=== PATIENT | male | born 1930 | race Caucasian/White ===

== ENCOUNTER 2017-05-30 11:44 | Inpatient (IN) | payer MEDICARE, OTHER ==
[2017-05-30] VITALS (9 sets, daily range): BP systolic 87–118; BP diastolic 58–93
[~2017-05-30] VITALS: Ht 182.9 cm; Wt 70.9 kg
[~2017-05-30 11:44] MED LIST: ASCO500C14 PO; CEPH500C PO; ENAL20TA; GARL1CAP7 PO; GARL400T13; METO-370 PO; METO50TA7; NF-ESOM40C; PROP1TAB77 PO; WARF-47 PO; WRF2T
[2017-05-30] MEDS ORDERED: NS IV 1000 ML 1,000 ML IV ONE ×2 (12:00→15:45)
[2017-05-30 12:11] LABS: BASOPHILS # (AUTO) 0.1 10^3/uL (0.0-0.1); BASOPHILS % (AUTO) 2 % (0-10); EOSINOPHILS % (AUTO) 1 % (0-10); LYMPHOCYTES # (AUTO) 1.3 X 10^3 (1.0-4.0); LYMPHOCYTES % (AUTO) 23 % (12-44); MEAN CORPUSCULAR HEMOGLOBIN 31 PG (25-34); MEAN CORPUSCULAR HGB CONC 33 G/DL (32-36); MEAN CORPUSCULAR VOLUME 94 FL (80-99); MEAN PLATELET VOLUME 10.2 FL (7.4-10.4); MONOCYTES # (AUTO) 0.9 X 10^3 (0.0-1.0); MONOCYTES % (AUTO) 16 % (0-12); NEUTROPHILS # (AUTO) 3.3 X 10^3 (1.8-7.8); NEUTROPHILS % (AUTO) 59 % (42-75); PLATELET COUNT 176 10^3/uL (130-400); RED BLOOD COUNT 4.11 10^6/uL (4.35-5.85); RED CELL DISTRIBUTION WIDTH 15.4 % (10.0-14.5); WHITE BLOOD COUNT 5.7 10^3/uL (4.3-11.0)
[2017-05-30 12:16] LABS: INR 1.8 (0.8-1.4); PROTHROMBIN TIME PATIENT 20.6 SEC (12.2-14.7)
[2017-05-30 12:26] LABS: ALANINE AMINOTRANSFERASE 11 U/L (0-55); ALBUMIN 3.6 GM/DL (3.2-4.5); ANION GAP 15 MMOL/L (5-14); ASPARTATE AMINO TRANSFERASE 18 U/L (5-34); BILIRUBIN,TOTAL 1.1 MG/DL (0.1-1.0); BLOOD UREA NITROGEN 16 MG/DL (7-18); BUN/CREATININE RATIO 11; CALCIUM 9.1 MG/DL (8.5-10.1); CARBON DIOXIDE 15 MMOL/L (21-32); CHLORIDE 106 MMOL/L (98-107); CREATININE SERUM 1.47 MG/DL (0.60-1.30); GFR ESTIMATED 46; GLUCOSE 128 MG/DL (70-105); MAGNESIUM 1.8 MG/DL (1.8-2.4); POTASSIUM 4.5 MMOL/L (3.6-5.0); SODIUM 136 MMOL/L (135-145); TOTAL PROTEIN 6.9 GM/DL (6.4-8.2)
[2017-05-30 12:31] LABS: TROPONIN I < 0.30 NG/ML (<0.30)
--- NOTE | 2017-05-30 12:44 | Diagnostic Imaging Report ---
EXAMINATION: Portable upright radiograph of the chest. INDICATION: Weakness. COMPARISON: 03/19/12 FINDINGS: The lungs are hyperinflated with chronic appearing interstitial thickening and possible component of superimposed vascular congestion. The heart size is moderately enlarged. No significant effusion. No pneumothorax. IMPRESSION: COPD. Cardiomegaly with mild vascular congestion. Dictated by: Dictated on workstation # [id number]
--- NOTE | 2017-05-30 12:54 | ED General ---
General Chief Complaint: Trauma-Non Activation Stated Complaint: WEAKNESS Nursing Triage Note: SEE TRIAGE NOTE. Nursing Sepsis Screen: No Definite Risk Source of Information: Patient, Family Exam Limitations: No Limitations History of Present Illness Time Seen by Provider: 11:47 Initial Comments This 86-year-old gentleman presents to the emergency room after having a fall while pulling garlic. He had a prodrome of dizziness before falling and then could not get up. There was no loss of consciousness. His female fire fighting equipment specialist eventually got him to the car and brought him to the emergency room. The time of fall was around 10:30. He is noted to be febrile with a temperature of 100.6 on arrival. He has some minor skin tears and bruising on the extremities and chin. He takes warfarin for atrial fibrillation. He is mildly tachycardic on assessment. He reports feeling bloated on his face and arms but otherwise feels fine. He reports just coming off of antibiotics for a bladder infection. Dr. Fernandez is his primary care provider. He cannot recall who his medical billing coder is. Patient reports he was previously on metoprolol but discontinued it for unexplained reasons. Patient poorly has also seen Dr. Hernandez due to prostate and urethral problems. He reportedly had a urethral or penile stent placed. Patient denies any chest pain or shortness of breath. Allergies and Home Medications Allergies Coded Allergies: No Known Drug Allergies (Verified , 11/22/09) Home Medications No Active Prescriptions or Reported Meds Constitutional: see HPI, fever EENTM: see HPI Respiratory: no symptoms reported Cardiovascular: no symptoms reported Gastrointestinal: no symptoms reported Genitourinary: see HPI Musculoskeletal: see HPI Skin: see HPI Psychiatric/Neurological: See HPI Hematologic/Lymphatic: No Symptoms Reported Past Tzpwdln-Qjzlla-Vpxqic Hx Patient Social History Alcohol Use: Denies Use Recreational Drug Use: No Smoking Status: Never a Smoker Former Smoker/When Quit: Feb 06, 2001 Recent Foreign Travel: No Contact w/Someone Who Travel: No Recent Infectious Disease Expo: No Immunizations Up To Date Tetanus Booster (TDap): Less than 5yrs PED Vaccines UTD: Yes Surgeries HX Surgeries: Yes (penile or urethral stent placement) Surgeries: Prostatectomy, Renal Respiratory Hx Respiratory Disorders: No Cardiovascular Hx Cardiac Disorders: Yes Cardiac Disorders: Atrial Fibrillation, Hypertension Neurological Hx Neurological Disorders: No Reproductive System Hx Reproductive Disorders: No Sexually Transmitted Disease: No HIV/AIDS: No Genitourinary Hx Genitourinary Disorders: Yes Genitourinary Disorders: Kidney Stones Gastrointestinal Hx Gastrointestinal Disorders: Yes Gastrointestinal Disorders: Gastroesophageal Reflux Musculoskeletal Hx Musculoskeletal Disorders: No Endocrine Hx Endocrine Disorders: No HEENT HX ENT Disorders: Yes HEENT Disorders: Cataract Loss of Vision: Denies Hearing Impairment: Hard of Hearing Cancer Hx Cancer: Yes Cancer: Skin Psychosocial Hx Psychiatric Problems: No Integumentary HX Skin/Integumentary Disorder: No Blood Transfusions Hx Blood Disorders: No Adverse Reaction to a Blood Tr: No Family Medical History Family Medial History: Patient reports no known family medical history. Physical Exam Vital Signs Vital Sign - Last 12Hours 05/30/17 05/30/17 05/30/17 11:45 14:37 15:20 Temp 100.6 Pulse 114 Resp 18 B/P (MAP) 105/74 Pulse Ox 98 O2 Delivery Room Air Capillary Refill : Less Than 3 Seconds General Appearance: No Apparent Distress, WD/WN HEENT: PERRL/EOMI, TMs Normal, Pharynx Normal, Other (abrasion to the chin) Neck: Normal Inspection, Non Tender, Supple Respiratory: Lungs Clear, Normal Breath Sounds, No Accessory Muscle Use, No Respiratory Distress Cardiovascular: No Edema, No Murmur, Irregularly Irregular, Tachycardia Gastrointestinal: Normal Bowel Sounds, Non Tender, Soft Extremity: Normal Capillary Refill, Normal Inspection, Non Tender Neurologic/Psychiatric: Alert, Oriented x3, No Motor/Sensory Deficits, Normal Mood/Affect, gate agent II-XII Norm as Tested Skin: Warm/Dry, Erythema (bruising on extremities), Other (mild skin tears on the upper extremities) Progress/Results/Core Measures Results/Orders Lab Results Laboratory Tests Test 05/30/17 11:53 05/30/17 12:59 05/30/17 14:30 Range/Units White Blood Count 5.7 4.3-11.0 10^3/uL Red Blood Count 4.11 L 4.35-5.85 10^6/uL Hemoglobin 12.6 L 13.3-17.7 G/DL Hematocrit 39 L 40-54 % Mean Corpuscular Volume 94 80-99 FL Mean Corpuscular Hemoglobin 31 25-34 PG Mean Corpuscular Hemoglobin Concent 33 32-36 G/DL Red Cell Distribution Width 15.4 H 10.0-14.5 % Platelet Count 176 130-400 10^3/uL Mean Platelet Volume 10.2 7.4-10.4 FL Neutrophils (%) (Auto) 59 42-75 % Lymphocytes (%) (Auto) 23 12-44 % Monocytes (%) (Auto) 16 H 0-12 % Eosinophils (%) (Auto) 1 0-10 % Basophils (%) (Auto) 2 0-10 % Neutrophils # (Auto) 3.3 1.8-7.8 X 10^3 Lymphocytes # (Auto) 1.3 1.0-4.0 X 10^3 Monocytes # (Auto) 0.9 0.0-1.0 X 10^3 Eosinophils # (Auto) 0.0 0.0-0.3 10^3/uL Basophils # (Auto) 0.1 0.0-0.1 10^3/uL Prothrombin Time 20.6 H 12.2-14.7 SEC INR Comment 1.8 H 0.8-1.4 Sodium Level 136 135-145 MMOL/L Potassium Level 4.5 3.6-5.0 MMOL/L Chloride Level 106 98-107 MMOL/L Carbon Dioxide Level 15 L 21-32 MMOL/L Anion Gap 15 H 5-14 MMOL/L Blood Urea Nitrogen 16 7-18 MG/DL Creatinine 1.47 H 0.60-1.30 MG/DL Estimat Glomerular Filtration Rate 46 BUN/Creatinine Ratio 11 Glucose Level 128 H 70-105 MG/DL Calcium Level 9.1 8.5-10.1 MG/DL Magnesium Level 1.8 1.8-2.4 MG/DL Total Bilirubin 1.1 H 0.1-1.0 MG/DL Aspartate Amino Transf (AST/SGOT) 18 5-34 U/L Alanine Aminotransferase (ALT/SGPT) 11 0-55 U/L Alkaline Phosphatase 60 40-136 U/L Troponin I < 0.30 <0.30 NG/ML Total Protein 6.9 6.4-8.2 GM/DL Albumin 3.6 3.2-4.5 GM/DL Urine Color YELLOW Urine Clarity SLIGHTLY CLOUDY Urine pH 5 5-9 Urine Specific [place] 1.020 1.016-1.022 Urine Protein 2+ H NEGATIVE Urine Glucose (UA) NEGATIVE NEGATIVE Urine Ketones 1+ H NEGATIVE Urine Nitrite NEGATIVE NEGATIVE Urine Bilirubin NEGATIVE NEGATIVE Urine Urobilinogen 4 H NORMAL MG/DL Urine Leukocyte Esterase 2+ H NEGATIVE Urine RBC (Auto) 4+ H NEGATIVE Urine RBC 2-5 H /HPF Urine WBC 5-10 H /HPF Urine Squamous Epithelial Cells RARE /HPF Urine Crystals PRESENT H /LPF Urine Uric Acid Crystals FEW H /LPF Urine Bacteria TRACE /HPF Urine Casts PRESENT /LPF Urine Hyaline Casts 5-10 H /LPF Urine Mucus SMALL H /LPF Urine Culture Indicated YES Lactic Acid Level 1.67 0.50-2.00 MMOL/L My Orders Orders - MARCELO SNOW MD Ct Head/Cervical Spine Wo (05/30/17 12:00) Saline Lock/Iv-Start (05/30/17 12:00) Ekg Tracing (05/30/17 12:00) Monitor-Rhythm Ecg Trace Only (05/30/17 12:00) Cbc With Automated Diff (05/30/17 12:00) Comprehensive Metabolic Panel (05/30/17 12:00) Magnesium (05/30/17 12:00) Troponin I (05/30/17 12:00) Ua Culture If Indicated (05/30/17 12:00) Chest 1 View, Ap/Pa Only (05/30/17 12:00) Protime With Inr (05/30/17 12:00) Ns Iv 1000 Ml (Sodium Chloride 0.9%) (05/30/17 12:00) Urine Culture (05/30/17 12:59) Sodium Chloride (Ad... W/Diltiazem Drip (05/30/17 14:00) Ns Iv 500 Ml (Sodium Chloride 0.9%) (05/30/17 13:50) Ceftriaxone Injection (Rocephin Injectio (05/30/17 14:00) Acetaminophen Tablet (Tylenol Tablet) (05/30/17 14:00) Blood Culture (05/30/17 14:04) Lactic Acid Analyzer (05/30/17 14:04) Medications Given in ED Current Medications Medications Dose Ordered Sig/Kory Route Start Time Stop Time Status Last Admin Dose Admin Acetaminophen 1,000 mg ONCE ONCE PO 05/30/17 14:00 05/30/17 14:01 DC 05/30/17 14:08 1,000 MG Ceftriaxone Sodium 1000 mg/ Sodium Chloride 50 ml @ 100 mls/hr ONCE ONCE IV 05/30/17 14:00 05/30/17 14:29 DC 05/30/17 14:43 100 MLS/HR Sodium Chloride 500 ml @ 0 mls/hr Q0M ONCE IV 05/30/17 13:50 05/30/17 13:52 DC 05/30/17 14:09 500 MLS/HR Sodium Chloride 1,000 ml @ 0 mls/hr Q0M ONCE IV 05/30/17 12:00 05/30/17 12:04 DC 05/30/17 12:22 1,000 MLS/HR Vital Signs/I&O Vital Sign - Last 12Hours 05/30/17 05/30/17 05/30/17 05/30/17 11:45 14:01 14:37 15:20 Temp 100.6 98.0 Pulse 114 100 Resp 18 18 B/P (MAP) 105/74 100/71 Pulse Ox 98 05/30/17 05/30/17 05/30/17 15:20 17:24 18:04 Temp 98.0 97.1 97.7 Pulse 85 Resp 14 B/P (MAP) 96/75 Pulse Ox 100 O2 Delivery Room Air Blood Pressure Mean: 84 Progress Note : Time: 13:55 Progress Note Patient's tachycardia did not improve with a liter of IV hydration. Patient remains in atrial fibrillation. UA has now returned and is suggestive of urinary tract infection. Sepsis is now suspected. Blood cultures and lactic acid will be drawn. Rocephin has been ordered. An additional 500 mL of normal saline has been ordered as his last systolic blood pressure was 90. Cardizem drip will be initiated at 10 mg per hour. Tylenol was ordered. Presence of true sepsis is debatable as patient also has tachycardia related to atrial fibrillation and is felt to be hypovolemic from being outside in hot conditions. His urine also suggest hypovolemia with hyalin casts and positive ketones. If the lactic acid is markedly elevated, condition may be upgraded to severe sepsis. ECG Initial ECG Impression Date: May 30, 2017 Initial ECG Impression Time: 12:09 Initial ECG Rate: 111 Initial ECG Rhythm: A Fib/Flutter Comment Atrial fibrillation with rapid ventricular response. Repolarization abnormality in lateral leads. Diagnostic Imaging Diagonstic Imaging: Xray Plain Films/CT/US/NM/MRI: chest Comments Chest x-ray viewed by me and report reviewed. See report below: NAME: INDIRA TODD [facility] REC#: [id number] PT STATUS: REG ER : 1930 PHYSICIAN: MARCELO SNOW MD ADMIT DATE: 05/30/17/ER Draft Date of Exam:05/30/17 CHEST 1 VIEW, AP/PA ONLY EXAMINATION: Portable upright radiograph of the chest. INDICATION: Weakness. COMPARISON: 03/19/12 FINDINGS: The lungs are hyperinflated with chronic appearing interstitial thickening and possible component of superimposed vascular congestion. The heart size is moderately enlarged. No significant effusion. No pneumothorax. IMPRESSION: COPD. Cardiomegaly with mild vascular congestion. Dictated on workstation # [id number] Dict: 05/30/17 1236 Trans: 05/30/17 1244 [facility] [id number] Interpreted by: ARYAN STAPLETON MD Electronically signed by: Diagonstic Imaging: CT Plain Films/CT/US/NM/MRI: c-spine, head Comments CT head and cervical spine viewed by me and report reviewed. See report below: NAME: INDIRA TODD [facility] REC#: [id number] PT STATUS: REG ER : 1930 PHYSICIAN: MARCELO SNOW MD ADMIT DATE: 05/30/17/ER Draft Date of Exam:05/30/17 CT HEAD/CERVICAL SPINE WO PROCEDURE: CT head and CT cervical spine without contrast. TECHNIQUE: Multiple contiguous axial images were obtained through the brain and cervical spine without the use of intravenous contrast. Sagittal and coronal reformations through the cervical spine were then performed. INDICATION: Weakness. Fall. FINDINGS: CT HEAD: There is no intracranial hemorrhage, edema or mass effect. The brain parenchyma demonstrates periventricular and deep white matter hypodensities compatible with chronic microvascular ischemic changes. There are also hypodense subcentimeter lesions in the basal ganglia seen likely related to lacunar infarcts. There is no hydrocephalus. No extra-axial fluid collection is seen. There is mild age-related brain atrophy which appears more prominent in the parietal regions. CT CERVICAL SPINE: There is a minimal posterior translation of C4 over C5 up to 2 mm. The alignment otherwise satisfactory at the posterior spinal line, and the facet joints. There is also satisfactory alignment of the lateral masses of C1 and C2 and atlantooccipital joints. No pre-dental space widening is seen. There are degenerative changes at this level noted, however. There are also prominent degenerative changes at the facet joints at multiple levels. Moderate stenosis in the left C3/C4 foramen is seen. Otherwise, the foramina demonstrate no high-grade stenosis at other levels. No evidence of significant spinal canal stenosis based on this CT without intrathecal contrast. The prevertebral soft tissues appear grossly unremarkable. Emphysema changes in the lung apices are seen. IMPRESSION: CT HEAD: Mild brain atrophy more prominent to the parietal regions, probably age-related. Chronic microvascular white matter ischemic changes are also suggested. No intracranial hemorrhage. CT CERVICAL SPINE: Prominent degenerative changes. No fracture seen. Dictated on workstation # [id number] Dict: 05/30/17 1251 Trans: 05/30/17 1314 [facility] [id number] Interpreted by: ARYAN STAPLETON MD Departure Communication Time/Spoke to Admitting Phy: 14:[address] Sherwood Time/Spoke to Consulting Physi: 13:55 Communication/Consulting Dr. Wisdom Impression Impression: Primary Impression: Atrial fibrillation with rapid ventricular response Additional Impressions: Sepsis Qualified Codes: A41.9 - Sepsis, unspecified organism Urinary tract infection Qualified Codes: N39.0 - Urinary tract infection, site not specified Fall on same level Qualified Codes: W18.30XA - Fall on same level, unspecified, initial encounter Acute kidney injury Disposition: ADMITTED INPATIENT Condition: Improved Decision to Admit Reason: Admit from ER (General) Decision to Admit/Date: May 30, 2017 Time/Decision to Admit Time: 13:50 Departure-Patient Inst. Referrals: CIRO FERNANDEZ MD (PCP/Family) Primary Care Physician Scripts No Active Prescriptions or Reported Meds Copy Copies To 1: CIRO FERNANDEZ MD, JOSHUA T MD May 30, 2017 12:54
[2017-05-30 13:06] LABS: BILIRUBIN,URINE NEGATIVE (NEGATIVE); KETONES,URINE 1+ (NEGATIVE); LEUKOCYTE ESTERASE ,URINE 2+ (NEGATIVE); NITRITE,URINE NEGATIVE (NEGATIVE); PH,URINE 5 (5-9); PROTEIN,URINE 2+ (NEGATIVE); UROBILINOGEN,URINE 4 MG/DL (NORMAL)
--- NOTE | 2017-05-30 13:15 | Diagnostic Imaging Report ---
PROCEDURE: CT head and CT cervical spine without contrast. TECHNIQUE: Multiple contiguous axial images were obtained through the brain and cervical spine without the use of intravenous contrast. Sagittal and coronal reformations through the cervical spine were then performed. INDICATION: Weakness. Fall. FINDINGS: CT HEAD: There is no intracranial hemorrhage, edema or mass effect. The brain parenchyma demonstrates periventricular and deep white matter hypodensities compatible with chronic microvascular ischemic changes. There are also hypodense subcentimeter lesions in the basal ganglia seen likely related to lacunar infarcts. There is no hydrocephalus. No extra-axial fluid collection is seen. There is mild age-related brain atrophy which appears more prominent in the parietal regions. CT CERVICAL SPINE: There is a minimal posterior translation of C4 over C5 up to 2 mm. The alignment otherwise satisfactory at the posterior spinal line, and the facet joints. There is also satisfactory alignment of the lateral masses of C1 and C2 and atlantooccipital joints. No pre-dental space widening is seen. There are degenerative changes at this level noted, however. There are also prominent degenerative changes at the facet joints at multiple levels. Moderate stenosis in the left C3/C4 foramen is seen. Otherwise, the foramina demonstrate no high-grade stenosis at other levels. No evidence of significant spinal canal stenosis based on this CT without intrathecal contrast. The prevertebral soft tissues appear grossly unremarkable. Emphysema changes in the lung apices are seen. IMPRESSION: CT HEAD: Mild brain atrophy more prominent in the parietal regions, probably age-related. Chronic microvascular white matter ischemic changes are also suggested. No intracranial hemorrhage. CT CERVICAL SPINE: Prominent degenerative changes. No fracture seen. Dictated by: Dictated on workstation # [id number]
[2017-05-30 13:28] LABS: SQUAMOUS EPITHELIAL CELL,UR RARE /HPF; URIC ACID CRYSTALS,URINE FEW /LPF
[2017-05-30] MEDS ORDERED: NS IV 500 ML 500 ML IV ONE (13:50)
[2017-05-30] MEDS ORDERED: DILTIAZEM DRIP 100 MG in SODIUM CHLORIDE (ADD-VANTAGE) 100 ML IV SCH (14:00)
[2017-05-30] MEDS ORDERED: cefTRIAXone INJECTION 1,000 MG in NS (IVPB) 50 ML IV ONE (14:00)
[2017-05-30] MEDS ORDERED: ACETAMINOPHEN 500 MG TAB (TYLENOL) PO ONE (14:00)
[2017-05-30] MEDS ORDERED: CATHETER FLUSH 10 ML SYR IV PRN (15:45)
[2017-05-30] MEDS: DILTIAZEM DRIP 100 MG/NS 100 ML IV SCH ×2 (15:50)
--- NOTE | 2017-05-30 16:27 | Consultation-Cardiology ---
HPI-Cardiology Cardiology Consultation Date of Consultation 05/30/17 Date of Admission Time Seen by Provider: 16:21 Indication: atrial fibrillation HPI 86 years old gentleman with history of what appeared to be permanent atrial fibrillation, had episode of atrial fibrillation in 2008 and 2013. Was in his usual state of health until about last week when he started noticing change in the color of his urine, denied any burning on urination, denied any fever or chills. Today he felt lightheaded and dizzy and fell to the floor but did not have any syncope. Did not have any chest pain, shortness of breath, edema. Upon arrival to the emergency room he was noted to be in atrial fibrillation with rapid ventricular response in addition to having urinary tract infection, started on antibiotic and Cardizem drip. Laying down in bed, feeling better at this time. Home Medications & Allergies Allergies: Coded Allergies: No Known Drug Allergies (Verified , 11/22/09) Home Medication List Reviewed: Yes VJU-Bvkbcj-Polgre Hx Patient Social History Marital Status: Employed/Student: retired Alcohol Use: Denies Use Recreational Drug Use: No Smoking Status: Never a Smoker Former smoker/When Quit: Feb 06, 2001 Recent Foreign Travel: No Recent Infectious Disease Expo: No Immunizations Up To Date Tetanus Booster (TDap): Less than 5yrs Past Medical History paroxysmal atrial fibrillation Family Medical History Family Medical Hx noncontributory to his current condition Family History: Patient reports no known family medical history. Constitutional: see HPI, No chills, No diaphoresis, dizziness, No fever, malaise, weakness, No weight gain, No weight loss, No other EENTM: no symptoms reported, see HPI Respiratory: no symptoms reported, see HPI Cardiovascular: no symptoms reported, see HPI Gastrointestinal: no symptoms reported, see HPI Genitourinary: no symptoms reported, see HPI Musculoskeletal: see HPI, joint pain, muscle pain Skin: no symptoms reported, see HPI Psychiatric/Neurological: No Symptoms Reported, See HPI Reviewed Test Results Reviewed Test Results Lab Laboratory Tests Test 05/30/17 11:53 05/30/17 12:59 05/30/17 14:30 Range/Units White Blood Count 5.7 4.3-11.0 10^3/uL Red Blood Count 4.11 L 4.35-5.85 10^6/uL Hemoglobin 12.6 L 13.3-17.7 G/DL Hematocrit 39 L 40-54 % Mean Corpuscular Volume 94 80-99 FL Mean Corpuscular Hemoglobin 31 25-34 PG Mean Corpuscular Hemoglobin Concent 33 32-36 G/DL Red Cell Distribution Width 15.4 H 10.0-14.5 % Platelet Count 176 130-400 10^3/uL Mean Platelet Volume 10.2 7.4-10.4 FL Neutrophils (%) (Auto) 59 42-75 % Lymphocytes (%) (Auto) 23 12-44 % Monocytes (%) (Auto) 16 H 0-12 % Eosinophils (%) (Auto) 1 0-10 % Basophils (%) (Auto) 2 0-10 % Neutrophils # (Auto) 3.3 1.8-7.8 X 10^3 Lymphocytes # (Auto) 1.3 1.0-4.0 X 10^3 Monocytes # (Auto) 0.9 0.0-1.0 X 10^3 Eosinophils # (Auto) 0.0 0.0-0.3 10^3/uL Basophils # (Auto) 0.1 0.0-0.1 10^3/uL Prothrombin Time 20.6 H 12.2-14.7 SEC INR Comment 1.8 H 0.8-1.4 Sodium Level 136 135-145 MMOL/L Potassium Level 4.5 3.6-5.0 MMOL/L Chloride Level 106 98-107 MMOL/L Carbon Dioxide Level 15 L 21-32 MMOL/L Anion Gap 15 H 5-14 MMOL/L Blood Urea Nitrogen 16 7-18 MG/DL Creatinine 1.47 H 0.60-1.30 MG/DL Estimat Glomerular Filtration Rate 46 BUN/Creatinine Ratio 11 Glucose Level 128 H 70-105 MG/DL Calcium Level 9.1 8.5-10.1 MG/DL Magnesium Level 1.8 1.8-2.4 MG/DL Total Bilirubin 1.1 H 0.1-1.0 MG/DL Aspartate Amino Transf (AST/SGOT) 18 5-34 U/L Alanine Aminotransferase (ALT/SGPT) 11 0-55 U/L Alkaline Phosphatase 60 40-136 U/L Troponin I < 0.30 <0.30 NG/ML Total Protein 6.9 6.4-8.2 GM/DL Albumin 3.6 3.2-4.5 GM/DL Urine Color YELLOW Urine Clarity SLIGHTLY CLOUDY Urine pH 5 5-9 Urine Specific [place] 1.020 1.016-1.022 Urine Protein 2+ H NEGATIVE Urine Glucose (UA) NEGATIVE NEGATIVE Urine Ketones 1+ H NEGATIVE Urine Nitrite NEGATIVE NEGATIVE Urine Bilirubin NEGATIVE NEGATIVE Urine Urobilinogen 4 H NORMAL MG/DL Urine Leukocyte Esterase 2+ H NEGATIVE Urine RBC (Auto) 4+ H NEGATIVE Urine RBC 2-5 H /HPF Urine WBC 5-10 H /HPF Urine Squamous Epithelial Cells RARE /HPF Urine Crystals PRESENT H /LPF Urine Uric Acid Crystals FEW H /LPF Urine Bacteria TRACE /HPF Urine Casts PRESENT /LPF Urine Hyaline Casts 5-10 H /LPF Urine Mucus SMALL H /LPF Urine Culture Indicated YES Lactic Acid Level 1.67 0.50-2.00 MMOL/L Physical Exam Vital Signs Vital Sign - Last 12Hours 05/30/17 05/30/17 05/30/17 11:45 14:37 15:20 Temp 100.6 Pulse 114 Resp 18 B/P (MAP) 105/74 Pulse Ox 98 O2 Delivery Room Air Capillary Refill : Less Than 3 Seconds General Appearance: WD/WN, Mild Distress Eyes: Bilateral Eye EOMI, Bilateral Eye Normal Inspection, Bilateral Eye PERRL HEENT: PERRL/EOMI, TMs Normal, Normal ENT Inspection, Pharynx Normal Neck: Full Range of Motion, Normal Inspection, Non Tender, Supple, Carotid Bruit Respiratory: Chest Non Tender, Lungs Clear, Normal Breath Sounds, No Accessory Muscle Use, No Respiratory Distress Cardiovascular: No Edema, No Gallop, No JVD, No Murmur, Normal Peripheral Pulses, Irregularly Irregular, Tachycardia Gastrointestinal: Normal Bowel Sounds, No Organomegaly, No Pulsatile Mass, Non Tender, Soft Back: Normal Inspection, No CVA Tenderness, No Vertebral Tenderness Extremity: Normal Capillary Refill, Normal Inspection, Normal Range of Motion, Non Tender, No Calf Tenderness, No Pedal Edema Neurologic/Psychiatric: Alert, Oriented x3, No Motor/Sensory Deficits, Normal Mood/Affect Skin: Normal Color, Warm/Dry Lymphatic: No Adenopathy A/P-Cardiology Admission Diagnosis Atrial fibrillation Tachycardia Urinary tract infection Acute renal insufficiency Assessment/Plan Atrial fibrillation, most probably permanent atrial fibrillation, maintained on Coumadin as an outpatient, does not take any medication, currently tachycardic, started on Cardizem drip, I had a long discussion with the patient and his family. Discussed the 3R of atrial fibrillation, rhythm control, rate controlled, reducing the risk of stroke. Explained to the family that taking Coumadin would reduce the risk of stroke but does not effect the rhythm or rate. Using rhythm control medication is unlikely to be helpful at this time due to the fact that he has what appear to be permanent atrial fibrillation, I' ll try to achieve adequate rate control with IV fluid and Cardizem and monitor his tolerance and response. Dizziness and near-syncope, probably secondary to urinary tract infection and hypotension UTI, started on antibiotics, managed by primary care physician X Acute renal insufficiency, probably secondary to dehydration, receiving IV fluids, monitor renal function closely. Status post fall, no syncope was reported. MAX PÉREZ MD May 30, 2017 16:27
[2017-05-31] VITALS (18 sets, daily range): BP systolic 96–165; BP diastolic 60–118
[2017-05-31] MEDS: DILTIAZEM DRIP 100 MG/NS 100 ML IV SCH ×2 (03:27)
[2017-05-31 04:36] LABS: MEAN PLATELET VOLUME 10.5 FL (7.4-10.4); RED BLOOD COUNT 3.5 10^6/uL (4.35-5.85); RED CELL DISTRIBUTION WIDTH 15.4 % (10.0-14.5); WHITE BLOOD COUNT 5.3 10^3/uL (4.3-11.0)
[2017-05-31 05:08] LABS: ALANINE AMINOTRANSFERASE 11 U/L (0-55); ALBUMIN 2.9 GM/DL (3.2-4.5); ANION GAP 8 MMOL/L (5-14); ASPARTATE AMINO TRANSFERASE 23 U/L (5-34); BILIRUBIN,TOTAL 0.8 MG/DL (0.1-1.0); BLOOD UREA NITROGEN 14 MG/DL (7-18); BUN/CREATININE RATIO 13; CALCIUM 8.3 MG/DL (8.5-10.1); CARBON DIOXIDE 20 MMOL/L (21-32); CHLORIDE 109 MMOL/L (98-107); GFR ESTIMATED > 60; GLUCOSE 73 MG/DL (70-105); MAGNESIUM 1.8 MG/DL (1.8-2.4); POTASSIUM 3.9 MMOL/L (3.6-5.0); SODIUM 137 MMOL/L (135-145); TOTAL PROTEIN 5.5 GM/DL (6.4-8.2)
[2017-05-31 05:28] LABS: THYROID STIMULATING HORMONE 1.42 UIU/ML (0.35-4.94); TROPONIN I < 0.30 NG/ML (<0.30)
[2017-05-31] MEDS ORDERED: KCL 20 MEQ TAB (K-DUR) PO SCH (06:00)
[2017-05-31] MEDS ORDERED: POTASSIUM CL 10MEQ/50ML IVPB 50 ML IV SCH (06:00)
[2017-05-31] MEDS ORDERED: MAGNESIUM 1 GM/100 ML IVPB 100 ML IV SCH (06:00)
--- NOTE | 2017-05-31 07:25 | Pulmonary Consultation ---
History of Present Illness History of Present Illness Date of Consultation 05/31/17 07:20 Time Seen by Provider: 07:20 Date of Admission Reason for Visit: atrial fibrillation History of Present Illness 86yo with hx of Afib on coumadin presented to ED s/p fall secondary dizziness. Pt could not get up after falling. He did not loose consciousness. Temp in ED was 100.6. and he was recently on Abx for UTI which he just finished. Denies SOB or CP. Denies previous episodes like this. I am consulted for pulmonary/cc management. Thi Allergies and Home Medications Allergies Coded Allergies: No Known Drug Allergies (Verified , 11/22/09) Home Medications No Active Prescriptions or Reported Meds Past Fkpofmu-Vfwkcb-Rkpeth Hx Patient Social History Alcohol Use: Denies Use Recreational Drug Use: No Smoking Status: Former Smoker Type Used: Cigarettes Former Smoker/When Quit: Feb 06, 2001 Recent Foreign Travel: No Contact w/Someone Who Travel: No Recent Infectious Disease Expo: No Physical Abuse Screen: No Sexual Abuse: No Immunizations Up To Date Tetanus Booster (TDap): Less than 5yrs PED Vaccines UTD: Yes Date of Pneumonia Vaccine: May 30, 2016 Seasonal Allergies Seasonal Allergies: No Surgeries HX Surgeries: Yes (penile or urethral stent placement) Surgeries: Prostatectomy, Renal Respiratory Hx Respiratory Disorders: No Cardiovascular Hx Cardiac Disorders: Yes Cardiac Disorders: Atrial Fibrillation, Hypertension Neurological Hx Neurological Disorders: No Reproductive System Hx Reproductive Disorders: No Sexually Transmitted Disease: No HIV/AIDS: No Genitourinary Hx Genitourinary Disorders: Yes Genitourinary Disorders: Kidney Stones, UTI-Chronic Gastrointestinal Hx Gastrointestinal Disorders: Yes Gastrointestinal Disorders: Gastroesophageal Reflux Musculoskeletal Hx Musculoskeletal Disorders: No Musculoskeletal Disorders: Amputee Endocrine Hx Endocrine Disorders: No HEENT HX ENT Disorders: Yes HEENT Disorders: Cataract Loss of Vision: Denies Hearing Impairment: Hard of Hearing Cancer Hx Cancer: Yes Cancer: Skin Psychosocial Hx Psychiatric Problems: No Integumentary HX Skin/Integumentary Disorder: No Blood Transfusions Hx Blood Disorders: No Adverse Reaction to a Blood Tr: No Family Medical History Family Medial History: Cardiovascular disease 19 MOTHER G8 BROTHER G8 SISTER FH: lung cancer 19 FATHER Myocardial infarction G8 BROTHER G8 SISTER Review of Systems Time Seen by Provider: 07:35 Exam Exam Vital Signs Date Time Temp Pulse Resp B/P (MAP) Pulse Ox O2 Delivery O2 Flow Rate FiO2 05/31/17 06:00 80 11 112/79 Room Air 05/31/17 05:00 72 12 108/67 Room Air 05/31/17 04:00 89 13 116/70 87 Room Air 05/31/17 04:00 96 Room Air 05/31/17 04:00 97.2 05/31/17 03:27 80 05/31/17 03:00 74 14 115/69 95 Room Air 05/31/17 02:00 80 9 105/80 96 Room Air 05/31/17 01:00 70 05/31/17 01:00 70 12 96/65 95 Room Air 05/31/17 00:00 94 18 99/62 95 Room Air 05/31/17 00:00 97.9 05/31/17 00:00 96 Room Air 05/30/17 23:00 85 11 99/63 96 Room Air 05/30/17 22:00 81 14 89/68 96 Room Air 05/30/17 21:00 72 12 90/58 96 Room Air 05/30/17 20:21 98.0 05/30/17 20:00 75 15 87/66 96 Room Air 05/30/17 20:00 96 Room Air 05/30/17 19:00 77 21 92/61 96 Room Air 05/30/17 19:00 92 05/30/17 18:04 97.7 05/30/17 18:00 73 22 94/68 96 Room Air 05/30/17 17:24 97.1 05/30/17 17:00 97 30 118/93 98 Room Air 05/30/17 16:00 106 12 108/64 99 Room Air 05/30/17 15:20 Room Air 05/30/17 15:20 98.0 85 14 96/75 100 Room Air 05/30/17 15:20 98.0 05/30/17 14:37 100 18 98 05/30/17 14:01 100/71 05/30/17 11:45 100.6 114 18 105/74 I & O 05/31/17 07:00 Intake Total 1810 ml Output Total 550 ml Balance 1260 ml General Appearance: No Apparent Distress, WD/WN HEENT: PERRL/EOMI, TMs Normal, Pharynx Normal, Other (abrasion to the chin) Neck: Normal Inspection, Non Tender, Supple Respiratory: Lungs Clear, Normal Breath Sounds, No Accessory Muscle Use, No Respiratory Distress Cardiovascular: No Edema, No Murmur, Irregularly Irregular, Tachycardia Capillary Refill: Less Than 3 Seconds Extremity: Normal Capillary Refill, Normal Inspection, Non Tender Neurologic/Psychiatric: Alert, Oriented x3, No Motor/Sensory Deficits, Normal Mood/Affect, cask maker II-XII Norm as Tested Skin: Warm/Dry, Erythema (bruising on extremities), Other (mild skin tears on the upper extremities) Lymphatic: No Adenopathy Results Lab Laboratory Tests 05/30/17 11:53 05/31/17 03:46 Assessment/Plan Assessment/Plan Afib RVR -cardizem gtt -cardiology following -on coumadin Dizziness with s/p fall -head CT no acute change -fall precautions UTI -Continue Abx Rocephin GREGORY -IVF metabolic acidosis -IVF CXR and labs reviewed 254 Clinical Quality Measures DVT/VTE Risk/Contraindication: Risk Factor Score Per Nursin RFS Level Per Nursing on Admit: 2=Moderate GIAN LEE DO May 31, 2017 07:25
[2017-05-31] MEDS ORDERED: APIXABAN 5 MG (ELIQUIS) TABLET PO NR (09:54)
--- NOTE | 2017-05-31 10:04 | Cardiology Progress Note ---
Subjective Date Seen by Provider: May 31, 2017 Time Seen by Provider: 10:00 Subjective/Events-last exam Patient is in bed, feeling better, heart rate is better, no chest pain or shortness of breath Review of Systems General: No Chills, No Night Sweats, No Fatigue, No Malaise, No Appetite, No Other HEENT: No Head Aches, No Visual Changes, No Eye Pain, No Ear Pain, No Dysphasia , No Sinus Congestion, No Post Nasal Drip, No Sore Throat, No Other Pulmonary: No Dyspnea, No Cough, No Pleuritic Chest Pain, No Other Objective-Cardiology Exam Last Set of Vital Signs Vital Signs 05/31/17 05/31/17 06:00 08:00 Temp 97.7 Pulse 80 Resp 11 B/P (MAP) 112/79 Pulse Ox 95 O2 Delivery Room Air Capillary Refill : Less Than 3 Seconds I&O Bad tableGeneral: Alert, Oriented X3, Cooperative HEENT: Atraumatic, PERRLA Neck: Supple, No JVD, No Thyromegaly Lungs: Clear to Auscultation, Normal Air Movement Heart: Normal S1, Normal S2, No Murmurs, Other ( a fib) Abdomen: Normal Bowel Sounds, Soft, No Tenderness, No Hepatosplenomegaly, No Masses Extremities: No Clubbing, No Cyanosis, No Edema, Normal Pulses, No Tenderness/ Swelling Skin: No Rashes, No Breakdown, No Significant Lesion Neuro: Normal Gait, Normal Speech, Strength at 5/5 X4 Ext, Normal Tone, Sensation Intact Psych/Mental Status: Mental Status NL, Mood NL Results Lab Laboratory Tests 05/30/17 11:53 05/31/17 03:46 A/P-Cardiology Admission Diagnosis Atrial fibrillation Tachycardia Urinary tract infection Acute renal insufficiency Assessment/Plan Atrial fibrillation, most probably permanent atrial fibrillation, was not taking any meds as an outpatient, Heart rate is better on cardizem drip, I will start oral cardizem and Eliquis Dizziness and near-syncope, probably secondary to urinary tract infection and hypotension, feeling better UTI, started on antibiotics, managed by primary care physician Acute renal insufficiency, probably secondary to dehydration, better after IVF, continue to monitor Status post fall, no syncope was reported. Clinical Quality Measures DVT/VTE Risk/Contraindication: Risk Factor Score Per Nursin RFS Level Per Nursing on Admit: 2=Moderate MAX PÉREZ MD May 31, 2017 10:04
[2017-05-31] MEDS ORDERED: WARF-47 PO (10:38)
[2017-05-31] MEDS ORDERED: GARL10002 PO (10:38)
[2017-05-31] MEDS ORDERED: DILTIAZEM 120 MG (CARDIZEM CD) CAP PO NR (10:58)
--- NOTE | 2017-05-31 11:15 | History & Physical-Hospitalist ---
HPI History of Present Illness: HPI/Chief Complaint CC: AF with RVR, UTI, and sepsis HPI: This is an 86 [address] pt of [address] Fernandez's who presented to ER with SOB and confusion. Pt was found with the above. Pt was placed on the appropriate meds: abx and Cardizem drip. Cardiology consult is appreciated. Dr. Wisdom Review: Pt started on Khadijah director of product design: Dr. Wisdom is consulted SCDs Pt is DNR Cardizem changed to PO per Dr. Wisdom Patient Interview: Pt confirms PCP as Dr. Fernandez Pt's daughter asked if this incident could cause memory problems. I confirmed that as we age and with more illness, we can all develop memory loss. Pt's daughter states that he has been forgetful Physical exam stable Pt lives at home. Pt's daughter lives across the street and states that when he DCs, she will watch over him. Meds were discussed and pt was informed that he will stay a few more days. Pt's daughter states that he does not walk well and falls often. Pt does not use a walker. Pt's daughter him forgetting to take his meds Scribed by Carine Galindo under the direct supervision of Dr. Garcia. Source: patient Exam Limitations: no limitations Date Seen 05/31/17 Time Seen by Provider: 10:00 Attending Physician Gale Garcia DO PCP Jorje Fernandez MD Referring Physician Date of Admission May 30, 2017 at 14:01 Home Medications & Allergies Home Medications Reviewed patient Home Medication Reconciliation Form Allergies Allergies Coded Allergies No Known Drug Allergies ([id number]/[id number]/09) Past Ccmhsqj-Vtlllp-Vzfjfd Hx Patient Social History Marrital Status: Employed/Student: retired Alcohol Use: Denies Use Recreational Drug Use: No Smoking Status: Former Smoker Former smoker/When Quit: Feb 06, 2001 Type Used: Cigarettes Physical Abuse Screen: No Sexual Abuse: No Recent Foreign Travel: No Contact w/other who traveled: No Recent Infectious Disease Expo: No Immunizations Up To Date Tetanus Booster (TDap): Less than 5yrs Date of Pneumonia Vaccine: May 30, 2016 Seasonal Allergies Seasonal Allergies: No Surgeries HX Surgeries: Yes (penile or urethral stent placement) Surgeries: Prostatectomy, Renal Respiratory Hx Respiratory Disorders: No Cardiovascular Hx Cardiovascular Disorders: Yes Cardiac Disorders: Atrial Fibrillation, Hypertension Neurological Hx Neurological Disorders: Yes Neurological Disorders: Dementia Reproductive System Hx Reproductive Disorders: No Sexually Transmitted Disease: No HIV/AIDS: No Genitourinary Hx Genitourinary Disorders: Yes Genitourinary Disorders: Kidney Stones, UTI-Chronic Gastrointestinal Hx Gastrointestinal Disorders: Yes Gastrointestinal Disorders: Gastroesophageal Reflux Musculoskeletal Hx Musculoskeletal Disorders: No Musculoskeletal Disorders: Amputee Endocrine Hx Endocrine Disorders: No HEENT HX ENT Disorders: Yes HEENT Disorders: Cataract Loss of Vision: Denies Hearing Impairment: Hard of Hearing Cancer Hx Cancer: Yes Cancer: Skin Psychosocial Hx Psychiatric Problems: No Integumentary HX Skin/Integumentary Disorder: No Blood Transfusions Hx Blood Disorders: No Adverse Reaction to a Blood Tr: No Family Medical History Family Hx: Cardiovascular disease 19 MOTHER G8 BROTHER G8 SISTER FH: lung cancer 19 FATHER Myocardial infarction G8 BROTHER G8 SISTER Review of Systems Constitutional: see HPI, weakness EENTM: no symptoms reported Respiratory: no symptoms reported Cardiovascular: palpitations Gastrointestinal: no symptoms reported Genitourinary: no symptoms reported Musculoskeletal: no symptoms reported Skin: no symptoms reported Psychiatric/Neurological: No Symptoms Reported All Other Systems Reviewed Negative Unless Noted: Yes Physical Exam Physical Exam Vital Signs Vital Sign - Last 12Hours 05/30/17 05/30/17 11:45 14:37 Temp 100.6 Pulse 114 Resp 18 B/P (MAP) 105/74 Pulse Ox 98 Capillary Refill : Less Than 3 Seconds General Appearance: No Apparent Distress, WD/WN Eyes: Bilateral Eye Normal Inspection, Bilateral Eye PERRL HEENT: PERRL/EOMI, Normal ENT Inspection, Pharynx Normal Neck: Full Range of Motion, Normal Inspection, Non Tender, Supple, Carotid Bruit Respiratory: Chest Non Tender, Lungs Clear, Normal Breath Sounds, No Accessory Muscle Use, No Respiratory Distress Cardiovascular: No Edema, No Gallop, No JVD, No Murmur, Normal Peripheral Pulses, Irregularly Irregular Gastrointestinal: Normal Bowel Sounds, No Organomegaly, No Pulsatile Mass, Non Tender, Soft Back: Normal Inspection, No CVA Tenderness, No Vertebral Tenderness Extremity: Normal Capillary Refill, Normal Inspection, Normal Range of Motion, Non Tender, No Calf Tenderness, No Pedal Edema Neurologic/Psychiatric: Alert, No Motor/Sensory Deficits, Normal Mood/Affect, Other (poor recall, flat affect) Skin: Normal Color, Warm/Dry Lymphatic: No Adenopathy Results Results/Procedures Lab Laboratory Tests 05/30/17 11:53 05/31/17 03:46 Assessment/Plan Admission Diagnosis Assessment: Sepsis with atrial fibrillation with rapid ventricular response with UTI Multiple falls Obvious dementia with worsening Assessment and Plan Plan: ECHO PT eval ancillary services manager consult Rehab eval Monitor pt Tx to floor DNR Clinical Quality Measures DVT/VTE Risk/Contraindication: Risk Factor Score Per Nursin RFS Level Per Nursing on Admit: 2=Moderate GALE GARCIA DO May 31, 2017 11:15
--- NOTE | 2017-05-31 11:27 | Diagnostic Imaging Report ---
Portable upright radiograph of the chest. INDICATION: Heart failure. COMPARISON: 05/30/17. FINDINGS: There is moderate enlargement of the cardiac size. There is increased pulmonary vascular congestion. Background COPD changes are seen. No significant effusion. No pneumothorax. IMPRESSION: Cardiomegaly with increasing pulmonary vascular congestion. Dictated by: Dictated on workstation # [id number]
--- NOTE | 2017-05-31 13:36 | Physical Therapy Evaluation ---
PT Evaluation-General Medical Diagnosis Admission Date May 30, 2017 at 14:01 Medical Diagnosis: sepsis/UTI/A-Fib with RVR Onset Date: May 30, 2017 Therapy Diagnosis Therapy Diagnosis: generalized weakness Height/Weight Height (Feet): 6 Height (Inches): 0.00 Weight (Pounds): 160 Weight (Ounces): 0.0 Precautions Precautions/Isolations: Standard Precautions Referral Physician: Presley Reason for Referral: Evaluation/Treatment Medical History Pertinent Medical History: Atrial Fib, GERD, HTN Additional Medical History A-fib with RVR Current History fall while pulling wild garlic Reviewed History: Yes Social History Home: Single Level Current Living Status: Alone Entry Into Home: Stairs With Railing PT Steps Into Home: 3 Prior/Core FIM Prior Level of Function Functional [place] Measure 0=Not Assessed/NA 4=Minimal Assistance 1=Total Assistance 5=Supervision or Setup 2=Maximal Assistance 6=Modified [place] 3=Moderate Assistance 7=Complete [place] Bed Mobility: 7 Transfers (B,C,W/C) (FIM): 7 Gait: 7 daughter lives across the street per patient report PT Evaluation-Current Subjective Patient is very agreeable to participate with PT. Pain Numeric Pain Scale: 0-No Pain Location: No Pain Reported Objective Patient Orientation: Normal For Age Problem Solving: Good telemetry ROM/Strength ROM Lower Extremities bilateral LE WNL Strenght Lower Extremities bilateral LE WNL Integumentary/Posture Integumentary refer to nursing notes Bowel Incontinence: Yes Bladder Incontinence: Yes Posture slightly kyphotic Neuromuscular (Tone, Coordination, Reflexes) slightly diminished coordination with FWW use (1st time use) Sensory Vision: Functional Hearing: Impaired Sensation Right Lower Extremit: Intact Sensation Left Lower Extremity: Intact Transfers Functional [place] Measure 0=Not Assessed/NA 4=Minimal Assistance 1=Total Assistance 5=Supervision or Setup 2=Maximal Assistance 6=Modified [place] 3=Moderate Assistance 7=Complete [place] Transfers (B, C, W/C) (FIM): 5 Scootin Rollin Supine to/from Sit: 5 Sit to/from Stand: 5 Gait Mode of Locomotion: Walk Anticipated Mode of Locomotion: Walk Gait (FIM): 5 Distance (FIM): 3=150 ft Distance: 400' Gait Level of Assist: 5 Gait Assistive Device: FWW Comments/Gait Description 10% skilled verbal instruction for FWW use due to 1st time use. Patient demonstrated functional gait sequence and reciprocal pattern with ambulation. Balance Sitting Static: Normal Sitting Dynamic: Normal Standing Static: Normal Standing Dynamic: Normal Assessment/Needs 86 y.o. male, will benefit from short term skilled PT to address functional strength and mobility to improve current LOF. Patient is incontinent urine and BM on this date and, per patient, this is "not normal". RN reports patient has been incontinent both since admission. Rehab Potential: Good PT Skilled Nursing Goals Skilled Nursing Goals PT Skilled Nursing Goals Time Frame: Jun 07, 2017 Transfers (B,C,W/C) (FIM): 6 Gait (FIM): 6 Gait distance (FIM): 3=150 ft Gait Level of Assist: 6 Gait Assistive Device: None, FWW Stairs (FIM): 2 # of Steps: 3 Stairs Level Of Assist: 5 PT Plan Treatment/Plan Treatment Plan: Continue Plan of Care Treatment Plan: Education, Functional Activity Ailyn, Functional Strength, Gait , Safety, Therapeutic Exercise Treatment Duration: Jun 07, 2017 Frequency: 6 times per week Estimated Hrs Per Day: .5 hour per day (PRN) Patient and/or Family Agrees t: Yes Safety Risks/Education Patient Education: Safety Issues Teaching Recipient: Patient Teaching Methods: Discussion Response to Teaching: Verbalize Understanding Discharge Recommendations Therapy D/C Recommendations: Home w/ Family Support, Physical Therapy Home Care Time/GCodes Time In: 1300 Time Out: 1323 Total Billed Treatment Time: 23 Total Billed Treatment 1 visit EVLowC 23 min G Codes Necessary: JACIEL Bullock PT May 31, 2017 13:36
[2017-05-31] MEDS: APIXABAN 5 MG (ELIQUIS) TABLET PO SCH (20:58)
[2017-06-01 03:15] VITALS: BP 121/80
[2017-06-01 05:10] LABS: INR 2.7 (0.8-1.4); PROTHROMBIN TIME PATIENT 28.5 SEC (12.2-14.7)
[2017-06-01 07:45] VITALS: BP 138/96
[2017-06-01] MEDS ORDERED: DILTIAZEM 120 MG (CARDIZEM CD) CAP PO SCH (09:00)
[2017-06-01] MEDS: APIXABAN 5 MG (ELIQUIS) TABLET PO SCH (09:27)
--- NOTE | 2017-06-01 10:23 | Cardiology Progress Note ---
Subjective Date Seen by Provider: Jun 01, 2017 Time Seen by Provider: 10:20 Subjective/Events-last exam patient is laying down in bed, feeling slightly better, denied any chest pain, no shortness of breath, no palpitation. Review of Systems General: No Chills, No Night Sweats, No Fatigue, No Malaise, No Appetite, No Other HEENT: No Head Aches, No Visual Changes, No Eye Pain, No Ear Pain, No Dysphasia , No Sinus Congestion, No Post Nasal Drip, No Sore Throat, No Other Pulmonary: No Dyspnea, No Cough, No Pleuritic Chest Pain, No Other Cardiovascular: No: Chest Pain, Edema, Lt Headedness, Orthopnea, Other, Palpitations, Paroxysmal Noc. Dyspnea Objective-Cardiology Exam Last Set of Vital Signs Vital Signs 06/01/17 07:45 Temp 98.0 Pulse 93 Resp 16 B/P (MAP) 138/96 Pulse Ox 96 O2 Delivery Room Air Capillary Refill : Less Than 3 Seconds I&O Intake and Output 06/01/17 00:00 Intake Total 1180 ml Output Total 1150 ml Balance 30 ml Intake Oral 1130 ml IV Total 50 ml Output Urine Total 1150 ml # Voids 1 # Bowel Movements 5 General: Alert, Oriented X3, Cooperative HEENT: Atraumatic, PERRLA Neck: Supple, No JVD, No Thyromegaly Lungs: Clear to Auscultation, Normal Air Movement Heart: Normal S1, Normal S2, No Murmurs, Other ( a fib) Abdomen: Normal Bowel Sounds, Soft, No Tenderness, No Hepatosplenomegaly, No Masses Extremities: No Clubbing, No Cyanosis, No Edema, Normal Pulses, No Tenderness/ Swelling Skin: No Rashes, No Breakdown, No Significant Lesion Neuro: Normal Gait, Normal Speech, Strength at 5/5 X4 Ext, Normal Tone, Sensation Intact Psych/Mental Status: Mental Status NL, Mood NL Results Lab Laboratory Tests Test 06/01/17 04:00 Range/Units Prothrombin Time 28.5 H 12.2-14.7 SEC INR Comment 2.7 H 0.8-1.4 A/P-Cardiology Admission Diagnosis Atrial fibrillation Tachycardia Urinary tract infection Acute renal insufficiency Assessment/Plan Atrial fibrillation, most probably permanent atrial fibrillation, was not taking any meds as an outpatient, tolerating oral Cardizem and Eliquis well. 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 I discussed with the family and the patient the management plan I recommended conservative management due to his age and comorbid condition. Generalized weakness, multiple falls, start physical therapy. Dizziness and near-syncope, probably secondary to urinary tract infection and hypotension, feeling better UTI, streated with antibiotics and improved. Continue to monitor Acute renal insufficiency, probably secondary to dehydration, better after IVF, continue to monitor Clinical Quality Measures DVT/VTE Risk/Contraindication: Risk Factor Score Per Nursin RFS Level Per Nursing on Admit: 2=Moderate MAX PÉREZ MD Jun 01, 2017 10:23
--- NOTE | 2017-06-01 10:48 | Discharge Summary-Hospitalist ---
Diagnosis/Chief Complaint Date of Admission May 30, 2017 at 14:01 Date of Discharge Admission Diagnosis Assessment: Sepsis with atrial fibrillation with rapid ventricular response with UTI Multiple falls Obvious dementia with worsening Discharge Diagnosis Assessment: Sepsis with atrial fibrillation with rapid ventricular response with UTI Multiple falls Obvious dementia with worsening Plan: ECHO PT eval office services associate consult Rehab eval Monitor pt Tx to floor DNR Reason Hospital Visit/Course CC: AF with RVR, UTI, and sepsis HPI: This is an 86 [address]WM pt of [address] Fernandez's who presented to ER with SOB and confusion. Pt was found with the above. Pt was placed on the appropriate meds: abx and Cardizem drip. Cardiology consult is appreciated. Dr. Wisdom Review: Pt started on Eliquis ocular care technician: Dr. Wisdom is consulted SCDs Pt is DNR Cardizem changed to PO per Dr. Wisdom Patient Interview: Pt confirms PCP as Dr. Fernandez Pt's daughter asked if this incident could cause memory problems. I confirmed that as we age and with more illness, we can all develop memory loss. Pt's daughter states that he has been forgetful Physical exam stable Pt lives at home. Pt's daughter lives across the street and states that when he DCs, she will watch over him. Meds were discussed and pt was informed that he will stay a few more days. Pt's daughter states that he does not walk well and falls often. Pt does not use a walker. Pt's daughter him forgetting to take his meds Scribed by Carine Galindo under the direct supervision of Dr. Garcia. Note from 06/01/17: Patient doing very well and is up ambulating with a walker and doing well He was to go home Cardiology agrees to plan Urine culture no growth to date Cardiology was gracious enough to send in anticoagulation with pediatric social worker giving coupon in addition to rate control med No fever, vital signs stable, pleasant, improved Regular rate and rhythm, clear to auscultation bilaterally No edema Hospital course: Patient had a brief hospital course he was admitted for a 2 for ablation with rapid ventricular response and UTI but urine culture was no growth to date at time of discharge so Rocephin was discontinued. Cardiology manage the patient conservatively on medication and he will need home health and walker order which were set up with pediatric social worker and patient will be discharged in good condition. Discharge Summary Discharge Physical Examination Allergies: Coded Allergies: No Known Drug Allergies (Verified , 11/22/09) Vitals & I&Os Vital Signs Date Time Temp Pulse Resp B/P (MAP) Pulse Ox O2 Delivery O2 Flow Rate FiO2 06/01/17 07:45 98.0 93 16 138/96 96 Room Air Hospital Course Labs (last 24 hrs) Laboratory Tests 06/01/17 04:00: Prothrombin Time 28.5H, INR Comment 2.7H Microbiology 05/30/17 Blood Culture - Preliminary, Resulted No growth 05/30/17 Urine Culture - Final, Complete NO GROWTH Pending Labs Laboratory Tests 06/01/17 04:00: Prothrombin Time 28.5, INR Comment 2.7 Discharge Home Medications: Active Scripts Active Diltiazem 24Hr Cd (Diltiazem HCl) 120 Mg Cap.er.24h 120 Mg PO DAILY Eliquis (Apixaban) 5 Mg Tablet 5 Mg PO BID Reported Garlic 1,000 Mg Capsule 1,000 Mg PO DAILY Instructions to patient/family Please see electonic discharge instructions given to patient. Clinical Quality Measures DVT/VTE Risk/Contraindication: Risk Factor Score Per Nursin RFS Level Per Nursing on Admit: 2=Moderate ZAK GARCIA DO Jun 01, 2017 10:48
[2017-06-01] MEDS ORDERED: APIX5TAB PO (10:54)
[2017-06-01] MEDS ORDERED: DILT120C63 PO (10:54)
--- NOTE | 2017-06-01 11:09 | D/C HH Face to Face Order ---
D/C Face to Face Orders Instructions for Patient Patient Instructions/FollowUp: Obtain appt with Dr Conde in 1 week Obtain appt with Cardiology as instructed Participate with PT to gain strength Physician to follow Patient: Dr Fernandez Discharge Diet for Home: Cardiac Diet Patient Problems: New onset AF w/RVR Falls Memory deficit Patient Data-Allergies,Ht & Wt Patient Allergies: Coded Allergies: No Known Drug Allergies (Verified , 11/22/09) Height (Feet): 6 Height (Inches): 0.00 Weight (Pounds): 156 Weight (Ounces): 4.0 Home Health Need/Face to Face Date of Face to Face: Jun 01, 2017 Clinical Findings: Generalized weakness and fatigue, Shortness of breath, Unsteady gait I have seen Pt [id number]: Yes Discharged To: Home Diagnosis/Conditions: AF w/RVR Falls Weakness Memory deficit Problems/Diagnosis/Condition: Patient is Homebound due to: CognItive deficits, Muscle weakness Homebound Status Due to the above stated illness, injury or surgical procedure (medical condition or diagnosis) and associated clinical findings, the patient is homebound because of his/her inability to leave home except with aid of a supportive device and/or person AND leaving the home requires a considerable and taxing effort or is medically contraindicated. Pt req the following assistanc: Walker Home Health Nursing Orders Home Health Services Order: Nursing Services, Web Design Intern-Evaluate & Treat, Physical Therapy-Evaluate & Treat Home Health Infusion Therapy Line Start Date: May 31, 2017 Certify Stmt I certify that this patient is under my care and that I, a nurse practitioner or a physician; a painter assistant working with me, had a face to face encounter that - meets the physician face to face encounter requirements with this patient as dated. ZAK GARCIA DO Jun 01, 2017 11:09
--- NOTE | 2017-06-01 12:12 | Physical Therapy Daily Note ---
PT Daily Note-Current Subjective Pt sitting in recliner upon arrival visiting with daughters and nursing just leaving. Pt agrees to walk with PT. Pain Location: No Pain Reported Mental Status Patient Orientation: Person, Place, Time, Situation Transfers Functional [place] Measure 0=Not Assessed/NA 4=Minimal Assistance 1=Total Assistance 5=Supervision or Setup 2=Maximal Assistance 6=Modified [place] 3=Moderate Assistance 7=Complete IndependenceIRFPAI Quality Coding Scale 6 Independent with activity with or without an assistive device 5 Patient requires set up or clean up by helper. Patient completes activity by themselves 4 Supervision or touching assist (CGA). [place] provide cues , steadying assist 3 The helper provides less than half the effort to complete the activity 2 The helper provides more than half the effort to complete the activity 1 Dependent. The helper does all the effort to complete an activity 7 Patient refused to complete or attempt activity 9 The patient did not perform the activity before the current illness or injury 88 Not attempted due to Medical conditions or safety concerns Scootin Rollin Supine to/from Sit: 5 Sit to/from Stand: 5 Weight Bearing Weight Bearing Restriction: Full Weight Bearing Location Restriction: LE Bilateral Gait Training Distance (FIM): 3=150 ft Distance: 350' Gait Level of Assist: 5 Gait Persons Needed: 1 Gait Assistive Device: FWW Pt walks with normalized gait but slow kelly. Pt has no LOB. Pt fatigues but recovers quickly. Treatments Pt transfers from supine in bed to EOB to standing using FWW at SBA. Pt ambulates in hallway using FWW at SBA. Pt returns to room to rest due to fatigue. Pt rests supine in bed at end of tx with all needs met. Assessment Current Status: Good Progress Pt has gotten stronger and is transferring and ambulating more independently and safely than previous days. PT Custodial Goals Custodial Goals PT Activity Specialist Goals Time Frame: Jun 07, 2017 Transfers (B,C,W/C) (FIM): 6 Gait (FIM): 6 Gait distance (FIM): 3=150 ft Gait Level of Assist: 6 Gait Assistive Device: None, FWW Stairs (FIM): 2 # of Steps: 3 Stairs Level Of Assist: 5 PT Plan Problem List Problem List: Activity Tolerance, Safety, Gait Treatment/Plan Treatment Plan: Continue Plan of Care Treatment Plan: Education, Functional Activity Ailyn, Functional Strength, Gait , Safety, Therapeutic Exercise Treatment Duration: Jun 07, 2017 Frequency: 6 times per week Estimated Hrs Per Day: .5 hour per day (PRN) Patient and/or Family Agrees t: Yes Safety Risks/Education Patient Education: Gait Training, Transfer Techniques, Correct Positioning, Safety Issues Teaching Recipient: Patient Teaching Methods: Discussion Response to Teaching: Verbalize Understanding Time/GCodes Time In: 920 Time Out: 940 Total Billed Treatment Time: 20 Total Billed Treatment visit, GT (20m) JAMES PECK PTA Jun 01, 2017 12:12
--- OUTSIDE RECORDS SUMMARY | 2017-06-03 09:50 | XMS REPORT | Continuity of Care Document ---
Author Author [facility] Organization [facility] Address Unknown Phone Unavailable Allergies Active Description Code Type Severity Reaction Onset Reported/Identified Relationship to Patient Clinical Status Yes No Known Drug Allergies [id number] Drug Allergy Unknown N/ A 11/22/2009 Medications Problems Date Dx Coded Attending Type Code Diagnosis Diagnosed By 05/11/2010 Ot 427.31 05/11/2010 Ot 816.11 05/11/2010 Ot 882.0 05/11/2010 Ot 959.5 05/11/2010 Ot E000.8 05/11/2010 Ot E016.9 05/11/2010 Ot E849.0 05/11/2010 Ot E919.8 05/11/2010 Ot V58.61 03/14/2015 Ot 709.9 03/14/2015 Ot V72.81 03/14/2015 Ot V74.8 03/14/2015 Ot 397.0 03/14/2015 Ot 427.31 03/14/2015 Ot 786.2 03/14/2015 Ot V15.82 03/28/2015 FABIOLA LUJAN, CIRO R Ot 591 03/28/2015 FABIOLA LUJAN, CIRO R Ot 592.9 04/24/2015 FABIOLA LUJAN, CIRO R Ot 305.1 04/24/2015 FABIOLA LUJAN, CIRO R Ot 600.01 04/24/2015 FABIOLA LUJAN, CIRO R Ot 787.02 04/24/2015 FABIOLA LUJAN, CIRO R Ot 788.30 04/24/2015 FABIOLA LUJAN, CIRO R Ot 789.00 04/25/2015 FABIOLA LUJAN, CIRO R Ot 591 04/25/2015 FABIOLA LUJAN, CIRO R Ot 592.9 02/07/2016 Ot 786.2 02/07/2016 Ot V15.82 02/07/2016 FABIOLA LUJAN, CIRO R Ot 305.1 02/07/2016 FABIOLA LUJAN, CIRO R Ot 600.01 02/07/2016 FABIOLA LUJAN, CIRO R Ot 787.02 02/07/2016 FABIOLA LUJAN, CIRO R Ot 788.30 02/07/2016 FABIOLA LUJAN, CIRO R Ot 789.00 02/07/2016 FABIOLA LUJAN, CIRO R Ot 591 02/07/2016 FABIOLA LUJAN, CIRO R Ot 592.9 02/07/2016 Ot 786.2 02/07/2016 Ot V15.82 02/07/2016 FABIOLA LUJAN, CIRO R Ot 305.1 02/07/2016 FABIOLA LUJAN, CIRO R Ot 600.01 02/07/2016 FABIOLA LUJAN, CIRO R Ot 787.02 02/07/2016 FABIOLA LUJAN, CIRO R Ot 788.30 02/07/2016 FABIOLA LUJAN, CIRO R Ot 789.00 02/07/2016 FABIOLA LUJAN, CIRO R Ot 591 02/07/2016 FABIOLA LUJAN, CIRO R Ot 592.9 02/09/2016 FABIOLA LUJAN, CIRO R Ot I10 ESSENTIAL (PRIMARY) HYPERTENSION 02/09/2016 FABIOLA LUJAN, CIRO R Ot I42.9 CARDIOMYOPATHY, UNSPECIFIED 02/09/2016 FABIOLA LUJAN, CIRO R Ot I48.91 UNSPECIFIED ATRIAL FIBRILLATION 02/09/2016 FABIOLA LUJAN, CIRO R Ot K21.9 GASTRO-ESOPHAGEAL REFLUX DISEASE WITHOUT 02/09/2016 FABIOLA LUJAN, CIRO R Ot R30.0 DYSURIA 02/09/2016 FABIOLA LUJAN CIRO R Ot R31.9 HEMATURIA, UNSPECIFIED 02/09/2016 FABIOLA LUJAN, CIRO R Ot R39.19 OTHER DIFFICULTIES WITH MICTURITION 02/09/2016 FABIOLA LUJAN, CIRO R Ot R79.1 ABNORMAL COAGULATION PROFILE 02/09/2016 CIRO HICKS MD R Ot T45.515A ADVERSE EFFECT OF ANTICOAGULANTS, INITIA 02/09/2016 CIRO HICKS MD R Ot Z23 ENCOUNTER FOR IMMUNIZATION 02/09/2016 CIRO HICKS MD R Ot Z79.01 HALF-WAY (CURRENT) USE OF ANTICOAGULANT 02/09/2016 CIRO HICKS MD R Ot Z87.442 PERSONAL HISTORY OF URINARY CALCULI 02/09/2016 FABIOLA LUJAN, CIRO R Ot Z90.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( 05/30/2017 Ot 786.2 COUGH 05/30/2017 Ot V15.82 HISTORY OF TOBACCO USE 05/30/2017 CIRO HICKS MD R Ot 305.1 TOBACCO USE DISORDER 05/30/2017 CIRO HICKS MD R Ot 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 05/30/2017 CIRO HICKS MD R Ot 787.02 NAUSEA ALONE 05/30/2017 CIRO HICKS MD R Ot 788.30 UNSPECIFIED URINARY INCONTINENCE 05/30/2017 CIRO HICKS MD R Ot 789.00 ABDOMINAL PAIN, UNSPECIFIED SITE 05/30/2017 CIRO HICKS MD R Ot 591 HYDRONEPHROSIS 05/30/2017 CIRO HICKS MD R Ot 592.9 URINARY CALCULUS NOS 05/31/2017 RADHA KELSEY ZAK Ot A41.9 SEPSIS, UNSPECIFIED ORGANISM 05/31/2017 RADHA KELSEY ZAK Ot E86.1 HYPOVOLEMIA 05/31/2017 RADHA KELSEY ZAK Ot E87.2 ACIDOSIS 05/31/2017 RADHA KELSEY ZAK Ot H91.90 UNSPECIFIED HEARING LOSS, UNSPECIFIED EA 05/31/2017 RADHA KELSEY ZAK Ot I10 ESSENTIAL (PRIMARY) HYPERTENSION 05/31/2017 RADHA KELSEY ZAK Ot I48.2 CHRONIC ATRIAL FIBRILLATION 05/31/2017 RADHA KELSEY ZAK Ot K21.9 GASTRO-ESOPHAGEAL REFLUX DISEASE WITHOUT 05/31/2017 RADHA KELSEY ZAK Ot N17.9 ACUTE KIDNEY FAILURE, UNSPECIFIED 05/31/2017 RADHA KELSEY ZAK Ot N39.0 URINARY TRACT INFECTION, SITE NOT SPECIF 05/31/2017 RADHA KELSEY ZAK Ot S00.81XA ABRASION OF OTHER PART OF HEAD, INITIAL 05/31/2017 RADHA KELSEY ZAK Ot W18.30XA FALL ON SAME LEVEL, UNSPECIFIED, INITIAL 05/31/2017 RADHA KELSEY ZAK Ot Y92.007 GARDEN OR YARD OF [facility] NON-INSTITUT RESI 05/31/2017 CAROL GARCIA DOI Ot Y93.H2 ACTIVITY, GARDENING AND LANDSCAPING 05/31/2017 ZAK GARCIA DO Ot Z66 DO NOT RESUSCITATE 05/31/2017 ZAK GARCIA DO Ot Z79.01 CONTROL DIRECTOR (CURRENT) USE OF ANTICOAGULANT 05/31/2017 ZAK GARCIA DO Ot Z87.891 PERSONAL HISTORY OF NICOTINE DEPENDENCE 05/31/2017 ZAK GARCIA DO Ot Z90.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( 05/31/2017 ZAK GARCIA DO Ot Z96.0 PRESENCE OF UROGENITAL IMPLANTS 05/31/2017 Ot 786.2 COUGH 05/31/2017 Ot V15.82 HISTORY OF TOBACCO USE 05/31/2017 FABIOLA LUJAN, CIRO R Ot 305.1 TOBACCO USE DISORDER 05/31/2017 FABIOLA LUJAN, CIRO R Ot 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 05/31/2017 FABIOLA LUJAN, CIRO R Ot 787.02 NAUSEA ALONE 05/31/2017 CIRO HICKS MD R Ot 788.30 UNSPECIFIED URINARY INCONTINENCE 05/31/2017 CIRO HICKS MD R Ot 789.00 ABDOMINAL PAIN, UNSPECIFIED SITE 05/31/2017 CIRO HICKS MD R Ot 591 HYDRONEPHROSIS 05/31/2017 CIRO HICKS MD R Ot 592.9 URINARY CALCULUS NOS 05/31/2017 ZAK GARCIA DO Ot A41.9 SEPSIS, UNSPECIFIED ORGANISM 05/31/2017 ZAK GARCIA DO Ot E86.1 HYPOVOLEMIA 05/31/2017 ZAK GARCIA DO Ot E87.2 ACIDOSIS 05/31/2017 ZAK GARCIA DO Ot H91.90 UNSPECIFIED HEARING LOSS, UNSPECIFIED EA 05/31/2017 ZAK GARCIA DO Ot I10 ESSENTIAL (PRIMARY) HYPERTENSION 05/31/2017 ZAK GARCIA DO Ot I48.2 CHRONIC ATRIAL FIBRILLATION 05/31/2017 ZAK GARCIA DO Ot K21.9 GASTRO-ESOPHAGEAL REFLUX DISEASE WITHOUT 05/31/2017 CAROL GARCIA DOI Ot N17.9 ACUTE KIDNEY FAILURE, UNSPECIFIED 05/31/2017 ZAK GARCIA DO Ot N39.0 URINARY TRACT INFECTION, SITE NOT SPECIF 05/31/2017 ZAK GARCIA DO Ot S00.81XA ABRASION OF OTHER PART OF HEAD, INITIAL 05/31/2017 GARCIA DO, ZAK Ot W18.30XA FALL ON SAME LEVEL, UNSPECIFIED, INITIAL 05/31/2017 GARCIA DO, ZAK Ot Y92.007 [place] [facility] 05/31/2017 GARCIA DO, ZAK Ot Y93.H2 ACTIVITY, GARDENING AND LANDSCAPING 05/31/2017 GARCIA DO ZAK Ot Z66 DO NOT RESUSCITATE 05/31/2017 GARCIA DO ZAK Ot Z79.01 CONTROL DIRECTOR (CURRENT) USE OF ANTICOAGULANT 05/31/2017 GARCIA DO, ZAK Ot Z87.891 PERSONAL HISTORY OF NICOTINE DEPENDENCE 05/31/2017 GARCIA DO ZAK Ot Z90.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( 05/31/2017 GARCIA DO ZAK Ot Z96.0 PRESENCE OF UROGENITAL IMPLANTS 05/31/2017 RADHA DO ZAK Ot A41.9 SEPSIS, UNSPECIFIED ORGANISM 05/31/2017 RADHA DO ZAK Ot E86.1 HYPOVOLEMIA 05/31/2017 RADHA DO ZAK Ot E87.2 ACIDOSIS 05/31/2017 GARCIA DO ZAK Ot H91.90 UNSPECIFIED HEARING LOSS, UNSPECIFIED EA 05/31/2017 GARCIA DO ZAK Ot I10 ESSENTIAL (PRIMARY) HYPERTENSION 05/31/2017 RADHA KELSEY ZAK Ot I48.2 CHRONIC ATRIAL FIBRILLATION 05/31/2017 RADHA DO ZAK Ot K21.9 GASTRO-ESOPHAGEAL REFLUX DISEASE WITHOUT 05/31/2017 GARCIA DO, ZAK Ot N17.9 ACUTE KIDNEY FAILURE, UNSPECIFIED 05/31/2017 RADHA DO ZAK Ot N39.0 URINARY TRACT INFECTION, SITE NOT SPECIF 05/31/2017 GARCIA DO ZAK Ot S00.81XA ABRASION OF OTHER PART OF HEAD, INITIAL 05/31/2017 GARCIA DO, ZAK Ot W18.30XA FALL ON SAME LEVEL, UNSPECIFIED, INITIAL 05/31/2017 GARCIA DO ZAK Ot Y92.007 [place] OR YARD OF [facility] NONINSTITUT RESI 05/31/2017 GARCIA DO, ZAK Ot Y93.H2 ACTIVITY, GARDENING AND LANDSCAPING 05/31/2017 GARCIA DO ZAK Ot Z66 DO NOT RESUSCITATE 05/31/2017 RADHA KELSEY ZAK Ot Z79.01 CONTROL DIRECTOR (CURRENT) USE OF ANTICOAGULANT 05/31/2017 RADHA KELSEY ZAK Ot Z87.891 PERSONAL HISTORY OF NICOTINE DEPENDENCE 05/31/2017 RADHA KELSEY ZAK Ot Z90.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( 05/31/2017 RADHA KELSEY ZAK Ot Z96.0 PRESENCE OF UROGENITAL IMPLANTS 05/31/2017 RADHA KELSEY ZAK Ot A41.9 SEPSIS, UNSPECIFIED ORGANISM 05/31/2017 RADHA KELSEY ZAK Ot E86.1 HYPOVOLEMIA 05/31/2017 RADHA KELSEY ZAK Ot E87.2 ACIDOSIS 05/31/2017 RADHA KELSEY ZAK Ot H91.90 UNSPECIFIED HEARING LOSS, UNSPECIFIED EA 05/31/2017 RADHA KELSEY ZAK Ot I10 ESSENTIAL (PRIMARY) HYPERTENSION 05/31/2017 RADHA KELSEY ZAK Ot I48.2 CHRONIC ATRIAL FIBRILLATION 05/31/2017 RADHA KELSEY ZAK Ot K21.9 GASTRO-ESOPHAGEAL REFLUX DISEASE WITHOUT 05/31/2017 RADHA KELSEY ZAK Ot N17.9 ACUTE KIDNEY FAILURE, UNSPECIFIED 05/31/2017 RADHA KELSEY ZAK Ot N39.0 URINARY TRACT INFECTION, SITE NOT SPECIF 05/31/2017 RADHA KELSEY ZAK Ot S00.81XA ABRASION OF OTHER PART OF HEAD, INITIAL 05/31/2017 RADHA KELSEY ZAK Ot W18.30XA FALL ON SAME LEVEL, UNSPECIFIED, INITIAL 05/31/2017 RADHA KELSEY ZAK Ot Y92.007 [facility] [facility] 05/31/2017 CAROL GARCIA DOI Ot Y93.H2 ACTIVITY, GARDENING AND LANDSCAPING 05/31/2017 RADHA KELSEY ZAK Ot Z66 DO NOT RESUSCITATE 05/31/2017 RADHA KELSEY ZAK Ot Z79.01 CONTROL DIRECTOR (CURRENT) USE OF ANTICOAGULANT 05/31/2017 CAROL GARCIA DOI Ot Z87.891 PERSONAL HISTORY OF NICOTINE DEPENDENCE 05/31/2017 RADHA KELSEY ZAK Ot Z90.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( 05/31/2017 RADHA KELSEY ZAK Ot Z96.0 PRESENCE OF UROGENITAL IMPLANTS 06/01/2017 RADHA KELSEY ZAK Ot A41.9 SEPSIS, UNSPECIFIED ORGANISM 06/01/2017 ZAK GARCIA DO Ot E86.1 HYPOVOLEMIA 06/01/2017 CAROL GARCIA DOI Ot E87.2 ACIDOSIS 06/01/2017 ZAK GARCIA DO Ot H91.90 UNSPECIFIED HEARING LOSS, UNSPECIFIED EA 06/01/2017 RADHA KELSEY ZAK Ot I10 ESSENTIAL (PRIMARY) HYPERTENSION 06/01/2017 CAROL GARCIA DOI Ot I48.2 CHRONIC ATRIAL FIBRILLATION 06/01/2017 CAROL GARCIA DOI Ot K21.9 GASTRO-ESOPHAGEAL REFLUX DISEASE WITHOUT 06/01/2017 RADHA KELSEY ZAK Ot N17.9 ACUTE KIDNEY FAILURE, UNSPECIFIED 06/01/2017 ZAK GARCIA DO Ot N39.0 URINARY TRACT INFECTION, SITE NOT SPECIF 06/01/2017 ZAK GARCIA DO Ot S00.81XA ABRASION OF OTHER PART OF HEAD, INITIAL 06/01/2017 CAROL GARCIA DOI Ot W18.30XA FALL ON SAME LEVEL, UNSPECIFIED, INITIAL 06/01/2017 CAROL GARCIA DOI Ot Y92.007 GARDEN OR YARD OF [facility] 06/01/2017 CAROL GARCIA DOI Ot Y93.H2 ACTIVITY, GARDENING AND LANDSCAPING 06/01/2017 CAROL GARCIA DOI Ot Z66 DO NOT RESUSCITATE 06/01/2017 ZAK GARCIA DO Ot Z79.01 CONTROL DIRECTOR (CURRENT) USE OF ANTICOAGULANT 06/01/2017 CAROL GARCIA DOI Ot Z87.891 PERSONAL HISTORY OF NICOTINE DEPENDENCE 06/01/2017 CAROL GARCIA DOI Ot Z90.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( 06/01/2017 RADHA KELSEY ZAK Ot Z96.0 PRESENCE OF UROGENITAL IMPLANTS Procedures Results Test Result Range Complete blood count (CBC) with automated white blood cell (WBC) differential - 05/30/17 11:53 Blood leukocytes automated count (number/volume) 5.7 10*3/ uL 4.3-11.0 Blood erythrocytes automated count (number/volume) 4.11 10*6 /uL 4.35-5.85 Venous blood hemoglobin measurement (mass/volume) 12.6 g/dL 13.3-17.7 Blood hematocrit (volume fraction) 39 % 40-54 Automated erythrocyte mean corpuscular volume 94 [foz_us] 80-99 Automated erythrocyte mean corpuscular hemoglobin (mass per erythrocyte) 31 pg 25-34 Automated erythrocyte mean corpuscular hemoglobin concentration measurement ( mass/volume) 33 g/dL 32-36 Automated erythrocyte distribution width ratio 15.4 % 10.0-14.5 Automated blood platelet count (count/volume) 176 10*3/uL 130-400 Automated blood platelet mean volume measurement 10.2 [foz_ us] 7.4-10.4 Automated blood neutrophils/100 leukocytes 59 % 42-75 Automated blood lymphocytes/100 leukocytes 23 % 12-44 Blood monocytes/100 leukocytes 16 % 0-12 Automated blood eosinophils/100 leukocytes 1 % 0-10 Automated blood basophils/100 leukocytes 2 % 0-10 Blood neutrophils automated count (number/volume) 3.3 10*3 1.8-7.8 Blood lymphocytes automated count (number/volume) 1.3 10*3 1.0-4.0 Blood monocytes automated count (number/volume) 0.9 10*3 0.0-1.0 Automated eosinophil count 0.0 10*3/uL 0.0-0.3 Automated blood basophil count (count/volume) 0.1 10*3/uL 0.0-0.1 PT panel in platelet poor plasma by coagulation assay - 05/30/17 11:53 Prothrombin time (PT) in platelet poor plasma by coagulation assay 20.6 s 12.2-14.7 INR in platelet poor plasma or blood by coagulation assay 1.8 0.8-1.4 Comprehensive metabolic panel - 05/30/17 11:53 Serum or plasma sodium measurement (moles/volume) 136 mmol/ L 135-145 Serum or plasma potassium measurement (moles/volume) 4.5 mmol/L 3.6-5.0 Serum or plasma chloride measurement (moles/volume) 106 mmol /L 98-107 Carbon dioxide 15 mmol/L 21-32 Serum or plasma anion gap determination (moles/volume) 15 mmol/L 5-14 Serum or plasma urea nitrogen measurement (mass/volume) 16 mg/dL 7-18 Serum or plasma creatinine measurement (mass/volume) 1.47 mg /dL 0.60-1.30 Serum or plasma urea nitrogen/creatinine mass ratio 11 NRG Serum or plasma creatinine measurement with calculation of estimated glomerular filtration rate 46 NRG Serum or plasma glucose measurement (mass/volume) 128 mg/dL 70-105 Serum or plasma calcium measurement (mass/volume) 9.1 mg/dL 8.5-10.1 Serum or plasma total bilirubin measurement (mass/volume) 1.1 mg/dL 0.1-1.0 Serum or plasma alkaline phosphatase measurement (enzymatic activity/volume) 60 U/L 40-136 Serum or plasma aspartate aminotransferase measurement (enzymatic activity/ volume) 18 U/L 5-34 Serum or plasma alanine aminotransferase measurement (enzymatic activity/volume ) 11 U/L 0-55 Serum or plasma protein measurement (mass/volume) 6.9 g/dL 6.4-8.2 Serum or plasma albumin measurement (mass/volume) 3.6 g/dL 3.2-4.5 Magnesium - 05/30/17 11:53 Magnesium 1.8 mg/dL 1.8-2.4 Serum or plasma troponin i.cardiac measurement (mass/volume) - 05/30/17 11:53 Serum or plasma troponin i.cardiac measurement (mass/volume) < ng/mL <0.30 Complete urinalysis with reflex to culture - 05/30/17 12:59 Urine color determination YELLOW NRG Urine clarity determination SLIGHTLY CLOUDY NRG Urine pH measurement by test strip 5 5- 9 Specific gravity of urine by test strip 1.020 1.016-1.022 Urine protein assay by test strip, semi-quantitative 2+ NEGATIVE Urine glucose detection by automated test strip NEGATIVE NEGATIVE Erythrocytes detection in urine sediment by light microscopy 4+ NEGATIVE Urine ketones detection by automated test strip 1+ NEGATIVE Urine nitrite detection by test strip NEGATIVE NEGATIVE Urine total bilirubin detection by test strip NEGATIVE NEGATIVE Urine urobilinogen measurement by automated test strip (mass/volume) 4 mg/dL NORMAL Urine leukocyte esterase detection by dipstick 2+ NEGATIVE Automated urine sediment erythrocyte count by microscopy (number/high power field) [HPF] NRG Automated urine sediment leukocyte count by microscopy (number/high power field ) [HPF] NRG Bacteria detection in urine sediment by light microscopy TRACE NRG Squamous epithelial cells detection in urine sediment by light microscopy RARE NRG Crystals detection in urine sediment by light microscopy PRESENT NRG Casts detection in urine sediment by light microscopy PRESENT NRG Mucus detection in urine sediment by light microscopy SMALL NRG Complete urinalysis with reflex to culture YES NRG Hyaline casts detection in urine sediment by light microscopy 5-10 NRG Uric acid crystals detection in urine sediment by light microscopy FEW NRG Bacterial urine culture - 05/30/17 12:59 Bacterial urine culture NG NRG Blood lactic acid measurement (moles/volume) - 05/30/17 14:30 Blood lactic acid measurement (moles/volume) 1.67 mmol/L 0.50-2.00 Bacterial blood culture - 05/30/17 14:30 Bacterial blood culture NG NRG Bacterial blood culture - 05/30/17 14:44 Bacterial blood culture NG NRG Automated blood complete blood count (hemogram) panel - 05/31/17 03:46 Blood leukocytes automated count (number/volume) 5.3 10*3/ uL 4.3-11.0 Blood erythrocytes automated count (number/volume) 3.50 10*6 /uL 4.35-5.85 Venous blood hemoglobin measurement (mass/volume) 10.5 g/dL 13.3-17.7 Blood hematocrit (volume fraction) 33 % 40-54 Automated erythrocyte mean corpuscular volume 95 [foz_us] 80-99 Automated erythrocyte mean corpuscular hemoglobin (mass per erythrocyte) 30 pg 25-34 Automated erythrocyte mean corpuscular hemoglobin concentration measurement ( mass/volume) 32 g/dL 32-36 Automated erythrocyte distribution width ratio 15.4 % 10.0-14.5 Automated blood platelet count (count/volume) 127 10*3/uL 130-400 Automated blood platelet mean volume measurement 10.5 [foz_ us] 7.4-10.4 Comprehensive metabolic panel - 05/31/17 03:46 Serum or plasma sodium measurement (moles/volume) 137 mmol/ L 135-145 Serum or plasma potassium measurement (moles/volume) 3.9 mmol/L 3.6-5.0 Serum or plasma chloride measurement (moles/volume) 109 mmol /L 98-107 Carbon dioxide 20 mmol/L 21-32 Serum or plasma anion gap determination (moles/volume) 8 mmol/L 5-14 Serum or plasma urea nitrogen measurement (mass/volume) 14 mg/dL 7-18 Serum or plasma creatinine measurement (mass/volume) 1.10 mg /dL 0.60-1.30 Serum or plasma urea nitrogen/creatinine mass ratio 13 NRG Serum or plasma creatinine measurement with calculation of estimated glomerular filtration rate > NRG Serum or plasma glucose measurement (mass/volume) 73 mg/dL 70-105 Serum or plasma calcium measurement (mass/volume) 8.3 mg/dL 8.5-10.1 Serum or plasma total bilirubin measurement (mass/volume) 0.8 mg/dL 0.1-1.0 Serum or plasma alkaline phosphatase measurement (enzymatic activity/volume) 48 U/L 40-136 Serum or plasma aspartate aminotransferase measurement (enzymatic activity/ volume) 23 U/L 5-34 Serum or plasma alanine aminotransferase measurement (enzymatic activity/volume ) 11 U/L 0-55 Serum or plasma protein measurement (mass/volume) 5.5 g/dL 6.4-8.2 Serum or plasma albumin measurement (mass/volume) 2.9 g/dL 3.2-4.5 Magnesium - 05/31/17 03:46 Magnesium 1.8 mg/dL 1.8-2.4 Serum or plasma lithium measurement (moles/volume) - 05/31/17 03:46 BNP level 177.7 pg/mL <100.0 Serum or plasma troponin i.cardiac measurement (mass/volume) - 05/31/17 03:46 Serum or plasma troponin i.cardiac measurement (mass/volume) < ng/mL <0.30 THYROID STIMULATING HORMONE - 05/31/17 03:46 THYROID STIMULATING HORMONE 1.42 u[iU]/mL 0.35-4.94 PT panel in platelet poor plasma by coagulation assay - 06/01/17 04:00 Prothrombin time (PT) in platelet poor plasma by coagulation assay 28.5 s 12.2-14.7 INR in platelet poor plasma or blood by coagulation assay 2.7 0.8-1.4 Encounters ACCT No. Visit Date/Time Discharge Status Pt. Type Provider Facility Loc./Unit Complaint [id number] 05/30/2017 14:01:00 2016 11:50:00 DIS Inpatient ZAK GARCIA DO [facility] 4TH SEPSIS,AFIB W/RVR,UTI,ACUTE KIDNEY INJ, FALL FROM S [id number] 02/07/2016 09:47:00 2015 12:30:00 DIS Inpatient FABIOLA LUJAN, CIRO R [facility] 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/ RVR [id number] 03/21/2015 10:56:00 2014 23:59:59 CLS Outpatient CIRO HICSK MD [facility] RAD STONES [id number] 03/14/2015 11:04:00 2014 23:59:59 CLS Outpatient CIRO HICKS MD [facility] RAD ABD PAIN AND NAUSEA, SMOKER [id number] 03/14/2015 11:01:00 Document Registration [id number] 03/14/2015 11:01:00 Document Registration [id number] 03/19/2012 11:47:00 Document Registration [id number] 05/11/2010 16:55:00 Document Registration [id number] 11/16/2009 10:29:00 Document Registration
--- OUTSIDE RECORDS SUMMARY | 2017-06-04 04:03 | XMS REPORT | Continuity of Care Document ---
Author Author [facility] Organization [facility] Address Unknown Phone Unavailable Allergies Active Description Code Type Severity Reaction Onset Reported/Identified Relationship to Patient Clinical Status Yes No Known Drug Allergies [id number] Drug Allergy Unknown N/ A 11/22/2009 Medications [...] 02/09/2016 CIRO HICKS MD R Ot Z79.01 RESIDENTIAL (CURRENT) USE OF ANTICOAGULANT 02/09/2016 CIRO HICKS [...] ZAK Ot Y92.007 [facility] NON-[facility]IT[facility] RESI 05/31/2017 CAROL GARCIA DOI Ot Y93.H2 ACTIVITY, GARDENING AND LANDSCAPING 05/31/2017 ZAK GARCIA DO Ot Z66 DO NOT RESUSCITATE 05/31/2017 ZAK GARCIA DO Ot 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 05/31/2017 ZAK GARCIA [...] ZAK Ot Y92.007 [facility] 05/31/2017 GARCIA DO, ZAK Ot Y93.H2 ACTIVITY, GARDENING AND LANDSCAPING 05/31/2017 GARCIA DO ZAK Ot Z66 DO NOT RESUSCITATE 05/31/2017 GARCIA DO ZAK Ot 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 05/31/2017 GARCIA DO, [...] ZAK Ot Y92.007 [facility] NON[facility]ITUT RESI 05/31/2017 GARCIA DO, ZAK Ot Y93.H2 ACTIVITY, GARDENING AND LANDSCAPING 05/31/2017 GARCIA DO ZAK Ot Z66 DO NOT RESUSCITATE 05/31/2017 RADHA KELSEY ZAK Ot 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 05/31/2017 RADHA KELSEY ZAK Ot Z87.891 PERSONAL HISTORY OF NICOTINE DEPENDENCE 05/31/2017 RADHA KELSEY ZAK Ot Z90.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( 05/31/2017 RADHA KELESY ZAK Ot Z96.0 PRESENCE OF UROGENITAL IMPLANTS [...] ZAK Ot Y92.007 [facility] 05/31/2017 CAROL GARCIA DOI Ot Y93.H2 ACTIVITY, GARDENING AND LANDSCAPING 05/31/2017 RADHA KELSEY ZAK Ot Z66 DO NOT RESUSCITATE 05/31/2017 RADHA KELSEY ZAK Ot 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 Type Provider Facility Loc./Unit Complaint [id number] 05/30/2017 14:01:00 2016 11:50:00 DIS Inpatient ZAK GARCIA DO [facility] 4TH SEPSIS,AFIB W/RVR,UTI,ACUTE KIDNEY INJ, FALL FROM S [id number] 02/07/2016 09:47:00 2015 12:30:00 DIS Inpatient FABIOLA LUJAN, CIRO R [facility] 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/ RVR [id number] 03/21/2015 10:56:00 2014 23:59:59 CLS Outpatient CIRO HICKS MD [facility] RAD STONES [id number] 03/14/2015 11:04:00 2014 23:59:59 CLS Outpatient CIRO HICKS MD [facility] RAD ABD PAIN AND NAUSEA, SMOKER [id number] 03/14/2015 11:01:00 Document Registration [id number] 03/14/2015 11:01:00 Document Registration [id number] 03/19/2012 11:47:00 Document Registration [id number] 05/11/2010 16:55:00 Document Registration [id number] 11/16/2009 10:29:00 Document Registration
== END 2017-06-01 11:50 | disposition home health service (06) | DRG 872 ==
LOC: EDUNIT# 11:44 → ER 11:45 → ICU 14:01 → 4TH 05-31 13:55
PROVIDERS: ADMIT Internal Medicine; ATTEND Internal Medicine
DX: A41.9 Sepsis, unspecified organism (principal); N39.0 Urinary tract infection, site not specified; I48.2 Chronic atrial fibrillation; N17.9 Acute kidney failure, unspecified; E87.2 Acidosis; E86.1 Hypovolemia; F03.90 Unspecified dementia, unspecified severity, without behavioral disturbance, psychotic disturbance, mood disturbance, and anxiety; Z66 Do not resuscitate; I10 Essential (primary) hypertension; K21.9 Gastro-esophageal reflux disease without esophagitis; R53.1 Weakness; S00.81XA Abrasion of other part of head, initial encounter; W18.30XA Fall on same level, unspecified, initial encounter; Y92.007 Garden or yard of unspecified non-institutional (private) residence as the place of occurrence of the external cause; Y93.H2 Activity, gardening and landscaping; Z79.01 Long term (current) use of anticoagulants; Z90.79 Acquired absence of other genital organ(s); Z87.891 Personal history of nicotine dependence; Z96.0 Presence of urogenital implants
CPT/HCPCS: 36415; 70450; 71010; 72125; 80053; 81000; 83605; 83735; 83880; 84443; 84484; 85025; 85027; 85610; 87040; 87088; 93005; 93041; 96361; 96365; 96367

== ENCOUNTER → 2017-08-28 | Outpatient (CLI) | payer MEDICARE, OTHER ==
[~2017-08-28] MED LIST changes: +APIX5TAB PO; +DILT120C63 PO; +GARL10002 PO; +METO-272 PO; -METO-370 PO
== END ==
LOC: RAD 10:08
PROVIDERS: ATTEND Nurse Practitioner Family
DX: R41.3 Other amnesia (principal)
CPT/HCPCS: 70551

== ENCOUNTER 2017-09-07 09:02 | Observation (INO) | payer MEDICARE, OTHER ==
[~2017-09-07] VITALS: Ht 182.9 cm; Wt 73.0 kg
[2017-09-07] MEDS ORDERED: NS IV 500 ML 500 ML IV ONE (09:19)
[2017-09-07] MEDS ORDERED: DILT120C53 PO (09:21)
[2017-09-07] MEDS ORDERED: DONE5TAB30 PO (09:21)
[2017-09-07] MEDS ORDERED: LORA10CA PO (09:23)
--- NOTE | 2017-09-07 09:25 | ED Fall/Injury ---
General Chief Complaint: Trauma-Non Activation Stated Complaint: FALL Nursing Triage Note: ARRIVED VIA AMBULANCE. DAUGHTER FOUND PT ON THE FLOOR THIS AM ET PT STATES HE FELL AT 10PM LAST NOC. PT STATES HIS FEET WENT OUT FROM UNDER HIM WHICH CAUSED HIM TO FALL. DENIES DIZZINESS. PT HIT HIS HEAD WITH FALL BUT SANJAY LOC OR NECK PAIN. ABRASION TO HEAD THAT HAS BLED BUT NO AREAS TO SUTURE. Source: patient, family (daughter), EMS Exam Limitations: no limitations History of Present Illness Time seen by provider: 09:01 Initial Comments Patient presents to ER by EMS after his daughter went to check on him this morning and found him on the floor. Patient says he had a fall and was unable to get up. He says he has not been drinking much water as he forgets to. He has a history of atrial fibrillation on eliquis. His daughter lives across the street and helped some with remembering to take his medications. He lives alone. He says he fell onto his right hip approximately 10:30 last night. He says he reviewed the entire thing and did strike his head but did not pass out nor does he have any amnesia. He denies nausea, shortness of breath, chest pain. His daughter says that he has not remembered to take his blood thinner Saturday, , Saturday of last week because she typically has to call to remind him to take evening meds. Patient states she is not really having any pain other than his left fore head. He has no dizziness. He is on the last day of Keflex for a UTI prescribed by his primary care physician Dr. Pittman. She says he had a MRI of the head because of sudden recent memory deficits thinking about vascular disease but they have not seen the results yet. The daughter says that her sister saw him yesterday and thought that he felt warm and was pretty tired and did not want to get up and eat and drink without a lot of encouragement which is different for him. The patient states his right hip is sore from laying on it overnight. Allergies and Home Medications Allergies Coded Allergies: No Known Drug Allergies (Verified , 11/22/09) Home Medications Apixaban 5 Mg Tablet, 5 MG PO BID, #60 Ref 4 Prescribed by: MAX PÉREZ on 06/01/17 1054 Diltiazem HCl 120 Mg Cap.er.24h, 120 MG PO DAILY, #30 Ref 4 Prescribed by: MAX PÉREZ on 06/01/17 1054 Diltiazem HCl 120 Mg Cap.er.24h, (Reported) Donepezil HCl 5 Mg Tablet, (Reported) Garlic 1,000 Mg Capsule, 1,000 MG PO DAILY, (Reported) Loratadine 10 Mg Capsule, 10 MG PO DAILY, (Reported) Constitutional: No chills, No diaphoresis, No fever Eyes: Denies Blindness, Denies Blurred Vision, Denies Drainage Ears, Nose, Mouth, Throat: denies ear pain, denies nose pain, denies nose discharge Respiratory: No cough, No short of breath Cardiovascular: No chest pain, No edema, No palpitations, No syncope Gastrointestinal: No abdominal pain, No constipation, No diarrhea, No nausea, No vomiting Genitourinary: No dysuria Musculoskeletal: see HPI, No back pain, joint pain (right hip, right elbow) Skin: No pruritus, No rash Psychiatric/Neurological: Denies Headache, Denies Numbness, Denies Paresthesia , Denies Seizure Past Ytgyost-Lyywyr-Wzegms Hx Patient Social History Alcohol Use: Denies Use Recreational Drug Use: No Smoking Status: Unknown if Ever Smoked Type Used: Cigarettes Former Smoker, Quit: May 30, 1982 Recent Foreign Travel: No Contact w/Someone Who Travel: No Recent Infectious Disease Expo: No Immunizations Up To Date Tetanus Booster (TDap): Less than 5yrs PED Vaccines UTD: Yes Date of Pneumonia Vaccine: May 30, 2016 Seasonal Allergies Seasonal Allergies: No Surgeries History of Surgeries: Yes (urethral stent placement, CA REMOVAL, FACIAL RECONSTRUCTION, TOE AMPUTATION) Surgeries: Prostatectomy, Renal Respiratory History of Respiratory Disorde: No Currently Using CPAP: No Currently Using BIPAP: No Cardiovascular History of Cardiac Disorders: Yes (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) Cardiac Disorders: Atrial Fibrillation, Hypertension Neurological History of Neurological Disord: Yes Neurological Disorders: Dementia Reproductive System Hx Reproductive Disorders: No Sexually Transmitted Disease: No HIV/AIDS: No Genitourinary History of Genitourinary Disor: Yes Genitourinary Disorders: Kidney Stones, UTI-Chronic Gastrointestinal History of Gastrointestinal Di: Yes Gastrointestinal Disorders: Gastroesophageal Reflux Musculoskeletal History of Musculoskeletal Dis: No (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 Endocrine History of Endocrine Disorders: No HEENT History of HEENT Disorders: No HEENT Disorders: Cataract Loss of Vision: Denies Hearing Impairment: Hard of Hearing Cancer History of Cancer: Yes Cancer: Skin Did You Recieve Any Treatments: Yes Type of Tx Receive: Surgical Intervention Psychosocial History of Psychiatric Problem: No Integumentary History of Skin or Integumenta: No Blood Transfusions History of Blood Disorders: No Adverse Reaction to a Blood Tr: No Family Medical History Family Medial History: Cardiovascular disease 19 MOTHER G8 BROTHER G8 SISTER FH: lung cancer 19 FATHER Myocardial infarction G8 BROTHER G8 SISTER Physical Exam Vital Signs Vital Sign - Last 12Hours 09/07/17 09:02 Temp 98.0 Pulse 117 Resp 18 B/P (MAP) 96/71 Pulse Ox 97 Capillary Refill : Less Than 3 Seconds General Appearance: no apparent distress, thin HEENT: PERRL/EOMI, TMs normal (partially obscured by cerumen in the canal), pharynx normal Neck: non-tender, full range of motion, supple, normal inspection Cardiovascular: normal peripheral pulses, no edema, irregularly irregular Respiratory: chest non-tender, lungs clear, normal breath sounds, no respiratory distress Gastrointestinal: normal bowel sounds, non tender, soft, no organomegaly Back: normal inspection, no vertebral tenderness Extremities: normal range of motion, normal inspection, no pedal edema, normal capillary refill, other (mild tenderness over the right hip. 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, no motor/sensory deficits, alert, normal mood/affect, other (oriented to self and place but not time.) Skin: warm/dry, other (ecchymosis around the left orbit, scalp abrasion left frontal, ecchymosis right elbow, mild blanchable erythema of her right greater trochanter of the femur.) Liban Coma Score Best Eye Response: (4) Open Spontaneously Best Verbal Response: (5) Oriented Best Motor Response: (6) Obeys Commands Liban Total: 15 Progress/Results/Core Measures Results/Orders Lab Results Laboratory Tests Test 09/07/17 09:02 Range/Units White Blood Count 13.9 H 4.3-11.0 10^3/uL Red Blood Count 3.80 L 4.35-5.85 10^6/uL Hemoglobin 11.9 L 13.3-17.7 G/DL Hematocrit 37 L 40-54 % Mean Corpuscular Volume 96 80-99 FL Mean Corpuscular Hemoglobin 31 25-34 PG Mean Corpuscular Hemoglobin Concent 33 32-36 G/DL Red Cell Distribution Width 14.9 H 10.0-14.5 % Platelet Count 162 130-400 10^3/uL Mean Platelet Volume 10.6 H 7.4-10.4 FL Neutrophils (%) (Auto) 66 42-75 % Lymphocytes (%) (Auto) 7 L 12-44 % Monocytes (%) (Auto) 24 H 0-12 % Eosinophils (%) (Auto) 3 0-10 % Basophils (%) (Auto) 0 0-10 % Neutrophils # (Auto) 9.2 H 1.8-7.8 X 10^3 Lymphocytes # (Auto) 1.0 1.0-4.0 X 10^3 Monocytes # (Auto) 3.3 H 0.0-1.0 X 10^3 Eosinophils # (Auto) 0.4 H 0.0-0.3 10^3/uL Basophils # (Auto) 0.0 0.0-0.1 10^3/uL Neutrophils % (Manual) 69 % Lymphocytes % (Manual) 12 % Monocytes % (Manual) 14 % Eosinophils % (Manual) 4 % Band Neutrophils 1 % Dohle Bodies SLIGHT Blood Morphology Comment NORMAL Sodium Level 137 135-145 MMOL/L Potassium Level 4.0 3.6-5.0 MMOL/L Chloride Level 104 98-107 MMOL/L Carbon Dioxide Level 23 21-32 MMOL/L Anion Gap 10 5-14 MMOL/L Blood Urea Nitrogen 28 H 7-18 MG/DL Creatinine 1.14 0.60-1.30 MG/DL Estimat Glomerular Filtration Rate > 60 BUN/Creatinine Ratio 25 Glucose Level 98 70-105 MG/DL Calcium Level 9.5 8.5-10.1 MG/DL Total Bilirubin 1.3 H 0.1-1.0 MG/DL Aspartate Amino Transf (AST/SGOT) 46 H 5-34 U/L Alanine Aminotransferase (ALT/SGPT) 17 0-55 U/L Alkaline Phosphatase 54 40-136 U/L Total Creatine Kinase 1238 H 30-200 U/L Total Protein 6.7 6.4-8.2 GM/DL Albumin 3.3 3.2-4.5 GM/DL My Orders Orders - CATRINA FARIAS Ct Head/Cervical Spine Wo (09/07/17 09:19) Saline Lock/Iv-Start (09/07/17:19) Cbc With Automated Diff (09/07/17:19) Comprehensive Metabolic Panel (09/07/17:19) Creatine Kinase (09/07/17:19) Ua Culture If Indicated (09/07/17:) Ns Iv 500 Ml (Sodium Chloride 0.9%) (09/07/17:19) Ekg Tracing (09/07/17:19) Continuous Ekg Monitoring (09/07/17:) Chest 1 View, Ap/Pa Only (09/07/17:25) Hip, Right, 2 Views (09/07/17:) Manual Differential (09/07/17 09:02) General/Regular (09/07/17 Breakfast) Ns Iv 1000 Ml (Sodium Chloride 0.9%) (09/07/17 10:38) Medications Given in ED Current Medications Medications Dose Ordered Sig/Kory Route Start Time Stop Time Status Last Admin Dose Admin Sodium Chloride 500 ml @ 0 mls/hr Q0M ONCE IV 09/07/17 09:19 09/07/17 09:22 DC 09/07/17 09:54 500 MLS/HR Vital Signs/I&O Vital Sign - Last 12Hours 09/07/17 09/07/17 09:02 10:19 Temp 98.0 Pulse 117 131 124 128 Resp 18 B/P (MAP) 96/71 Pulse Ox 97 Blood Pressure Mean: 79 Progress Note #1: Time: 09:30 Progress Note We'll check a CK given he's laid on the floor overnight. We'll x-ray his hip, chest and head. Look for evidence of infection, inflammation. His blood pressure is low in the 90s laying in bed which would be consistent with dehydration and may explain why his atrial fibrillation setting up. May explain his fall. We'll also check a urine. He has declined x-raying his right elbow and has good range of motion and strength. We'll go ahead and give him a 20 mL/ kg fluid bolus for his blood pressure. Patient states she would like to go home but he does not feel very stable or safe. Discussed with the daughter who is the POA and she feels he is not safe to go home either. Would be interested in an acute rehabilitation stay see if he could go home or from there possibly assisted living. Progress Note #2: Time: 10:33 Progress Note Orthostatic vitals positive for 20 mmHg systolic dropped from the lying to seated position. Diastolic dropped 33 mmHg. patient's able to walk around the room taking bradykinetic, small steps and a little unsure of his balance with help. He is still not having much urged to micturate and his creatinine kinase indicates rhabdomyolysis so we will give him another liter totaling 2.5 L of fluid by IV and order him a regular tray to eat. Mild leukocytosis may be explained by the rhabdomyolysis or less likely UTI. We are still waiting on urinalysis collection. We'll go ahead and put the patient in the hospital under observation with physical therapy and a consult to ARU. ECG Initial ECG Impression Date: Sep 07, 2017 Initial ECG Impression Time: 09:08 Initial ECG Rate: 141 Initial ECG Rhythm: A Fib/Flutter Initial ECG Intervals: QT (423) Initial ECG Impression: Atrial Fibrillation Initial ECG Comparisson: No Previous ECG Available Comment No T-wave elevation or depression. Diagnostic Imaging Diagonstic Imaging: CT Plain Films/CT/US/NM/MRI: c-spine, head Comments No acute intracranial hemorrhage, mass effect, tumor. 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 C-spine without acute fracture. [facility] NAME: IN[facility]A [facility] REC#: [id number] PT STATUS: REG ER : 1930 PHYSICIAN: CATRINA FARIAS MD ADMIT DATE: 09/07/17/ER Draft Date of Exam:09/07/17 CT HEAD/CERVICAL SPINE WO PROCEDURE: CT head and CT cervical spine without contrast. TECHNIQUE: Multiple contiguous axial images were obtained through the brain and cervical spine without the use of intravenous contrast. Sagittal and coronal reformations through the cervical spine were then performed. INDICATION: Fall. Head injury. COMPARISON: MRI brain without contrast 08/28/2017. CT cervical spine and head without contrast 05/30/2017. FINDINGS: CT head: Advanced generalized cerebral and cerebellar parenchymal volume loss. Moderate leukoaraiosis. 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 No intracranial hemorrhage, mass effect, hydrocephalus or extra-axial fluid collections. No CT evidence of an acute infarct. Postoperative changes in the lateral left orbital wall and floor. Osseous structures are intact. Mild mucosal thickening in the ethmoid and right maxillary sinuses. The mastoids are clear. CT cervical spine: Stable alignment. Vertebral body heights are preserved. No acute fractures. There are moderate to advanced diffuse degenerative endplate changes and facet arthropathy in the cervical spine. No evidence of high-grade spinal canal narrowing on this noncontrast exam. Moderate atherosclerotic calcifications including the carotid bifurcations. Scarring in the lung apices. 1.1 cm low-attenuation nodule in the left thyroid lobe. IMPRESSION: 1. No acute intracranial or cervical spine CT findings. 2. Advanced intracranial parenchymal volume loss and moderate leukoaraiosis. 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 3. 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 Dictated on workstation # [id number] Dict: 09/07/17 0945 Trans: 09/07/17 0956 SYED [id number] Interpreted by: ALBERTO SMITH MD Electronically signed by: Reviewed: Reviewed by Me Diagonstic Imaging: Xray Plain Films/CT/US/NM/MRI: chest Comments No acute cardiopulmonary processes noted. [facility] [place] NAME: [facility] REC#: [id number] PT STATUS: REG ER : 1930 PHYSICIAN: CATRINA FARIAS MD ADMIT DATE: 09/07/17/ER Draft Date of Exam:09/07/17 CHEST 1 VIEW, AP/PA ONLY INDICATION: Fall with chest pain. COMPARISON: 05/31/2017. FINDINGS: No pleural effusion or pneumothorax. Soft tissue skinfold accounts for the linear hyperdense region along the lower left hemithorax. No focal airspace consolidation in the visible lungs. Hyperaerated lung volume can be seen with COPD. Stable cardiomegaly with atherosclerotic aorta. No displaced rib fractures. IMPRESSION: 1. No acute cardiopulmonary process by portable radiography. Dictated on workstation # [id number] Dict: 09/07/17 0951 Trans: 09/07/17 0954 SYED [id number] Interpreted by: MANN SAM MD Electronically signed by: Reviewed: Reviewed by Me Diagonstic Imaging: Xray Plain Films/CT/US/NM/MRI: hip (right) Comments No acute osseous abnormality noted. [facility] [place] [place] NAME: INDIRA [facility] REC#: [id number] PT STATUS: REG ER : 1930 PHYSICIAN: CATRINA FARIAS MD ADMIT DATE: 09/07/17/ER Draft Date of Exam:09/07/17 HIP, RIGHT, 2 VIEWS EXAM: HIP, RIGHT, 2 VIEWS INDICATION: Fall. Right hip pain. COMPARISON: None. FINDINGS: No fracture or malalignment. Mild degenerative changes in the right hip. Vascular calcifications. IMPRESSION: No acute radiographic findings in the right hip. Dictated on workstation # [id number] Dict: 09/07/17 0953 Trans: 09/07/17 0957 [facility] [id number] Interpreted by: ALBERTO SMITH MD Electronically signed by: Reviewed: Reviewed by Me Departure Communication (Admissions) Time/Spoke to Admitting Phy: 10:[address] Sherwood: Discussed clinical findings and lab planned observation stay for rhabdomyolysis, orthostasis with plans to do physical therapy and ARU consult. She is okay with this plan. Impression Impression: Primary Impression: Fall Qualified Codes: W19.XXXA - Unspecified fall, initial encounter Additional Impressions: Hypotension Qualified Codes: I95.1 - Orthostatic hypotension Abrasion Ecchymosis of left eye Traumatic ecchymosis of right elbow Qualified Codes: S50.01XA - Contusion of right elbow, initial encounter Physical debility Disposition: 03 XFER SNF Condition: Stable Admissions Decision to Admit Reason: Admit from ER (General) Decision to Admit/Date: Sep 07, 2017 Time/Decision to Admit Time: 10:46 Departure-Patient Inst. Referrals: GANESH PITTMAN MD (PCP/Family) Primary Care Physician Copy Copies To 1: GANESH PITTMAN MD, TITUS J Sep 07, 2017 09:25
[2017-09-07 09:27] LABS: BASOPHILS % (AUTO) 0 % (0-10); EOSINOPHILS # (AUTO) 0.4 10^3/uL (0.0-0.3); EOSINOPHILS % (AUTO) 3 % (0-10); LYMPHOCYTES % (AUTO) 7 % (12-44); MEAN CORPUSCULAR HEMOGLOBIN 31 PG (25-34); MEAN CORPUSCULAR HGB CONC 33 G/DL (32-36); MEAN CORPUSCULAR VOLUME 96 FL (80-99); MEAN PLATELET VOLUME 10.6 FL (7.4-10.4); MONOCYTES # (AUTO) 3.3 X 10^3 (0.0-1.0); MONOCYTES % (AUTO) 24 % (0-12); NEUTROPHILS # (AUTO) 9.2 X 10^3 (1.8-7.8); NEUTROPHILS % (AUTO) 66 % (42-75); PLATELET COUNT 162 10^3/uL (130-400); RED CELL DISTRIBUTION WIDTH 14.9 % (10.0-14.5); WHITE BLOOD COUNT 13.9 10^3/uL (4.3-11.0)
[2017-09-07 09:43] LABS: ALANINE AMINOTRANSFERASE 17 U/L (0-55); ALBUMIN 3.3 GM/DL (3.2-4.5); ANION GAP 10 MMOL/L (5-14); ASPARTATE AMINO TRANSFERASE 46 U/L (5-34); BILIRUBIN,TOTAL 1.3 MG/DL (0.1-1.0); BLOOD UREA NITROGEN 28 MG/DL (7-18); BUN/CREATININE RATIO 25; CALCIUM 9.5 MG/DL (8.5-10.1); CARBON DIOXIDE 23 MMOL/L (21-32); CHLORIDE 104 MMOL/L (98-107); CREATINE KINASE 1238 U/L (30-200); CREATININE SERUM 1.14 MG/DL (0.60-1.30); GFR ESTIMATED > 60; GLUCOSE 98 MG/DL (70-105); SODIUM 137 MMOL/L (135-145); TOTAL PROTEIN 6.7 GM/DL (6.4-8.2)
[2017-09-07 09:48] LABS: BAND NEUTROPHILS 1 %; EOSINOPHILS % (MANUAL) 4 %; LYMPHOCYTES % (MANUAL) 12 %; NEUTROPHILS % (MANUAL) 69 %
--- NOTE | 2017-09-07 09:54 | Diagnostic Imaging Report ---
INDICATION: Fall with chest pain. COMPARISON: 05/31/2017. FINDINGS: No pleural effusion or pneumothorax. Soft tissue skinfold accounts for the linear hyperdense region along the lower left hemithorax. No focal airspace consolidation in the visible lungs. Hyperaerated lung volume can be seen with COPD. Stable cardiomegaly with atherosclerotic aorta. No displaced rib fractures. IMPRESSION: 1. No acute cardiopulmonary process by portable radiography. Dictated by: Dictated on workstation # [id number]
--- NOTE | 2017-09-07 09:57 | Diagnostic Imaging Report ---
PROCEDURE: CT head and CT cervical spine without contrast. TECHNIQUE: Multiple contiguous axial images were obtained through the brain and cervical spine without the use of intravenous contrast. Sagittal and coronal reformations through the cervical spine were then performed. INDICATION: Fall. Head injury. COMPARISON: MRI brain without contrast 08/28/2017. CT cervical spine and head without contrast 05/30/2017. FINDINGS: CT head: Advanced generalized cerebral and cerebellar parenchymal volume loss. Moderate leukoaraiosis. 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 No intracranial hemorrhage, mass effect, hydrocephalus or extra-axial fluid collections. No CT evidence of an acute infarct. Postoperative changes in the lateral left orbital wall and floor. Osseous structures are intact. Mild mucosal thickening in the ethmoid and right maxillary sinuses. The mastoids are clear. CT cervical spine: Stable alignment. Vertebral body heights are preserved. No acute fractures. There are moderate to advanced diffuse degenerative endplate changes and facet arthropathy in the cervical spine. No evidence of high-grade spinal canal narrowing on this noncontrast exam. Moderate atherosclerotic calcifications including the carotid bifurcations. Scarring in the lung apices. 1.1 cm low-attenuation nodule in the left thyroid lobe. IMPRESSION: 1. No acute intracranial or cervical spine CT findings. 2. Advanced intracranial parenchymal volume loss and moderate leukoaraiosis. 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 3. 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 Dictated by: Dictated on workstation # [id number]
--- NOTE | 2017-09-07 09:58 | Diagnostic Imaging Report ---
EXAM: HIP, RIGHT, 2 VIEWS INDICATION: Fall. Right hip pain. COMPARISON: None. FINDINGS: No fracture or malalignment. Mild degenerative changes in the right hip. Vascular calcifications. IMPRESSION: No acute radiographic findings in the right hip. Dictated by: Dictated on workstation # [id number]
[2017-09-07] MEDS ORDERED: NS IV 1000 ML 1,000 ML IV ONE (10:38)
[2017-09-07 11:02] LABS: BILIRUBIN,URINE NEGATIVE (NEGATIVE); KETONES,URINE 1+ (NEGATIVE); LEUKOCYTE ESTERASE ,URINE NEGATIVE (NEGATIVE); NITRITE,URINE NEGATIVE (NEGATIVE); PH,URINE 5 (5-9); PROTEIN,URINE 1+ (NEGATIVE); UROBILINOGEN,URINE NORMAL (NORMAL)
[2017-09-07 11:03] LABS: WBC,URINE RARE /HPF
[2017-09-07] MEDS ORDERED: ONDANSETRON 4 MG/2 ML (SDV) Z0FRAN IV PRN (12:30)
[2017-09-07] MEDS ORDERED: INFLUENZA TRIvalent 2017-2018 0.5 ML/45 MCG SYR IM ONE (12:30)
[2017-09-07] MEDS ORDERED: ACETAMINOPHEN 500 MG TAB (TYLENOL) PO PRN (12:30)
[2017-09-07] MEDS ORDERED: MULT-593 PO (12:33)
[2017-09-07] MEDS: NS IV 1000 ML 1,000 ML IV SCH ×2 (12:41→22:40)
--- NOTE | 2017-09-07 13:04 | History & Physical-Hospitalist ---
HPI History of Present Illness: HPI/Chief Complaint CC: Fall with rhabdomyolysis HPI: This is a 87 [address] pt [address] Pittman's who presented to ER after falling at home and laying on his left side all night. Daughter found him this morning with no fractures and negative CT head. Will initiate IVF to prevent renal failure from rhabdo. In-pt rehab will be consulted. WBC 13.9, Hgb 11.9, CMP normal Patient Interview: Pt confirms PCP as Dr. Pittman; pt used to see Dr. Fernandez. Pt was assured that Dr. Pittman will be back on Saturday to assume care. Pt denies experiencing pain, except on his head. Physical exam stable. Pt states he was on the floor overnight In-pt rehab eval discussed Pt confirms seeing cardiology regularly; he sees Dr. Wisdom Scribed by Carine Galindo under the direct supervision of Dr. Sherwood. Source: patient, family, RN/MD Exam Limitations: no limitations Date Seen 09/07/17 Time Seen by Provider: 12:00 Attending Physician Fernanda Pittman MD PCP Fernanda Pittman MD Referring Physician Date of Admission Sep 07, 2017 at 10:50 Home Medications & Allergies Home Medications Reviewed patient Home Medication Reconciliation Form Allergies Allergies Coded Allergies No Known Drug Allergies (Gtmgeprm65/29/09) Past Naszeun-Uhqsqk-Ymhfhq Hx Patient Social History Marrital Status: Employed/Student: retired Alcohol Use: Past History Number of Drinks Today: 0 Alcohol Beverage of Choice: Beer, Whiskey Recreational Drug Use: No Smoking Status: Former Smoker Former Smoker, Quit: May 30, 1982 Type Used: Cigarettes Physical Abuse Screen: No Sexual Abuse: No Recent Foreign Travel: No Contact w/other who traveled: No Recent Hopitalizations: Yes Recent Infectious Disease Expo: No Immunizations Up To Date Tetanus Booster (TDap): Less than 5yrs Pediatric: Yes Date of Pneumonia Vaccine: May 30, 2016 Seasonal Allergies Seasonal Allergies: No Surgeries Yes (urethral stent placement, CA REMOVAL, FACIAL RECONSTRUCTION, TOE AMPUTATION ) Prostatectomy, Renal Respiratory No Currently Using CPAP: No Currently Using BIPAP: No Cardiovascular Yes (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) Atrial Fibrillation, Hypertension Neurological Yes Dementia Reproductive System Hx Reproductive Disorders: No Sexually Transmitted Disease: No HIV/AIDS: No Genitourinary Yes Prostate Problems, Kidney Stones, UTI-Chronic Gastrointestinal Yes Diverticulosis Musculoskeletal Yes Amputee Endocrine History of Endocrine Disorders: No HEENT History of HEENT Disorders: Yes HEENT Disorders: Cataract Loss of Vision: Denies Hearing Impairment: Hard of Hearing, Deaf Cancer Yes Skin Did You Recieve Any Treatments: Yes Type of Treatment: Surgical Intervention Psychosocial History of Psychiatric Problem: No Integumentary History of Skin or Integumenta: Yes (SKIN CANCER BURNED OFF ) Skin/Integumentary Disorders: Recent Skin Changes Blood Transfusions History of Blood Disorders: No Adverse Reaction to a Blood Tr: No Family Medical History Family Hx: Cardiovascular disease 19 MOTHER G8 BROTHER G8 SISTER FH: lung cancer 19 FATHER Myocardial infarction G8 BROTHER G8 SISTER Review of Systems Constitutional: see HPI, weakness EENTM: no symptoms reported Respiratory: no symptoms reported Cardiovascular: no symptoms reported Gastrointestinal: no symptoms reported Genitourinary: no symptoms reported Musculoskeletal: back pain, joint pain Skin: no symptoms reported Psychiatric/Neurological: Depressed All Other Systems Reviewed Negative Unless Noted: Yes Physical Exam Physical Exam Vital Signs Vital Sign - Last 12Hours 09/07/17 09:02 Temp 98.0 Pulse 117 Resp 18 B/P (MAP) 96/71 Pulse Ox 97 Capillary Refill : Less Than 3 Seconds General Appearance: No Apparent Distress, WD/WN, Chronically ill, Thin Eyes: Bilateral Eye Normal Inspection, Bilateral Eye PERRL HEENT: PERRL/EOMI, Normal ENT Inspection, Pharynx Normal Neck: Full Range of Motion, Normal Inspection, Non Tender, Supple, Carotid Bruit Respiratory: Chest Non Tender, Lungs Clear, Normal Breath Sounds, No Accessory Muscle Use, No Respiratory Distress Cardiovascular: No Edema, No Gallop, No JVD, No Murmur, Normal Peripheral Pulses, Systolic Murmur, Irregularly Irregular Gastrointestinal: Normal Bowel Sounds, No Organomegaly, No Pulsatile Mass, Non Tender, Soft Back: Normal Inspection, No CVA Tenderness, No Vertebral Tenderness Extremity: Normal Capillary Refill, Normal Inspection, Normal Range of Motion, Non Tender, No Calf Tenderness, No Pedal Edema Neurologic/Psychiatric: Alert, Oriented x3, No Motor/Sensory Deficits, Normal Mood/Affect Skin: Normal Color, Warm/Dry Lymphatic: No Adenopathy Results Results/Procedures Lab Laboratory Tests 09/07/17 09:02 Assessment/Plan Admission Diagnosis Assessment: Fall at home with acute rhabdomyolysis from lying on side on floor for 12+ hours AF on Cardizem and Eliquis Dementia Leukocytosis Assessment and Plan Plan: In-pt rehab eval w/PT/OT Review home meds and restart when completed but holding Eliquis due to fall since risks may outweigh medical benefits. Pt needs placement at facility Pain meds Diagnosis/Problems Diagnosis/Problems (1) Fall Status: Acute Qualifiers: Qualified Codes: W19.XXXA - Unspecified fall, initial encounter (2) Rhabdomyolysis Status: Acute Assessment & Plan: Gentle IVF Qualifiers: Qualified Codes: T79.6XXA - Traumatic ischemia of muscle, initial encounter (3) Atrial fibrillation Status: Chronic Qualifiers: Qualified Codes: I48.2 - Chronic atrial fibrillation (4) Physical debility Status: Chronic Assessment & Plan: PT/OT/ZAK FUCHS DO Sep 07, 2017 13:04
--- NOTE | 2017-09-07 14:13 | Physical Therapy Evaluation ---
PT Evaluation-General Medical Diagnosis Admission Date Sep 07, 2017 at 10:50 Medical Diagnosis: orthostasis Onset Date: Sep 06, 2017 Therapy Diagnosis Therapy Diagnosis: weakness; gait instability Height/Weight Height (Feet): 6 Height (Inches): 0.00 Weight (Pounds): 161 Weight (Ounces): 0.0 Precautions Precautions/Isolations: Fall Prevention, Standard Precautions Referral Physician: Fernanda Pittman Reason for Referral: Evaluation/Treatment Medical History Pertinent Medical History: Atrial Fib, GERD, HTN Social History Home: Single Level Current Living Status: Alone Entry Into Home: Stairs With Railing PT Steps Into Home: 3 active, still drives Prior/Core FIM Prior Level of Function Functional [place] Measure 0=Not Assessed/NA 4=Minimal Assistance 1=Total Assistance 5=Supervision or Setup 2=Maximal Assistance 6=Modified [place] 3=Moderate Assistance 7=Complete [place] Bed Mobility: 7 Transfers (B,C,W/C) (FIM): 7 Gait: 7 PT Evaluation-Current Subjective Pt reports he just lost his balance and fell at home. He was on the floor through the night. Found by his daughter the next day and brought to the ER. Pt reports he has not had balance problems until now. Objective Patient Orientation: Normal For Age Attachments: IV ROM/Strength ROM Lower Extremities WFL Strength Lower Extremities gross 4+/5 throughout Sensory Vision: Functional Hearing: Impaired Transfers Functional [place] Measure 0=Not Assessed/NA 4=Minimal Assistance 1=Total Assistance 5=Supervision or Setup 2=Maximal Assistance 6=Modified [place] 3=Moderate Assistance 7=Complete [place] Transfers (B, C, W/C) (FIM): 5 Scootin Supine to/from Sit: 6 Sit to/from Stand: 5 Pt was up bedside without assist, eating a meal. Demonstrated safe bed mobility. Gait Mode of Locomotion: Walk Anticipated Mode of Locomotion: Walk Gait (FIM): 5 Distance (FIM): 3=150 ft Distance: 300 Gait Level of Assist: 1 Gait Persons Needed: 1 Gait Assistive Device: FWW Comments/Gait Description Stable gait with FWW. Pt had lateral ataxia when walking 100ft without device. Balance Sitting Static: Normal Sitting Dynamic: Normal Standing Static: Fair Standing Dynamic: Fair Special Test Comments Shen balance test 45 out of 56. 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 Lead Ruby On Rails Developer Goals PT Shelter Goals Time Frame: Sep 14, 2017 Transfers (B,C,W/C) (FIM): 6 Gait (FIM): 6 Gait distance (FIM): 3=150 ft Distance: 150 Gait Level of Assist: 6 Gait Assistive Device: None Stairs (FIM): 5 # of Steps: 3 Stairs Level Of Assist: 6 stairs using 1 rail MOD I PT Plan Problem List Problem List: Activity Tolerance, Safety, Balance, Gait Treatment/Plan Treatment Plan: Continue Plan of Care Treatment Plan: Gait, Safety Treatment Duration: Sep 14, 2017 Frequency: 6 times per week Estimated Hrs Per Day: .25 hour per day Patient and/or Family Agrees t: Yes Gait train using FWW with progression to least restrictive device needed for safety. Safety Risks/Education Patient Education: Gait Training, Steps, Safety Issues Teaching Recipient: Patient Teaching Methods: Demonstration, Discussion Discharge Recommendations Therapy D/C Recommendations: Home w/ Family Support Target Placement home Time/GCodes Time In: 1310 Time Out: 1335 Total Billed Treatment Time: 25 Total Billed Treatment visit, evaluation low complexity 25 minutes PT/OT Therapy GCodes Therapy Functional Limitation: Physical Therapy Test(s)/Tool used to determine: Shen Functional Limitation-Current Charge Code: MOBCUR Modifier: CJ Functional Limitation-Goal Charge Code: MOBGOAL Modifier: SHWETHA STERLING PT Sep 07, 2017 14:13
[2017-09-07 16:00] VITALS: BP 117/76
[2017-09-07 19:55] VITALS: BP 105/72
[2017-09-08] VITALS: BP 118/76
[2017-09-08 04:00] VITALS: BP 109/74
[2017-09-08 06:46] LABS: BASOPHILS % (AUTO) 0 % (0-10); EOSINOPHILS # (AUTO) 0.5 10^3/uL (0.0-0.3); EOSINOPHILS % (AUTO) 6 % (0-10); LYMPHOCYTES # (AUTO) 1.9 X 10^3 (1.0-4.0); LYMPHOCYTES % (AUTO) 24 % (12-44); MEAN CORPUSCULAR HEMOGLOBIN 30 PG (25-34); MEAN CORPUSCULAR HGB CONC 31 G/DL (32-36); MEAN CORPUSCULAR VOLUME 98 FL (80-99); MEAN PLATELET VOLUME 10.6 FL (7.4-10.4); MONOCYTES # (AUTO) 2.1 X 10^3 (0.0-1.0); MONOCYTES % (AUTO) 26 % (0-12); NEUTROPHILS # (AUTO) 3.5 X 10^3 (1.8-7.8); NEUTROPHILS % (AUTO) 44 % (42-75); PLATELET COUNT 148 10^3/uL (130-400); RED BLOOD COUNT 3.45 10^6/uL (4.35-5.85); RED CELL DISTRIBUTION WIDTH 14.6 % (10.0-14.5)
[2017-09-08 07:23] LABS: ALANINE AMINOTRANSFERASE 23 U/L (0-55); ALBUMIN 2.7 GM/DL (3.2-4.5); ANION GAP 7 MMOL/L (5-14); ASPARTATE AMINO TRANSFERASE 53 U/L (5-34); BILIRUBIN,TOTAL 0.4 MG/DL (0.1-1.0); BLOOD UREA NITROGEN 25 MG/DL (7-18); BUN/CREATININE RATIO 25; CALCIUM 8.2 MG/DL (8.5-10.1); CARBON DIOXIDE 21 MMOL/L (21-32); CHLORIDE 112 MMOL/L (98-107); CREATININE SERUM 0.99 MG/DL (0.60-1.30); GFR ESTIMATED > 60; GLUCOSE 80 MG/DL (70-105); POTASSIUM 3.8 MMOL/L (3.6-5.0); SODIUM 140 MMOL/L (135-145)
[2017-09-08] MEDS: LORATADINE (CLARITIN) 10 MG TAB PO SCH (08:04)
[2017-09-08] MEDS: DILTIAZEM 120 MG (CARDIZEM CD) CAP PO SCH (08:04)
[2017-09-08] MEDS: DONEPEZIL 5 MG (ARICEPT) TAB PO SCH (08:04)
[2017-09-08] MEDS: NS IV 1000 ML 1,000 ML IV SCH ×2 (08:05→18:12)
--- NOTE | 2017-09-08 08:25 | Consultation-Cardiology ---
HPI-Cardiology Cardiology Consultation: Date of Consultation 09/08/17 Date of Admission Attending Physician Fernanda Pittman MD Admitting Physician Fernanda Pittman MD Consulting Physician Marcy ROTHMAN MD HPI: Time Seen by Provider: 08:30 Chief Complaint: syncope, atrial fibrillation this is a 87-year-old gentleman who is a patient of Dr. Wisdom. He has history of atrial fibrillation and was previously on Eliquis and Cardizem. He presents with a history of unexplained syncope with head injury. He is under treatment for rhabdomyolysis. The patient denies any cardiac symptoms including palpitations or chest pain, shortness of breath, lower extremity swelling. Review of Systems-Cardiology Review of Systems Constitutional: No As described under HPI, No no symptoms reported, No chills, No fever, No lightheadedness, No malaise, No tiredness, No weight loss, No weight gain, No other Eyes: No As described under HPI, No no symptoms reported, No blindness, No blurred vision, No contact lenses, No drainage, No decreased acuity, No foreign body sensation, No glasses, No inflammation, No pain, No photophobia, No previous injury, No shadows, No tunnel vision, No other, No vision change Ears/Nose/Throat: No As described under HPI, No no symptoms reported, No chronic hearing loss, No epistaxis, No ear discharge, No ear pain, No loose teeth, No mouth pain, No mouth swelling, No nasal drainage, No nose pain, No recent hearing loss, No throat pain, No throat swelling, No ulcerations, No other Respiratory: No no symptoms reported, No As described under HPI, No cough, No orthopnea, No shortness of breath, No SOB with excertion, No SOB at rest, No stridor, No wheezing, No other Cardiovascular: No no symptoms reported, No As described under HPI, No chest pain, No edema, No irregular heart rate, No lightheadedness, No palpitations, syncope, No other Gastrointestinal: No no symptoms reported, No As described under HPI, No abdomen distended, No abdominal pain, No blood streaked bowels, No constipation , No diarrhea, No difficulty swallowing, No nausea, No poor appetite, No poor fluid intake, No rectal bleeding, No vomiting, No other, No nausea/vomiting/ diarrhea, No stool coloration changes Genitourinary: No no symptoms reported, No As described under HPI, No burning, No dysuria, No discharge, No frequency, No flank pain, No hematuria, No incontinence, No pain, No urgency, No other, No urine frequency changes, No urine coloration changes Musculoskeletal: No no symptoms reported, No As describe under HPI, No back pain, No gout, No joint pain, No joint swelling, No muscle pain, No muscle stiffness, No neck pain, No other Skin: No no symptoms reported, No As described under HPI, No change in color, No change in hair/nails, No dryness, No lesions, No lumps, No rash, No other, No skin related problems, No ulcerations, No rash on exposed areas, No ulcerations on exposed areas Psychiatric/Neurological: As described under HPI Hematologic: No no symptoms reported, No As described under HPI, No anemia, No blood clots, No easy bleeding, No easy bruising, No swollen glands, No other, No bleeding abnormalities All Other Systems Reviewed Negative Unless Noted: Yes RDI-Ltesip-Prqwgo Hx Patient Social History Marrital Status: Employed/Student: retired Alcohol Use: Past History Recreational Drug Use: No Smoking Status: Former Smoker Former smoker/When Quit: Feb 06, 2001 Type Used: Cigarettes Recent Foreign Travel: No Recent Infectious Disease Expo: No Hospitalization with Isolation: Denies Physical Abuse Screen: No Sexual Abuse: No Immunizations Up To Date Tetanus Booster (TDap): Less than 5yrs Date of Pneumonia Vaccine: May 30, 2016 Past Medical History PMH As described under Assessment. Family Medical History Family History: Cardiovascular disease 19 MOTHER G8 BROTHER G8 SISTER FH: lung cancer 19 FATHER Myocardial infarction G8 BROTHER G8 SISTER Allergies and Home Medications Allergies Coded Allergies: No Known Drug Allergies (Verified , 11/22/09) Home Medications Apixaban 5 Mg Tablet, 5 MG PO BID, #60 Ref 4 Prescribed by: MAX WISDOM on 06/01/17 1054 Diltiazem HCl 120 Mg Cap.er.24h, (Reported) Donepezil HCl 5 Mg Tablet, (Reported) Garlic 1,000 Mg Capsule, 1,000 MG PO DAILY, (Reported) Loratadine 10 Mg Capsule, 10 MG PO DAILY, (Reported) Multivitamin with Minerals 1 Each Tablet, 1 EACH PO DAILY, (Reported) Physical Exam-Cardiology Physical Exam Vital Signs/I&O Vital Sign - Last 12Hours 09/08/17 09/08/17 09/08/17 09/08/17 00:00 04:00 08:08 08:43 Temp 98.7 98.6 98.0 Pulse 53 98 89 Resp 18 18 20 B/P (MAP) 118/76 109/74 120/80 Pulse Ox 95 98 96 O2 Delivery Room Air Room Air Room Air Room Air Capillary Refill : Less Than 3 Seconds Constitutional: No appears stated age, No AAO x 3, No apparent distress, No PERRL, No well-developed, No well-nourished, No other HEENT: No PERRL, No normal ENT inspection, No TMs normal, No pharynx normal, No scleral icterus (R), No scleral icterus (L), No pale conjunctivae (R), No pale conjunctivae (L), No photophobia, No TM abnormal (R), No TM abnormal (L), No pharyngeal erythema, No tonsillar exudate, No other, No discharge, No EOMI, No hearing is well preserved, No hard of hearing, No oral hygience is good, No ulceration, No xanthelasmas are seen Neck: No non-tender, No full range of motion, No supple, No normal inspection, No carotid bruit, No limited range of motion, No lymphadenopathy (R), No lymphadenopathy (L), No tender lateral, No tender midline, No thyromegaly, No other, No carotid pulses are 2 + bilaterally, No with good upstrokes Respiratory: No accessory muscle use, No respiratory distress, No chest tender , No chest expansion is symmetric, No chest is bilaterally symmetric, No lungs clear to percussion, No lungs clear to auscultation, No crackles, No rhonchi, No rales, No stridor, No wheezing, No pleural rub, No other Cardiovascular: No regular rate-rhythm, irregularly irregular, No extra beats, No parasternal heave is noted, No JVD, No edema, No bradycardia, No tachycardia , No point of maximal impulse, No cardiac thrills are palpable, S1 and S2, No gallop/S3, No gallop/S4, No diastolic murmur, No systolic murmur, No friction rub, No click, No other Gastrointestinal: No tender, No soft, No round, No distended, No pulsatile mass , No organomegaly, No guarding, No rebound, No tenderness, No hernia, No mass, No audible bowel sounds, No abnormal bowel sounds, No abdominal bruits, No spleenomegaly, No other Rectal: deferred Extremities: No normal range of motion, No non-tender, No normal inspection, No pedal edema, No calf tenderness, No normal capillary refill, No pelvis stable , No calf tenderness, No inflammation, No pedal edema, No slow capillary refill , No swelling, No other, No abrasion, No clubbing, No cyanosis, No ecchymosis, No laceration, No no lower extremity edema bilateral, No significant edema, No tenderness, No wound Neurologic/Psychiatric: No hunter II-XII nml as tested, No no motor/sensory deficits, No alert, No normal mood/affect, No oriented x 3, No abnormal cerebellar tests, No abnormal hunter II-XII, No abnormal gait, No aphasia, No EOM palsy, No facial droop, No motor weakness, No sensory deficit, No depressed affect, No disoriented x 3, No other, No grossly intact, No power is 5/5 both on sides Skin: No normal color, No warm/dry, No cyanosis, No cool, No diaphoresis, No damp, No ecchymosis, No jaundice, No mottled, No pallor, No rash, No tattoos/ piercings, No ulcerations, No rash on exposed areas, No ulcerations on exposed areas, No other Data Review Labs Laboratory Tests 09/08/17 05:19: White Blood Count 8.0, Red Blood Count 3.45L, Hemoglobin 10.4L, Hematocrit 34L, Mean Corpuscular Volume 98, Mean Corpuscular Hemoglobin 30, Mean Corpuscular Hemoglobin Concent 31L, Red Cell Distribution Width 14.6H, Platelet Count 148, Mean Platelet Volume 10.6H, Neutrophils (%) (Auto) 44, Lymphocytes (%) (Auto) 24 , Monocytes (%) (Auto) 26H, Eosinophils (%) (Auto) 6, Basophils (%) (Auto) 0, Neutrophils # (Auto) 3.5, Lymphocytes # (Auto) 1.9, Monocytes # (Auto) 2.1H, Eosinophils # (Auto) 0.5H, Basophils # (Auto) 0.0, Sodium Level 140, Potassium Level 3.8, Chloride Level 112H, Carbon Dioxide Level 21, Anion Gap 7, Blood Urea Nitrogen 25H, Creatinine 0.99, Estimat Glomerular Filtration Rate > 60, BUN /Creatinine Ratio 25, Glucose Level 80, Calcium Level 8.2L, Total Bilirubin 0.4 , Aspartate Amino Transf (AST/SGOT) 53H, Alanine Aminotransferase (ALT/SGPT) 23 , Alkaline Phosphatase 39L, Total Creatine Kinase 876H, Total Protein 5.0L, Albumin 2.7L A/P-Cardiology Assessment/Admission Diagnosis 1. Syncope, 2. Fall, 3. Atrial fibrillation Plan check EKG, echocardiogram, start telemetry. Continue rate control with calcium channel sohail. Hold Eliquis till we figure out the reason for the fall. Thank you for your consultation. Please call me if you have any questions. Tamara Rothman MD, FACP, FACC, FSCAI, FHRS, CCDS Interventional Cardiology Cardiac Electrophysiology Vascular Medicine and Endovascular Interventions Clinical Quality Measures DVT/VTE Risk/Contraindication: Risk Factor Score Per Nursin RFS Level Per Nursing on Admit: 4+=Very High Marcy ROTHMAN MD Sep 08, 2017 8:25 am
[2017-09-08 08:43] VITALS: BP 120/80
--- NOTE | 2017-09-08 11:12 | Consultation-Cardiology ---
HPI-Cardiology Cardiology Consultation: Date of Consultation 09/08/17 Date of Admission Attending Physician Fernanda Pittman MD Admitting Physician Fernanda Pittman MD Consulting Physician Marcy ROTHMAN MD HPI: Time Seen by Provider: 08:30 Review of Systems-Cardiology All Other Systems Reviewed Negative Unless Noted: Yes SHD-Frqitc-Rurrfe Hx Patient Social History Marrital Status: Employed/Student: retired Alcohol Use: Past History Recreational Drug Use: No Smoking Status: Former Smoker Former smoker/When Quit: Feb 06, 2001 Type Used: Cigarettes Recent Foreign Travel: No Recent Infectious Disease Expo: No Hospitalization with Isolation: Denies Physical Abuse Screen: No Sexual Abuse: No Immunizations Up To Date Tetanus Booster (TDap): Less than 5yrs Date of Pneumonia Vaccine: May 30, 2016 Past Medical History PMH As described under Assessment. Family Medical History Family History: Cardiovascular disease 19 MOTHER G8 BROTHER G8 SISTER FH: lung cancer 19 FATHER Myocardial infarction G8 BROTHER G8 SISTER Allergies and Home Medications Allergies Coded Allergies: No Known Drug Allergies (Verified , 11/22/09) Home Medications Apixaban 5 Mg Tablet, 5 MG PO BID, #60 Ref 4 Prescribed by: MAX PÉREZ on 06/01/17 1054 Diltiazem HCl 120 Mg Cap.er.24h, (Reported) Donepezil HCl 5 Mg Tablet, (Reported) Garlic 1,000 Mg Capsule, 1,000 MG PO DAILY, (Reported) Loratadine 10 Mg Capsule, 10 MG PO DAILY, (Reported) Multivitamin with Minerals 1 Each Tablet, 1 EACH PO DAILY, (Reported) Physical Exam-Cardiology Physical Exam Vital Signs/I&O Vital Sign - Last 12Hours 09/08/17 09/08/17 09/08/17 09/08/17 00:00 04:00 08:08 08:43 Temp 98.7 98.6 98.0 Pulse 53 98 89 Resp 18 18 20 B/P (MAP) 118/76 109/74 120/80 Pulse Ox 95 98 96 O2 Delivery Room Air Room Air Room Air Room Air Capillary Refill : Less Than 3 Seconds Data Review Labs Laboratory Tests 09/08/17 05:19: White Blood Count 8.0, Red Blood Count 3.45L, Hemoglobin 10.4L, Hematocrit 34L, Mean Corpuscular Volume 98, Mean Corpuscular Hemoglobin 30, Mean Corpuscular Hemoglobin Concent 31L, Red Cell Distribution Width 14.6H, Platelet Count 148, Mean Platelet Volume 10.6H, Neutrophils (%) (Auto) 44, Lymphocytes (%) (Auto) 24 , Monocytes (%) (Auto) 26H, Eosinophils (%) (Auto) 6, Basophils (%) (Auto) 0, Neutrophils # (Auto) 3.5, Lymphocytes # (Auto) 1.9, Monocytes # (Auto) 2.1H, Eosinophils # (Auto) 0.5H, Basophils # (Auto) 0.0, Sodium Level 140, Potassium Level 3.8, Chloride Level 112H, Carbon Dioxide Level 21, Anion Gap 7, Blood Urea Nitrogen 25H, Creatinine 0.99, Estimat Glomerular Filtration Rate > 60, BUN /Creatinine Ratio 25, Glucose Level 80, Calcium Level 8.2L, Total Bilirubin 0.4 , Aspartate Amino Transf (AST/SGOT) 53H, Alanine Aminotransferase (ALT/SGPT) 23 , Alkaline Phosphatase 39L, Total Creatine Kinase 876H, Total Protein 5.0L, Albumin 2.7L A/P-Cardiology Plan Thank you for your consultation. Please call me if you have any questions. Tamara Rothman MD, FACP, FACC, FSCAI, FHRS, CCDS Interventional Cardiology Cardiac Electrophysiology Vascular Medicine and Endovascular Interventions Clinical Quality Measures DVT/VTE Risk/Contraindication: Risk Factor Score Per Nursin RFS Level Per Nursing on Admit: 4+=Very High Marcy ROTHMAN MD Sep 08, 2017 11:12 am
--- NOTE | 2017-09-08 12:21 | Progress Note-Hospitalist ---
Progress Note HPI/CC on Admission CC: Fall with rhabdomyolysis HPI: This is a 87 [address] pt of [address] Pittman's who presented to ER after falling at home and laying on his left side all night. Daughter found him this morning with no fractures and negative CT head. Will initiate IVF to prevent renal failure from rhabdo. In-pt rehab will be consulted. WBC 13.9, Hgb 11.9, CMP normal Patient Interview: Pt confirms PCP as Dr. Pittman; pt used to see Dr. Fernandez. Pt was assured that Dr. Pittman will be back on Saturday to assume care. Pt denies experiencing pain, except on his head. Physical exam stable. Pt states he was on the floor overnight In-pt rehab eval discussed Pt confirms seeing cardiology regularly; he sees Dr. Wisdom Scribed by Carine Galindo under the direct supervision of Dr. Sherwood. Progress Notes/Assess & Plan Date Seen 09/08/17 Time Seen by Provider: 11:00 Admission Dx/Process Assessment: Fall at home with acute rhabdomyolysis from lying on side on floor for 12+ hours AF on Cardizem and Eliquis Dementia Leukocytosis Diagonsis/Assessment & Plan Chart Review: No fever Vitals stable WBC 8 Hgb 10.4 CPK 876 Reviewed cardiology consultation PT did see pt yesterday afternoon but he does not recall this visit, noted dementia could be progressive. Patient Interview: Labs discussed and look good Pt denies working with PT yesterday I informed the pt that I will recheck labs tomorrow and Dr. Pittman will see the pt tomorrow as well. Pt denies having BMs but states he has urinated. Pt states his last BM was the day before yesterday and that this is normal for him. Physical exam stable. Lungs sound perfect Pt was encouraged to ambulate AFVSS, Pleasant, sitting up in bed, daughter at bedside Irr Irr CTAB No edema Bruising on left forehead resolving Laboratory Tests 09/08/17 05:19 Assessment: Fall at home with acute rhabdomyolysis from lying on side on floor for 12+ hours now resolving CPK elevation with IVF AF on Cardizem and Eliquis appreciate Dr Rothman evaluation Dementia could have progressed to the point of needing NH facility Leukocytosis resolved likely stress-response Plan: In-pt rehab eval w/PT/OT Review home meds and restart when completed but holding Eliquis due to fall since risks may outweigh medical benefits. Pt needs placement at facility upon DC? Pain meds Ambulate Recheck labs in am Scribed by Carine Galindo under the direct supervision of Dr. Sherwood. Diagnosis/Problems Diagnosis/Problems (1) Fall Status: Acute Qualifiers: Qualified Codes: W19.XXXA - Unspecified fall, initial encounter (2) Rhabdomyolysis Status: Acute Assessment & Plan: Gentle IVF Qualifiers: Qualified Codes: T79.6XXA - Traumatic ischemia of muscle, initial encounter (3) Atrial fibrillation Status: Chronic Qualifiers: Qualified Codes: I48.2 - Chronic atrial fibrillation (4) Physical debility Status: Chronic Assessment & Plan: PT/OT/ZAK FUCHS DO Sep 08, 2017 12:21
[2017-09-08] MEDS ORDERED: LACTULOSE SYRUP 10GM/15ML (ENULOSE) 30ML UDC PO PRN (12:30)
[2017-09-08 12:57] VITALS: BP 123/78
[2017-09-08] MEDS ORDERED: INFLUENZA TRIvalent 2017-2018 0.5 ML/45 MCG SYR IM ONE (14:20)
[2017-09-08 15:28] VITALS: BP 135/83
[2017-09-08 19:05] VITALS: BP 138/82
[2017-09-09] VITALS: BP 142/85
[2017-09-09 04:00] VITALS: BP 181/92
[2017-09-09] MEDS: NS IV 1000 ML 1,000 ML IV SCH (04:57)
[2017-09-09 05:28] LABS: BASOPHILS % (AUTO) 1 % (0-10); EOSINOPHILS # (AUTO) 0.3 10^3/uL (0.0-0.3); EOSINOPHILS % (AUTO) 4 % (0-10); LYMPHOCYTES # (AUTO) 1.9 X 10^3 (1.0-4.0); LYMPHOCYTES % (AUTO) 25 % (12-44); MEAN CORPUSCULAR HEMOGLOBIN 30 PG (25-34); MEAN CORPUSCULAR HGB CONC 31 G/DL (32-36); MEAN CORPUSCULAR VOLUME 98 FL (80-99); MEAN PLATELET VOLUME 10.3 FL (7.4-10.4); MONOCYTES # (AUTO) 1.7 X 10^3 (0.0-1.0); MONOCYTES % (AUTO) 21 % (0-12); NEUTROPHILS # (AUTO) 3.9 X 10^3 (1.8-7.8); NEUTROPHILS % (AUTO) 50 % (42-75); PLATELET COUNT 155 10^3/uL (130-400); RED BLOOD COUNT 3.57 10^6/uL (4.35-5.85); RED CELL DISTRIBUTION WIDTH 14.7 % (10.0-14.5); WHITE BLOOD COUNT 7.9 10^3/uL (4.3-11.0)
[2017-09-09 05:55] LABS: ALANINE AMINOTRANSFERASE 27 U/L (0-55); ALBUMIN 2.7 GM/DL (3.2-4.5); ANION GAP 6 MMOL/L (5-14); ASPARTATE AMINO TRANSFERASE 47 U/L (5-34); BILIRUBIN,TOTAL 0.4 MG/DL (0.1-1.0); BLOOD UREA NITROGEN 19 MG/DL (7-18); BUN/CREATININE RATIO 21; CALCIUM 7.9 MG/DL (8.5-10.1); CARBON DIOXIDE 19 MMOL/L (21-32); CHLORIDE 113 MMOL/L (98-107); CREATINE KINASE 544 U/L (30-200); GFR ESTIMATED > 60; GLUCOSE 82 MG/DL (70-105); POTASSIUM 3.5 MMOL/L (3.6-5.0); SODIUM 138 MMOL/L (135-145); TOTAL PROTEIN 5.5 GM/DL (6.4-8.2)
[2017-09-09] MEDS: DONEPEZIL 5 MG (ARICEPT) TAB PO SCH (08:08)
[2017-09-09] MEDS: DILTIAZEM 120 MG (CARDIZEM CD) CAP PO SCH (08:09)
[2017-09-09] MEDS: LORATADINE (CLARITIN) 10 MG TAB PO SCH (08:09)
[2017-09-09 08:12] VITALS: BP 128/80
[2017-09-09] MEDS ORDERED: APIX5TAB PO (08:26)
[2017-09-09] MEDS ORDERED: CETI10TA20 PO (08:27)
--- NOTE | 2017-09-09 08:28 | Cardiology Progress Note ---
Subjective Time Seen by Provider: 08:22 Subjective/Events-last exam Patient is sitting up in bed. Complaining of generalized weakness. Denies any CP or dyspnea. Review of Systems General: No Night Sweats, Fatigue, Malaise, No Appetite HEENT: No Visual Changes, No Dysphasia, No Sore Throat Pulmonary: No Dyspnea, No Cough, No Pleuritic Chest Pain Cardiovascular: No: Chest Pain, Palpitations, Orthopnea, Paroxysmal Noc. Dyspnea, Edema Gastrointestinal: No: Nausea, Vomiting, Abdominal Pain Genitourinary: No Dysuria, No Frequency Musculoskeletal: No: neck pain, back pain Neurological: Weakness, No: Numbness, Change in speech, Confusion Objective-Cardiology Exam Last Set of Vital Signs Vital Signs 09/09/17 08:12 Temp 97.3 Pulse 94 Resp 20 B/P (MAP) 128/80 Pulse Ox 93 O2 Delivery Room Air Capillary Refill : Less Than 3 Seconds I&O Intake and Output 09/10/17 00:00 Intake Total 200 ml Output Total 825 ml Balance -625 ml Intake Oral 200 ml Output Urine Total 825 ml General: Alert, Oriented X3, Cooperative HEENT: PERRLA, EOMI, Other (abrasion and ecchymosis to left forehead) Neck: Supple Lungs: Clear to Auscultation, Normal Air Movement Heart: Regular Rate, Other (irregularly irregular) Abdomen: Normal Bowel Sounds, Soft Extremities: No Clubbing, No Edema Skin: No Rashes Neuro: Normal Gait, Cranial Nerves 3-12 NL Psych/Mental Status: Mental Status NL, Mood NL Results Lab Laboratory Tests 09/09/17 05:00 A/P-Cardiology Admission Diagnosis Permanent afib Intraatrial septal aneurysm s/p fall Rhabdomyolysis Dementia Assessment/Plan Permanent atrial fibrillation- maintained on Cardizem and Eliquis as outpatient. Eliquis is currently on hold secondary to history of recent fall and frequent falls. Continue to monitor. [id number] score of 2, yearly risk of stroke without OAC is 2.2%. Eliquis is currently on hold secondary to patients history of frequent falls. 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 Recommended conservative management due to his age and comorbid condition. s/p fall at home- denies any syncopal episode. Has history of multiple falls in the past. Rhabdomyolysis- secondary to laying of left side 12+ hours after fall. Improving with IVF's. Continue to monitor. Generalized weakness, history of multiple falls, continue PT/OT. Dementia Clinical Quality Measures DVT/VTE Risk/Contraindication: Risk Factor Score Per Nursin RFS Level Per Nursing on Admit: 4+=Very High GRISELDA HARRELL Sep 09, 2017 08:27
--- NOTE | 2017-09-09 08:32 | Progress Note (SOAP) ---
Subjective Date Seen by Provider: Sep 09, 2017 Time Seen by Provider: 08:31 Objective Exam Vital Signs Date Time Temp Pulse Resp B/P (MAP) Pulse Ox O2 Delivery O2 Flow Rate FiO2 09/09/17 08:12 97.3 94 20 128/80 93 Room Air 09/09/17 04:00 98.5 110 16 181/92 94 Room Air 09/09/17 01:00 131 09/09/17 00:00 99.3 86 16 142/85 93 Room Air 09/08/17 21:00 Room Air 09/08/17 19:05 97.8 100 20 138/82 98 Room Air 09/08/17 19:00 109 09/08/17 15:28 98.8 83 16 135/83 97 Room Air 09/08/17 12:57 98.0 108 20 123/78 97 Room Air 09/08/17 08:43 98.0 89 20 120/80 96 Room Air Capillary Refill : Less Than 3 Seconds Results Lab Laboratory Tests 09/09/17 05:00: White Blood Count 7.9, Red Blood Count 3.57L, Hemoglobin 10.8L, Hematocrit 35L, Mean Corpuscular Volume 98, Mean Corpuscular Hemoglobin 30, Mean Corpuscular Hemoglobin Concent 31L, Red Cell Distribution Width 14.7H, Platelet Count 155, Mean Platelet Volume 10.3, Neutrophils (%) (Auto) 50, Lymphocytes (%) (Auto) 25 , Monocytes (%) (Auto) 21H, Eosinophils (%) (Auto) 4, Basophils (%) (Auto) 1, Neutrophils # (Auto) 3.9, Lymphocytes # (Auto) 1.9, Monocytes # (Auto) 1.7H, Eosinophils # (Auto) 0.3, Basophils # (Auto) 0.0, Sodium Level 138, Potassium Level 3.5L, Chloride Level 113H, Carbon Dioxide Level 19L, Anion Gap 6, Blood Urea Nitrogen 19H, Creatinine 0.90, Estimat Glomerular Filtration Rate > 60, BUN /Creatinine Ratio 21, Glucose Level 82, Calcium Level 7.9L, Total Bilirubin 0.4 , Aspartate Amino Transf (AST/SGOT) 47H, Alanine Aminotransferase (ALT/SGPT) 27 , Alkaline Phosphatase 44, Total Creatine Kinase 544H, Total Protein 5.5L, Albumin 2.7L Clinical Quality Measures DVT/VTE Risk/Contraindication: Risk Factor Score Per Nursin RFS Level Per Nursing on Admit: 4+=Very High GANESH CRAVEN MD Sep 09, 2017 08:31
--- NOTE | 2017-09-09 09:19 | Physical Therapy Daily Note ---
PT Daily Note-Current Subjective Patient sitting EOB and agrees to PT. Pain Numeric Pain Scale: 0-No Pain Location: No Pain Reported Mental Status Patient Orientation: Normal For Age Transfers Functional [place] Measure 0=Not Assessed/NA 4=Minimal Assistance 1=Total Assistance 5=Supervision or Setup 2=Maximal Assistance 6=Modified [place] 3=Moderate Assistance 7=Complete IndependenceIRFPAI Quality Coding Scale 6 Independent with activity with or without an assistive device 5 Patient requires set up or clean up by helper. Patient completes activity by themselves 4 Supervision or touching assist (CGA). [place] provide cues , steadying assist 3 The helper provides less than half the effort to complete the activity 2 The helper provides more than half the effort to complete the activity 1 Dependent. The helper does all the effort to complete an activity 7 Patient refused to complete or attempt activity 9 The patient did not perform the activity before the current illness or injury 88 Not attempted due to Medical conditions or safety concerns Transfers (B, C, W/C) (FIM): 5 Scootin Sit to/from Stand: 5 Gait Training Gait (FIM): 5 Distance (FIM): 3=150 ft Distance: 150' Gait Level of Assist: 5 Gait Persons Needed: 1 Gait Assistive Device: FWW slightly unsteady with use of FWW; PLOF is independent Assessment From a PT standpoint, patient would benefit from ARU to improve gross motor skills to return to home safely at independent PLOF. PT Senior Care Goals Running Specialist Goals PT Senior Care Goals Time Frame: Sep 14, 2017 Transfers (B,C,W/C) (FIM): 6 Gait (FIM): 6 Gait distance (FIM): 3=150 ft Distance: 150 Gait Level of Assist: 6 Gait Assistive Device: None Stairs (FIM): 5 # of Steps: 3 Stairs Level Of Assist: 6 PT Plan Treatment/Plan Treatment Plan: Continue Plan of Care Treatment Plan: Gait, Safety Treatment Duration: Sep 14, 2017 Frequency: 6 times per week Estimated Hrs Per Day: .25 hour per day Patient and/or Family Agrees t: Yes Time/GCodes Time In: 835 Time Out: 843 Total Billed Treatment Time: 8 Total Billed Treatment 1 visit FA 8 min PT/OT Therapy GCodes Therapy Functional Limitation: Physical Therapy Test(s)/Tool used to determine: Shen Functional Limitation-Current Charge Code: MOBCUR Modifier: CJ Functional Limitation-Goal Charge Code: MOBGOAL Modifier: JACIEL GRANDA PT Sep 09, 2017 09:19
--- NOTE | 2017-09-09 09:22 | Discharge Summary ---
Diagnosis/Chief Complaint Date of Admission Sep 07, 2017 at 10:50 Date of Discharge Discharge Date: Sep 09, 2017 Discharge Time: 929 Discharge Summary Discharge Physical Examination Allergies: Coded Allergies: No Known Drug Allergies (Verified , 11/22/09) Vitals & I&Os Vital Signs Date Time Temp Pulse Resp B/P (MAP) Pulse Ox O2 Delivery O2 Flow Rate FiO2 09/09/17 08:12 97.3 94 20 128/80 93 Room Air General Appearance: Alert, Oriented X3, Cooperative HEENT: PERRLA, EOMI, Other (abrasion and ecchymosis to left forehead) Respiratory: Clear to Auscultation, Normal Air Movement Cardiovascular: Regular Rate, Other (irregularly irregular) Abdominal: Normal Bowel Sounds, Soft Extremities: No Clubbing, No Edema Skin: No Rashes Neuro: Normal Gait, Cranial Nerves 3-12 NL Psych/Mental Status: Mental Status NL, Mood NL Hospital Course Pending Labs Laboratory Tests 09/09/17 05:00: White Blood Count 7.9, Red Blood Count 3.57, Hemoglobin 10.8, Hematocrit 35, Mean Corpuscular Volume 98, Mean Corpuscular Hemoglobin 30, Mean Corpuscular Hemoglobin Concent 31, Red Cell Distribution Width 14.7, Platelet Count 155, Mean Platelet Volume 10.3, Neutrophils (%) (Auto) 50, Lymphocytes (%) (Auto) 25 , Monocytes (%) (Auto) 21, Eosinophils (%) (Auto) 4, Basophils (%) (Auto) 1, Neutrophils # (Auto) 3.9, Lymphocytes # (Auto) 1.9, Monocytes # (Auto) 1.7, Eosinophils # (Auto) 0.3, Basophils # (Auto) 0.0, Sodium Level 138, Potassium Level 3.5, Chloride Level 113, Carbon Dioxide Level 19, Anion Gap 6, Blood Urea Nitrogen 19, Creatinine 0.90, Estimat Glomerular Filtration Rate > 60, BUN/ Creatinine Ratio 21, Glucose Level 82, Calcium Level 7.9, Total Bilirubin 0.4, Aspartate Amino Transf (AST/SGOT) 47, Alanine Aminotransferase (ALT/SGPT) 27, Alkaline Phosphatase 44, Total Creatine Kinase 544, Total Protein 5.5, Albumin 2.7 Discharge Instructions to patient/family Please see electronic discharge instructions given to patient. Discharge Medications Reviewed and agree with Discharge Medication list on patient's Discharge Instruction sheet Clinical Quality Measures DVT/VTE Risk/Contraindication: Risk Factor Score Per Nursin RFS Level Per Nursing on Admit: 4+=Very High GANESH CRAVEN MD Sep 09, 2017 09:22
== END 2017-09-09 09:21 ==
LOC: EDUNIT# 09:02 → ER 09:03 → 4TH 10:50 → UNDOADMOB 10:50 → 4TH 11:40 → UNDODISOB 09-09 11:12
PROVIDERS: ADMIT Internal Medicine; ATTEND Family Medicine
DX: M62.82 Rhabdomyolysis (principal); I48.91 Unspecified atrial fibrillation; S00.81XA Abrasion of other part of head, initial encounter; S50.01XA Contusion of right elbow, initial encounter; S00.12XA Contusion of left eyelid and periocular area, initial encounter; R54 Age-related physical debility; I10 Essential (primary) hypertension; K21.9 Gastro-esophageal reflux disease without esophagitis; M47.812 Spondylosis without myelopathy or radiculopathy, cervical region; Z79.01 Long term (current) use of anticoagulants; Z79.899 Other long term (current) drug therapy; Z87.891 Personal history of nicotine dependence; Z87.442 Personal history of urinary calculi; Z90.79 Acquired absence of other genital organ(s); W01.0XXA Fall on same level from slipping, tripping and stumbling without subsequent striking against object, initial encounter; Y92.009 Unspecified place in unspecified non-institutional (private) residence as the place of occurrence of the external cause; Y99.8 Other external cause status
CPT/HCPCS: 36415; 70450; 71010; 72125; 73502; 80053; 81000; 82550; 85007; 85025; 85027; 93005; G0378

== ENCOUNTER 2017-09-09 10:25 | Inpatient (IN) | payer MEDICARE, OTHER ==
[~2017-09-09] VITALS: Ht 182.9 cm; Wt 73.0 kg
[~2017-09-09 10:25] MED LIST changes: +CETI10TA20 PO; +DILT120C53 PO; +DONE5TAB30 PO; +LORA10CA PO; +MULT-593 PO
[2017-09-09 12:00] VITALS: BP 111/76
--- NOTE | 2017-09-09 12:01 | Physical Therapy Evaluation ---
PT Evaluation-General Medical Diagnosis Admission Date Sep 09, 2017 at 11:53 Medical Diagnosis: orthostasis Onset Date: Sep 06, 2017 Therapy Diagnosis Therapy Diagnosis: impaired mobility, strength, endurance, balance Height/Weight Height (Feet): 6 Height (Inches): 0.00 Weight (Pounds): 161 Weight (Ounces): 0.0 Referral Physician: Jose F Reason for Referral: Evaluation/Treatment Medical History Pertinent Medical History: Atrial Fib, GERD, HTN Additional Medical History Atrial Fib, GERD, HTN Current History Patient fell at home and was on the floor through the night. His daughter found him and called the ambulance. Reviewed History: Yes Social History Home: Single Level Current Living Status: Alone Entry Into Home: Stairs With Railing PT Steps Into Home: 2 Prior/Core FIM Prior Level of Function Functional [place] Measure 0=Not Assessed/NA 4=Minimal Assistance 1=Total Assistance 5=Supervision or Setup 2=Maximal Assistance 6=Modified [place] 3=Moderate Assistance 7=Complete [place] Bed Mobility: 7 Transfers (B,C,W/C) (FIM): 7 Gait: 7 PT Evaluation-Current Subjective Patient sitting in chair pre tx, agrees to PT, has no complaints of pain. Patient has bruising on his left eye and forehead. Pt/Family Goals to be independent at home Objective Patient Orientation: Person, Place, Situation ROM/Strength ROM Lower Extremities WNL except patient is 5 degrees from full knee extension bilaterally Strenght Lower Extremities right lower extremity (hip flexion 3+/5, knee flexion 3+/5, knee extension 3+/5 , dorsiflexion 4/5), left lower extremity (hip flexion 3+/5, knee flexion 3+/5, knee extension 3+/5, dorsiflexion 4/5) Sensory Vision: Functional Hearing: Impaired Sensation Right Lower Extremit: Intact Sensation Left Lower Extremity: Intact Sensation Lower Extremities Patient has intact light touch sensation in both lower extremities, no complaints of numbness or tingling. Transfers Functional [place] Measure 0=Not Assessed/NA 4=Minimal Assistance 1=Total Assistance 5=Supervision or Setup 2=Maximal Assistance 6=Modified [place] 3=Moderate Assistance 7=Complete IndependenceIRFPAI Quality Coding Scale 6 Independent with activity with or without an assistive device 5 Patient requires set up or clean up by helper. Patient completes activity by themselves 4 Supervision or touching assist (CGA). [place] provide cues , steadying assist 3 The helper provides less than half the effort to complete the activity 2 The helper provides more than half the effort to complete the activity 1 Dependent. The helper does all the effort to complete an activity 7 Patient refused to complete or attempt activity 9 The patient did not perform the activity before the current illness or injury 88 Not attempted due to Medical conditions or safety concerns Transfers (B, C, W/C) (FIM): 5 Scootin Rollin Roll Left to Right (QC): 4 Supine to/from Sit: 5 Sit to/from Stand: 5 Sit to Lying (QC): 4 Lying to Sitting/Side of Bed(Q: 4 Sit to Stand (QC): 4 Patient performs bed mobility and sit to stand with standby assist. Occasional cues for safety and hand placement, sometimes is a little dizzy when standing but it passes in just a few moments. Gait Does the Patient Walk?: Yes Mode of Locomotion: Walk Anticipated Mode of Locomotion: Walk Gait (FIM): 5 Walk 10 feet (QC): 4 Walk 50 ft with 2 Turns(QC): 4 Walk 150 ft (QC): 4 Walking 10ft/uneven surface-QC: 4 Distance: 200'x2 Gait Level of Assist: 5 Gait Persons Needed: 1 Gait Assistive Device: FWW Comments/Gait Description Patient ambulated 200' with a rolling walker with SBA (including 50' with at least 2 turns of 90 degrees and 10' over an uneven surface). No LOB or unsteadiness, does some cues for proper handing of walker. Wheelchair Training Does the Pt Use a Wheelchair?: No Stairs Stairs (FIM): 1 #of Steps: 1 Level of Assist: 4 1 Step (curb) (QC): 3 4 Steps (QC): 88 Assistive Device: Walker 12 Steps (QC): 88 Patient can go up and down 1 step using a rolling walker with min assist. Balance Sitting Static: Normal Sitting Dynamic: Normal Standing Static: Good Standing Dynamic: Fair Picking up an Object (QC): 88 Special Test Comments Patient was able to perform standing with eyes closed and turning 360 degrees without LOB or unsteadiness but he does fatigue quickly and gets unsteady when that happens. Treatment Nustep level 4 for 10 min, patient fatigues quickly and needed many rest breaks. Assessment/Needs Patient has impairments in mobility, strength, endurance, and balance. He fatigues very quickly and gets unsteady. Rehab Potential: Fair PT Short Term Goals Short Term Goals Time Frame: Sep 16, 2017 Transfers (B,C,W/C) (FIM): 6 Gait (FIM): 6 Gait Distance Comment: 300' Gait Level of Assist: 6 Gait Assistive Device: FWW PT Broom Machine Operator Goals Broom Machine Operator Goals PT Broom Machine Operator Goals Time Frame: Sep 30, 2017 Transfers (B,C,W/C) (FIM): 7 Sit to Lying (QC): 6 Lying-Sitting on Side/Bed(QC): 6 Sit to Stand (QC): 6 Rollin Roll Left to Right (QC): 6 Car Transfer (QC): 6 Gait (FIM): 7 Distance: 300' Walk 10 feet (QC): 6 Walk 10ft-Uneven Surface(QC): 6 Walk 50ft with 2 Turns (QC): 6 Walk 150 ft (QC): 6 Gait Level of Assist: 7 Gait Assistive Device: None Stairs (FIM): 4 # of Steps: 4 1 Step (curb) (QC): 4 4 Steps (QC): 4 Stairs Level Of Assist: 5 Picking up an Object (QC): 4 PT Plan Problem List Problem List: Activity Tolerance, Functional Strength, Safety, Balance, Gait, Transfer, Bed Mobility, ROM Treatment/Plan Treatment Plan: Continue Plan of Care Treatment Plan: Bed Mobility, Education, Functional Activity Ailyn, Functional Strength, Group Therapy, Gait, Safety, Therapeutic Exercise, Transfers Treatment Duration: Sep 30, 2017 Frequency: At least 5 of 7 days/Wk (IRF) Estimated Hrs Per Day: 1.5 hours per day Patient and/or Family Agrees t: Yes Safety Risks/Education Patient Education: Gait Training, Transfer Techniques, Steps, Correct Positioning, Disease Process, Safety Issues Teaching Recipient: Patient Teaching Methods: Demonstration, Discussion Response to Teaching: Reinforcement Needed Discharge Recommendations Plan Patient will perform bed mobility and transfer training, balance and endurance training, functional strengthening, stair training, gait training, and education , to improve functional mobility and independence at home. Therapy D/C Recommendations: Home w/ Family Support Time/GCodes Time In: 1100 Time Out: 1202 Total Billed Treatment Time: 62 Total Billed Treatment 1 visit EVL 20' GT 20' EX 10' NM 12' DAREK NAGY PT Sep 09, 2017 12:01
--- NOTE | 2017-09-09 12:29 | ST Cognitive Linguistic Eval ---
Speech Evaluation-General Medical Diagnosis Orthostasis Onset Date: Sep 06, 2017 Therapy Diagnosis Therapy Diagnosis: Cognitive Linguistic Skills WNL Referral Referring Physician: Dr. Sandeep Freedman Reason for Referral: Evaluation/Treatment Cognitive Evaluation Medical History Pertinent Medical History: Atrial Fib, GERD, HTN Reviewed History: Yes Social History Current Living Status: Alone Speech PLF-Current Status Prior Level of Function The patient denied prior challenges with speech, language, or cognition. Subjective The patient was recently admitted to [facility] following a fall. The patient greeted the clinician appropriately and was agreeable to participation in the cognitive evaluation. Language Eval: Auditory Comprehends Simple Yes/No Ques: Functional Indent/Objects Multiple [place]: Functional Ident/Pics in Multiple [place]: Functional Follows 1-Step Commands: Functional Follows Complex Directions: Functional Follows General Conversations: Functional Language Eval: Verbal Language Completes Spontaneous Greeting: Functional Produces Auto, Serial Info: Functional Imitates Simple Words/Phrases: Functional Word Finding: Mild Requests Basic Needs: Functional States Basic Personal Info: Functional Expresses Complex Ideas: Functional Cognitive Patient Orientation The patient was independently oriented to month, day of week, date, and year. Objective Cognitive Domain Attention: WNL Memory: Mild Problem Solving: Functional Objective Impression The patient displayed cognitive linguistic skills grossly within normal limits ( age appropriate) and adequate for completion of ADL's. Communication/Social Cognition Comprehension: 5 Expression: 5 Social Interaction: 5 Problem Solvin Memory: 5 Speech Patient Assess Expression of Ideas/Wants: Expression (4) Understanding [place] Content: Usually Understands (3) Brief Interview-Mental Status: Yes Repetition of Three Words: Three (3) Temporal Orientation: Year: Correct (3) Temporal Orientation: Month: Accurate within 5 days(2) Temporal Orientation: Day: Correct (1) Recall : Wear to say "Sock": No, could not recall (0) Recall : Color: Yes, no cue required (2) Recall : Bed: Yes, no cue required (2) Speech-Plan Treatment Plan Speech Therapy Treatment Plan: Discontinue ST Evaluation, only. Frequency: Modified Program (IRF) (Evaluation, only.) Estimated Hrs Per Day: Other (Evaluation, only.) Rehab Potential: Fair Safety Risks/Education Teaching Recipient: Patient Teaching Methods: Discussion Response to Teaching: Verbalize Understanding Education Topics Provided: Results, Recommendations, Plan of Care Time Speech Therapy Time In: 12:03 Speech Therapy Time Out: 12:18 Total Billed Time: 15 Billed Treatment Time 1, NEHEMIAH BRODY Sep 09, 2017 12:29
--- NOTE | 2017-09-09 15:05 | Physical Therapy Daily Note ---
PT Daily Note-Current Subjective Patient reports that he is feeling alright and that he is a little cold. He cannot remember what he had for lunch today. Pain Numeric Pain Scale: 3 Location: Joint Location Body Site: Hip Pain Description: Ache Appearance Patient is fully responsive and in good spirits. Mental Status Patient Orientation: Normal For Age Transfers Functional [place] Measure 0=Not Assessed/NA 4=Minimal Assistance 1=Total Assistance 5=Supervision or Setup 2=Maximal Assistance 6=Modified [place] 3=Moderate Assistance 7=Complete IndependenceIRFPAI Quality Coding Scale 6 Independent with activity with or without an assistive device 5 Patient requires set up or clean up by helper. Patient completes activity by themselves 4 Supervision or touching assist (CGA). [place] provide cues , steadying assist 3 The helper provides less than half the effort to complete the activity 2 The helper provides more than half the effort to complete the activity 1 Dependent. The helper does all the effort to complete an activity 7 Patient refused to complete or attempt activity 9 The patient did not perform the activity before the current illness or injury 88 Not attempted due to Medical conditions or safety concerns Transfers (B, C, W/C) (FIM): 5 Sit to/from Stand: 5 Sit to Stand (QC): 4 Weight Bearing Right Lower Extremity: Right Full Weight Bearing Left Lower Extremity: Left Full Weight Bearing Gait Training Does the Patient Walk?: Yes Gait (FIM): 5 Distance: >300' Walk 10 feet (QC): 4 Walk 50 ft with 2 Turns(QC): 4 Walk 150 ft (QC): 4 Gait Level of Assist: 5 Gait Assistive Device: FWW Patient ambulates with normal gait with assistive device. Wheelchair Training Does the Pt Use a Wheelchair?: No Exercises Seated Therapy Exercises: Biceps (25x bilaterally with 3# wts), Long arc quads (25x bilaterally), Hip flexion (25x bilaterally) Seated Reps: 25 (with 1# wt bilateral LE) Standing: Hamstring curls (25x bilaterally with 1# wt), Marching (25x bilaterally) Standing Reps: 25 (with 1# wt) NuStep Minutes: 10 NuStep Workload: 4 (to improve funcitonal mobility to ensure safe return to home.) Treatments Ther Ex- 29 min Assessment Current Status: Good Progress Patient has good tolerance for PT and is showing good progression towards established PT goals. PT Short Term Goals Short Term Goals Time Frame: Sep 16, 2017 Transfers (B,C,W/C) (FIM): 6 Gait (FIM): 6 Gait Distance Comment: 300' Gait Level of Assist: 6 Gait Assistive Device: FWW PT Longterm Goals Longterm Goals PT Producer Director Goals Time Frame: Sep 30, 2017 Transfers (B,C,W/C) (FIM): 7 Sit to Lying (QC): 6 Lying-Sitting on Side/Bed(QC): 6 Sit to Stand (QC): 6 Rollin Roll Left to Right (QC): 6 Car Transfer (QC): 6 Gait (FIM): 7 Distance: 300' Walk 10 feet (QC): 6 Walk 10ft-Uneven Surface(QC): 6 Walk 50ft with 2 Turns (QC): 6 Walk 150 ft (QC): 6 Gait Level of Assist: 7 Gait Assistive Device: None Stairs (FIM): 4 # of Steps: 4 1 Step (curb) (QC): 4 4 Steps (QC): 4 Stairs Level Of Assist: 5 Picking up an Object (QC): 4 PT Plan Treatment/Plan Treatment Plan: Continue Plan of Care Treatment Plan: Bed Mobility, Education, Functional Activity Ailyn, Functional Strength, Group Therapy, Gait, Safety, Therapeutic Exercise, Transfers Treatment Duration: Sep 30, 2017 Frequency: At least 5 of 7 days/Wk (IRF) Estimated Hrs Per Day: 1.5 hours per day Patient and/or Family Agrees t: Yes Time/GCodes Time In: 1430 Time Out: 1458 Total Billed Treatment Time: 28 Total Billed Treatment 1 visit GT 10 min EX 18 min JACIEL BARBA PT Sep 09, 2017 15:05
--- NOTE | 2017-09-09 16:13 | Occupational Therapy Eval ---
OT Evaluation-General/PLF Medical Diagnosis Admission Date Sep 09, 2017 at 11:53 Medical Diagnosis: Orthostasis/Rhabdomyolysis Onset Date: Sep 06, 2017 Therapy Diagnosis Therapy Diagnosis: Weakness Height/Weight Height (Feet): 6 Height (Inches): 0.00 Weight (Pounds): 161 Weight (Ounces): 0.0 Referral Physician: Jose F Referral Reason: Activity Tolerance, Self Care, Evaluation/Treatment, Strengthening/ROM Medical History Pertinent Medical History: Atrial Fib, GERD, HTN Additional Medical History CA removal, toe amputation, UTI, dementia Current History Pt. fell at home and layed on floor all night. Daughter found him. Reviewed History: Yes Social History Home: Single Level Current Living Status: Alone Entry Into Home: Stairs With Railing Steps Into Home: 3 ADL-Prior Level of Function ADL PLOF Comments Pt. states that he was independent with basic self care skills. States that he cooked and cleaned for self. States that he drives himself. DME/Equipment: Bath Chair, Shower DME/Equipment Comments Pt. has a walker but doesn't use it. 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 Pt. does at one point during treatment state that he feels "fuzzy." This is during ambulation. BP taken. BP 156/84. HR 71. Pt. rested and stated he felt better. Completed armbike task. After 10 minutes, took BP again. BP is 160/70, HR 76. Appearance Pt. is in room finishing lunch. Agrees to work with OT. Mental Status/Objective Patient Orientation: Person Current Glasses/Contacts: Yes Hearing Aids: No Dentures/Partials: Yes Hand Dominance: Right Upper Extremity ROM Pt. demonstrates shoulder flexion to approximately 90 degrees. WFL in all other planes. Upper Extremity Coordination intact Upper Extremity Strength 3+/5 bilateral UE strength approximately. ADL-Treatment Functional [place] Measure 0=Not Assessed/NA 4=Minimal Assistance 1=Total Assistance 5=Supervision or Setup 2=Maximal Assistance 6=Modified [place] 3=Moderate Assistance 7=Complete IndependenceIRFPAI Quality Coding Scale 6 Independent with activity with or without an assistive device 5 Patient requires set up or clean up by helper. Patient completes activity by themselves 4 Supervision or touching assist (CGA). [place] provide cues , steadying assist 3 The helper provides less than half the effort to complete the activity 2 The helper provides more than half the effort to complete the activity 1 Dependent. The helper does all the effort to complete an activity 7 Patient refused to complete or attempt activity 9 The patient did not perform the activity before the current illness or injury 88 Not attempted due to Medical conditions or safety concerns Eating (FIM): 5 (SBA to eat lunch.) Lower Body Dressing (FIM): 5 (Pt. demonstrates ability to doff/don socks and shoes by bending over to them. No Loss of balance noted.) Lower Body Dressing (QC): 4 On/Off Footwear (QC): 4 Transfers (B, C, W/C) (FIM): 5 (SBA with walker to ambulate and transfer.) Pt. has already completed shower and dressing task on 4th floor before coming to rehab today. Agrees to work with OT. Completed 10 minutes on armbike to increase overall strength and endurance with daily tasks. Pt. requires several brief rest breaks. Tolerated treatment well. Completed series of fine motor coordination tasks to test fine motor strength and ability to do things for self at home, such as open packages, button shirt, fasten snaps, and other household tasks. Pt. is able to do most simple fine motor coordination tasks that were placed in front of him, including threading beads, pinching small clothespins, screwing/unscrewing nut/bolt activity. Pt. ambulated back to room after treatment. Talked in depth regarding reasons he is on rehab, and need for skilled treatment. Pt. verbalizes understanding. All needs met in room. Education OT Patient Education: Correct positioning, Exercise program, Modified ADL techniques, Progress toward Goal/Update tx plan, Purpose of tx/functional activities, Reviewed precautions, Rehab process, Transfer techniques Teaching Recipient: Patient Teaching Methods: Demonstration, Discussion Response to Teaching: Verbalize Understanding, Return Demonstration OT Short Term Goals Short Term Goals Transfers (B,C,W/C) (FIM): 6 1=Demonstrate adherence to instructed precautions during ADL tasks. 2=Patient will verbalize/demonstrate understanding of assistive devices/ modifications for ADL. 3=Patient will improve strength/tolerance for activity to enable patient to perform ADL's. OT Human Resources Benefits Assistant Goals Human Resources Benefits Assistant Goals Time Frame: Sep 23, 2017 Eating (FIM): 6 Eating (QC): 6 Groomin Oral Hygiene (QC): 6 Bathing(FIM): 6 Shower/Bathe Self (QC): 6 Upper Body Dressing(FIM): 6 Upper Body Dressing (QC): 6 Lower Body Dressing(FIM): 6 Lower Body Dressing (QC): 6 On/Off Footwear (QC): 6 Toileting(FIM): 6 Toileting Hygiene (QC): 6 Transfers (B,C,W/C) (FIM): 6 Toilet/Commode Transfer(FIM): 6 Toilet/Commode Transfer (QC): 6 Shower Transfer(FIM): 6 Additional Goals: 1-Demonstrate ADL Tasks, 2-Verbalize Understanding, 3- ImproveStrength/Ailyn 1=Demonstrate adherence to instructed precautions during ADL tasks. 2=Patient will verbalize/demonstrate understanding of assistive devices/ modifications for ADL. 3=Patient will improve strength/tolerance for activity to enable patient to perform ADL's. OT Education/Plan Problem List/Assessment Assessment: Decreased Activ Tolerance, Impaired Cognition, Impaired I ADL's, Impaired Self-Care Skills Discharge Recommendations Plan/Recommendations: Continue POC Therapy D/C Recommendations: Home w/ Family Support, Occupational Therapy Home Care Target Placement Home with family support as needed. Treatment Plan/Plan of Care Treatment,Training & Education: Yes Patient would benefit from OT for education, treatment and training to promote independence in ADL's, mobility, safety and/or upper extremity function for ADL' s. Plan of Care: ADL Retraining, Caregiver Training, Cognitive Retraining, Functional Mobility, Group Exercise/Act as Ind, UE Funct Exercise/Act Treatment Duration: Sep 23, 2017 Frequency: At least 5 of 7 days/Wk (IRF) Estimated Hrs Per Day: 1.5 hours per day Agreement: Yes Rehab Potential: Good Time/GCodes Start Time: 12:25 Stop Time: 13:55 Total Time Billed (hr/min): 90 Billed Treatment Time 1, EVM x 30minutes, ADL x 30minutes, EX x 15minutes, FA x 15minutes KAMRON POP OT Sep 09, 2017 16:13
[2017-09-09] MEDS ORDERED: LACTULOSE SYRUP 10GM/15ML (ENULOSE) 30ML UDC PO PRN (16:20)
[2017-09-09] MEDS ORDERED: ACETAMINOPHEN 500 MG TAB (TYLENOL) PO PRN (16:20)
[2017-09-09] MEDS ORDERED: NS IV 1000 ML 1,000 ML IV SCH (16:20)
[2017-09-09] MEDS ORDERED: ONDANSETRON 4 MG/2 ML (SDV) Z0FRAN IV PRN (16:20)
[2017-09-09 18:00] VITALS: BP 152/90
[2017-09-09] MEDS: CATHETER FLUSH 10 ML SYR IV SCH (22:00)
[2017-09-10] MEDS: CATHETER FLUSH 10 ML SYR IV SCH ×3 (05:56→20:49)
[2017-09-10 06:10] VITALS: BP 144/86
[2017-09-10 08:01] VITALS: BP 130/91
[2017-09-10] MEDS: DONEPEZIL 5 MG (ARICEPT) TAB PO SCH (08:01)
[2017-09-10] MEDS: DILTIAZEM 120 MG (CARDIZEM CD) CAP PO SCH (08:01)
[2017-09-10] MEDS: LORATADINE (CLARITIN) 10 MG TAB PO SCH (08:01)
--- NOTE | 2017-09-10 10:23 | Occupational Ther Daily Note ---
OT Current Status-Daily Note Subjective Pt sitting in chair, agrees to treatment. Pt has no c/o pain during session Mental Status/Objective Functional [place] Measure 0=Not Assessed/NA 4=Minimal Assistance 1=Total Assistance 5=Supervision or Setup 2=Maximal Assistance 6=Modified [place] 3=Moderate Assistance 7=Complete [place] ADL-Treatment Pt is already dressed this morning, declined bathing, states he will shower tomorrow. Pt donned shoes, but required assist to tie shoes. Sit to stand with supervision. Gait to restroom with FWW. Pt stood at sink to wash face and comb hair with SBA. Functional [place] Measure 0=Not Assessed/NA 4=Minimal Assistance 1=Total Assistance 5=Supervision or Setup 2=Maximal Assistance 6=Modified [place] 3=Moderate Assistance 7=Complete IndependenceIRFPAI Quality Coding Scale 6 Independent with activity with or without an assistive device 5 Patient requires set up or clean up by helper. Patient completes activity by themselves 4 Supervision or touching assist (CGA). [place] provide cues , steadying assist 3 The helper provides less than half the effort to complete the activity 2 The helper provides more than half the effort to complete the activity 1 Dependent. The helper does all the effort to complete an activity 7 Patient refused to complete or attempt activity 9 The patient did not perform the activity before the current illness or injury 88 Not attempted due to Medical conditions or safety concerns Grooming (FIM): 5 On/Off Footwear (QC): 4 Other Treatment Gait to therapy gym with FWW. Pt completed arm bike activity x10 minutes to increase overall strength and activity tolerance needed for functional tasks. Pt completed task with minimal resistance and slow pace. Two rest breaks taken during activity. Pt completed fine motor task with nuts and bolts with bilateral UE with 1# weights in place to increase and coordination skills. Arm arc activity with bilateral UE with 1# weights in place. Occasional rest breaks taken. Pt completed bilateral UE exercises to increase strength needed for ADLs and transfers. Pt performed shoulder flexion, forward press, biceps curls and wrist flex/ext x20 reps with 1# dowel nico. Rest breaks between exercises. Occasional cues for proper exercise technique. Pt completed graded clothespin activity with bilateral hands to increase core shaper top/pinch strength. Pt returned to room, sitting in chair with needs met and daughter present after session. OT Short Term Goals Short Term Goals Transfers (B,C,W/C) (FIM): 6 1=Demonstrate adherence to instructed precautions during ADL tasks. 2=Patient will verbalize/demonstrate understanding of assistive devices/ modifications for ADL. 3=Patient will improve strength/tolerance for activity to enable patient to perform ADL's. OT College Service Officer Goals Nursing Home Goals Time Frame: Sep 23, 2017 Eating (FIM): 6 Eating (QC): 6 Groomin Oral Hygiene (QC): 6 Bathing(FIM): 6 Shower/Bathe Self (QC): 6 Upper Body Dressing(FIM): 6 Upper Body Dressing (QC): 6 Lower Body Dressing(FIM): 6 Lower Body Dressing (QC): 6 On/Off Footwear (QC): 6 Toileting(FIM): 6 Toileting Hygiene (QC): 6 Transfers (B,C,W/C) (FIM): 6 Toilet/Commode Transfer(FIM): 6 Toilet/Commode Transfer (QC): 6 Shower Transfer(FIM): 6 Additional Goals: 1-Demonstrate ADL Tasks, 2-Verbalize Understanding, 3- ImproveStrength/Ailyn 1=Demonstrate adherence to instructed precautions during ADL tasks. 2=Patient will verbalize/demonstrate understanding of assistive devices/ modifications for ADL. 3=Patient will improve strength/tolerance for activity to enable patient to perform ADL's. OT Education/Plan Discharge Recommendations Plan/Recommendations: Continue POC Treatment Plan/Plan of Care Patient would benefit from OT for education, treatment and training to promote independence in ADL's, mobility, safety and/or upper extremity function for ADL' s. Plan of Care: ADL Retraining, Caregiver Training, Cognitive Retraining, Functional Mobility, Group Exercise/Act as Ind, UE Funct Exercise/Act Treatment Duration: Sep 23, 2017 Frequency: At least 5 of 7 days/Wk (IRF) Estimated Hrs Per Day: 1.5 hours per day Agreement: Yes Rehab Potential: Good Time/GCodes Start Time: 09:00 Stop Time: 10:00 Total Time Billed (hr/min): 60 Billed Treatment Time 1 visit, ADL(15minutes), EXx3(45minutes) WENDY HADLEY OT Sep 10, 2017 10:23
--- NOTE | 2017-09-10 11:48 | Physical Therapy Daily Note ---
PT Daily Note-Current Subjective Pt sitting in recliner upon arrival. Pt agrees to PT. Pt is not wanting to use FWW but agrees with VC. Pain Location: No Pain Reported Mental Status Patient Orientation: Person, Place, Situation Transfers Functional [place] Measure 0=Not Assessed/NA 4=Minimal Assistance 1=Total Assistance 5=Supervision or Setup 2=Maximal Assistance 6=Modified [place] 3=Moderate Assistance 7=Complete IndependenceIRFPAI Quality Coding Scale 6 Independent with activity with or without an assistive device 5 Patient requires set up or clean up by helper. Patient completes activity by themselves 4 Supervision or touching assist (CGA). [place] provide cues , steadying assist 3 The helper provides less than half the effort to complete the activity 2 The helper provides more than half the effort to complete the activity 1 Dependent. The helper does all the effort to complete an activity 7 Patient refused to complete or attempt activity 9 The patient did not perform the activity before the current illness or injury 88 Not attempted due to Medical conditions or safety concerns Scootin Sit to/from Stand: 5 Weight Bearing Right Lower Extremity: Right Full Weight Bearing Left Lower Extremity: Left Full Weight Bearing Gait Training Does the Patient Walk?: Yes Distance (FIM): 3=150 ft Distance: 150' Walk 10 feet (QC): 5 Walk 50 ft with 2 Turns(QC): 5 Walk 150 ft (QC): 5 Gait Level of Assist: 5 Gait Persons Needed: 1 Gait Assistive Device: FWW Pt walks with normalized gait but slow kelly, steady with no LOB. Wheelchair Training Does the Pt Use a Wheelchair?: No Exercises Seated Therapy Exercises: Ankle pumps, Long arc quads, Hip flexion, Kicking activity Standing: Heel/toe raises, 3 way Ex=Flex, Abd, Ext, Mini squats, Weight shifts Standing Reps: 20 Treatments Pt transfers from recliner to standing using FWW at [facility]. Pt ambulates in hallway to Therapy Gym using FWW at [facility]. Pt completes Seated Ex as well as Standing Ex at //bars for balance practice. Pt returns to room to use restroom and rest in recliner at end of tx. with all needs met. Assessment Current Status: Good Progress Pt is motivated to get better and is getting stronger and more independent with activities and tasks. PT Short Term Goals Short Term Goals Time Frame: Sep 16, 2017 Transfers (B,C,W/C) (FIM): 6 Gait (FIM): 6 Gait Distance Comment: 300' Gait Level of Assist: 6 Gait Assistive Device: FWW PT Security Project Manager Goals Care Home Goals PT Security Project Manager Goals Time Frame: Sep 30, 2017 Transfers (B,C,W/C) (FIM): 7 Sit to Lying (QC): 6 Lying-Sitting on Side/Bed(QC): 6 Sit to Stand (QC): 6 Rollin Roll Left to Right (QC): 6 Car Transfer (QC): 6 Gait (FIM): 7 Distance: 300' Walk 10 feet (QC): 6 Walk 10ft-Uneven Surface(QC): 6 Walk 50ft with 2 Turns (QC): 6 Walk 150 ft (QC): 6 Gait Level of Assist: 7 Gait Assistive Device: None Stairs (FIM): 4 # of Steps: 4 1 Step (curb) (QC): 4 4 Steps (QC): 4 Stairs Level Of Assist: 5 Picking up an Object (QC): 4 PT Plan Problem List Problem List: Activity Tolerance, Functional Strength, Safety, Gait Treatment/Plan Treatment Plan: Continue Plan of Care Treatment Plan: Bed Mobility, Education, Functional Activity Ailyn, Functional Strength, Group Therapy, Gait, Safety, Therapeutic Exercise, Transfers Treatment Duration: Sep 30, 2017 Frequency: At least 5 of 7 days/Wk (IRF) Estimated Hrs Per Day: 1.5 hours per day Patient and/or Family Agrees t: Yes Safety Risks/Education Patient Education: Gait Training, Transfer Techniques, Correct Positioning, Safety Issues Teaching Recipient: Patient Teaching Methods: Discussion Response to Teaching: Verbalize Understanding Time/GCodes Time In: 1000 Time Out: 1105 Total Billed Treatment Time: 65 Total Billed Treatment visit, FA x2 (30m) & EX x2 (35m) JAMES PECK MANAGER AMBULATORY Sep 10, 2017 11:48
--- NOTE | 2017-09-10 15:23 | Therapy Group Daily Note ---
Therapy Daily Group Note Exercises LE Seated Exercise, UE Exercise Other/Notes Pt ambulated to PT/OT Group via FWW at [facility]. Pt participated in Group which consisted of Introductions (Name, Where Are You From & What states have you traveled to), UE & LE Seated EX as well as Group Discussion with questions regarding [place] History and Geography. Pt actively participated in both EX and Discussion and gave answers as he knew them. Pt walked back to room using FWW at [facility] to rest at end of Group. Start Time: 13:00 Stop Time: 14:05 Total Billed Treatment Time: 65 Total Billed Treatment 1, GRP (65m) JAMES PECK AEROSPACE PROJECT MANAGER Sep 10, 2017 15:23
--- NOTE | 2017-09-10 18:27 | PM&R Post Admission Assessment ---
Post Admission Physician Asses The preadmission screen agrees with the post admission assessment that the patient is a good candidate for inpatient rehabilitation. The patient will have a comprehensive program of inpatient rehabilitation with a goal of maximizing level of functional independence prior to discharge home with daughter and C. The patient will have PT/OT ninety minutes per day, each discipline, five days a week for gait, strengthening, conditioning, balance , ADLs, any patient/family/caregiver training as necessary. Speech therapy to do cognitive assessment and treat as indicated. Rehabilitation nursing to assist with bowel, bladder, skin, wound care, medication administration, pain management. Liquefier to assist with discharge planning, community reentry. SCD's for DVT prophylaxis. He appears to be well motivated to participate in three hours of therapy a day. He should be able to tolerate three hours of therapy a day from a medical standpoint. He should benefit from the three hours of therapy a day. He has a reasonable discharge plan, reasonable discharge rehabilitation goals and a supportive family. He has various comorbidities that need to be closely monitored with medications and treatments adjusted on a daily basis as needed. These include: HTN A FIB UTI Barriers to discharge for this patient who had been independent prior to this are for him to be modified independent to supervision for ADLs and mobility skills prior to discharge home with [facility] and [facility], so as to lessen the burden of the caregivers. Risks for this patient include: 1. Fall 2. Fracture 3. DVT 4. Pulmonary embolism 5. Wound infection 6. Skin breakdown 7. Contractures 8. Poorly controlled pain 9. Urinary retention 10. Recurrent UTI 11. Respiratory infection 12. Aspiration 13. Poorly controlled HTN 14.Poorly controlled A FIB Estimated Length of Stay: 14 days Prognosis: Rehab prognosis appears good for goal of discharge home with [facility] and Daughter modified independent to supervision for ADLs and mobility skills.Patient may benefir from [facility] referral KIELY CAM MD Sep 10, 2017 18:27
[2017-09-10 18:59] VITALS: BP 122/76
[2017-09-11] MEDS: CATHETER FLUSH 10 ML SYR IV SCH ×3 (06:11→20:27)
[2017-09-11 06:12] VITALS: BP 125/67
[2017-09-11] MEDS: DILTIAZEM 120 MG (CARDIZEM CD) CAP PO SCH (08:52)
[2017-09-11] MEDS: LORATADINE (CLARITIN) 10 MG TAB PO SCH (08:52)
[2017-09-11] MEDS: DONEPEZIL 5 MG (ARICEPT) TAB PO SCH (08:52)
--- NOTE | 2017-09-11 09:59 | HISTORY AND PHYSICAL ---
DATE OF SERVICE: CHIEF COMPLAINT: Difficulty with walking. HISTORY OF PRESENT ILLNESS: The patient is an 87-year-old male who presented to [facility] ED after he was found on the floor by his daughter. He was alone in a house in [place], [place]. He has history of atrial fibrillation and is on Eliquis. He was apparently lying on the floor from more than 12 hours, and had suffered rhabdomyolysis. The patient was admitted to service of Dr. Pittman,and rehydrated. He had just been completing a course of Keflex for UTI. CT of the head showed no acute intracranial findings. C-spine CT showed no acute changes, chronic infarct of the right cerebellum was noted and [id number] spondylotic changes of cervical spine was noted. Chest x-ray showed no acute disease. Hip x-ray showed there are no acute findings. Therapies were began and the patient was felt to be appropriate for inpatient rehabilitation. He had been independent prior to this. Currently, he is standby assist for eating, mid assist lower body dressing, standby assist for transfer. He is min assist for ambulation short distances with a wheeled walker. Min assist for bed mobility. PAST MEDICAL HISTORY: Atrial fibrillation, GERD, hypertension, toe amputation, mild dementia, UTI. PAST SURGICAL HISTORY: He has had a urethral stent placement and prostatectomy, toe amputation. He has been seen by Dr. Wisdom, cardiology in the past. ALLERGIES: No known medication allergies. FAMILY HISTORY: Noncontributory. SOCIAL HISTORY: Retired, , has a daughter that lives across the [address] in [place]. REVIEW OF SYSTEMS: A 10-point review of systems is significant for recent UTI, fall, dehydration, irregular heartbeat. MEDICATIONS: Zofran 4 mg IV q. 4 hours for nausea, vomiting; Tylenol 1000 mg p.o. q. 8 hours p.r.n. mild pain; diltiazem CD 120 mg p.o. daily; Aricept 5 mg p.o. daily; Claritin 10 mg p.o. daily; lactulose 10 g p.o. b.i.d. p.r.n. constipation. PHYSICAL EXAMINATION: GENERAL: Significant for a male appearing stated age, sitting in chair in no acute distress. VITAL SIGNS: Pulse is 72 and irregular. He is afebrile with T-max 99.6. Blood pressure 130/91, respirations 18, O2 saturation 96% on room air. HEENT: Vision, speech, hearing grossly intact. No oral lesion is noted. NECK: Supple, without mass. HEART: Regular rhythm. LUNGS: Clear. ABDOMEN: Soft, nontender, bowel sounds present. EXTREMITIES: No lower leg edema. No calf tenderness. MUSCULOSKELETAL: The patient is right hand dominant. Strength is 3+/5 bilaterally upper limbs. Coordination intact. Sensation grossly intact. NEUROLOGIC: Cognition grossly intact. Strength lower extremities, hip flexion 3+/5, knee flexion 3+/5, knee extension 3+/5, dorsiflexion 4/5 bilaterally. IMPRESSION: 1. Ambulatory dysfunction secondary to general debilitation secondary to fall with resulting dehydration and rhabdomyolysis treated with IV fluids. 2. Atrial fibrillation controlled with medications. 3. Gastroesophageal reflux disease on medications. 4. Hypertension controlled on medications. PLAN: The patient will have a comprehensive program of inpatient rehabilitation with goal of maximizing level of function and dependence prior to discharge back to home with home health care and daughter to assist with needs as needed. The patient will have PT, OT, 90 minutes per day, each discipline, 5 days a week for gait, strengthening, conditioning, balance, ADLs, any patient/family caregiver training necessary and adaptive equipment and training necessary, speech therapy to do cognitive assessment and treat as indicated. They have seen the patient and signed off as they feel thathe is baseline and functional. Rehabilitation nursing to assist with bowel, bladder, skin care, medication administration, pain management. guidance services coordinator for discharge planning, community re-entry. Follow up with Dr. Pittman as per her schedule. ESTIMATED LENGTH OF STAY: Two weeks. PROGNOSIS: Rehab prognosis appears good for goal of discharging to home with home health care and daughter, modified independence, supervision for ADLs and mobility skills. DIET: Regular. CODE STATUS: Do not resuscitate. SCDs for DVT prophylaxis. Job ID: [id number] DocumentID: [id number] Dictated Date: 09/10/2017 17:52:16 Guest History Clerk Date: 09/11/2017 02:32:28 Dictated By: KILEY CAM MD [facility]
--- NOTE | 2017-09-11 11:30 | Occupational Ther Daily Note ---
OT Current Status-Daily Note Subjective Pt sitting in chair, agrees to treatment. Mental Status/Objective Functional [place] Measure 0=Not Assessed/NA 4=Minimal Assistance 1=Total Assistance 5=Supervision or Setup 2=Maximal Assistance 6=Modified [place] 3=Moderate Assistance 7=Complete [place] ADL-Treatment Pt agreeable to shower this morning. Sit to stand from chair with supervision. Gait to restroom with FWW. Pt transferred to walk in shower with SBA using grab bars for balance and safety. Pt doffed clothing with SBA. Pt completed seated bathing using hand held shower. Upper body bathing completed with SBA. Pt able to wash bilateral legs and david area with SBA. Stood with CGA for balance while washing buttocks. Pt donned pullover shirt with minimal assistance to pull down in the back. Pt able to thread bilateral LE into pant legs. Stood with CGA for balance during pant hike. Pt donned bilateral shoes and socks with SBA. Pt stood at sink to brush hair and complete oral care with SBA. Functional [place] Measure 0=Not Assessed/NA 4=Minimal Assistance 1=Total Assistance 5=Supervision or Setup 2=Maximal Assistance 6=Modified [place] 3=Moderate Assistance 7=Complete IndependenceIRFPAI Quality Coding Scale 6 Independent with activity with or without an assistive device 5 Patient requires set up or clean up by helper. Patient completes activity by themselves 4 Supervision or touching assist (CGA). [place] provide cues , steadying assist 3 The helper provides less than half the effort to complete the activity 2 The helper provides more than half the effort to complete the activity 1 Dependent. The helper does all the effort to complete an activity 7 Patient refused to complete or attempt activity 9 The patient did not perform the activity before the current illness or injury 88 Not attempted due to Medical conditions or safety concerns Grooming (FIM): 5 Oral Hygiene (QC): 5 Bathing (FIM): 4 Shower/Bathe Self (QC): 3 Upper Body (FIM): 4 Upper Body Dressing (QC): 3 Lower Body Dressing (FIM): 4 (CGA) Lower Body Dressing (QC): 4 On/Off Footwear (QC): 5 Shower Transfer(FIM): 5 Other Treatment Gait to therapy gym with FWW. Pt completed arm bike activity x12 minutes to increase overall strength and activity tolerance needed for functional tasks. Pt completed task with moderate resistance and steady pace. One rest break taken. Pt completed tabletop peg activity with bilateral UE with 1# weights in place to increase strength and fine motor coordination. Pt returned to room, sitting in chair with needs met and chair alarm on after session. OT Short Term Goals Short Term Goals Transfers (B,C,W/C) (FIM): 6 1=Demonstrate adherence to instructed precautions during ADL tasks. 2=Patient will verbalize/demonstrate understanding of assistive devices/ modifications for ADL. 3=Patient will improve strength/tolerance for activity to enable patient to perform ADL's. OT Blood Coordinator Goals Correction Goals Time Frame: Sep 23, 2017 Eating (FIM): 6 Eating (QC): 6 Groomin Oral Hygiene (QC): 6 Bathing(FIM): 6 Shower/Bathe Self (QC): 6 Upper Body Dressing(FIM): 6 Upper Body Dressing (QC): 6 Lower Body Dressing(FIM): 6 Lower Body Dressing (QC): 6 On/Off Footwear (QC): 6 Toileting(FIM): 6 Toileting Hygiene (QC): 6 Transfers (B,C,W/C) (FIM): 6 Toilet/Commode Transfer(FIM): 6 Toilet/Commode Transfer (QC): 6 Shower Transfer(FIM): 6 Additional Goals: 1-Demonstrate ADL Tasks, 2-Verbalize Understanding, 3- ImproveStrength/Ailyn 1=Demonstrate adherence to instructed precautions during ADL tasks. 2=Patient will verbalize/demonstrate understanding of assistive devices/ modifications for ADL. 3=Patient will improve strength/tolerance for activity to enable patient to perform ADL's. OT Education/Plan Discharge Recommendations Plan/Recommendations: Continue POC Treatment Plan/Plan of Care Patient would benefit from OT for education, treatment and training to promote independence in ADL's, mobility, safety and/or upper extremity function for ADL' s. Plan of Care: ADL Retraining, Caregiver Training, Cognitive Retraining, Functional Mobility, Group Exercise/Act as Ind, UE Funct Exercise/Act Treatment Duration: Sep 23, 2017 Frequency: At least 5 of 7 days/Wk (IRF) Estimated Hrs Per Day: 1.5 hours per day Agreement: Yes Rehab Potential: Good Time/GCodes Start Time: 09:00 Stop Time: 10:00 Total Time Billed (hr/min): 60 Billed Treatment Time 1 visit, ADLx2(30minutes), EXx2(30minutes) WENDY HADLEY OT Sep 11, 2017 11:30
--- NOTE | 2017-09-11 12:11 | Physical Therapy Daily Note ---
PT Daily Note-Current Subjective Pt sitting in recliner upon arrival. Pt agrees to PT. Pain Location: No Pain Reported Mental Status Patient Orientation: Person, Place, Situation Transfers Functional [place] Measure 0=Not Assessed/NA 4=Minimal Assistance 1=Total Assistance 5=Supervision or Setup 2=Maximal Assistance 6=Modified [place] 3=Moderate Assistance 7=Complete IndependenceIRFPAI Quality Coding Scale 6 Independent with activity with or without an assistive device 5 Patient requires set up or clean up by helper. Patient completes activity by themselves 4 Supervision or touching assist (CGA). [place] provide cues , steadying assist 3 The helper provides less than half the effort to complete the activity 2 The helper provides more than half the effort to complete the activity 1 Dependent. The helper does all the effort to complete an activity 7 Patient refused to complete or attempt activity 9 The patient did not perform the activity before the current illness or injury 88 Not attempted due to Medical conditions or safety concerns Scootin Sit to/from Stand: 5 Sit to Stand (QC): 5 Weight Bearing Right Lower Extremity: Right Full Weight Bearing Left Lower Extremity: Left Full Weight Bearing Gait Training Does the Patient Walk?: Yes Distance (FIM): 3=150 ft Distance: 200' Walk 10 feet (QC): 5 Walk 50 ft with 2 Turns(QC): 5 Walk 150 ft (QC): 5 Gait Level of Assist: 5 Gait Persons Needed: 1 Gait Assistive Device: FWW Pt walks with normalized gait pattern and steady, no LOB. Wheelchair Training Does the Pt Use a Wheelchair?: No Exercises Seated Therapy Exercises: Ankle pumps, Long arc quads, Hip flexion, Kicking activity, Hip abd/add Seated Reps: 20 NuStep Minutes: 10 NuStep Workload: 5 Treatments Pt transfers from recliner to standing w/o AD at [facility]. Pt uses FWW to ambulate at [facility] in hallway. Pt uses NuStep for 10m at Workload 5 followed by Seated Ex in chair. Pt returns to room at end of tx to rest in recliner with all needs met. Assessment Current Status: Good Progress Pt is improving with strength, independence & activity tolerance with safety of all activities. PT Short Term Goals Short Term Goals Time Frame: Sep 16, 2017 Transfers (B,C,W/C) (FIM): 6 Gait (FIM): 6 Gait Distance Comment: 300' Gait Level of Assist: 6 Gait Assistive Device: FWW PT Penitentiary Goals Penitentiary Goals PT Client Insights Consultant Goals Time Frame: Sep 30, 2017 Transfers (B,C,W/C) (FIM): 7 Sit to Lying (QC): 6 Lying-Sitting on Side/Bed(QC): 6 Sit to Stand (QC): 6 Rollin Roll Left to Right (QC): 6 Car Transfer (QC): 6 Gait (FIM): 7 Distance: 300' Walk 10 feet (QC): 6 Walk 10ft-Uneven Surface(QC): 6 Walk 50ft with 2 Turns (QC): 6 Walk 150 ft (QC): 6 Gait Level of Assist: 7 Gait Assistive Device: None Stairs (FIM): 4 # of Steps: 4 1 Step (curb) (QC): 4 4 Steps (QC): 4 Stairs Level Of Assist: 5 Picking up an Object (QC): 4 PT Plan Problem List Problem List: Activity Tolerance, Functional Strength, Gait Treatment/Plan Treatment Plan: Continue Plan of Care Treatment Plan: Bed Mobility, Education, Functional Activity Ailyn, Functional Strength, Group Therapy, Gait, Safety, Therapeutic Exercise, Transfers Treatment Duration: Sep 30, 2017 Frequency: At least 5 of 7 days/Wk (IRF) Estimated Hrs Per Day: 1.5 hours per day Patient and/or Family Agrees t: Yes Safety Risks/Education Patient Education: Gait Training, Transfer Techniques, Correct Positioning, Safety Issues Teaching Recipient: Patient Teaching Methods: Discussion Response to Teaching: Verbalize Understanding Time/GCodes Time In: 1030 Time Out: 1115 Total Billed Treatment Time: 45 Total Billed Treatment visit, GT (15m) & EX x2 (30m) JAMES PECK PTA Sep 11, 2017 12:11
--- NOTE | 2017-09-11 15:27 | Therapy Group Daily Note ---
Therapy Daily Group Note Patient Education Topic Other List Below (memory strategies) Exercises LE Seated Exercise, UE Exercise Other/Notes Pt was an active participant in OT/PT group. He introduced himself and was able to tell his name, where he lived and something he's never done but he'd like to. He was able to do seated UE and LE exercises, modifying them as needed for physical limitations. He participated in education/discussion on memory strategies and was able to tell the group about strategies that he uses. He also participated in a memory activity and could identify strategies used during activity. He walked back to his with URSZULA STOKES, all needs met. Start Time: 13:00 Stop Time: 14:20 Total Billed Treatment Time: 80 Total Billed Treatment visit, 80 minutes group TITA ZULUAGA OT Sep 11, 2017 15:27
--- NOTE | 2017-09-11 17:50 | PM & R (SOAP) Progress Note ---
Subjective Time Seen by Provider: 08:30 Subjective/Events-last exam Patient was seen in his room this AM.Patient SBA for gait with FWW Objective Exam Last Set of Vital Signs Vital Signs Date Time Temp Pulse Resp B/P (MAP) Pulse Ox O2 Delivery O2 Flow Rate FiO2 09/11/17 09:00 97 Room Air 09/11/17 06:12 98.5 93 18 125/67 Capillary Refill : I&O Intake and Output 09/12/17 00:00 Intake Total 650 ml Output Total 525 ml Balance 125 ml Intake Oral 650 ml Output Urine Total 525 ml # Voids 1 # Bowel Movements 1 General: Alert, Cooperative, No Acute Distress HEENT: Atraumatic, PERRLA, EOMI, Mucous Memb Moist/[place] Neck: Supple, No JVD Lungs: Clear to Auscultation Heart: Regular Rate Abdomen: Normal Bowel Sounds, Soft Extremities: No Edema Neuro: Other (weakness both lower limbs 3+/5 -4/5) Assessment/Plan Assessment general debil secondary to fall with resulting Dehydration and rhabdomyolysis treated with IV fluids A FIB controlled with meds GERD on meds HTN controlled with meds Plan Continue PT/OT.F/U with DR Pittman PRManuel Appreciate her orders. Recheck Labs Sss orders Team Conference held earlier today-See report for full functional update and POC and KILEY [place] MD Sep 11, 2017 17:50
[2017-09-11 18:00] VITALS: BP 156/92
[2017-09-12 05:14] VITALS: BP 104/75
[2017-09-12 05:56] LABS: MEAN CORPUSCULAR HEMOGLOBIN 30 PG (25-34); MEAN CORPUSCULAR HGB CONC 32 G/DL (32-36); MEAN CORPUSCULAR VOLUME 96 FL (80-99); RED BLOOD COUNT 3.75 10^6/uL (4.35-5.85); RED CELL DISTRIBUTION WIDTH 14.5 % (10.0-14.5); WHITE BLOOD COUNT 6.6 10^3/uL (4.3-11.0)
[2017-09-12 05:57] LABS: BASOPHILS # (AUTO) 0.1 10^3/uL (0.0-0.1); BASOPHILS % (AUTO) 2 % (0-10); EOSINOPHILS # (AUTO) 0.3 10^3/uL (0.0-0.3); EOSINOPHILS % (AUTO) 4 % (0-10); LYMPHOCYTES # (AUTO) 2.3 X 10^3 (1.0-4.0); LYMPHOCYTES % (AUTO) 34 % (12-44); MEAN PLATELET VOLUME 9.5 FL (7.4-10.4); MONOCYTES # (AUTO) 1.6 X 10^3 (0.0-1.0); MONOCYTES % (AUTO) 25 % (0-12); NEUTROPHILS # (AUTO) 2.4 X 10^3 (1.8-7.8); NEUTROPHILS % (AUTO) 36 % (42-75); PLATELET COUNT 214 10^3/uL (130-400)
[2017-09-12 06:33] LABS: ALANINE AMINOTRANSFERASE 29 U/L (0-55); ANION GAP 8 MMOL/L (5-14); ASPARTATE AMINO TRANSFERASE 35 U/L (5-34); BILIRUBIN,TOTAL 0.6 MG/DL (0.1-1.0); BLOOD UREA NITROGEN 21 MG/DL (7-18); BUN/CREATININE RATIO 25; CALCIUM 8.9 MG/DL (8.5-10.1); CARBON DIOXIDE 25 MMOL/L (21-32); CHLORIDE 107 MMOL/L (98-107); CREATININE SERUM 0.85 MG/DL (0.60-1.30); GFR ESTIMATED > 60; GLUCOSE 88 MG/DL (70-105); POTASSIUM 4.2 MMOL/L (3.6-5.0); SODIUM 140 MMOL/L (135-145); TOTAL PROTEIN 6.3 GM/DL (6.4-8.2)
[2017-09-12] MEDS: CATHETER FLUSH 10 ML SYR IV SCH ×3 (06:41→20:54)
[2017-09-12] MEDS: DONEPEZIL 5 MG (ARICEPT) TAB PO SCH (08:45)
[2017-09-12] MEDS: LORATADINE (CLARITIN) 10 MG TAB PO SCH (08:46)
[2017-09-12] MEDS: DILTIAZEM 120 MG (CARDIZEM CD) CAP PO SCH (08:46)
--- NOTE | 2017-09-12 11:32 | PM & R (SOAP) Progress Note ---
Subjective Time Seen by Provider: 10:20 Subjective/Events-last exam Patient was seen in Gym this AM Patient SBA for transfers Current labs appreciated Objective Exam Last Set of Vital Signs Vital Signs Date Time Temp Pulse Resp B/P (MAP) Pulse Ox O2 Delivery O2 Flow Rate FiO2 09/12/17 09:00 Room Air 09/12/17 05:14 98.8 70 16 104/75 97 Capillary Refill : I&O Intake and Output 09/13/17 00:00 Intake Total 100 ml Output Total 600 ml Balance -500 ml Intake Oral 100 ml Output Urine Total 600 ml General: Alert, Cooperative, No Acute Distress HEENT: Atraumatic, PERRLA, EOMI, Mucous Memb Moist/[place] Neck: Supple, No JVD Lungs: Clear to Auscultation Heart: Regular Rate Abdomen: Normal Bowel Sounds, Soft Extremities: No Edema Neuro: Other (weakness both lower limbs 3+/5 -4/5) Results Lab Laboratory Tests 09/12/17 05:35: White Blood Count 6.6, Red Blood Count 3.75L, Hemoglobin 11.4L, Hematocrit 36L, Mean Corpuscular Volume 96, Mean Corpuscular Hemoglobin 30, Mean Corpuscular Hemoglobin Concent 32, Red Cell Distribution Width 14.5, Platelet Count 214, Mean Platelet Volume 9.5, Neutrophils (%) (Auto) 36L, Lymphocytes (%) (Auto) 34 , Monocytes (%) (Auto) 25H, Eosinophils (%) (Auto) 4, Basophils (%) (Auto) 2, Neutrophils # (Auto) 2.4, Lymphocytes # (Auto) 2.3, Monocytes # (Auto) 1.6H, Eosinophils # (Auto) 0.3, Basophils # (Auto) 0.1, Sodium Level 140, Potassium Level 4.2, Chloride Level 107, Carbon Dioxide Level 25, Anion Gap 8, Blood Urea Nitrogen 21H, Creatinine 0.85, Estimat Glomerular Filtration Rate > 60, BUN/ Creatinine Ratio 25, Glucose Level 88, Calcium Level 8.9, Total Bilirubin 0.6, Aspartate Amino Transf (AST/SGOT) 35H, Alanine Aminotransferase (ALT/SGPT) 29, Alkaline Phosphatase 42, Total Protein 6.3L, Albumin 3.0L Assessment/Plan Assessment general debil secondary to fall with resulting Dehydration and rhabdomyolysis treated with IV fluids A FIB controlled with meds GERD on meds HTN controlled with meds Mild anemia Hypoalbuminemia Plan Continue PT/OT. F/U with DR Pittman PRN Appreciate her orders. Recheck Labs Ses orders-done Team Conference held yesterday -See report for full functional update and POC and KILEY NJ MD Sep 12, 2017 11:32
--- NOTE | 2017-09-12 12:46 | Physical Therapy Daily Note ---
PT Daily Note-Current Subjective Pt sitting in recliner visiting with daughter upon arrival. Pt agrees to PT. Pain Location: No Pain Reported Mental Status Patient Orientation: Person, Place, Situation Transfers Functional [place] Measure 0=Not Assessed/NA 4=Minimal Assistance 1=Total Assistance 5=Supervision or Setup 2=Maximal Assistance 6=Modified [place] 3=Moderate Assistance 7=Complete IndependenceIRFPAI Quality Coding Scale 6 Independent with activity with or without an assistive device 5 Patient requires set up or clean up by helper. Patient completes activity by themselves 4 Supervision or touching assist (CGA). [place] provide cues , steadying assist 3 The helper provides less than half the effort to complete the activity 2 The helper provides more than half the effort to complete the activity 1 Dependent. The helper does all the effort to complete an activity 7 Patient refused to complete or attempt activity 9 The patient did not perform the activity before the current illness or injury 88 Not attempted due to Medical conditions or safety concerns Scootin Sit to/from Stand: 5 Sit to Stand (QC): 5 Weight Bearing Right Lower Extremity: Right Full Weight Bearing Left Lower Extremity: Left Full Weight Bearing Gait Training Does the Patient Walk?: Yes Distance (FIM): 3=150 ft Distance: 350' Walk 10 feet (QC): 5 Walk 50 ft with 2 Turns(QC): 5 Walk 150 ft (QC): 5 Gait Level of Assist: 5 Gait Persons Needed: 1 Gait Assistive Device: FWW Wheelchair Training Does the Pt Use a Wheelchair?: No Exercises Standing: Heel/toe raises, 3 way Ex=Flex, Abd, Ext, Mini squats Standing Reps: 15 Treatments Pt transfers from recliner to standing using FWW at [facility]. Pt ambulates using FWW at [facility] in hallway. Pt completes Standing Ex at //bars at [facility]. Pt returns to room to rest at end of tx with all needs met. Assessment Current Status: Good Progress Pt has improved with transfers and ambulation with both strength and safety. PT Short Term Goals Short Term Goals Time Frame: Sep 16, 2017 Transfers (B,C,W/C) (FIM): 6 Gait (FIM): 6 Gait Distance Comment: 300' Gait Level of Assist: 6 Gait Assistive Device: FWW PT Mcfp Goals Mcfp Goals PT Mcfp Goals Time Frame: Sep 30, 2017 Transfers (B,C,W/C) (FIM): 7 Sit to Lying (QC): 6 Lying-Sitting on Side/Bed(QC): 6 Sit to Stand (QC): 6 Rollin Roll Left to Right (QC): 6 Car Transfer (QC): 6 Gait (FIM): 7 Distance: 300' Walk 10 feet (QC): 6 Walk 10ft-Uneven Surface(QC): 6 Walk 50ft with 2 Turns (QC): 6 Walk 150 ft (QC): 6 Gait Level of Assist: 7 Gait Assistive Device: None Stairs (FIM): 4 # of Steps: 4 1 Step (curb) (QC): 4 4 Steps (QC): 4 Stairs Level Of Assist: 5 Picking up an Object (QC): 4 PT Plan Problem List Problem List: Activity Tolerance, Functional Strength, Gait Treatment/Plan Treatment Plan: Continue Plan of Care Treatment Plan: Bed Mobility, Education, Functional Activity Ailyn, Functional Strength, Group Therapy, Gait, Safety, Therapeutic Exercise, Transfers Treatment Duration: Sep 30, 2017 Frequency: At least 5 of 7 days/Wk (IRF) Estimated Hrs Per Day: 1.5 hours per day Patient and/or Family Agrees t: Yes Safety Risks/Education Patient Education: Gait Training, Correct Positioning, Safety Issues Teaching Recipient: Patient Teaching Methods: Discussion Response to Teaching: Verbalize Understanding Time/GCodes Time In: 1015 Time Out: 1100 Total Billed Treatment Time: 45 Total Billed Treatment visit, GT x2 (30m) & EX (15m) JAMES PECK MEDICAL SURGICAL TECH Sep 12, 2017 12:46
--- NOTE | 2017-09-12 15:08 | Occupational Ther Daily Note ---
OT Current Status-Daily Note Subjective No pain reported. Appearance Pt. up in chair this morning. Agrees to shower. Mental Status/Objective Patient Orientation: Person Functional [place] Measure 0=Not Assessed/NA 4=Minimal Assistance 1=Total Assistance 5=Supervision or Setup 2=Maximal Assistance 6=Modified [place] 3=Moderate Assistance 7=Complete [place] ADL-Treatment Functional [place] Measure 0=Not Assessed/NA 4=Minimal Assistance 1=Total Assistance 5=Supervision or Setup 2=Maximal Assistance 6=Modified [place] 3=Moderate Assistance 7=Complete IndependenceIRFPAI Quality Coding Scale 6 Independent with activity with or without an assistive device 5 Patient requires set up or clean up by helper. Patient completes activity by themselves 4 Supervision or touching assist (CGA). [place] provide cues , steadying assist 3 The helper provides less than half the effort to complete the activity 2 The helper provides more than half the effort to complete the activity 1 Dependent. The helper does all the effort to complete an activity 7 Patient refused to complete or attempt activity 9 The patient did not perform the activity before the current illness or injury 88 Not attempted due to Medical conditions or safety concerns Grooming (FIM): 5 (Pt. able to brush hair at sink with SBA.) Bathing (FIM): 4 (CGA in stance to wash for safety.) Shower/Bathe Self (QC): 4 Upper Body (FIM): 5 Upper Body Dressing (QC): 4 Lower Body Dressing (FIM): 5 Lower Body Dressing (QC): 4 On/Off Footwear (QC): 5 Transfers (B, C, W/C) (FIM): 5 Shower Transfer(FIM): 5 Other Treatment Pt. able to shower with SBA with CGA only in stance for safety. Pt. did require cues at times for safety. Completed dressing tasks with SBA. After ADLS, ambulated to therapy gym. Donned 1 lb. wrist weights and completed balloon bat for UE strengthening. Also completed fine motor coordination task with 1 lb. wrist weights on. After treatment, ambulated to room. All needs met. Education OT Patient Education: Correct positioning, Modified ADL techniques, Progress toward Goal/Update tx plan, Purpose of tx/functional activities, Reviewed precautions, Rehab process, Transfer techniques Teaching Recipient: Patient Teaching Methods: Demonstration, Discussion Response to Teaching: Verbalize Understanding, Return Demonstration OT Short Term Goals Short Term Goals Transfers (B,C,W/C) (FIM): 6 1=Demonstrate adherence to instructed precautions during ADL tasks. 2=Patient will verbalize/demonstrate understanding of assistive devices/ modifications for ADL. 3=Patient will improve strength/tolerance for activity to enable patient to perform ADL's. OT Edge Bonder Goals Edge Bonder Goals Time Frame: Sep 23, 2017 Eating (FIM): 6 Eating (QC): 6 Groomin Oral Hygiene (QC): 6 Bathing(FIM): 6 Shower/Bathe Self (QC): 6 Upper Body Dressing(FIM): 6 Upper Body Dressing (QC): 6 Lower Body Dressing(FIM): 6 Lower Body Dressing (QC): 6 On/Off Footwear (QC): 6 Toileting(FIM): 6 Toileting Hygiene (QC): 6 Transfers (B,C,W/C) (FIM): 6 Toilet/Commode Transfer(FIM): 6 Toilet/Commode Transfer (QC): 6 Shower Transfer(FIM): 6 Additional Goals: 1-Demonstrate ADL Tasks, 2-Verbalize Understanding, 3- ImproveStrength/Ailyn 1=Demonstrate adherence to instructed precautions during ADL tasks. 2=Patient will verbalize/demonstrate understanding of assistive devices/ modifications for ADL. 3=Patient will improve strength/tolerance for activity to enable patient to perform ADL's. OT Education/Plan Problem List/Assessment Assessment: Decreased Activ Tolerance, Impaired Cognition, Impaired I ADL's, Impaired Self-Care Skills Discharge Recommendations Plan/Recommendations: Continue POC Therapy D/C Recommendations: Home w/ Family Support, Occupational Therapy Home Care Treatment Plan/Plan of Care Treatment,Training & Education: Yes Patient would benefit from OT for education, treatment and training to promote independence in ADL's, mobility, safety and/or upper extremity function for ADL' s. Plan of Care: ADL Retraining, Caregiver Training, Cognitive Retraining, Functional Mobility, Group Exercise/Act as Ind, UE Funct Exercise/Act Treatment Duration: Sep 23, 2017 Frequency: At least 5 of 7 days/Wk (IRF) Estimated Hrs Per Day: 1.5 hours per day Agreement: Yes Rehab Potential: Good Time/GCodes Start Time: 09:15 Stop Time: 10:15 Total Time Billed (hr/min): 60 Billed Treatment Time 1, ADL x 30minutes, EX x 30minutes NACCARATO,KAMRON OT Sep 12, 2017 15:08
--- NOTE | 2017-09-12 15:10 | Individualized Plan of Care ---
Individualized Plan of Care Rehab Nursing IPOC Order Admission Date Sep 09, 2017 at 11:53 Current Orders Orders Admission-Acute Rehab Unit (09/09/17 10:28) Pt Evaluate/Treat Request (09/09/17 10:28) Request Ot Evaluate & Treat (09/09/17 10:28) Request For Cognitive Services (09/09/17 10:28) Transfer - Room Transfer (09/09/17 11:54) General/Regular (09/09/17 Lunch) Patient Visit (09/09/17 ) Speech Sound Lang Comp (09/09/17 ) Patient Visit (09/09/17 ) Pt Eval Low Complexity (09/09/17 ) Ex Neuromuscular, Ea 15 Min (09/09/17 ) Exercise Therap, Ea 15 Min (09/09/17 ) Gait Training, Ea 15 Min (09/09/17 ) Patient Visit (09/09/17 ) Exercise Therap, Ea 15 Min (09/09/17 ) Gait Training, Ea 15 Min (09/09/17 ) Nursing Communication (Patient (09/09/17 15:25) Code/Resuscitation (09/09/17 15:25) Sodium Chloride Flush (Catheter Flush Sy (09/09/17 22:00) Vital Signs: Every 4 Hours (09/09/17 15:25) Activity (09/09/17 15:25) Ambulate TID (09/09/17 15:25) Sequential Compression Device (09/09/17 15:25) Rt Request For Service (09/09/17 15:25) Ns Iv 1000 Ml (Sodium Chloride 0.9%) (09/09/17 16:20) Ondansetron Injection (Zofran Injectio (09/09/17 16:20) Acetaminophen Tablet (Tylenol Tablet) (09/09/17 16:20) Diltiazem Cd 24 Hr Capsule (Cardizem Cd (09/09/17 16:20) Donepezil Tablet (Aricept Tablet) (09/09/17 16:20) Loratadine Tablet (Claritin Tablet) (09/09/17 16:20) Lactulose Oral Solution (Enulose Oral So (09/09/17 16:20) Automatic Tray (09/09/17 17:17) Ambulate TID (09/09/17 20:13) Dvt/Vte Risk - Notifiy Physici (09/09/17 20:13) Patient Visit (09/10/17 ) Therapeutic, Group (09/10/17 ) Functional Activities, Ea 15 (09/10/17 ) Exercise Therap, Ea 15 Min (09/10/17 ) Patient Visit (09/11/17 ) Gait Training, Ea 15 Min (09/11/17 ) Exercise Therap, Ea 15 Min (09/11/17 ) Cbc With Automated Diff (09/12/17 06:00) Comprehensive Metabolic Panel (09/12/17 06:00) Consult Physician (09/12/17 11:34) Other Nursing Orders: Monitor for any urinary retention and constipation Intensity of Therapy to be met Patient to be seen: Min.3h per day/5 of 7d PT IPOC Problem List: Activity Tolerance, Functional Strength, Gait Treatment Plan: Continue Plan of Care Bed Mobility, Education, Functional Activity Ailyn, Functional Strength, Group Therapy, Gait, Safety, Therapeutic Exercise, Transfers Treatment Duration: Sep 30, 2017 Frequency: At least 5 of 7 days/Wk (IRF) Estimated Hrs Per Day: 1.5 hours per day OT IPOC Problems: Decreased Activ Tolerance, Impaired Cognition, Impaired I ADL's, Impaired Self-Care Skills OT Treatment, Training and Edu: Yes Plan of Care: ADL Retraining, Caregiver Training, Cognitive Retraining, Functional Mobility, Group Exercise/Act as Ind, UE Funct Exercise/Act Treatment Duration: Sep 23, 2017 Frequency: At least 5 of 7 days/Wk (IRF) Estimated Hrs Per Day: 1.[address] IPOC Speech Therapy Treatment Plan: Discontinue ST Treatment Duration: Sep 12, 2017 Frequency: Modified Program (IRF) (Evaluation, only.) Estimated Hrs Per Day: Other (Evaluation, only.) Road Consultant/Case Mgmt Road Consultant/Case Managemen: Discharge Planning, Patient/Family Counseling Physician IPOC Medical Issues being managed closely and that require the 24 hour availability of a physician:A FIB GERD HTN Mild anemia Hypoalbuminemia Medical Issues: Bowel/Bladder Function, DVT Prophylaxis, Falls Precautions, Fluid/Electrolyte/Nutrition Balance, Infection Protection, Other (List) (as per above) Brief Synthesis of Preadmission Screen, Post-Admission Evaluation, and Therapy Evaluations: 87 yo male who lives alone and fell at home and laid on floor for approx 12 hours Patient found by her daughter and Admitte via ER to DR Victorina joy Referred to IRU due to debility with a decline in Functional [place].PMH A fib and as per above Medical Prognosis: good Anticipated Length of Stay: 09-23-17 Rehab Goals Modified [place] for adls and mobility skills Anticipated discharge destinat: Home with daughter and [facility] KILEY CAM MD Sep 12, 2017 15:10
--- NOTE | 2017-09-12 15:14 | Occupational Ther Daily Note ---
OT Current Status-Daily Note Subjective No pain reported. Appearance Pt. ambulated to therapy gym with SBA using walker. Mental Status/Objective Patient Orientation: Person Functional [place] Measure 0=Not Assessed/NA 4=Minimal Assistance 1=Total Assistance 5=Supervision or Setup 2=Maximal Assistance 6=Modified [place] 3=Moderate Assistance 7=Complete [place] ADL-Treatment Functional [place] Measure 0=Not Assessed/NA 4=Minimal Assistance 1=Total Assistance 5=Supervision or Setup 2=Maximal Assistance 6=Modified [place] 3=Moderate Assistance 7=Complete IndependenceIRFPAI Quality Coding Scale 6 Independent with activity with or without an assistive device 5 Patient requires set up or clean up by helper. Patient completes activity by themselves 4 Supervision or touching assist (CGA). [place] provide cues , steadying assist 3 The helper provides less than half the effort to complete the activity 2 The helper provides more than half the effort to complete the activity 1 Dependent. The helper does all the effort to complete an activity 7 Patient refused to complete or attempt activity 9 The patient did not perform the activity before the current illness or injury 88 Not attempted due to Medical conditions or safety concerns Transfers (B, C, W/C) (FIM): 5 Other Treatment Pt. ambulated with walker to therapy gym. Tolerated 15 minutes on armbike to increase overall strengthening with UE and endurance for ADL tasks. After armbike, pt. ambulated with walker around dining area, approximately 300 feet. Ambulated back to room. All needs met. Education OT Patient Education: Correct positioning, Modified ADL techniques, Progress toward Goal/Update tx plan, Purpose of tx/functional activities, Reviewed precautions, Rehab process, Transfer techniques Teaching Recipient: Patient Teaching Methods: Demonstration, Discussion Response to Teaching: Verbalize Understanding, Return Demonstration OT Short Term Goals Short Term Goals Transfers (B,C,W/C) (FIM): 6 1=Demonstrate adherence to instructed precautions during ADL tasks. 2=Patient will verbalize/demonstrate understanding of assistive devices/ modifications for ADL. 3=Patient will improve strength/tolerance for activity to enable patient to perform ADL's. OT Nursing Home Goals Sawyer Helper Goals Time Frame: Sep 23, 2017 Eating (FIM): 6 Eating (QC): 6 Groomin Oral Hygiene (QC): 6 Bathing(FIM): 6 Shower/Bathe Self (QC): 6 Upper Body Dressing(FIM): 6 Upper Body Dressing (QC): 6 Lower Body Dressing(FIM): 6 Lower Body Dressing (QC): 6 On/Off Footwear (QC): 6 Toileting(FIM): 6 Toileting Hygiene (QC): 6 Transfers (B,C,W/C) (FIM): 6 Toilet/Commode Transfer(FIM): 6 Toilet/Commode Transfer (QC): 6 Shower Transfer(FIM): 6 Additional Goals: 1-Demonstrate ADL Tasks, 2-Verbalize Understanding, 3- ImproveStrength/Ailyn 1=Demonstrate adherence to instructed precautions during ADL tasks. 2=Patient will verbalize/demonstrate understanding of assistive devices/ modifications for ADL. 3=Patient will improve strength/tolerance for activity to enable patient to perform ADL's. OT Education/Plan Problem List/Assessment Assessment: Decreased Activ Tolerance, Decreased UE Strength, Impaired I ADL's , Impaired Self-Care Skills Discharge Recommendations Plan/Recommendations: Continue POC Therapy D/C Recommendations: Home w/ Family Support, Occupational Therapy Home Care Treatment Plan/Plan of Care Treatment,Training & Education: Yes Patient would benefit from OT for education, treatment and training to promote independence in ADL's, mobility, safety and/or upper extremity function for ADL' s. Plan of Care: ADL Retraining, Caregiver Training, Cognitive Retraining, Functional Mobility, Group Exercise/Act as Ind, UE Funct Exercise/Act Treatment Duration: Sep 23, 2017 Frequency: At least 5 of 7 days/Wk (IRF) Estimated Hrs Per Day: 1.5 hours per day Agreement: Yes Rehab Potential: Good Time/GCodes Start Time: 12:55 Stop Time: 13:25 Total Time Billed (hr/min): 30 Billed Treatment Time 1, EX x 2 KAMRNO POP OT Sep 12, 2017 15:14
--- NOTE | 2017-09-12 15:35 | Physical Therapy Daily Note ---
PT Daily Note-Current Subjective Patient is alert among PT entering his room. He states that he is doing okay today. Pain Numeric Pain Scale: 0-No Pain Location: No Pain Reported Appearance Patient appears in healthy condition. Mental Status Patient Orientation: Normal For Age Transfers Functional [place] Measure 0=Not Assessed/NA 4=Minimal Assistance 1=Total Assistance 5=Supervision or Setup 2=Maximal Assistance 6=Modified [place] 3=Moderate Assistance 7=Complete IndependenceIRFPAI Quality Coding Scale 6 Independent with activity with or without an assistive device 5 Patient requires set up or clean up by helper. Patient completes activity by themselves 4 Supervision or touching assist (CGA). [place] provide cues , steadying assist 3 The helper provides less than half the effort to complete the activity 2 The helper provides more than half the effort to complete the activity 1 Dependent. The helper does all the effort to complete an activity 7 Patient refused to complete or attempt activity 9 The patient did not perform the activity before the current illness or injury 88 Not attempted due to Medical conditions or safety concerns Transfers (B, C, W/C) (FIM): 5 Supine to/from Sit: 5 Sit to/from Stand: 5 Sit to Lying (QC): 4 Sit to Stand (QC): 4 Chair/Qfz-ya-Fyzvg Xfer(QC): 4 Bed to/from Chair: 5 Patient performs transfers with PT supervision for safety. Weight Bearing Right Lower Extremity: Right Full Weight Bearing Left Lower Extremity: Left Full Weight Bearing Gait Training Does the Patient Walk?: Yes Gait (FIM): 3 Distance (FIM): 3=150 ft Distance: 300' Walk 10 feet (QC): 4 Walk 50 ft with 2 Turns(QC): 4 Walk 150 ft (QC): 4 Gait Level of Assist: 5 Gait Persons Needed: 1 Gait Assistive Device: FWW Patient performs gait with PT supervision and FWW. Wheelchair Training Does the Pt Use a Wheelchair?: No Exercises Supine Ex: Lower trunk rotation (bilaterally), Short Arc Quads (bilaterally) Supine Reps: 25 Seated Therapy Exercises: Biceps (3# bilaterally 1 set), Sit to stand (1 set), Long arc quads (2# bilateral 1 set), Shoulder Abd (3# bilateral 1 set) Seated Reps: 15 Standing: Hamstring curls (bilateral), Heel/toe raises (bilateral), Marching ( bilateral) Standing Reps: 25 NuStep Minutes: 10 (NuStep for improved aerobic endurance and leg strengthening ) NuStep Workload: 4 Assessment Current Status: Good Progress Patient has good tolerance for exercise. PT will progress this patient as his aerobic capacity and muscle endurance and strengthening improves. PT Short Term Goals Short Term Goals Time Frame: Sep 16, 2017 Transfers (B,C,W/C) (FIM): 6 Gait (FIM): 6 Gait Distance Comment: 300' Gait Level of Assist: 6 Gait Assistive Device: FWW PT [place] [employer] Group Leader Goals [place] [employer] Leader Goals PT [place] [employer] Group Leader Goals Time Frame: Sep 30, 2017 Transfers (B,C,W/C) (FIM): 7 Sit to Lying (QC): 6 Lying-Sitting on Side/Bed(QC): 6 Sit to Stand (QC): 6 Rollin Roll Left to Right (QC): 6 Car Transfer (QC): 6 Gait (FIM): 7 Distance: 300' Walk 10 feet (QC): 6 Walk 10ft-Uneven Surface(QC): 6 Walk 50ft with 2 Turns (QC): 6 Walk 150 ft (QC): 6 Gait Level of Assist: 7 Gait Assistive Device: None Stairs (FIM): 4 # of Steps: 4 1 Step (curb) (QC): 4 4 Steps (QC): 4 Stairs Level Of Assist: 5 Picking up an Object (QC): 4 PT Plan Problem List Problem List: Functional Strength, Safety, Balance Treatment/Plan Treatment Plan: Continue Plan of Care Treatment Plan: Bed Mobility, Education, Functional Activity Ailyn, Functional Strength, Group Therapy, Gait, Safety, Therapeutic Exercise, Transfers Treatment Duration: Sep 30, 2017 Frequency: At least 5 of 7 days/Wk (IRF) Estimated Hrs Per Day: 1.5 hours per day Patient and/or Family Agrees t: Yes Time/GCodes Time In: 246 Time Out: 331 Total Billed Treatment Time: 45 Total Billed Treatment 1 visit EX x 2 30 min GT 15 min JACIEL BARBA PT Sep 12, 2017 15:35
[2017-09-12 19:21] VITALS: BP 131/81
[2017-09-13] MEDS: CATHETER FLUSH 10 ML SYR IV SCH (04:26)
[2017-09-13 05:00] VITALS: BP 125/91
--- NOTE | 2017-09-13 08:46 | Consultation ---
History of Present Illness History of Present Illness Patient Consulted On(prasanna/time) 09/13/17 08:46 Date Seen by Provider: Sep 13, 2017 Time Seen by Provider: 09:45 Reason for Visit: FALL AT HOME, WEAKNESS History of Present Illness PT IS AN 87 Y/O MALE WHO IS NEW TO ME BUT HAS BEEN SEEN IN MY [facility] BY THE NURSE PRACTITIONERS. HE REPORTEDLY FELL ATHOME, WAS DOWN ON THE GROUND FOR OVER 12 HOURS LYING ON HIS SIDE. HE REPORTS THAT HE IS FEELING BETTER TODAY. HE IS HAVING AN IMPROVEMENT IN HIS STRENGTH. HE STATES THAT HE IS HAVING GOOD RESULTS WITH THERAPY. THE THERAPIST IS WORRIED ABOUT HIS IMPULSIVENESS. Allergies and Home Medications Allergies Coded Allergies: No Known Drug Allergies (Verified , 11/22/09) Home Medications Apixaban 5 Mg Tablet, 5 MG PO BID, (Reported) Cetirizine HCl 10 Mg Tablet, 10 MG PO DAILY, (Reported) Diltiazem HCl 120 Mg Cap.er.24h, 120 MG PO DAILY, (Reported) Donepezil HCl 5 Mg Tablet, 5 MG PO DAILY, (Reported) Garlic 1,000 Mg Capsule, 1,000 MG PO DAILY, (Reported) Multivitamin with Minerals 1 Each Tablet, 1 TAB PO DAILY, (Reported) Past Yenqict-Cwoolt-Ulxqgn Hx Patient Social History Alcohol Use: Occasionally Uses Alcohol Beverage of Choice: Beer, Whiskey Recreational Drug Use: No Smoking Status: Former Smoker Type Used: Cigarettes Former Smoker, Quit: May 30, 1982 Recent Foreign Travel: No Recent Hopitalizations: Yes Immunizations Up To Date Tetanus Booster (TDap): Less than 5yrs PED Vaccines UTD: Yes Date of Pneumonia Vaccine: May 30, 2016 Date of Influenza Vaccine: Sep 08, 2017 Seasonal Allergies Seasonal Allergies: No Surgeries History of Surgeries: Yes (urethral stent placement, CA REMOVAL, FACIAL RECONSTRUCTION, TOE AMPUTATION) Surgeries: Prostatectomy, Renal Respiratory History of Respiratory Disorde: No Currently Using CPAP: No Currently Using BIPAP: No Cardiovascular History of Cardiac Disorders: Yes (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) Cardiac Disorders: Atrial Fibrillation, Hypertension Neurological History of Neurological Disord: Yes Neurological Disorders: Dementia Reproductive System Hx Reproductive Disorders: No Sexually Transmitted Disease: No HIV/AIDS: No Genitourinary History of Genitourinary Disor: Yes Genitourinary Disorders: Prostate Problems, Kidney Stones, UTI-Chronic Gastrointestinal History of Gastrointestinal Di: Yes Gastrointestinal Disorders: Diverticulosis Musculoskeletal History of Musculoskeletal Dis: Yes Musculoskeletal Disorders: Amputee Endocrine History of Endocrine Disorders: No HEENT History of HEENT Disorders: Yes HEENT Disorders: Cataract Loss of Vision: Denies Hearing Impairment: Hard of Hearing, Deaf Cancer History of Cancer: Yes Cancer: Skin Did You Recieve Any Treatments: Yes Type of Tx Receive: Surgical Intervention Psychosocial History of Psychiatric Problem: No Integumentary History of Skin or Integumenta: Yes (SKIN CANCER BURNED OFF ) Skin/Integumentary Disorders: Recent Skin Changes Blood Transfusions History of Blood Disorders: No Adverse Reaction to a Blood Tr: No Family Medical History Family Medial History: Cardiovascular disease 19 MOTHER G8 BROTHER G8 SISTER FH: lung cancer 19 FATHER Myocardial infarction G8 BROTHER G8 SISTER Review of Systems-General Constitutional: No chills, No dizziness, No malaise, No weakness EENTM: No hoarseness, No throat pain Respiratory: No cough Cardiovascular: no symptoms reported Gastrointestinal: No abdominal pain, No nausea Genitourinary: no symptoms reported Musculoskeletal: no symptoms reported Skin: no symptoms reported Psychiatric/Neurological: Denies Anxiety, Denies Depressed All Other Systems Reviewed Negative Unless Noted: Yes Physical Exam-General Problems Physical Exam Vital Signs Vital Sign - Last 12Hours 09/09/ 12:00 Temp 98.7 Pulse 88 Resp 20 B/P (MAP) 111/76 Pulse Ox 98 O2 Delivery Room Air Capillary Refill : General Appearance: WD/WN, no apparent distress Eyes: Bilateral Eye Normal Inspection, Bilateral Eye PERRL, Bilateral Eye EOMI HEENT: PERRL/EOMI, pharynx normal Neck: non-tender, supple Respiratory: chest non-tender, lungs clear, normal breath sounds Cardiovascular: regular rate, rhythm Gastrointestinal: normal bowel sounds, non tender, soft, no organomegaly, no pulsatile mass Back: normal inspection Extremities: normal range of motion, non-tender, normal capillary refill Neurologic/Psychiatric: manager quality improvement II-XII nml as tested, no motor/sensory deficits, oriented x 3 Skin: normal color Lymphatic: no adenopathy Assessment/Plan Assessment/Plan Admission Diagnosis/Plan RHABDOMYOLYSIS FALL AT HOME ATRIAL FIBRILLATION DEMENTIA LEUKOCYTOSIS RHABDOMYOLYSIS WITH FALL AT HOME - WEAKNESS HAS IMPROVED - CONTINUE WITH PHYSICAL THERAPY, MONITOR SYMPTOMS AND PLANNING ON PATIENT TO GO HOME WITH CARE BY FAMILY AT HOME. ATRIAL FIBRILLATION - PT TO CONTINUE WITH HOME MEDICATIONS. DEMENTIA - SUPPORTIVE CARE. LEUKOCYTOSIS - RESOLVED Clinical Quality Measures DVT/VTE Risk/Contraindication: Risk Factor Score Per Nursin RFS Level Per Nursing on Admit: 3=High GANESH CRAVEN MD Sep 13, 2017 08:46
--- NOTE | 2017-09-13 08:54 | PM & R (SOAP) Progress Note ---
Subjective Time Seen by Provider: 08:00 Subjective/Events-last exam Patient was seen in his room this AM Patient min assist for transfers Patient sitting up and eating breakfast no complaints of pain Objective Exam Last Set of Vital Signs Vital Signs Date Time Temp Pulse Resp B/P (MAP) Pulse Ox O2 Delivery O2 Flow Rate FiO2 09/13/17 05:00 99.3 100 20 125/91 92 Room Air Capillary Refill : I&O Intake and Output 09/14/17 00:00 Intake Total 500 ml Output Total 700 ml Balance -200 ml Intake Oral 500 ml Output Urine Total 700 ml General: Alert, Cooperative, No Acute Distress HEENT: Atraumatic, PERRLA, EOMI, Mucous Memb Moist/[place] Neck: Supple, No JVD Lungs: Clear to Auscultation Heart: Regular Rate Abdomen: Normal Bowel Sounds, Soft Extremities: No Edema Neuro: Other (weakness both lower limbs 3+/5 -4/5) Results Lab Laboratory Tests 09/12/17 05:35: White Blood Count 6.6, Red Blood Count 3.75L, Hemoglobin 11.4L, Hematocrit 36L, Mean Corpuscular Volume 96, Mean Corpuscular Hemoglobin 30, Mean Corpuscular Hemoglobin Concent 32, Red Cell Distribution Width 14.5, Platelet Count 214, Mean Platelet Volume 9.5, Neutrophils (%) (Auto) 36L, Lymphocytes (%) (Auto) 34 , Monocytes (%) (Auto) 25H, Eosinophils (%) (Auto) 4, Basophils (%) (Auto) 2, Neutrophils # (Auto) 2.4, Lymphocytes # (Auto) 2.3, Monocytes # (Auto) 1.6H, Eosinophils # (Auto) 0.3, Basophils # (Auto) 0.1, Sodium Level 140, Potassium Level 4.2, Chloride Level 107, Carbon Dioxide Level 25, Anion Gap 8, Blood Urea Nitrogen 21H, Creatinine 0.85, Estimat Glomerular Filtration Rate > 60, BUN/ Creatinine Ratio 25, Glucose Level 88, Calcium Level 8.9, Total Bilirubin 0.6, Aspartate Amino Transf (AST/SGOT) 35H, Alanine Aminotransferase (ALT/SGPT) 29, Alkaline Phosphatase 42, Total Protein 6.3L, Albumin 3.0L Assessment/Plan Assessment general debil secondary to fall with resulting Dehydration and rhabdomyolysis treated with IV fluids A FIB controlled with meds GERD on meds HTN controlled with meds Mild anemia Hypoalbuminemia Plan Continue PT/OT. F/U with DR Pittman PRN Appreciate her orders. Recheck Labs Ses orders-done Team Conference held 09-11-17 -See report for full functional update and POC and KILEY [place] MD Sep 13, 2017 08:54
[2017-09-13] MEDS: LORATADINE (CLARITIN) 10 MG TAB PO SCH (08:55)
[2017-09-13] MEDS: DONEPEZIL 5 MG (ARICEPT) TAB PO SCH (08:55)
[2017-09-13] MEDS: DILTIAZEM 120 MG (CARDIZEM CD) CAP PO SCH (08:55)
--- NOTE | 2017-09-13 09:29 | Occupational Ther Daily Note ---
OT Current Status-Daily Note Subjective Pt alert, lying in bed. Pt agreed to therapy. No c/o pain at this time. Mental Status/Objective Patient Orientation: Person, Place, Time, Situation Functional [place] Measure 0=Not Assessed/NA 4=Minimal Assistance 1=Total Assistance 5=Supervision or Setup 2=Maximal Assistance 6=Modified [place] 3=Moderate Assistance 7=Complete [place] ADL-Treatment Pt completed shower today. Pt ambulated to bathroom and transferred into shower with CGA. Pt completed shower with supervision using shower bench, grabbars and hand held shower. Pt was able to dry self. Pt was able to dress self after set up. Pt declined completing oral care though was able to brush hair by self. Pt then ambulated to therapy gym with CGA and directional cues to where to find it. Functional [place] Measure 0=Not Assessed/NA 4=Minimal Assistance 1=Total Assistance 5=Supervision or Setup 2=Maximal Assistance 6=Modified [place] 3=Moderate Assistance 7=Complete IndependenceIRFPAI Quality Coding Scale 6 Independent with activity with or without an assistive device 5 Patient requires set up or clean up by helper. Patient completes activity by themselves 4 Supervision or touching assist (CGA). [place] provide cues , steadying assist 3 The helper provides less than half the effort to complete the activity 2 The helper provides more than half the effort to complete the activity 1 Dependent. The helper does all the effort to complete an activity 7 Patient refused to complete or attempt activity 9 The patient did not perform the activity before the current illness or injury 88 Not attempted due to Medical conditions or safety concerns Bathing (FIM): 5 Bathing Location: L Arm, R Arm, L Upper Leg, R Upper Leg, L Lower Leg ( including foot), R Lower Leg (including foot), Chest, Abdomen, Buttocks, Perineal Area Shower/Bathe Self (QC): 4 Upper Body (FIM): 5 Upper Body Dressing (QC): 5 Lower Body Dressing (FIM): 5 Lower Body Dressing (QC): 4 On/Off Footwear (QC): 5 Transfers (B, C, W/C) (FIM): 4 Shower Transfer(FIM): 4 Other Treatment Pt ambulated to therapy gym with CGA using FWW. Pt completed arm bike 15 min duration at 15 puente resistance with 3 short breaks to increase strength and activity tolerance for daily functional tasks. Pt then ambulated back to room with CGA using FWW. After therapy, pt sitting in recliner with call light/ phone in reach. Safety measures in place. All needs met in room. OT Short Term Goals Short Term Goals Transfers (B,C,W/C) (FIM): 6 1=Demonstrate adherence to instructed precautions during ADL tasks. 2=Patient will verbalize/demonstrate understanding of assistive devices/ modifications for ADL. 3=Patient will improve strength/tolerance for activity to enable patient to perform ADL's. OT Senior Living Goals Yardage Control Operator Forming Goals Time Frame: Sep 23, 2017 Eating (FIM): 6 Eating (QC): 6 Groomin Oral Hygiene (QC): 6 Bathing(FIM): 6 Shower/Bathe Self (QC): 6 Upper Body Dressing(FIM): 6 Upper Body Dressing (QC): 6 Lower Body Dressing(FIM): 6 Lower Body Dressing (QC): 6 On/Off Footwear (QC): 6 Toileting(FIM): 6 Toileting Hygiene (QC): 6 Transfers (B,C,W/C) (FIM): 6 Toilet/Commode Transfer(FIM): 6 Toilet/Commode Transfer (QC): 6 Shower Transfer(FIM): 6 Additional Goals: 1-Demonstrate ADL Tasks, 2-Verbalize Understanding, 3- ImproveStrength/Ailyn 1=Demonstrate adherence to instructed precautions during ADL tasks. 2=Patient will verbalize/demonstrate understanding of assistive devices/ modifications for ADL. 3=Patient will improve strength/tolerance for activity to enable patient to perform ADL's. OT Education/Plan Discharge Recommendations Plan/Recommendations: Continue POC Treatment Plan/Plan of Care Patient would benefit from OT for education, treatment and training to promote independence in ADL's, mobility, safety and/or upper extremity function for ADL' s. Plan of Care: ADL Retraining, Caregiver Training, Cognitive Retraining, Functional Mobility, Group Exercise/Act as Ind, UE Funct Exercise/Act Treatment Duration: Sep 23, 2017 Frequency: At least 5 of 7 days/Wk (IRF) Estimated Hrs Per Day: 1.5 hours per day Agreement: Yes Rehab Potential: Good Time/GCodes Start Time: 08:30 Stop Time: 09:30 Total Time Billed (hr/min): 60 Billed Treatment Time 1 visit-ADL 3 (45 min) EX 1 (15 min) JERRELL MAN Sep 13, 2017 09:29
--- NOTE | 2017-09-13 10:14 | Physical Therapy Daily Note ---
PT Daily Note-Current Subjective Pt sitting in recliner upon arrival. Pt agrees to PT. Pain Location: No Pain Reported Mental Status Patient Orientation: Person, Place, Situation Transfers Functional [place] Measure 0=Not Assessed/NA 4=Minimal Assistance 1=Total Assistance 5=Supervision or Setup 2=Maximal Assistance 6=Modified [place] 3=Moderate Assistance 7=Complete IndependenceIRFPAI Quality Coding Scale 6 Independent with activity with or without an assistive device 5 Patient requires set up or clean up by helper. Patient completes activity by themselves 4 Supervision or touching assist (CGA). [place] provide cues , steadying assist 3 The helper provides less than half the effort to complete the activity 2 The helper provides more than half the effort to complete the activity 1 Dependent. The helper does all the effort to complete an activity 7 Patient refused to complete or attempt activity 9 The patient did not perform the activity before the current illness or injury 88 Not attempted due to Medical conditions or safety concerns Scootin Sit to/from Stand: 5 Sit to Stand (QC): 5 Weight Bearing Right Lower Extremity: Right Full Weight Bearing Left Lower Extremity: Left Full Weight Bearing Gait Training Does the Patient Walk?: Yes Distance (FIM): 3=150 ft Distance: 150' Walk 10 feet (QC): 5 Walk 50 ft with 2 Turns(QC): 5 Walk 150 ft (QC): 5 Gait Level of Assist: 5 Gait Persons Needed: 1 Gait Assistive Device: FWW Pt walks with slow kelly, steady w/ no LOB. Wheelchair Training Does the Pt Use a Wheelchair?: No Stair Training Stair Training: Handrails/: 2 handrails #of Steps: 12 1 Step (curb) (QC): 5 4 Steps (QC): 5 12 Steps (QC): 5 Stairs: Pattern: Step to Level of Assist: 5 Exercises Seated Therapy Exercises: Ankle pumps, Long arc quads, Hip flexion, Kicking activity Seated Reps: 20 NuStep Minutes: 10 NuStep Workload: 5 Treatments Pt transfers from recliner to standing using FWW at SBA. Pt ambulates using FWW at SBA. Pt ambulates 3 sets of 4 stairs followed by 10m on NuStep at Workload 5. Pt completes Seated Ex before returning to room to rest in recliner at end of tx with all needs met. Assessment Current Status: Good Progress Pt is ambulating well using FWW but will sometimes try to walk short distances w /o FWW. PT Short Term Goals Short Term Goals Time Frame: Sep 16, 2017 Transfers (B,C,W/C) (FIM): 6 Gait (FIM): 6 Gait Distance Comment: 300' Gait Level of Assist: 6 Gait Assistive Device: FWW PT Construction Trades Teacher Goals Construction Trades Teacher Goals PT Construction Trades Teacher Goals Time Frame: Sep 30, 2017 Transfers (B,C,W/C) (FIM): 7 Sit to Lying (QC): 6 Lying-Sitting on Side/Bed(QC): 6 Sit to Stand (QC): 6 Rollin Roll Left to Right (QC): 6 Car Transfer (QC): 6 Gait (FIM): 7 Distance: 300' Walk 10 feet (QC): 6 Walk 10ft-Uneven Surface(QC): 6 Walk 50ft with 2 Turns (QC): 6 Walk 150 ft (QC): 6 Gait Level of Assist: 7 Gait Assistive Device: None Stairs (FIM): 4 # of Steps: 4 1 Step (curb) (QC): 4 4 Steps (QC): 4 Stairs Level Of Assist: 5 Picking up an Object (QC): 4 PT Plan Problem List Problem List: Activity Tolerance, Functional Strength, Safety, Gait Treatment/Plan Treatment Plan: Continue Plan of Care Treatment Plan: Bed Mobility, Education, Functional Activity Ailyn, Functional Strength, Group Therapy, Gait, Safety, Therapeutic Exercise, Transfers Treatment Duration: Sep 30, 2017 Frequency: At least 5 of 7 days/Wk (IRF) Estimated Hrs Per Day: 1.5 hours per day Patient and/or Family Agrees t: Yes Safety Risks/Education Patient Education: Gait Training, Transfer Techniques, Correct Positioning, Safety Issues Teaching Recipient: Patient Teaching Methods: Discussion Response to Teaching: Verbalize Understanding Time/GCodes Time In: 930 Time Out: 1015 Total Billed Treatment Time: 45 Total Billed Treatment visit, GT (15m) & EX x2 (30m) JAMES PECK ROD MACHINE OPERATOR Sep 13, 2017 10:14
--- NOTE | 2017-09-13 15:31 | Therapy Group Daily Note ---
Therapy Daily Group Note Exercises LE Seated Exercise, UE Exercise Other/Notes Pt ambulates using FWW at A to PT/OT Group in Therapy Commons Area. Group consists of Introductions (Name, Where you are from & Favorite Game- Childhood or Otherwise), Socialization, UE/LE Seated EX, Activities that focus on Core Strengthening, Dynamic Sitting, Fine Motor w/UE AROM, Peer discussions during Activities and Opening Containers & Packages. Pt participated in Group by participating in discussions with peer, Exercising as well as activity when it was pt's turn. Pt ambulated back to room at end of Group with all needs met. Start Time: 13:00 Stop Time: 14:30 Total Billed Treatment Time: 90 Total Billed Treatment 1, GRP JAMES PECK ARTIFICIAL PEARL MAKER Sep 13, 2017 15:31
[2017-09-13 18:40] VITALS: BP 113/69
[2017-09-14 05:00] VITALS: BP 105/56
[2017-09-14] MEDS: LORATADINE (CLARITIN) 10 MG TAB PO SCH (09:22)
[2017-09-14] MEDS: DILTIAZEM 120 MG (CARDIZEM CD) CAP PO SCH (09:22)
[2017-09-14] MEDS: DONEPEZIL 5 MG (ARICEPT) TAB PO SCH (09:22)
--- NOTE | 2017-09-14 10:30 | Physical Therapy Daily Note ---
PT Daily Note-Current Subjective Pt sitting in recliner upon arrival. Pt agrees to PT. Pain Location: No Pain Reported Mental Status Patient Orientation: Person, Place, Situation Transfers Functional [place] Measure 0=Not Assessed/NA 4=Minimal Assistance 1=Total Assistance 5=Supervision or Setup 2=Maximal Assistance 6=Modified [place] 3=Moderate Assistance 7=Complete IndependenceIRFPAI Quality Coding Scale 6 Independent with activity with or without an assistive device 5 Patient requires set up or clean up by helper. Patient completes activity by themselves 4 Supervision or touching assist (CGA). [place] provide cues , steadying assist 3 The helper provides less than half the effort to complete the activity 2 The helper provides more than half the effort to complete the activity 1 Dependent. The helper does all the effort to complete an activity 7 Patient refused to complete or attempt activity 9 The patient did not perform the activity before the current illness or injury 88 Not attempted due to Medical conditions or safety concerns Scootin Sit to/from Stand: 5 Sit to Stand (QC): 5 Weight Bearing Right Lower Extremity: Right Full Weight Bearing Left Lower Extremity: Left Full Weight Bearing Gait Training Does the Patient Walk?: Yes Distance (FIM): 3=150 ft Distance: 250' Walk 10 feet (QC): 6 Walk 50 ft with 2 Turns(QC): 6 Walk 150 ft (QC): 6 Gait Level of Assist: 6 Gait Assistive Device: FWW Pt walks with normalized gait with FWW. PT gave a couple of VC for standing within FWW instead of pushing it out in front of him. Pt would like to try w/o FWW next week before leaving. Wheelchair Training Does the Pt Use a Wheelchair?: No Treatments Pt transfers from recliner to standing using FWW at Mod I. Pt ambulates in hallway using FWW at Mod I. Pt returns to room to rest at end of tx with all needs met. Assessment Current Status: Good Progress Pt continues to improve with independence and safety of transfers and ambulation. PT will test pt w/o AD next week for safety before discharge. PT Short Term Goals Short Term Goals Time Frame: Sep 16, 2017 Transfers (B,C,W/C) (FIM): 6 Gait (FIM): 6 Gait Distance Comment: 300' Gait Level of Assist: 6 Gait Assistive Device: FWW PT Assisted Goals Pay Station Department Manager Goals PT Assisted Goals Time Frame: Sep 30, 2017 Transfers (B,C,W/C) (FIM): 7 Sit to Lying (QC): 6 Lying-Sitting on Side/Bed(QC): 6 Sit to Stand (QC): 6 Rollin Roll Left to Right (QC): 6 Car Transfer (QC): 6 Gait (FIM): 7 Distance: 300' Walk 10 feet (QC): 6 Walk 10ft-Uneven Surface(QC): 6 Walk 50ft with 2 Turns (QC): 6 Walk 150 ft (QC): 6 Gait Level of Assist: 7 Gait Assistive Device: None Stairs (FIM): 4 # of Steps: 4 1 Step (curb) (QC): 4 4 Steps (QC): 4 Stairs Level Of Assist: 5 Picking up an Object (QC): 4 PT Plan Problem List Problem List: Activity Tolerance Treatment/Plan Treatment Plan: Continue Plan of Care Treatment Plan: Bed Mobility, Education, Functional Activity Ailyn, Functional Strength, Group Therapy, Gait, Safety, Therapeutic Exercise, Transfers Treatment Duration: Sep 30, 2017 Frequency: At least 5 of 7 days/Wk (IRF) Estimated Hrs Per Day: 1.5 hours per day Patient and/or Family Agrees t: Yes Safety Risks/Education Patient Education: Gait Training, Correct Positioning, Safety Issues Teaching Recipient: Patient Teaching Methods: Discussion Response to Teaching: Verbalize Understanding Time/GCodes Time In: 1002 Time Out: 1017 Total Billed Treatment Time: 15 Total Billed Treatment visit, GT (15m) JAMES PECK PTA Sep 14, 2017 10:30
[2017-09-14 18:00] VITALS: BP 113/70
[2017-09-15 05:14] VITALS: BP 110/74
[2017-09-15] MEDS: DONEPEZIL 5 MG (ARICEPT) TAB PO SCH (09:21)
[2017-09-15] MEDS: LORATADINE (CLARITIN) 10 MG TAB PO SCH (09:21)
[2017-09-15] MEDS: DILTIAZEM 120 MG (CARDIZEM CD) CAP PO SCH (09:22)
[2017-09-15 17:45] VITALS: BP 121/71
[2017-09-16 05:20] VITALS: BP 99/66
--- NOTE | 2017-09-16 08:15 | Occupational Ther Daily Note ---
OT Current Status-Daily Note Subjective Pt alert, sitting in recliner. Breakfast was delivered. Pt agreed to therapy. Declined shower at this time. No c/o pain. Mental Status/Objective Patient Orientation: Person, Place, Time, Situation Functional [place] Measure 0=Not Assessed/NA 4=Minimal Assistance 1=Total Assistance 5=Supervision or Setup 2=Maximal Assistance 6=Modified [place] 3=Moderate Assistance 7=Complete [place] ADL-Treatment Functional [place] Measure 0=Not Assessed/NA 4=Minimal Assistance 1=Total Assistance 5=Supervision or Setup 2=Maximal Assistance 6=Modified [place] 3=Moderate Assistance 7=Complete IndependenceIRFPAI Quality Coding Scale 6 Independent with activity with or without an assistive device 5 Patient requires set up or clean up by helper. Patient completes activity by themselves 4 Supervision or touching assist (CGA). [place] provide cues , steadying assist 3 The helper provides less than half the effort to complete the activity 2 The helper provides more than half the effort to complete the activity 1 Dependent. The helper does all the effort to complete an activity 7 Patient refused to complete or attempt activity 9 The patient did not perform the activity before the current illness or injury 88 Not attempted due to Medical conditions or safety concerns Eating (FIM): 6 (Dentures. Pt able to open packages/containers then use regular utensils to feed self.) Eating (QC): 6 Other Treatment Pt donned shoes and ambulated with CGA using FWW to therapy gym. Pt requires verbal directions to find therapy gym and pt's room. Pt completed arm bike 15 min duration at 20 puente resistance, 4 recovery breaks, to increase strength and activity tolerance for daily functional tasks. Pt then ambulated back to room using FWW with CGA. After therapy, pt sitting in recliner with call light/ phone in reach. All needs met in room. OT Short Term Goals Short Term Goals Transfers (B,C,W/C) (FIM): 6 1=Demonstrate adherence to instructed precautions during ADL tasks. 2=Patient will verbalize/demonstrate understanding of assistive devices/ modifications for ADL. 3=Patient will improve strength/tolerance for activity to enable patient to perform ADL's. OT Secretary To The Vice President Goals [place] Goals Time Frame: Sep 23, 2017 Eating (FIM): 6 Eating (QC): 6 Groomin Oral Hygiene (QC): 6 Bathing(FIM): 6 Shower/Bathe Self (QC): 6 Upper Body Dressing(FIM): 6 Upper Body Dressing (QC): 6 Lower Body Dressing(FIM): 6 Lower Body Dressing (QC): 6 On/Off Footwear (QC): 6 Toileting(FIM): 6 Toileting Hygiene (QC): 6 Transfers (B,C,W/C) (FIM): 6 Toilet/Commode Transfer(FIM): 6 Toilet/Commode Transfer (QC): 6 Shower Transfer(FIM): 6 Additional Goals: 1-Demonstrate ADL Tasks, 2-Verbalize Understanding, 3- ImproveStrength/Ailyn 1=Demonstrate adherence to instructed precautions during ADL tasks. 2=Patient will verbalize/demonstrate understanding of assistive devices/ modifications for ADL. 3=Patient will improve strength/tolerance for activity to enable patient to perform ADL's. OT Education/Plan Discharge Recommendations Plan/Recommendations: Continue POC Treatment Plan/Plan of Care Patient would benefit from OT for education, treatment and training to promote independence in ADL's, mobility, safety and/or upper extremity function for ADL' s. Plan of Care: ADL Retraining, Caregiver Training, Cognitive Retraining, Functional Mobility, Group Exercise/Act as Ind, UE Funct Exercise/Act Treatment Duration: Sep 23, 2017 Frequency: At least 5 of 7 days/Wk (IRF) Estimated Hrs Per Day: 1.5 hours per day Agreement: Yes Rehab Potential: Good Time/GCodes Start Time: 08:00 Stop Time: 09:00 Total Time Billed (hr/min): 60 Billed Treatment Time 1 visit-FA 2 (30 min) EX 2 (30 min) JERRELL MAN Sep 16, 2017 08:15
[2017-09-16] MEDS: DILTIAZEM 120 MG (CARDIZEM CD) CAP PO SCH (10:17)
[2017-09-16] MEDS: DONEPEZIL 5 MG (ARICEPT) TAB PO SCH (10:17)
[2017-09-16] MEDS: LORATADINE (CLARITIN) 10 MG TAB PO SCH (10:17)
--- NOTE | 2017-09-16 10:57 | Physical Therapy Daily Note ---
PT Daily Note-Current Subjective Pt. agrees to Rx and feels he is making progress and feels much stronger. Pain Numeric Pain Scale: 0-No Pain Mental Status Patient Orientation: Normal For Age Transfers Functional [place] Measure 0=Not Assessed/NA 4=Minimal Assistance 1=Total Assistance 5=Supervision or Setup 2=Maximal Assistance 6=Modified [place] 3=Moderate Assistance 7=Complete IndependenceIRFPAI Quality Coding Scale 6 Independent with activity with or without an assistive device 5 Patient requires set up or clean up by helper. Patient completes activity by themselves 4 Supervision or touching assist (CGA). [place] provide cues , steadying assist 3 The helper provides less than half the effort to complete the activity 2 The helper provides more than half the effort to complete the activity 1 Dependent. The helper does all the effort to complete an activity 7 Patient refused to complete or attempt activity 9 The patient did not perform the activity before the current illness or injury 88 Not attempted due to Medical conditions or safety concerns Transfers (B, C, W/C) (FIM): 5 Scootin Rollin Supine to/from Sit: 6 Sit to/from Stand: 5 Weight Bearing Right Lower Extremity: Right Full Weight Bearing Left Lower Extremity: Left Full Weight Bearing Gait Training Does the Patient Walk?: Yes Gait (FIM): 5 Distance (FIM): 3=150 ft (200x2) Gait Level of Assist: 5 Gait Persons Needed: 1 Gait Assistive Device: FWW Stair Training Stair Training: Handrails/: 2 handrails Stairs (FIM): 5 #of Steps: 12 Stairs: Pattern: Reciprocal Level of Assist: 5 Exercises Supine Ex: Rolling, Scooting, Straight leg raise, Hip abd/add Supine Reps: 10 Seated Therapy Exercises: Ankle pumps, Sit to stand, Long arc quads, Hip flexion Seated Reps: 12 Standing: Hip Abduction, Hamstring curls, Heel/toe raises, Marching, Mini squats, Sit to Stand Standing Reps: 12 NuStep Minutes: 9 NuStep Workload: 4 Assessment Current Status: Good Progress gaining strength PT Short Term Goals Short Term Goals Time Frame: Sep 16, 2017 Transfers (B,C,W/C) (FIM): 6 Gait (FIM): 6 Gait Distance Comment: 300' Gait Level of Assist: 6 Gait Assistive Device: FWW PT Fpc Goals Fpc Goals PT Fpc Goals Time Frame: Sep 30, 2017 Transfers (B,C,W/C) (FIM): 7 Sit to Lying (QC): 6 Lying-Sitting on Side/Bed(QC): 6 Sit to Stand (QC): 6 Rollin Roll Left to Right (QC): 6 Car Transfer (QC): 6 Gait (FIM): 7 Distance: 300' Walk 10 feet (QC): 6 Walk 10ft-Uneven Surface(QC): 6 Walk 50ft with 2 Turns (QC): 6 Walk 150 ft (QC): 6 Gait Level of Assist: 7 Gait Assistive Device: None Stairs (FIM): 4 # of Steps: 4 1 Step (curb) (QC): 4 4 Steps (QC): 4 Stairs Level Of Assist: 5 Picking up an Object (QC): 4 PT Plan Treatment/Plan Treatment Plan: Continue Plan of Care Treatment Plan: Bed Mobility, Education, Functional Activity Ailyn, Functional Strength, Group Therapy, Gait, Safety, Therapeutic Exercise, Transfers Treatment Duration: Sep 30, 2017 Frequency: At least 5 of 7 days/Wk (IRF) Estimated Hrs Per Day: 1.5 hours per day Patient and/or Family Agrees t: Yes Safety Risks/Education Patient Education: Gait Training, Transfer Techniques, Steps, Correct Positioning, Safety Issues Teaching Recipient: Patient Teaching Methods: Demonstration, Discussion Response to Teaching: Verbalize Understanding, Return Demonstration, Reinforcement Needed Time/GCodes Time In: 1000 Time Out: 1100 Total Billed Treatment Time: 60 Total Billed Treatment 1,EX30m,GT15m,FA15m G Codes Necessary: ANN Castillo FINANCIAL AID Sep 16, 2017 10:57
--- NOTE | 2017-09-16 15:53 | Therapy Group Daily Note ---
Therapy Daily Group Note Patient Education Topic Other List Below Exercises LE Seated Exercise, UE Exercise Other/Notes Pt transported to OT/PT group via w/c. Group consisted of introductions (name, place living, first thing pt does in the fall), socialization, seated UE/LE exercises, posture while seated, benefits of exercises, ARU description/ expectations, breathing posture and peer conversations. Pt was able to introduce self appropriately. Pt answered questions and was able to verbalize understanding of education that was discussed. Pt completed exercises without difficulty. Pt contributed to discussions and gave own strategies and opinions. Pt then transported to room via w/c. After therapy, pt lying in bed with call light/phone in reach. All needs met in room. Start Time: 13:00 Stop Time: 14:15 Total Billed Treatment Time: 75 Total Billed Treatment 1-GRP JERRELL MAN Sep 16, 2017 15:53
--- NOTE | 2017-09-16 17:10 | PM & R (SOAP) Progress Note ---
Subjective Time Seen by Provider: 16:45 Subjective/Events-last exam Patient was seen in his rrom this afternoon Patient SBA for transfers Objective Exam Last Set of Vital Signs Vital Signs Date Time Temp Pulse Resp B/P (MAP) Pulse Ox O2 Delivery O2 Flow Rate FiO2 09/16/17 09:00 95 Room Air 09/16/17 05:20 98.1 64 20 99/66 Capillary Refill : I&O Intake and Output 09/17/17 00:00 Intake Total 340 ml Output Total 700 ml Balance -360 ml Intake Oral 340 ml Output Urine Total 700 ml General: Alert, Cooperative, No Acute Distress HEENT: Atraumatic, PERRLA, EOMI, Mucous Memb Moist/[place] Neck: Supple, No JVD Lungs: Clear to Auscultation Heart: Regular Rate Abdomen: Normal Bowel Sounds, Soft Extremities: No Edema Neuro: Other (weakness both lower limbs 3+/5 -4/5) Assessment/Plan Assessment general debil secondary to fall with resulting Dehydration and rhabdomyolysis treated with IV fluids A FIB controlled with meds GERD on meds HTN controlled with meds Mild anemia Hypoalbuminemia Plan Continue PT/OT. F/U with DR Pittman PRN Appreciate her orders. Recheck Labs Ses orders-done Next Team Conference 09-18-17 Discharge set for 09-19-17 tentatively Will confirm with KILEY WEEKS MD Sep 16, 2017 17:10
[2017-09-16 19:37] VITALS: BP 97/55
[2017-09-17 06:44] VITALS: BP 108/75
[2017-09-17] MEDS: DONEPEZIL 5 MG (ARICEPT) TAB PO SCH (07:54)
[2017-09-17] MEDS: LORATADINE (CLARITIN) 10 MG TAB PO SCH (07:54)
[2017-09-17] MEDS: DILTIAZEM 120 MG (CARDIZEM CD) CAP PO SCH (07:55)
--- NOTE | 2017-09-17 11:38 | Physical Therapy Daily Note ---
PT Daily Note-Current Subjective Pt sitting in recliner eating lunch upon arrival. PT discusses a few pt education items and will come back after pt finishes lunch. Pain Location: No Pain Reported Mental Status Patient Orientation: Person, Place, Situation Transfers Functional [place] Measure 0=Not Assessed/NA 4=Minimal Assistance 1=Total Assistance 5=Supervision or Setup 2=Maximal Assistance 6=Modified [place] 3=Moderate Assistance 7=Complete IndependenceIRFPAI Quality Coding Scale 6 Independent with activity with or without an assistive device 5 Patient requires set up or clean up by helper. Patient completes activity by themselves 4 Supervision or touching assist (CGA). [place] provide cues , steadying assist 3 The helper provides less than half the effort to complete the activity 2 The helper provides more than half the effort to complete the activity 1 Dependent. The helper does all the effort to complete an activity 7 Patient refused to complete or attempt activity 9 The patient did not perform the activity before the current illness or injury 88 Not attempted due to Medical conditions or safety concerns Scootin Sit to/from Stand: 5 Sit to Stand (QC): 5 Weight Bearing Right Lower Extremity: Right Full Weight Bearing Left Lower Extremity: Left Full Weight Bearing Gait Training Does the Patient Walk?: Yes Distance (FIM): 3=150 ft Distance: 250' Walk 10 feet (QC): 5 Walk 50 ft with 2 Turns(QC): 5 Walk 150 ft (QC): 5 Gait Level of Assist: 5 Gait Persons Needed: 1 Gait Assistive Device: None Pt ambulated without AD and balance was normal, no LOB. Wheelchair Training Does the Pt Use a Wheelchair?: No Exercises Standing: Heel/toe raises, 3 way Ex=Flex, Abd, Ext (10 reps), Marching, Mini squats, Weight shifts Standing Reps: 20 Treatments PT & pt discussed the FIM testing tomorrow in preparation for discharge on . PT also discussed what the next couple of days schedule will look like and if pt had any questions regarding progress of discharge and how Therapy will occur the next few days. Pt ambulated in hallway w/o AD at close SBA. Pt also completes Standing Ex at //bars before returning to room to rest in recliner at end of tx with all needs met. Assessment Current Status: Good Progress Pt fatigues and needs short rest break but recovers quickly. Pt is walking with normalized gait w/o AD. PT Short Term Goals Short Term Goals Time Frame: Sep 16, 2017 Transfers (B,C,W/C) (FIM): 6 Gait (FIM): 6 Gait Distance Comment: 300' Gait Level of Assist: 6 Gait Assistive Device: FWW PT Skilled Nursing Goals Histological Illustrator Goals PT Histological Illustrator Goals Time Frame: Sep 30, 2017 Transfers (B,C,W/C) (FIM): 7 Sit to Lying (QC): 6 Lying-Sitting on Side/Bed(QC): 6 Sit to Stand (QC): 6 Rollin Roll Left to Right (QC): 6 Car Transfer (QC): 6 Gait (FIM): 7 Distance: 300' Walk 10 feet (QC): 6 Walk 10ft-Uneven Surface(QC): 6 Walk 50ft with 2 Turns (QC): 6 Walk 150 ft (QC): 6 Gait Level of Assist: 7 Gait Assistive Device: None Stairs (FIM): 4 # of Steps: 4 1 Step (curb) (QC): 4 4 Steps (QC): 4 Stairs Level Of Assist: 5 Picking up an Object (QC): 4 PT Plan Problem List Problem List: Activity Tolerance, Functional Strength, Safety, Gait Treatment/Plan Treatment Plan: Continue Plan of Care Treatment Plan: Bed Mobility, Education, Functional Activity Ailyn, Functional Strength, Group Therapy, Gait, Safety, Therapeutic Exercise, Transfers Treatment Duration: Sep 30, 2017 Frequency: At least 5 of 7 days/Wk (IRF) Estimated Hrs Per Day: 1.5 hours per day Patient and/or Family Agrees t: Yes Safety Risks/Education Patient Education: Gait Training, Transfer Techniques, Correct Positioning, Safety Issues Teaching Recipient: Patient Teaching Methods: Discussion Response to Teaching: Verbalize Understanding Time/GCodes Time In: 1115 Time Out: 1215 Total Billed Treatment Time: 60 Total Billed Treatment visit, FA x2 (30m), GT (15m) & EX (15m) JAMES PECK PTA Sep 17, 2017 11:38
--- NOTE | 2017-09-17 11:40 | Occupational Ther Daily Note ---
OT Current Status-Daily Note Subjective Pt sitting EOB, agrees to treatment. Mental Status/Objective Functional [place] Measure 0=Not Assessed/NA 4=Minimal Assistance 1=Total Assistance 5=Supervision or Setup 2=Maximal Assistance 6=Modified [place] 3=Moderate Assistance 7=Complete [place] ADL-Treatment Pt would like to shower this morning. Sit to stand with supervision. Gait to restroom with FWW. Pt transferred to walk in shower with SBA. Doffed clothing without assistance. Pt able to wash/dry all areas with supervision. Occasional cues for safety. Don pullover shirt with set up. Pt donned underwear and pants with set up. Don socks and slip on shoes with set up. Pt stood at sink to brush hair with modified independence. Toilet transfer completed with SBA. Pt able to complete toileting hygiene and clothing management with SBA. Functional [place] Measure 0=Not Assessed/NA 4=Minimal Assistance 1=Total Assistance 5=Supervision or Setup 2=Maximal Assistance 6=Modified [place] 3=Moderate Assistance 7=Complete IndependenceIRFPAI Quality Coding Scale 6 Independent with activity with or without an assistive device 5 Patient requires set up or clean up by helper. Patient completes activity by themselves 4 Supervision or touching assist (CGA). [place] provide cues , steadying assist 3 The helper provides less than half the effort to complete the activity 2 The helper provides more than half the effort to complete the activity 1 Dependent. The helper does all the effort to complete an activity 7 Patient refused to complete or attempt activity 9 The patient did not perform the activity before the current illness or injury 88 Not attempted due to Medical conditions or safety concerns Bathing (FIM): 5 Shower/Bathe Self (QC): 4 Upper Body (FIM): 5 Upper Body Dressing (QC): 5 Lower Body Dressing (FIM): 5 Lower Body Dressing (QC): 5 On/Off Footwear (QC): 5 Toileting (FIM): 5 Toileting Hygiene (QC): 4 Toilet/Commode Transfer (FIM): 5 Toilet Transfer (QC): 4 Other Treatment Gait to therapy gym with FWW, no LOB noted. Pt completed bilateral UE exercises to promote increased strength needed for ADLs and transfers. Pt performed shoulder flexion, forward press, biceps curls, and wrist flex/ext x20 reps with 2# dowel nico. Rest breaks taken between exercises. Arm bike x12 minutes to increase overall strength and activity tolerance needed for functional tasks. Pt completed activity with moderate resistance and slow pace. No rest breaks needed. Pt returned to room, sitting in chair with needs met after session. OT Short Term Goals Short Term Goals Transfers (B,C,W/C) (FIM): 6 1=Demonstrate adherence to instructed precautions during ADL tasks. 2=Patient will verbalize/demonstrate understanding of assistive devices/ modifications for ADL. 3=Patient will improve strength/tolerance for activity to enable patient to perform ADL's. OT Fci Goals Fci Goals Time Frame: Sep 23, 2017 Eating (FIM): 6 Eating (QC): 6 Groomin Oral Hygiene (QC): 6 Bathing(FIM): 6 Shower/Bathe Self (QC): 6 Upper Body Dressing(FIM): 6 Upper Body Dressing (QC): 6 Lower Body Dressing(FIM): 6 Lower Body Dressing (QC): 6 On/Off Footwear (QC): 6 Toileting(FIM): 6 Toileting Hygiene (QC): 6 Transfers (B,C,W/C) (FIM): 6 Toilet/Commode Transfer(FIM): 6 Toilet/Commode Transfer (QC): 6 Shower Transfer(FIM): 6 Additional Goals: 1-Demonstrate ADL Tasks, 2-Verbalize Understanding, 3- ImproveStrength/[place]al[place] 1=Demonstrate adherence to instructed precautions during ADL tasks. 2=Patient will verbalize/demonstrate understanding of assistive devices/ modifications for ADL. 3=Patient will improve strength/tolerance for activity to enable patient to perform ADL's. OT Education/Plan Discharge Recommendations Plan/Recommendations: Continue POC Treatment Plan/Plan of Care Patient would benefit from OT for education, treatment and training to promote independence in ADL's, mobility, safety and/or upper extremity function for ADL' s. Plan of Care: ADL Retraining, Caregiver Training, Cognitive Retraining, Functional Mobility, Group Exercise/Act as Ind, UE Funct Exercise/Act Treatment Duration: Sep 23, 2017 Frequency: At least 5 of 7 days/Wk (IRF) Estimated Hrs Per Day: 1.5 hours per day Agreement: Yes Rehab Potential: Good Time/GCodes Start Time: 09:30 Stop Time: 10:30 Total Time Billed (hr/min): 60 Billed Treatment Time 1 visit, ADLx4(60minutes) WENDY HADLEY OT Sep 17, 2017 11:40
--- NOTE | 2017-09-17 12:38 | PM & R (SOAP) Progress Note ---
Subjective Time Seen by Provider: 11:35 Subjective/Events-last exam Patient was seen in his room this AM Progressing well with therapies Patient SBA for transfers Objective Exam Last Set of Vital Signs Vital Signs Date Time Temp Pulse Resp B/P (MAP) Pulse Ox O2 Delivery O2 Flow Rate FiO2 09/17/17 06:44 98.3 75 16 108/75 93 Room Air Capillary Refill : I&O Intake and Output 09/18/17 00:00 Intake Total 660 ml Output Total 500 ml Balance 160 ml Intake Oral 660 ml Output Urine Total 500 ml General: Alert, Cooperative, No Acute Distress HEENT: Atraumatic, PERRLA, EOMI, Mucous Memb Moist/[place] Neck: Supple, No JVD Lungs: Clear to Auscultation Heart: Regular Rate Abdomen: Normal Bowel Sounds, Soft Extremities: No Edema Neuro: Other (weakness both lower limbs 3+/5 -4/5) Assessment/Plan Assessment general debil secondary to fall with resulting Dehydration and rhabdomyolysis treated with IV fluids A FIB controlled with meds GERD on meds HTN controlled with meds Mild anemia Hypoalbuminemia Plan Continue PT/OT. F/U with DR Pittman PRN Appreciate her orders. Recheck Labs Ses orders-done Next Team Conference tomorrow 09-18-17 Discharge set for 09-19-17 tentatively Will confirm with KILEY WEEKS MD Sep 17, 2017 12:38
--- NOTE | 2017-09-17 14:16 | Occupational Ther Daily Note ---
OT Current Status-Daily Note Subjective Pt sitting in chair, agrees to treatment. Mental Status/Objective Functional [place] Measure 0=Not Assessed/NA 4=Minimal Assistance 1=Total Assistance 5=Supervision or Setup 2=Maximal Assistance 6=Modified [place] 3=Moderate Assistance 7=Complete [place] ADL-Treatment Functional [place] Measure 0=Not Assessed/NA 4=Minimal Assistance 1=Total Assistance 5=Supervision or Setup 2=Maximal Assistance 6=Modified [place] 3=Moderate Assistance 7=Complete IndependenceIRFPAI Quality Coding Scale 6 Independent with activity with or without an assistive device 5 Patient requires set up or clean up by helper. Patient completes activity by themselves 4 Supervision or touching assist (CGA). [place] provide cues , steadying assist 3 The helper provides less than half the effort to complete the activity 2 The helper provides more than half the effort to complete the activity 1 Dependent. The helper does all the effort to complete an activity 7 Patient refused to complete or attempt activity 9 The patient did not perform the activity before the current illness or injury 88 Not attempted due to Medical conditions or safety concerns Other Treatment Pt sit to stand with supervision. Gait to therapy gym without LOB. Pt completed UE activity to promote increased strength and activity tolerance needed for ADLs and transfers. Pt completed tabletop peg activity with 1# weights in place to increase strength and coordination skills. Pt completed fine motor task with nuts and bolts with 1# weights in place to increase strength and fine motor coordination. Graded clothespins task with bilateral hands to increase construction flagger/ pinch strength. Pt has good participation in all activities. Pt returned to room , sitting in chair with needs met after session. OT Short Term Goals Short Term Goals Transfers (B,C,W/C) (FIM): 6 1=Demonstrate adherence to instructed precautions during ADL tasks. 2=Patient will verbalize/demonstrate understanding of assistive devices/ modifications for ADL. 3=Patient will improve strength/tolerance for activity to enable patient to perform ADL's. OT Department Head Goals Custodial Goals Time Frame: Sep 23, 2017 Eating (FIM): 6 Eating (QC): 6 Groomin Oral Hygiene (QC): 6 Bathing(FIM): 6 Shower/Bathe Self (QC): 6 Upper Body Dressing(FIM): 6 Upper Body Dressing (QC): 6 Lower Body Dressing(FIM): 6 Lower Body Dressing (QC): 6 On/Off Footwear (QC): 6 Toileting(FIM): 6 Toileting Hygiene (QC): 6 Transfers (B,C,W/C) (FIM): 6 Toilet/Commode Transfer(FIM): 6 Toilet/Commode Transfer (QC): 6 Shower Transfer(FIM): 6 Additional Goals: 1-Demonstrate ADL Tasks, 2-Verbalize Understanding, 3- ImproveStrength/Ailyn 1=Demonstrate adherence to instructed precautions during ADL tasks. 2=Patient will verbalize/demonstrate understanding of assistive devices/ modifications for ADL. 3=Patient will improve strength/tolerance for activity to enable patient to perform ADL's. OT Education/Plan Discharge Recommendations Plan/Recommendations: Continue POC Treatment Plan/Plan of Care Patient would benefit from OT for education, treatment and training to promote independence in ADL's, mobility, safety and/or upper extremity function for ADL' s. Plan of Care: ADL Retraining, Caregiver Training, Cognitive Retraining, Functional Mobility, Group Exercise/Act as Ind, UE Funct Exercise/Act Treatment Duration: Sep 23, 2017 Frequency: At least 5 of 7 days/Wk (IRF) Estimated Hrs Per Day: 1.5 hours per day Agreement: Yes Rehab Potential: Good Time/GCodes Start Time: 13:00 Stop Time: 13:30 Total Time Billed (hr/min): 30 Billed Treatment Time 1 visit, EXx2(30minutes) WENDY HADLEY OT Sep 17, 2017 14:16
--- NOTE | 2017-09-17 15:50 | Physical Therapy Daily Note ---
PT Daily Note-Current Subjective Pt resting in recliner upon arrival. Pt agrees to PT this afternoon. Pain Location: No Pain Reported Mental Status Patient Orientation: Person, Place, Situation Transfers Functional [place] Measure 0=Not Assessed/NA 4=Minimal Assistance 1=Total Assistance 5=Supervision or Setup 2=Maximal Assistance 6=Modified [place] 3=Moderate Assistance 7=Complete IndependenceIRFPAI Quality Coding Scale 6 Independent with activity with or without an assistive device 5 Patient requires set up or clean up by helper. Patient completes activity by themselves 4 Supervision or touching assist (CGA). [place] provide cues , steadying assist 3 The helper provides less than half the effort to complete the activity 2 The helper provides more than half the effort to complete the activity 1 Dependent. The helper does all the effort to complete an activity 7 Patient refused to complete or attempt activity 9 The patient did not perform the activity before the current illness or injury 88 Not attempted due to Medical conditions or safety concerns Scootin Sit to/from Stand: 5 Sit to Stand (QC): 5 Weight Bearing Right Lower Extremity: Right Full Weight Bearing Left Lower Extremity: Left Full Weight Bearing Gait Training Does the Patient Walk?: Yes Distance (FIM): 3=150 ft Distance: 350' Walk 10 feet (QC): 5 Walk 50 ft with 2 Turns(QC): 5 Walk 150 ft (QC): 5 Gait Level of Assist: 5 Gait Persons Needed: 1 Gait Assistive Device: None Wheelchair Training Does the Pt Use a Wheelchair?: No Stair Training Stair Training: Handrails/: 2 handrails #of Steps: 12 1 Step (curb) (QC): 5 4 Steps (QC): 5 12 Steps (QC): 5 Stairs: Pattern: Step to Level of Assist: 5 Treatments Pt transfers from recliner to standing w/o AD then walks in hallway w/o AD at close SBA. Pt takes short rest then continues walking. Pt completes 3 set of 4 stairs at SBA before resting. Pt returns to room to rest in recliner at end of tx with all needs met. Assessment Current Status: Good Progress Pt is walking farther distance more independently than previous visits. Due to pt's dementia, pt will occasionally forget instructions given to him. PT Short Term Goals Short Term Goals Time Frame: Sep 16, 2017 Transfers (B,C,W/C) (FIM): 6 Gait (FIM): 6 Gait Distance Comment: 300' Gait Level of Assist: 6 Gait Assistive Device: FWW PT Fci Goals Fci Goals PT Milk Route Deliverer Goals Time Frame: Sep 30, 2017 Transfers (B,C,W/C) (FIM): 7 Sit to Lying (QC): 6 Lying-Sitting on Side/Bed(QC): 6 Sit to Stand (QC): 6 Rollin Roll Left to Right (QC): 6 Car Transfer (QC): 6 Gait (FIM): 7 Distance: 300' Walk 10 feet (QC): 6 Walk 10ft-Uneven Surface(QC): 6 Walk 50ft with 2 Turns (QC): 6 Walk 150 ft (QC): 6 Gait Level of Assist: 7 Gait Assistive Device: None Stairs (FIM): 4 # of Steps: 4 1 Step (curb) (QC): 4 4 Steps (QC): 4 Stairs Level Of Assist: 5 Picking up an Object (QC): 4 PT Plan Problem List Problem List: Activity Tolerance, Safety, Gait Treatment/Plan Treatment Plan: Continue Plan of Care Treatment Plan: Bed Mobility, Education, Functional Activity Ailyn, Functional Strength, Group Therapy, Gait, Safety, Therapeutic Exercise, Transfers Treatment Duration: Sep 30, 2017 Frequency: At least 5 of 7 days/Wk (IRF) Estimated Hrs Per Day: 1.5 hours per day Patient and/or Family Agrees t: Yes Safety Risks/Education Patient Education: Gait Training, Transfer Techniques, Correct Positioning, Safety Issues Teaching Recipient: Patient Teaching Methods: Discussion Response to Teaching: Verbalize Understanding Time/GCodes Time In: 1430 Time Out: 1500 Total Billed Treatment Time: 30 Total Billed Treatment visit, GT x2 (30m) JAMES PECK SOLAR PANEL TECHNICIAN Sep 17, 2017 15:49
[2017-09-17 18:00] VITALS: BP 108/66
[2017-09-18 06:00] VITALS: BP 102/67
--- NOTE | 2017-09-18 07:57 | PM & R (SOAP) Progress Note ---
Subjective Time Seen by Provider: 07:15 Subjective/Events-last exam Patient was seen in his room this AM Patient SBA for transfers and gait without aide Objective Exam Last Set of Vital Signs Vital Signs Date Time Temp Pulse Resp B/P (MAP) Pulse Ox O2 Delivery O2 Flow Rate FiO2 09/18/17 06:00 97.8 50 16 102/67 98 Room Air Capillary Refill : I&O Intake and Output 09/19/17 00:00 Intake Total 550 ml Output Total 1350 ml Balance -800 ml Intake Oral 550 ml Output Urine Total 1350 ml General: Alert, Cooperative, No Acute Distress HEENT: Atraumatic, PERRLA, EOMI, Mucous Memb Moist/[place] Neck: Supple, No JVD Lungs: Clear to Auscultation Heart: Regular Rate Abdomen: Normal Bowel Sounds, Soft Extremities: No Edema Neuro: Other (weakness both lower limbs 3+/5 -4/5) Assessment/Plan Assessment general debil secondary to fall with resulting Dehydration and rhabdomyolysis treated with IV fluids A FIB controlled with meds GERD on meds HTN controlled with meds Mild anemia Hypoalbuminemia Plan Continue PT/OT. F/U with DR Pittman PRN Appreciate her orders. Recheck Labs Ses orders-done Next Team Conference later today-See report for full functional update and POC and ELOS Discharge set for [id number] tentatively Will confirm with KILEY WEEKS MD Sep 18, 2017 07:57
[2017-09-18] MEDS: LORATADINE (CLARITIN) 10 MG TAB PO SCH (08:15)
[2017-09-18] MEDS: DONEPEZIL 5 MG (ARICEPT) TAB PO SCH (08:15)
[2017-09-18] MEDS: DILTIAZEM 120 MG (CARDIZEM CD) CAP PO SCH (08:16)
--- NOTE | 2017-09-18 11:01 | Physical Therapy Daily Note ---
PT Daily Note-Current Subjective Pt. smiling and agrees to Rx. Pleased that he is doing well. Wants to be up ad jeremías. Feels he doesnt need a walker Pain Numeric Pain Scale: 0-No Pain Appearance kyphotic, min rotation in gait, head forward. Mental Status Patient Orientation: Normal For Age Transfers Functional [place] Measure 0=Not Assessed/NA 4=Minimal Assistance 1=Total Assistance 5=Supervision or Setup 2=Maximal Assistance 6=Modified [place] 3=Moderate Assistance 7=Complete IndependenceIRFPAI Quality Coding Scale 6 Independent with activity with or without an assistive device 5 Patient requires set up or clean up by helper. Patient completes activity by themselves 4 Supervision or touching assist (CGA). [place] provide cues , steadying assist 3 The helper provides less than half the effort to complete the activity 2 The helper provides more than half the effort to complete the activity 1 Dependent. The helper does all the effort to complete an activity 7 Patient refused to complete or attempt activity 9 The patient did not perform the activity before the current illness or injury 88 Not attempted due to Medical conditions or safety concerns Transfers (B, C, W/C) (FIM): 6 Scootin Rollin Supine to/from Sit: 6 Sit to/from Stand: 6 Weight Bearing Right Lower Extremity: Right Full Weight Bearing Left Lower Extremity: Left Full Weight Bearing Gait Training Does the Patient Walk?: Yes Gait (FIM): 6 Distance (FIM): 3=150 ft (300x2) Gait Level of Assist: 6 Gait Persons Needed: 0 Gait Assistive Device: None no AD as pt. scored 51/56 on JORDAN. up adlib status as of this Rx Exercises Standing: Heel/toe raises, Marching, Sit to Stand Standing Reps: 12 NuStep Minutes: 12 NuStep Workload: 5 Neuromuscular completed JORDAN 51/56 see in hard chart Assessment Current Status: Excellent Progress advanced to up ad jeremías status PT Short Term Goals Short Term Goals Time Frame: Sep 16, 2017 Transfers (B,C,W/C) (FIM): 6 Gait (FIM): 6 Gait Distance Comment: 300' Gait Level of Assist: 6 Gait Assistive Device: FWW PT Shelter Goals Shelter Goals PT Easement Man Goals Time Frame: Sep 30, 2017 Transfers (B,C,W/C) (FIM): 7 Sit to Lying (QC): 6 Lying-Sitting on Side/Bed(QC): 6 Sit to Stand (QC): 6 Rollin Roll Left to Right (QC): 6 Car Transfer (QC): 6 Gait (FIM): 7 Distance: 300' Walk 10 feet (QC): 6 Walk 10ft-Uneven Surface(QC): 6 Walk 50ft with 2 Turns (QC): 6 Walk 150 ft (QC): 6 Gait Level of Assist: 7 Gait Assistive Device: None Stairs (FIM): 4 # of Steps: 4 1 Step (curb) (QC): 4 4 Steps (QC): 4 Stairs Level Of Assist: 5 Picking up an Object (QC): 4 PT Plan Treatment/Plan Treatment Plan: Continue Plan of Care Treatment Plan: Bed Mobility, Education, Functional Activity Ailyn, Functional Strength, Group Therapy, Gait, Safety, Therapeutic Exercise, Transfers Treatment Duration: Sep 30, 2017 Frequency: At least 5 of 7 days/Wk (IRF) Estimated Hrs Per Day: 1.5 hours per day Patient and/or Family Agrees t: Yes Safety Risks/Education Patient Education: Gait Training, Transfer Techniques, Correct Positioning, Safety Issues Teaching Recipient: Patient Teaching Methods: Demonstration, Discussion Response to Teaching: Verbalize Understanding, Return Demonstration, Reinforcement Needed Time/GCodes Time In: 1000 Time Out: 1100 Total Billed Treatment Time: 60 Total Billed Treatment 1,NM30m,GT15m,EX15m G Codes Necessary: ANN Castillo HOME THEATER INSTALLER Sep 18, 2017 11:01
--- NOTE | 2017-09-18 11:35 | Occupational Ther Daily Note ---
OT Current Status-Daily Note Subjective Pt agrees to treatment this am. States he is eager to go home soon. No c/o pain during session. Mental Status/Objective Functional [place] Measure 0=Not Assessed/NA 4=Minimal Assistance 1=Total Assistance 5=Supervision or Setup 2=Maximal Assistance 6=Modified [place] 3=Moderate Assistance 7=Complete [place] ADL-Treatment Pt sit to stand from chair with modified independence. Pt retrieved clothing from bedside and transported them to restroom. Transfer to walk in shower with SBA using grab bar. Pt able to wash/dry all areas with SBA. Pt requires occasional cues for safety. Don pullover shirt with modified independence. Pt donned underwear and pants with supervision for safety. Don socks and shoes with modified independence while seated. Pt brushed hair with modified independence. Pt has dentures and states he has already taken them out and cleaned them this morning. Pt demonstrated ability to perform toilet transfer with modified independence. Functional [place] Measure 0=Not Assessed/NA 4=Minimal Assistance 1=Total Assistance 5=Supervision or Setup 2=Maximal Assistance 6=Modified [place] 3=Moderate Assistance 7=Complete IndependenceIRFPAI Quality Coding Scale 6 Independent with activity with or without an assistive device 5 Patient requires set up or clean up by helper. Patient completes activity by themselves 4 Supervision or touching assist (CGA). [place] provide cues , steadying assist 3 The helper provides less than half the effort to complete the activity 2 The helper provides more than half the effort to complete the activity 1 Dependent. The helper does all the effort to complete an activity 7 Patient refused to complete or attempt activity 9 The patient did not perform the activity before the current illness or injury 88 Not attempted due to Medical conditions or safety concerns Eating (FIM): 6 (by report) Eating (QC): 6 Grooming (FIM): 6 Oral Hygiene (QC): 6 Bathing (FIM): 5 Shower/Bathe Self (QC): 4 Upper Body (FIM): 6 Upper Body Dressing (QC): 6 Lower Body Dressing (FIM): 5 Lower Body Dressing (QC): 4 On/Off Footwear (QC): 6 Toilet/Commode Transfer (FIM): 6 Toilet Transfer (QC): 6 Shower Transfer(FIM): 5 Other Treatment Gait to therapy gym with FWW, no LOB noted. Pt completed arm bike activity x12 minutes to increase overall strength and activity tolerance needed for ADLs and transfers. Pt completed task with moderate resistance and steady pace. No rest breaks needed. Pt returned to room, sitting in chair with needs met after session. Education OT Patient Education: Safety issues Teaching Recipient: Patient Teaching Methods: Discussion Response to Teaching: Verbalize Understanding, Reinforcement Needed OT Short Term Goals Short Term Goals Transfers (B,C,W/C) (FIM): 6 1=Demonstrate adherence to instructed precautions during ADL tasks. 2=Patient will verbalize/demonstrate understanding of assistive devices/ modifications for ADL. 3=Patient will improve strength/tolerance for activity to enable patient to perform ADL's. OT Halfway Goals Halfway Goals Time Frame: Sep 23, 2017 Eating (FIM): 6 (met 09/18/17) Eating (QC): 6 (6-Met) Groomin (met 09/18/17) Oral Hygiene (QC): 6 (6-MET) Bathing(FIM): 6 (not met) Shower/Bathe Self (QC): 6 (4-not met) Upper Body Dressing(FIM): 6 (met 09/18/17) Upper Body Dressing (QC): 6 (6-MET) Lower Body Dressing(FIM): 6 (not met) Lower Body Dressing (QC): 6 (4-not met) On/Off Footwear (QC): 6 (6-MET) Toileting(FIM): 6 Toileting Hygiene (QC): 6 Transfers (B,C,W/C) (FIM): 6 Toilet/Commode Transfer(FIM): 6 (met 09/18/17) Toilet/Commode Transfer (QC): 6 (6-MET) Shower Transfer(FIM): 6 (not met) Additional Goals: 1-Demonstrate ADL Tasks, 2-Verbalize Understanding, 3- ImproveStrength/Ailyn 1=Demonstrate adherence to instructed precautions during ADL tasks. 2=Patient will verbalize/demonstrate understanding of assistive devices/ modifications for ADL. 3=Patient will improve strength/tolerance for activity to enable patient to perform ADL's. OT Education/Plan Discharge Recommendations Plan/Recommendations: Continue POC Treatment Plan/Plan of Care Patient would benefit from OT for education, treatment and training to promote independence in ADL's, mobility, safety and/or upper extremity function for ADL' s. Plan of Care: ADL Retraining, Caregiver Training, Cognitive Retraining, Functional Mobility, Group Exercise/Act as Ind, UE Funct Exercise/Act Treatment Duration: Sep 23, 2017 Frequency: At least 5 of 7 days/Wk (IRF) Estimated Hrs Per Day: 1.5 hours per day Agreement: Yes Rehab Potential: Good Time/GCodes Start Time: 08:00 Stop Time: 09:00 Total Time Billed (hr/min): 60 Billed Treatment Time 1 visit, ADLx3(45minutes), EX(15minutes) WENDY HADLEY OT Sep 18, 2017 11:35
--- NOTE | 2017-09-18 15:01 | Therapy Group Daily Note ---
Therapy Daily Group Note Patient Education Topic Home Safety, Other List Below Exercises LE Seated Exercise, UE Exercise Other/Notes Pt attended OT/PT group this pm. Pt ambulated to/from group session without AD. Pt introduced self to group for socialization. Education provided regarding safe transfers and transfer techniques. Safe transfer techniques were demonstrated using adaptive equipment as needed. Home safety education was also provided including potential hazards in the home. Pt attentive and added appropriately to group discussion. Pt participated in UE/LE seated exercises to increase strength and activity tolerance needed for ADLs and mobility. Pt returned to room after group session. Start Time: 13:00 Stop Time: 14:15 Total Billed Treatment Time: 75 Total Billed Treatment 1, visit, GRP(75minutes) WENDY HADLEY OT Sep 18, 2017 15:01
--- NOTE | 2017-09-18 15:46 | Physical Therapy Daily Note ---
PT Daily Note-Current Subjective Pt. agrees to stair training. Transfers Functional [place] Measure 0=Not Assessed/NA 4=Minimal Assistance 1=Total Assistance 5=Supervision or Setup 2=Maximal Assistance 6=Modified [place] 3=Moderate Assistance 7=Complete IndependenceIRFPAI Quality Coding Scale 6 Independent with activity with or without an assistive device 5 Patient requires set up or clean up by helper. Patient completes activity by themselves 4 Supervision or touching assist (CGA). [place] provide cues , steadying assist 3 The helper provides less than half the effort to complete the activity 2 The helper provides more than half the effort to complete the activity 1 Dependent. The helper does all the effort to complete an activity 7 Patient refused to complete or attempt activity 9 The patient did not perform the activity before the current illness or injury 88 Not attempted due to Medical conditions or safety concerns Weight Bearing Right Lower Extremity: Right Full Weight Bearing Left Lower Extremity: Left Full Weight Bearing Stair Training Stair Training: Handrails/: 2 handrails Stairs (FIM): 5 #of Steps: 12 Stairs: Pattern: Reciprocal Level of Assist: 5 Assessment Current Status: Good Progress PT Short Term Goals Short Term Goals Time Frame: Sep 16, 2017 Transfers (B,C,W/C) (FIM): 6 Gait (FIM): 6 Gait Distance Comment: 300' Gait Level of Assist: 6 Gait Assistive Device: FWW PT Sales Relationship Manager Goals Senior Care Goals PT Senior Care Goals Time Frame: Sep 30, 2017 Transfers (B,C,W/C) (FIM): 7 Sit to Lying (QC): 6 Lying-Sitting on Side/Bed(QC): 6 Sit to Stand (QC): 6 Rollin Roll Left to Right (QC): 6 Car Transfer (QC): 6 Gait (FIM): 7 Distance: 300' Walk 10 feet (QC): 6 Walk 10ft-Uneven Surface(QC): 6 Walk 50ft with 2 Turns (QC): 6 Walk 150 ft (QC): 6 Gait Level of Assist: 7 Gait Assistive Device: None Stairs (FIM): 4 # of Steps: 4 1 Step (curb) (QC): 4 4 Steps (QC): 4 Stairs Level Of Assist: 5 Picking up an Object (QC): 4 PT Plan Treatment/Plan Treatment Plan: Continue Plan of Care Treatment Plan: Bed Mobility, Education, Functional Activity Ailyn, Functional Strength, Group Therapy, Gait, Safety, Therapeutic Exercise, Transfers Treatment Duration: Sep 30, 2017 Frequency: At least 5 of 7 days/Wk (IRF) Estimated Hrs Per Day: 1.5 hours per day Patient and/or Family Agrees t: Yes Time/GCodes Time In: 1530 Time Out: 1540 Total Billed Treatment Time: 10 Total Billed Treatment 1,FA10m G Codes Necessary: No ANN PARK PIPEFITTER Sep 18, 2017 15:46
[2017-09-18 18:00] VITALS: BP 114/67
[2017-09-19 05:07] VITALS: BP 145/78
[2017-09-19] MEDS: DONEPEZIL 5 MG (ARICEPT) TAB PO SCH (08:11)
[2017-09-19] MEDS: LORATADINE (CLARITIN) 10 MG TAB PO SCH (08:11)
[2017-09-19] MEDS: DILTIAZEM 120 MG (CARDIZEM CD) CAP PO SCH (08:11)
[2017-09-19 10:52] VITALS: BP 145/76
--- NOTE | 2017-09-19 11:24 | Therapy Team Discharge Summary ---
Therapy Discharge Summary Discharge Recommendations Date of Discharge Therapy D/C Recommendations: Home w/ Family Support, Occupational Therapy Home Care Physical Therapy This patient has been seen on acute rehab post episode of orthostasis at home. Upon admission, he was SBA with all functional transfers and gait and demonstrated balance and functional activity deficits. Treatment has focused on functional strength, mobility, safety and activity tolerance. He has made excellent progress and is mod indep with gait, transfers and stairs at discharge. He has met goals to a satisfactory level, instances where it was unmet, still remains at a mod indep level. Pt to discharge home with family support as needed adn recommended C to follow. DC PT. Occupational Therapy Decreased Activ Tolerance, Decreased UE Strength, Impaired I ADL's, Impaired Self-Care Skills PT Van Cdl Driver Goals Van Cdl Driver Goals PT Fpc Goals Time Frame: Sep 30, 2017 Transfers (B,C,W/C) (FIM): 7 (unmet, scored a 6) Roll Left to Right (QC): 6 (met) Sit to Lying (QC): 6 (met) Lying-Sitting on Side/Bed(QC): 6 (met) Sit to Stand (QC): 6 (met) Car Transfer (QC): 6 (unmet, scored a 4 (per nursing)) Gait (FIM): 7 (unmet, scored a 6) Distance: 300' Walk 10 feet (QC): 6 (met) Walk 10ft-Uneven Surface(QC): 6 (met) Walk 50ft with 2 Turns (QC): 6 (met) Walk 150 ft (QC): 6 (met) Gait Level of Assist: 7 Gait Assistive Device: None Stairs (FIM): 4 (exceeded; scored a 5) # of Steps: 4 1 Step (curb) (QC): 4 (met, scored a 5) 4 Steps (QC): 4 (met, scored a 5) Stairs Level Of Assist: 5 Picking up an Object (QC): 4 OT Van Cdl Driver Goals Van Cdl Driver Goals Time Frame: Sep 23, 2017 Eating (FIM): 6 (met 09/18/17) Eating (QC): 6 (6-Met) Oral Hygiene (QC): 6 (6-MET) Grooming(FIM): 6 (met 09/18/17) Bathing(FIM): 6 (not met) Shower/Bathe Self (QC): 6 (4-not met) Upper Body Dressing(FIM): 6 (met 09/18/17) Upper Body Dressing (QC): 6 (6-MET) Lower Body Dressing(FIM): 6 (not met) Lower Body Dressing (QC): 6 (4-not met) On/Off Footwear (QC): 6 (6-MET) Toileting(FIM): 6 Toileting Hygiene (QC): 6 Transfers (B,C,W/C) (FIM): 6 Toilet/Commode Transfer(FIM): 6 (met 09/18/17) Toilet/Commode Transfer (QC): 6 (6-MET) Shower Transfer(FIM): 6 (not met) Additional Goals: 1-Demonstrate ADL Tasks, 2-Verbalize Understanding, 3- ImproveStrength/Ailyn 1=Demonstrate adherence to instructed precautions during ADL tasks. 2=Patient will verbalize/demonstrate understanding of assistive devices/ modifications for ADL. 3=Patient will improve strength/tolerance for activity to enable patient to perform ADL's. JERRELL RAY PT Sep 19, 2017 11:24
--- NOTE | 2017-09-19 12:50 | Therapy Team Discharge Summary ---
Therapy Discharge Summary Discharge Recommendations Date of Discharge Therapy D/C Recommendations: Home w/ Family Support, Occupational Therapy Home Care Occupational Therapy Pt. has been seen by occupational therapy to increase overall strength and independence with daily tasks. Pt. has met most goals, except does require SBA with shower transfers. Otherwise, is able to dress self and ambulate with Mod I. Pt. is discharging home with family support. Recommend home health OT to make sure pt. is independent in the home. No further equipment needs at this time. Decreased Activ Tolerance, Decreased UE Strength, Impaired I ADL's, Impaired Self-Care Skills PT Halfway Goals Halfway Goals PT Halfway Goals Time Frame: Sep 30, 2017 Transfers (B,C,W/C) (FIM): 7 (unmet, scored a 6) Roll Left to Right (QC): 6 (met) Sit to Lying (QC): 6 (met) Lying-Sitting on Side/Bed(QC): 6 (met) Sit to Stand (QC): 6 (met) Car Transfer (QC): 6 (unmet, scored a 4 (per nursing)) Gait (FIM): 7 (unmet, scored a 6) Distance: 300' Walk 10 feet (QC): 6 (met) Walk 10ft-Uneven Surface(QC): 6 (met) Walk 50ft with 2 Turns (QC): 6 (met) Walk 150 ft (QC): 6 (met) Gait Level of Assist: 7 Gait Assistive Device: None Stairs (FIM): 4 (exceeded; scored a 5) # of Steps: 4 1 Step (curb) (QC): 4 (met, scored a 5) 4 Steps (QC): 4 (met, scored a 5) Stairs Level Of Assist: 5 Picking up an Object (QC): 4 OT Professor Of Surgery Goals Professor Of Surgery Goals Time Frame: Sep 23, 2017 Eating (FIM): 6 (met 09/18/17) Eating (QC): 6 (6-Met) Oral Hygiene (QC): 6 (6-MET) Grooming(FIM): 6 (met 09/18/17) Bathing(FIM): 6 (not met) Shower/Bathe Self (QC): 6 (4-not met) Upper Body Dressing(FIM): 6 (met 09/18/17) Upper Body Dressing (QC): 6 (6-MET) Lower Body Dressing(FIM): 6 (not met) Lower Body Dressing (QC): 6 (4-not met) On/Off Footwear (QC): 6 (6-MET) Toileting(FIM): 6 Toileting Hygiene (QC): 6 Transfers (B,C,W/C) (FIM): 6 Toilet/Commode Transfer(FIM): 6 (met 09/18/17) Toilet/Commode Transfer (QC): 6 (6-MET) Shower Transfer(FIM): 6 (not met) Additional Goals: 1-Demonstrate ADL Tasks, 2-Verbalize Understanding, 3- ImproveStrength/Ailyn 1=Demonstrate adherence to instructed precautions during ADL tasks. 2=Patient will verbalize/demonstrate understanding of assistive devices/ modifications for ADL. 3=Patient will improve strength/tolerance for activity to enable patient to perform ADL's. KAMRON POP OT Sep 19, 2017 12:50
--- NOTE | 2017-09-19 19:29 | PM & R (SOAP) Progress Note ---
Subjective Time Seen by Provider: 12:00 Subjective/Events-last exam Patient was discharged to home today with daughter and C Has progressed well Objective Exam Last Set of Vital Signs Vital Signs Date Time Temp Pulse Resp B/P (MAP) Pulse Ox O2 Delivery O2 Flow Rate FiO2 09/19/17 10:52 88 16 145/76 98 Room Air 09/19/17 05:07 98.0 Capillary Refill : I&O Intake and Output 09/20/17 00:00 Intake Total 500 ml Output Total 800 ml Balance -300 ml Intake Oral 500 ml Output Urine Total 800 ml # Voids 5 General: Alert, Cooperative, No Acute Distress HEENT: Atraumatic, PERRLA, EOMI, Mucous Memb Moist/[place] Neck: Supple, No JVD Lungs: Clear to Auscultation Heart: Regular Rate Abdomen: Normal Bowel Sounds, Soft Extremities: No Edema Neuro: Other (weakness both lower limbs 3+/5 -4/5) Assessment/Plan Assessment general debil secondary to fall with resulting Dehydration and rhabdomyolysis treated with IV fluids A FIB controlled with meds GERD on meds HTN controlled with meds Mild anemia Hypoalbuminemia Plan Discharged today to home as per above F/U with PCP DR Pittman See orders. KILEY CAM MD Sep 19, 2017 19:29
== END 2017-09-19 10:30 | disposition home health service (06) | DRG 948 ==
PROVIDERS: ADMIT Family Medicine; ATTEND Physical Medicine & Rehabilitation
DX: R53.81 Other malaise (principal); R26.2 Difficulty in walking, not elsewhere classified; I48.91 Unspecified atrial fibrillation; I10 Essential (primary) hypertension; K21.9 Gastro-esophageal reflux disease without esophagitis; F03.90 Unspecified dementia, unspecified severity, without behavioral disturbance, psychotic disturbance, mood disturbance, and anxiety; Z66 Do not resuscitate; Z91.81 History of falling; D64.9 Anemia, unspecified; M47.812 Spondylosis without myelopathy or radiculopathy, cervical region; E88.09 Other disorders of plasma-protein metabolism, not elsewhere classified; Z87.440 Personal history of urinary (tract) infections; Z79.01 Long term (current) use of anticoagulants
CPT/HCPCS: 36415; 80053; 85025

== ENCOUNTER → 2018-08-18 | Outpatient (CLI) | payer MEDICARE, OTHER ==
[~2018-08-18] MED LIST changes: -METO-272 PO; +METO-370 PO
--- NOTE | 2018-08-18 16:05 | Diagnostic Imaging Report ---
PROCEDURE: CT abdomen and pelvis without contrast. TECHNIQUE: Multiple contiguous axial images were obtained through the abdomen and pelvis without the use of intravenous contrast. INDICATION: Prostate cancer and hematuria with history of nephrolithiasis. COMPARISON: Comparison made with prior examination 03/21/2015. FINDINGS: There is minimal atelectasis and/or pneumonitis in the right lung base. The liver is normal in size without focal lesions. Gallbladder is unremarkable. There is no biliary ductal dilatation. Spleen is normal. The pancreas and adrenal glands are unremarkable. There are a few tiny nonobstructing right renal calculi. There are bilateral renal cysts. There is no evidence of obstructive uropathy. Abdominal aorta is nonaneurysmal. Bowel gas pattern is nonspecific. There is no ascites. There is diverticular disease of the sigmoid colon. There may be some minimal inflammatory changes about the sigmoid colon likely reflecting mild diverticulitis. There is a somewhat trabeculated appearance of the bladder with several bladder diverticula. There are mild degenerative changes in the spine. IMPRESSION: 1. Bilateral renal cysts and a few tiny nonobstructive right renal calculi. There is however no evidence of obstructive uropathy. 2. Diverticular disease of the sigmoid colon with questionable mild uncomplicated diverticulitis. 3. 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 Dictated by: Dictated on workstation # [id number]
== END ==
LOC: RAD 13:31
PROVIDERS: ATTEND Urology
DX: C61 Malignant neoplasm of prostate (principal); N28.1 Cyst of kidney, acquired; N20.0 Calculus of kidney; K57.30 Diverticulosis of large intestine without perforation or abscess without bleeding; Z87.440 Personal history of urinary (tract) infections
CPT/HCPCS: 74176

== ENCOUNTER → 2018-09-01 | Outpatient (CLI) | payer MEDICARE, OTHER ==
[~2018-09-01] VITALS: Ht 182.9 cm; Wt 73.0 kg
[~2018-09-01] MED LIST changes: +DIATRIZOATE 30% 300 ML (CYSTOGRAFIN) VIAL UR ONE; +LIDOCAINE PF 1% 5 ML (XYLOCAINE) AMP INJ ONE; +LIDOCAINE UROJET 2% GEL 10 ML PKG TOP ONE
--- NOTE | 2018-09-01 14:58 | Diagnostic Imaging Report ---
INDICATION: Distal urethral stricture. FLUOROSCOPY TIME: 1 minute 23 seconds. FINDINGS: A retrograde urethrogram was performed. There is a focal stricture in the mid urethra which appears to be high-grade. This is actually multifocal with a beaded appearance. The distal and proximal urethra appears to be widely patent. 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 Dictated by: Dictated on workstation # [id number]
== END ==
LOC: RAD 13:46
PROVIDERS: ATTEND Urology
DX: N35.819 Other urethral stricture, male, unspecified site (principal)
CPT/HCPCS: 74450

== ENCOUNTER → 2018-09-04 | Outpatient (CLI) | payer MEDICARE, OTHER ==
[~2018-09-04] MED LIST changes: -DIATRIZOATE 30% 300 ML (CYSTOGRAFIN) VIAL UR ONE; -LIDOCAINE PF 1% 5 ML (XYLOCAINE) AMP INJ ONE; -LIDOCAINE UROJET 2% GEL 10 ML PKG TOP ONE
== END ==
LOC: CARD 11:30
PROVIDERS: ATTEND Internal Medicine Cardiovascular Disease
DX: I48.0 Paroxysmal atrial fibrillation (principal); Q21.1 Atrial septal defect; I08.1 Rheumatic disorders of both mitral and tricuspid valves
CPT/HCPCS: 93306

== ENCOUNTER 2019-01-23 08:45 | Inpatient (IN) | payer MEDICARE, OTHER ==
[~2019-01-23] VITALS: Ht 182.9 cm; Wt 68.9 kg
[~2019-01-23 08:45] MED LIST changes: -DILT120C63 PO; +DILT120C94 PO
[2019-01-23] MEDS ORDERED: DILTIAZEM 25 MG/5 ML INJ (CARDIZEM) VIAL IVP ONE (09:15)
[2019-01-23] MEDS ORDERED: DILTIAZEM INJECTION 125 MG in NS (IVPB) 100 ML IV SCH (09:15)
[2019-01-23 09:26] LABS: BASOPHILS % (AUTO) 1 % (0-10); EOSINOPHILS % (AUTO) 1 % (0-10); HEMATOCRIT 24 % (40-54); HEMOGLOBIN 7.2 G/DL (13.3-17.7); LYMPHOCYTES # (AUTO) 1.3 X 10^3 (1.0-4.0); LYMPHOCYTES % (AUTO) 50 % (12-44); MEAN CORPUSCULAR HEMOGLOBIN 34 PG (25-34); MEAN CORPUSCULAR HGB CONC 31 G/DL (32-36); MEAN CORPUSCULAR VOLUME 110 FL (80-99); MEAN PLATELET VOLUME 10.4 FL (7.4-10.4); MONOCYTES # (AUTO) 0.5 X 10^3 (0.0-1.0); MONOCYTES % (AUTO) 19 % (0-12); NEUTROPHILS # (AUTO) 0.7 X 10^3 (1.8-7.8); NEUTROPHILS % (AUTO) 29 % (42-75); PLATELET COUNT 77 10^3/uL (130-400); RED CELL DISTRIBUTION WIDTH 19.4 % (10.0-14.5); WHITE BLOOD COUNT 2.5 10^3/uL (4.3-11.0)
[2019-01-23 09:29] LABS: BILIRUBIN,URINE NEGATIVE (NEGATIVE); CLARITY,URINE CLEAR; COLOR,URINE YELLOW; GLUCOSE, URINE (UA) NEGATIVE (NEGATIVE); KETONES,URINE NEGATIVE (NEGATIVE); LEUKOCYTE ESTERASE ,URINE 1+ (NEGATIVE); NITRITE,URINE NEGATIVE (NEGATIVE); PH,URINE 5 (5-9); PROTEIN,URINE NEGATIVE (NEGATIVE); UROBILINOGEN,URINE 1 MG/DL (NORMAL)
[2019-01-23 09:32] LABS: INR 1.6 (0.8-1.4); PROTHROMBIN TIME PATIENT 19.5 SEC (12.2-14.7)
[2019-01-23 09:38] LABS: BACTERIA,URINE TRACE /HPF; RBC,URINE 0-2 /HPF; SQUAMOUS EPITHELIAL CELL,UR 0-2 /HPF; WBC,URINE 0-2 /HPF
[2019-01-23 09:38] LABS: ALANINE AMINOTRANSFERASE 8 U/L (0-55); ALBUMIN 2.9 GM/DL (3.2-4.5); ALKALINE PHOSPHATASE 53 U/L (40-136); BILIRUBIN,TOTAL 1.2 MG/DL (0.1-1.0); BUN/CREATININE RATIO 16; CALCIUM 8.7 MG/DL (8.5-10.1); CARBON DIOXIDE 23 MMOL/L (21-32); CHLORIDE 104 MMOL/L (98-107); CREATININE SERUM 1.04 MG/DL (0.60-1.30); GFR ESTIMATED > 60; GLUCOSE 80 MG/DL (70-105); MAGNESIUM 1.9 MG/DL (1.8-2.4); SODIUM 137 MMOL/L (135-145)
[2019-01-23 09:54] LABS: BAND NEUTROPHILS 2 %; EOSINOPHILS % (MANUAL) 0 %; LYMPHOCYTES % (MANUAL) 49 %; MONOCYTES % (MANUAL) 17 %; NEUTROPHILS % (MANUAL) 31 %
[2019-01-23 09:55] LABS: ANISOCYTOSIS MODERATE; BASOPHILS % (MANUAL) 0 %; POLYCHROMASIA SLIGHT; REACTIVE LYMPHOCYTES 1 %
--- NOTE | 2019-01-23 10:04 | ED Cardiac General ---
History of Present Illness General Chief Complaint: Cardiac/General Problems Stated Complaint: WEAKNESS Nursing Triage Note: PT ARRIVED PER EMS, PT HAS WEAKNESS AND TACHYCARDIA, PT HAS HX OF DEMENIA Source: patient, family History of Present Illness Date Seen by Provider: Jan 23, 2019 Time Seen by Provider: 10:01 Initial Comments This 88-year-old white male presents with weakness and tachycardia. The patient was unable to get out of bed this morning. The patient denied persistent chest pain, shortness of breath, fever, chill, stiff neck, headache, photophobia, nausea, vomiting, or diarrhea. The patient was tachycardic and hypotensive on presentation to the emergency department. He was awake and alert and able to offer a simple and correct history. The patient suffers from dementia. Allergies and Home Medications Allergies Coded Allergies: No Known Drug Allergies (Verified , 11/22/09) Home Medications Apixaban 5 Mg Tablet, 5 MG PO BID, (Reported) Ascorbate Calcium 500 Mg Tablet, 500 MG PO DAILY, (Reported) Cetirizine HCl 10 Mg Tablet, 10 MG PO DAILY, (Reported) Diltiazem HCl 120 Mg Cap.er.24h, 120 MG PO BID, (Reported) Donepezil HCl 10 Mg Tablet, 10 MG PO DAILY, (Reported) Furosemide 20 Mg Tablet, 20 MG PO DAILY PRN for SWELLING, (Reported) Memantine HCl 10 Mg Tablet, 10 MG PO BID, (Reported) Multivitamin with Minerals 1 Each Tablet, 1 TAB PO DAILY, (Reported) Patient Home Medication List Home Medication List Reviewed: Yes Review of Systems Review of Systems Constitutional: No chills, No fever; weakness EENTM: No Blurred Vision Respiratory: Denies Cough Cardiovascular: Denies Chest Pain, Denies Palpitations Gastrointestinal: Denies Abdominal Pain, Denies Diarrhea, Denies Nausea, Denies Vomiting Genitourinary: No Symptoms Reported Musculoskeletal: no symptoms reported Skin: no symptoms reported Psychiatric/Neurological: Other Endocrine: No Symptoms Reported Hematologic/Lymphatic: No Symptoms Reported Past Imbmthr-Ynafdd-Xztyza Hx Past Med/Social Hx: Reviewed Nursing Past Med/Soc Hx Patient Social History Alcohol Beverage of Choice: Beer, Whiskey Type Used: Cigarettes Former Smoker, Quit: May 30, 1982 Recent Foreign Travel: No Contact w/Someone Who Travel: No Recent Infectious Disease Expo: No Recent Hopitalizations: Yes Immunizations Up To Date Tetanus Booster (TDap): Less than 5yrs PED Vaccines UTD: Yes Date of Pneumonia Vaccine: May 30, 2016 Date of Influenza Vaccine: Sep 08, 2017 Seasonal Allergies Seasonal Allergies: No Past Medical History Surgeries: Yes (urethral stent placement, CA REMOVAL, FACIAL RECONSTRUCTION, TOE AMPUTATION) Prostatectomy, Renal Respiratory: No Currently Using CPAP: No Currently Using BIPAP: No Cardiac: Yes (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) Atrial Fibrillation, Hypertension Neurological: Yes Dementia Reproductive Disorders: No Sexually Transmitted Disease: No HIV/AIDS: No Genitourinary: Yes Prostate Problems, Kidney Stones, UTI-Chronic Gastrointestinal: Yes Diverticulosis Musculoskeletal: Yes Amputee Endocrine: No HEENT: Yes Cataract Loss of Vision: Denies Hearing Impairment: Hard of Hearing, Deaf Cancer: Yes Skin Did You Recieve Any Treatments: Yes What Type of Treatment Did You: Surgical Intervention Psychosocial: No Integumentary: Yes (SKIN CANCER BURNED OFF ) Recent Skin Changes Blood Disorders: No Adverse Reaction/Blood Tranf: No Family Medical History Cardiovascular disease 19 MOTHER G8 BROTHER G8 SISTER FH: lung cancer 19 FATHER Myocardial infarction G8 BROTHER G8 SISTER Physical Exam Vital Signs Vital Signs - First Documented 01/23/19 08:48 Temp 96.7 Pulse 149 Resp 15 B/P (MAP) 93/64 (74) Pulse Ox 95 Capillary Refill : Less Than 3 Seconds Height, Weight, BMI Height: 6'0" Weight: 159lbs. 0.0oz. [id number]; 21.8 BMI Method:Stated General Appearance: No Apparent Distress, WD/WN HEENT: Normal ENT Inspection Neck: Normal Inspection Respiratory: Lungs Clear Cardiovascular: Irregularly Irregular, Tachycardia Gastrointestinal: Normal Bowel Sounds, Non Tender, Soft Extremity: Normal Capillary Refill, Normal Inspection, Normal Range of Motion Neurologic/Psychiatric: No Motor/Sensory Deficits Skin: Normal Color, Warm/Dry Progress/Results/Core Measures Results/Orders Lab Results Laboratory Tests Test 01/23/19 08:59 01/23/19 09:00 01/23/19 09:09 Range/Units White Blood Count 2.5 L 4.3-11.0 10^3/uL Red Blood Count 2.13 L 4.35-5.85 10^6/uL Hemoglobin 7.2 L 13.3-17.7 G/DL Hematocrit 24 L 40-54 % Mean Corpuscular Volume 110 H 80-99 FL Mean Corpuscular Hemoglobin 34 25-34 PG Mean Corpuscular Hemoglobin Concent 31 L 32-36 G/DL Red Cell Distribution Width 19.4 H 10.0-14.5 % Platelet Count 77 L 130-400 10^3/uL Mean Platelet Volume 10.4 7.4-10.4 FL Neutrophils (%) (Auto) 29 L 42-75 % Lymphocytes (%) (Auto) 50 H 12-44 % Monocytes (%) (Auto) 19 H 0-12 % Eosinophils (%) (Auto) 1 0-10 % Basophils (%) (Auto) 1 0-10 % Neutrophils # (Auto) 0.7 L 1.8-7.8 X 10^3 Lymphocytes # (Auto) 1.3 1.0-4.0 X 10^3 Monocytes # (Auto) 0.5 0.0-1.0 X 10^3 Eosinophils # (Auto) 0.0 0.0-0.3 10^3/uL Basophils # (Auto) 0.0 0.0-0.1 10^3/uL Neutrophils % (Manual) 31 % Lymphocytes % (Manual) 49 % Monocytes % (Manual) 17 % Eosinophils % (Manual) 0 % Basophils % (Manual) 0 % Band Neutrophils 2 % Reactive Lymphocytes 1 % Polychromasia SLIGHT Anisocytosis MODERATE Macrocytosis MODERATE Prothrombin Time 19.5 H 12.2-14.7 SEC INR Comment 1.6 H 0.8-1.4 Activated Partial Thromboplast Time 40 H 24-35 SEC Sodium Level 137 135-145 MMOL/L Potassium Level 4.0 3.6-5.0 MMOL/L Chloride Level 104 98-107 MMOL/L Carbon Dioxide Level 23 21-32 MMOL/L Anion Gap 10 5-14 MMOL/L Blood Urea Nitrogen 17 7-18 MG/DL Creatinine 1.04 0.60-1.30 MG/DL Estimat Glomerular Filtration Rate > 60 BUN/Creatinine Ratio 16 Glucose Level 80 70-105 MG/DL Calcium Level 8.7 8.5-10.1 MG/DL Corrected Calcium 9.6 8.5-10.1 MG/DL Magnesium Level 1.9 1.8-2.4 MG/DL Total Bilirubin 1.2 H 0.1-1.0 MG/DL Aspartate Amino Transf (AST/SGOT) 23 5-34 U/L Alanine Aminotransferase (ALT/SGPT) 8 0-55 U/L Alkaline Phosphatase 53 40-136 U/L Myoglobin 43.0 10.0-92.0 NG/ML Troponin I < 0.028 <0.028 NG/ML Total Protein 6.0 L 6.4-8.2 GM/DL Albumin 2.9 L 3.2-4.5 GM/DL B-Type Natriuretic Peptide 278.3 H <100.0 PG/ML Urine Color YELLOW Urine Clarity CLEAR Urine pH 5 5-9 Urine Specific [place] 1.015 L 1.016-1.022 Urine Protein NEGATIVE NEGATIVE Urine Glucose (UA) NEGATIVE NEGATIVE Urine Ketones NEGATIVE NEGATIVE Urine Nitrite NEGATIVE NEGATIVE Urine Bilirubin NEGATIVE NEGATIVE Urine Urobilinogen 1 NORMAL MG/DL Urine Leukocyte Esterase 1+ H NEGATIVE Urine RBC (Auto) 2+ H NEGATIVE Urine RBC 0-2 /HPF Urine WBC 0-2 /HPF Urine Squamous Epithelial Cells 0-2 /HPF Urine Crystals NONE /LPF Urine Bacteria TRACE /HPF Urine Casts PRESENT /LPF Urine Hyaline Casts 2-5 H /LPF Urine Mucus SMALL H /LPF Urine Culture Indicated NO My Orders Orders - ALLEN OVERTON MD Diltiazem Injection (Cardizem Injection) (01/23/19 09:15) Ns (Ivpb) (Sodium C... W/Diltiazem Injec (01/23/19 09:15) Cbc With Automated Diff (01/23/19 09:18) Magnesium (01/23/19 09:18) Chest 1 View, Ap/Pa Only (01/23/19 09:18) Ekg Tracing (01/23/19 09:18) Cardiac Profile 1 (01/23/19 09:18) Comprehensive Metabolic Panel (01/23/19 09:18) Myoglobin Serum (01/23/19 09:18) Protime With Inr (01/23/19 09:18) Partial Thromboplastin Time (01/23/19 09:18) Monitor-Rhythm Ecg Trace Only (01/23/19 09:18) Saline Lock/Iv-Start (01/23/19 09:18) Ua Culture If Indicated (01/23/19 09:18) Manual Differential (01/23/19 08:59) Medications Given in ED Vital Signs/I&O 01/23/19 08:48 Temp 96.7 Pulse 149 Resp 15 B/P (MAP) 93/64 (74) Pulse Ox 95 Blood Pressure Mean: 74 Departure Communication (Admissions) Time/Spoke to Admitting Phy: 06:12 Dr. Pittman Impression Primary Impression: Atrial fibrillation Qualified Codes: I48.2 - Chronic atrial fibrillation Additional Impressions: Anemia Qualified Codes: D64.9 - Anemia, unspecified Pancytopenia Atrial fibrillation with RVR Disposition: ADMITTED INPATIENT Condition: Improved Admissions Decision to Admit Reason: Admit from ER (General) Decision to Admit/Date: Jan 24, 2019 Time/Decision to Admit Time: 06:13 Departure-Patient Inst. Referrals: GANESH PITTMAN MD (PCP/Family) Primary Care Physician ALLEN OVERTON MD Jan 23, 2019 10:04
--- NOTE | 2019-01-23 10:05 | Diagnostic Imaging Report ---
INDICATION: Left-sided chest pain and rib pain Frontal chest obtained at 944 hours a.m. There is cardiomegaly again noted, unchanged from 09/07/2017. There is central vascular congestion with chronic appearing increased interstitial markings which are stable compared to the prior study. There is no pneumothorax or pleural fluid or definite new infiltrate. There is no overt bony abnormality. IMPRESSION: Cardiomegaly and central vascular prominence with chronic appearing increased interstitial markings. No pneumothorax or pleural fluid or new consolidation. Dictated by: Dictated on workstation # [id number]
[2019-01-23] MEDS ORDERED: DILTIAZEM 240 MG (CARDIZEM CD) CAP PO ONE (10:45)
--- NOTE | 2019-01-23 10:53 | History & Physicial ---
History of Present Illness History of Present Illness Reason for visit/HPI PT IS AN 88 Y/O MALE WHO IS KNOWN TO ME FROM CLINIC. HE PRESENTED TO THE EMERGENCY DEPARTMENT WITH WEAKNESS, SHORTNESS OF BREATH. HIS DTR NOTES THAT HE HAS NOT BEEN EATING WELL OR APPEARING TO FEEL WELL FOR SEVERAL DAYS. HE WAS TOLD IN THE LAST FEW MONTHS THAT HE HAS SEVERE BLADDER DISEASE AND THEY CANNOT PERFORM SURGERY ON HIM. HE DENIES CHEST PAIN, HE DOES COMPLAIN OF BEING COLD. Date of Admission Jan 23, 2019 at 10:32 Date Seen by a Provider: Jan 23, 2019 Time Seen by a Provider: 10:40 I consulted on this patient on 01/23/19 10:48 Attending Physician Ganesh Pittman MD Admitting Physician Ganesh Pittman MD Consult CARDIOLOGY Allergies and Home Medications Allergies Coded Allergies: No Known Drug Allergies (Verified , 11/22/09) Home Medications Cetirizine HCl 10 Mg Tablet, 10 MG PO DAILY, (Reported) Diltiazem HCl 120 Mg Cap.er.24h, 120 MG PO DAILY, (Reported) Donepezil HCl 5 Mg Tablet, 5 MG PO DAILY, (Reported) Multivitamin with Minerals 1 Each Tablet, 1 TAB PO DAILY, (Reported) Patient Home Medication List Home Medication List Reviewed: Yes Past Guohhmu-Phixnw-Bjwcfb Hx Patient Social History Marrital Status: Living Status: LIVES AT HOME ALONE, DTR [address] Employed/Student: retired Alcohol Use: Occasionally Uses Alcohol Beverage of Choice: Beer, Whiskey Smoking Status: Former Smoker Former Smoker, Quit: May 30, 1982 Type Used: Cigarettes 2nd Hand Smoke Exposure: Yes Physical Abuse Screen: No Sexual Abuse: No Recent Foreign Travel: No Contact w/other who traveled: No Recent Hopitalizations: Yes Recent Infectious Disease Expo: No Immunizations Up To Date Tetanus Booster (TDap): Less than 5yrs Pediatric: Yes Date of Pneumonia Vaccine: May 30, 2016 Date of Influenza Vaccine: Sep 08, 2017 Seasonal Allergies Seasonal Allergies: No Surgeries Yes (urethral stent placement, CA REMOVAL, FACIAL RECONSTRUCTION, TOE AMPUTATION ) Prostatectomy, Renal Respiratory No Currently Using CPAP: No Currently Using BIPAP: No Cardiovascular Yes (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) Atrial Fibrillation, Hypertension Neurological Yes Dementia Reproductive System Hx Reproductive Disorders: No Sexually Transmitted Disease: No HIV/AIDS: No Genitourinary Yes Prostate Problems, Kidney Stones, UTI-Chronic Gastrointestinal Yes Diverticulosis Musculoskeletal Yes Amputee Endocrine History of Endocrine Disorders: No HEENT History of HEENT Disorders: Yes HEENT Disorders: Cataract Loss of Vision: Denies Hearing Impairment: Hard of Hearing, Deaf Cancer Yes Skin Did You Recieve Any Treatments: Yes Type of Treatment: Surgical Intervention Psychosocial History of Psychiatric Problem: No Integumentary History of Skin or Integumenta: Yes (SKIN CANCER BURNED OFF ) Skin/Integumentary Disorders: Recent Skin Changes Blood Transfusions History of Blood Disorders: No Adverse Reaction to a Blood Tr: No Reviewed Nursing Assessment Reviewed/Agree w Nursing PMH: Yes Family Medical History Significant Family History: Heart Disease, Cancer, Hypertension Family Hx: Cardiovascular disease 19 MOTHER G8 BROTHER G8 SISTER FH: lung cancer 19 FATHER Myocardial infarction G8 BROTHER G8 SISTER Review of Systems Constitutional: No chills, No fever; malaise, weakness EENTM: No hoarseness, No throat pain Respiratory: No cough; dyspnea on exertion, short of breath Cardiovascular: No chest pain; edema Gastrointestinal: No abdominal pain; loss of appetite Genitourinary: no symptoms reported Musculoskeletal: no symptoms reported Skin: no symptoms reported Psychiatric/Neurological: Weakness, Other (DEMENTIA) All Other Systems Reviewed Negative Unless Noted: Yes Physical Exam Vital Signs Vital Signs - First Documented 01/23/19 08:48 Temp 96.7 Pulse 149 Resp 15 B/P (MAP) 93/64 (74) Pulse Ox 95 Capillary Refill : Less Than 3 Seconds Height, Weight, BMI Height: 6'0" Weight: 159lbs. 0.0oz. 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 ATRIAL FIBRILLATION WITH RVR - HOLD ELIQUIS AND OTHER BLOOD THINNING AGENTS FOR NOW - MONITOR H AND H, START ON ORAL CARDIZEM, CHECK BNP. DEFER OTHER TREATMENT RECOMMENDATIONS TO CARDIOLOGY. DEMENTIA - HOLD ARICEPT AND NAMENDA AT THIS TIME. GENERALIZED WEAKNESS - MAY BE DUE TO ANEMIA - CHECK LABS, WILL CONSIDER STARTING THERAPY ON SATURDAY IF SYMPTOMS OF ANEMIA HAVE STABILIZED AND PT IS SAFE TO WALK. EDEMA - LASIX 20MG IV TODAY. Admission Diagnosis PANCYTOPENIA ATRIAL FIBRILLATION WITH RVR DEMENTIA GENERALIZED WEAKNESS EDEMA Admission Status: Inpatient Order (span 2 midnights) Reason for Inpatient Admission: PT WILL NEED HOSPITALIZATION FOR AT LEAST 72 HOURS FOR STABILIZATION OF HEART, AND INVESTIGATION INTO PANCYTOPENIA , MAY NEED BLOOD TRANSFUSION Clinical Quality Measures DVT/VTE Risk/Contraindication: Contraindications-Pharm: Other *list below* Contraindications-Mechi: Other *list below* Other: PANCYTOPENIA GANESH PITTMAN MD Jan 23, 2019 10:53
[2019-01-23] MEDS ORDERED: FUROSEMIDE 40 MG/4 ML INJ (LASIX) IVP NR (11:00)
[2019-01-23] MEDS: DILTIAZEM 240 MG (CARDIZEM CD) CAP PO SCH (11:21)
[2019-01-23] MEDS ORDERED: CATHETER FLUSH 10 ML SYR IV PRN (13:00)
--- NOTE | 2019-01-23 13:36 | NUR ---
INDIRA TODD admitted to room 403-1, with an admitting diagnosis of Afib with RVR, Pancytopenia, Gen. WEakness, on 01/23/19 from ED via bed, accompanied by staff and daughter.INDIRA TODD introduced to surroundings, call light, bed controls, phone, TV, temperature control, lights, meal times, smoking policy, visitor policy, side rail policy, bathrooms and showers. Patient Rights given to patient in the handbook. TODDINDIRA verbalizes understanding that [facility] is not responsible for the loss or damage to any personal effects or valuables that are kept in the patients posession during their hospitalization. The Patient's Care Plans were discussed with the patient as well as Discharge Planning. PEYTONGLORIAINDIRA R verbalizes understanding of Interdisciplinary Patient Education. Patient and/or family were informed about the Rapid Response Team and its purpose.
[2019-01-23 13:57] VITALS: BP 114/63
--- NOTE | 2019-01-23 14:15 | Consultation-Cardiology ---
HPI-Cardiology Cardiology Consultation: Date of Consultation 01/23/19 Time Seen by a Provider: 14:15 Date of Admission 01-23-19 Attending Physician Fernanda Pittman MD Admitting Physician Fernanda Pittman MD Consulting Physician Matt Traylor MD HPI: Chief Complaint: A-fib with RVR Mr. Todd is an 88 year old male admitted to 403 from the ED. Primary consultant intern is Dr. Wisdom. He reports he lives at home alone across the street from his daughter. There is no family at the bedside. He reports he went to get up this morning and lost his balance and fell. He does report increasing weakness for a few days. He denies any c/o CP, palpitations, syncope or near syncope. He reports LE swelling. Review of Systems-Cardiology Review of Systems Constitutional: No chills, No fever; malaise Eyes: No vision change Ears/Nose/Throat: No epistaxis, No recent hearing loss Respiratory: As described under HPI Cardiovascular: As described under HPI Gastrointestinal: No constipation, No diarrhea, No nausea, No vomiting Genitourinary: No dysuria, No hematuria Musculoskeletal: no symptoms reported Skin: No rash, No ulcerations Psychiatric/Neurological: No anxiety, No depression, No seizure, No focal weakness, No syncope Hematologic: No bleeding abnormalities All Other Systems Reviewed Negative Unless Noted: Yes TCH-Bvcjlz-Fdakrv Hx Patient Social History Marrital Status: Living Status: LIVES AT HOME ALONE, [address] Employed/Student: retired Alcohol Use: Occasionally Uses Smoking Status: Former Smoker Former smoker/When Quit: Feb 06, 2001 Type Used: Cigarettes 2nd Hand Smoke Exposure: Yes Recent Foreign Travel: No Recent Infectious Disease Expo: No Hospitalization with Isolation: Denies Physical Abuse Screen: No Sexual Abuse: No Immunizations Up To Date Tetanus Booster (TDap): Less than 5yrs Date of Pneumonia Vaccine: May 30, 2016 Date of Influenza Vaccine: Sep 08, 2017 Past Medical History PMH As described under Assessment. Family Medical History Family History: Cardiovascular disease 19 MOTHER G8 BROTHER G8 SISTER FH: lung cancer 19 FATHER Myocardial infarction G8 BROTHER G8 SISTER Allergies and Home Medications Allergies Coded Allergies: No Known Drug Allergies (Verified , 11/22/09) Home Medications Apixaban 5 Mg Tablet, 5 MG PO BID, (Reported) Ascorbate Calcium 500 Mg Tablet, 500 MG PO DAILY, (Reported) Cetirizine HCl 10 Mg Tablet, 10 MG PO DAILY, (Reported) Diltiazem HCl 120 Mg Cap.er.24h, 120 MG PO BID, (Reported) Donepezil HCl 10 Mg Tablet, 10 MG PO DAILY, (Reported) Furosemide 20 Mg Tablet, 20 MG PO DAILY PRN for SWELLING, (Reported) Memantine HCl 10 Mg Tablet, 10 MG PO BID, (Reported) Multivitamin with Minerals 1 Each Tablet, 1 TAB PO DAILY, (Reported) Patient Home Medication List Home Medication List Reviewed: Yes Physical Exam-Cardiology Physical Exam Vital Signs/I&O 01/26/19 01/26/19 01/26/19 01/26/19 00:25 01:00 03:15 07:00 Temp 98.8 99.7 Pulse 94 111 74 81 Resp 16 18 B/P (MAP) 114/71 (85) 115/64 (81) Pulse Ox 95 94 O2 Delivery Room Air Room Air 01/26/19 00:00 Intake Total 2270 ml Output Total 775 ml Balance 1495 ml Capillary Refill : Less Than 3 Seconds Constitutional: appears stated age; No apparent distress; other (Awake, alert, oriented to self and location) HEENT: hearing is well preserved, oral hygience is good Neck: No carotid bruit; carotid pulses are 2 + bilaterally Respiratory: No accessory muscle use, No respiratory distress; chest expansion is symmetric, chest is bilaterally symmetric, lungs clear to auscultation Cardiovascular: irregularly irregular; No JVD; S1 and S2, systolic murmur Gastrointestinal: No tender; soft, round, audible bowel sounds Rectal: deferred Extremities: other (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), significant edema (bilat mod LE swelling) Neurologic/Psychiatric: grossly intact, power is 5/5 both on sides Skin: No rash, No ulcerations Data Review Labs Laboratory Tests 01/25/19 11:51: Glucometer 111H 01/26/19 05:15: White Blood Count 3.0L, Red Blood Count 2.64L, Hemoglobin 8.4L, Hematocrit 27L, Mean Corpuscular Volume 102H, Mean Corpuscular Hemoglobin 32, Mean Corpuscular Hemoglobin Concent 31L, Red Cell Distribution Width 24.6H, Platelet Count 49L, Mean Platelet Volume 9.7, Sodium Level 135, Potassium Level 4.2, Chloride Level 106, Carbon Dioxide Level 23, Anion Gap 6, Blood Urea Nitrogen 28H, Creatinine 0.96, Estimat Glomerular Filtration Rate > 60, BUN/Creatinine Ratio 29, Glucose Level 96, Calcium Level 9.0, Corrected Calcium 10.0, Total Bilirubin 0.8, Aspartate Amino Transf (AST/SGOT) 17, Alanine Aminotransferase (ALT/SGPT) 8, Alkaline Phosphatase 48, Total Protein 5.6L, Albumin 2.7L Radiology NAME: INDIRA TODD [facility] REC#: [id number] PT STATUS: ADM IN : [id number] PHYSICIAN: ALLEN OVERTON MD ADMIT DATE: 01/23/19 Signed Date of Exam: 01/23/19 CHEST 1 VIEW, AP/PA ONLY INDICATION: Left-sided chest pain and rib pain Frontal chest obtained at 944 hours a.m. There is cardiomegaly again noted, unchanged from 09/07/2017. There is central vascular congestion with chronic appearing increased interstitial markings which are stable compared to the prior study. There is no pneumothorax or pleural fluid or definite new infiltrate. There is no overt bony abnormality. IMPRESSION: Cardiomegaly and central vascular prominence with chronic appearing increased interstitial markings. No pneumothorax or pleural fluid or new consolidation. Dictated by: Dictated on workstation # [id number] Dict: 01/23/19 0958 Trans: 01/23/19 1109 ECG Impression ECG Initial ECG Impression: Atrial Fibrillation w/RVR A/P-Cardiology Assessment/Admission Diagnosis Pancytopenia of undetermined etiology - medical services managing Permanent atrial fibrillation - presented with RVR - rate currently improved Echocardiogram of 09-04-[address] Wisdom showed normal LV size with ejection fraction 55-65 percent, dilated left atrium, dilated right atrium, atrial septal defect with aneurysmal intra-atrial septum, moderate to severe MR, PA 35 mmHg. [id number] score of 3, yearly risk of stroke without oral anticoagulations 3.2 percent, maintained on Eliquis - currently being withheld d/t pancytopenia Chronic renal insufficiency Peripheral edema Nonobstructive carotid artery stenosis per carotid duplex done in July [address] Wisdom ASD with aneurysmal intra-atrial septum, PA pressure 35 mmHg per echo of by Dr. Wisdom Dementia Discussion and Recomendations Pancytopenia of undetermined etiology - management per medical services He has chronic a-fib - presenting with RVR and hypotension - rate improved and BP following administrating of IV Diltiazem - he is now on oral He is at risk for stroke d/t chronic a-fib, however in light of the pancytopenia of undetermined etiology it appears appropriate to hold on OAC for now until source has been determined and treated. We advise this be done as soon as possible d/t his risk of stroke. Continue CCB for rate Monitor lab closely Further recs will be based on his hospital course We would like to thank medical services for this consult Clinical Quality Measures DVT/VTE Risk/Contraindication: Contraindications-Pharm: Other *list below* Contraindications-Mechi: Other *list below* Other: PANCYTOPENIA VI HOLT Jan 23, 2019 14:15
[2019-01-23] MEDS ORDERED: DONE10TA41 PO (14:19)
[2019-01-23] MEDS ORDERED: FURO20TA4 PO (14:19)
[2019-01-23] MEDS ORDERED: ASCO-262 PO (14:19)
[2019-01-23] MEDS ORDERED: APIX5TAB PO (14:22)
[2019-01-23] MEDS ORDERED: MEMA10TA22 PO (14:22)
--- NOTE | 2019-01-23 14:23 | NUR ---
PATIENT HAD A LIST OF MEDICATIONS ON THE CHART, I CALLED HIS DAUGHTER KARI AND WENT OVER THE LIST WITH HER. SHE STATES SHE GETS SAMPLES OF THE ELIQUIS FROM THE [employer] OFFICE SOMETIMES. I MENTIONED SOME OF THE PRESCRIPTIONS ARE PAST DUE FOR REFILL ACCORDING TO THE EXT MED HX AND SHE STATES WITH THE PATIENTS DEMENTIA HE DOES FORGET TO TAKE HIS MEDICATIONS SOMETIMES BUT THIS IS HOW HE IS SUPPOSED TO TAKE THEM.
[2019-01-23] MEDS: CATHETER FLUSH 10 ML SYR IV SCH ×2 (14:49→22:32)
--- NOTE | 2019-01-23 15:31 | Consultation-Cardiology ---
HPI-Cardiology Cardiology Consultation: Date of Consultation 01/23/19 Time Seen by a Provider: 15:00 Date of Admission Attending Physician Fernanda Pittman MD Admitting Physician Fernanda Pittman MD Consulting Physician ARMAND MOORE MD, MA, FACP, FACC, FSCAI, CCDS Physician requesting consult: Dr Pittman Primary circus supervisor: Dr Wisdom HPI: Chief Complaint: Reason for consultation: A-fib with RVR HPI Mr. Cruz is an 88 year old male admitted to 403 from the ED. Primary circus supervisor is Dr. Wisdom. He reports he lives at home alone across the [address] from his daughter. There is no family at the bedside. He reports he went to get up this morning and lost his balance and fell. He does report increasing weakness for a few days. He denies any c/o CP, palpitations, syncope or near syncope. He reports LE swelling. Review of Systems-Cardiology Review of Systems Constitutional: No chills, No fever; malaise Eyes: No vision change Ears/Nose/Throat: No epistaxis, No recent hearing loss Respiratory: As described under HPI Cardiovascular: As described under HPI Gastrointestinal: No constipation, No diarrhea, No nausea, No vomiting Genitourinary: No dysuria, No hematuria Musculoskeletal: no symptoms reported Skin: No rash, No ulcerations Psychiatric/Neurological: No anxiety, No depression, No seizure, No focal weakness, No syncope Hematologic: No bleeding abnormalities All Other Systems Reviewed Negative Unless Noted: Yes [id number] Hx Patient Social History Marrital Status: Living Status: LIVES AT HOME ALONE, [address] Employed/Student: retired Alcohol Use: Occasionally Uses Smoking Status: Former Smoker Former smoker/When Quit: Feb 06, 2001 Type Used: Cigarettes 2nd Hand Smoke Exposure: Yes Recent Foreign Travel: No Recent Infectious Disease Expo: No Hospitalization with Isolation: Denies Physical Abuse Screen: No Sexual Abuse: No Immunizations Up To Date Tetanus Booster (TDap): Less than 5yrs Date of Pneumonia Vaccine: May 30, 2016 Date of Influenza Vaccine: Sep 08, 2017 Past Medical History PMH As described under Assessment. Family Medical History Family History: Cardiovascular disease 19 MOTHER G8 BROTHER G8 SISTER FH: lung cancer 19 FATHER Myocardial infarction G8 BROTHER G8 SISTER Allergies and Home Medications Allergies Coded Allergies: No Known Drug Allergies (Verified , 11/22/09) Home Medications Apixaban 5 Mg Tablet, 5 MG PO BID, (Reported) Ascorbate Calcium 500 Mg Tablet, 500 MG PO DAILY, (Reported) Cetirizine HCl 10 Mg Tablet, 10 MG PO DAILY, (Reported) Diltiazem HCl 120 Mg Cap.er.24h, 120 MG PO BID, (Reported) Donepezil HCl 10 Mg Tablet, 10 MG PO DAILY, (Reported) Furosemide 20 Mg Tablet, 20 MG PO DAILY PRN for SWELLING, (Reported) Memantine HCl 10 Mg Tablet, 10 MG PO BID, (Reported) Multivitamin with Minerals 1 Each Tablet, 1 TAB PO DAILY, (Reported) Patient Home Medication List Home Medication List Reviewed: Yes Physical Exam-Cardiology Physical Exam Vital Signs/I&O 01/23/19 01/23/19 08:48 13:57 Temp 96.7 97.6 Pulse 149 80 Resp 15 16 B/P (MAP) 93/64 (74) 114/63 Pulse Ox 95 98 O2 Delivery Room Air Capillary Refill : Less Than 3 Seconds Constitutional: appears stated age; No apparent distress; other (Awake, alert, oriented to self and location) HEENT: hearing is well preserved, oral hygience is good Neck: No carotid bruit; carotid pulses are 2 + bilaterally Respiratory: No accessory muscle use, No respiratory distress; chest expansion is symmetric, chest is bilaterally symmetric, lungs clear to auscultation Cardiovascular: irregularly irregular; No JVD; S1 and S2, systolic murmur Gastrointestinal: No tender; soft, round, audible bowel sounds Rectal: deferred Extremities: other (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), significant edema (bilat mod LE swelling) Neurologic/Psychiatric: grossly intact, power is 5/5 both on sides Skin: No rash, No ulcerations Data Review Labs Laboratory Tests 01/23/19 08:59: White Blood Count 2.5L, Red Blood Count 2.13L, Hemoglobin 7.2L, Hematocrit 24L, Mean Corpuscular Volume 110H, Mean Corpuscular Hemoglobin 34, Mean Corpuscular Hemoglobin Concent 31L, Red Cell Distribution Width 19.4H, Platelet Count 77L, Mean Platelet Volume 10.4, Neutrophils (%) (Auto) 29L, Lymphocytes (%) (Auto) 50H, Monocytes (%) (Auto) 19H, Eosinophils (%) (Auto) 1, Basophils (%) (Auto) 1 , Neutrophils # (Auto) 0.7L, Lymphocytes # (Auto) 1.3, Monocytes # (Auto) 0.5, Eosinophils # (Auto) 0.0, Basophils # (Auto) 0.0, Neutrophils % (Manual) 31, Lymphocytes % (Manual) 49, Monocytes % (Manual) 17, Eosinophils % (Manual) 0, Basophils % (Manual) 0, Band Neutrophils 2, Reactive Lymphocytes 1, Polychromasia SLIGHT, Anisocytosis MODERATE, Macrocytosis MODERATE, Prothrombin Time 19.5H, INR Comment 1.6H, Activated Partial Thromboplast Time 40H, Sodium Level 137, Potassium Level 4.0, Chloride Level 104, Carbon Dioxide Level 23, Anion Gap 10, Blood Urea Nitrogen 17, Creatinine 1.04, Estimat Glomerular Filtration Rate > 60, BUN/Creatinine Ratio 16, Glucose Level 80, Calcium Level 8.7, Corrected Calcium 9.6, Magnesium Level 1.9, Total Bilirubin 1.2H, Aspartate Amino Transf (AST/SGOT) 23, Alanine Aminotransferase (ALT/SGPT) 8, Alkaline Phosphatase 53, Myoglobin 43.0, Troponin I < 0.028, Total Protein 6.0L , Albumin 2.9L 01/23/19 09:00: B-Type Natriuretic Peptide 278.3H 01/23/19 09:09: Urine Color YELLOW, Urine Clarity CLEAR, Urine pH 5, Urine Specific [place] 1.015L, Urine Protein NEGATIVE, Urine Glucose (UA) NEGATIVE, Urine Ketones NEGATIVE, Urine Nitrite NEGATIVE, Urine Bilirubin NEGATIVE, Urine Urobilinogen 1 , Urine Leukocyte Esterase 1+H, Urine RBC (Auto) 2+H, Urine RBC 0-2, Urine WBC 0 -2, Urine Squamous Epithelial Cells 0-2, Urine Crystals NONE, Urine Bacteria TRACE, Urine Casts PRESENT, Urine Hyaline Casts 2-5H, Urine Mucus SMALLH, Urine Culture Indicated NO Laboratory Tests 01/23/19 08:59 A/P-Cardiology Assessment/Admission Diagnosis Pancytopenia of undetermined etiology - medical services managing Permanent atrial fibrillation - presented with RVR - rate currently improved Echocardiogram of 09-04-[address] Wisdom showed normal LV size with ejection fraction 55-65 percent, dilated left atrium, dilated right atrium, atrial septal defect with aneurysmal intra-atrial septum, moderate to severe MR, PA 35 mmHg. [id number] score of 3, yearly risk of stroke without oral anticoagulations 3.2 percent, maintained on Eliquis - currently being withheld d/t pancytopenia Chronic renal insufficiency Peripheral edema Nonobstructive carotid artery stenosis per carotid duplex done in July [address] Wisdom ASD with aneurysmal intra-atrial septum, PA pressure 35 mmHg per echo of by Dr. Wisdom Dementia Discussion and Recomendations Pancytopenia of undetermined etiology - management per medical services He has chronic a-fib - presenting with RVR and hypotension - rate improved and BP following administrating of IV Diltiazem - he is now on oral He is at risk for stroke d/t chronic a-fib, but because of pancytopenia of undetermined etiology it appears appropriate to hold on OAC for now until source has been determined and treated. We advise this be done as soon as possible d/t his risk of stroke. Continue CCB for rate Monitor lab closely Further recs will be based on his hospital course We would like to thank medical services for this consult Clinical Quality Measures DVT/VTE Risk/Contraindication: Contraindications-Pharm: Other *list below* Contraindications-Mechi: Other *list below* Other: PANCYTOPENIA ARMAND MOORE MD FACP FAC CCDS Jan 23, 2019 15:31
[2019-01-23 17:04] VITALS: BP 100/52
--- NOTE | 2019-01-23 18:30 | NUR ---
Notified Dr. Sherwood that patient's repeat Hbg was 7.0 which is a drop from 7.2 on admission. No new orders received at this time.
[2019-01-23 20:09] VITALS: BP 101/63
[2019-01-24] VITALS (11 sets, daily range): BP systolic 99–122; BP diastolic 55–82
[2019-01-24 06:17] LABS: MEAN PLATELET VOLUME 8.9 FL (7.4-10.4); RED CELL DISTRIBUTION WIDTH 19.7 % (10.0-14.5); WHITE BLOOD COUNT 2.8 10^3/uL (4.3-11.0)
[2019-01-24 06:22] LABS: HEMOGLOBIN 6.5 G/DL (13.3-17.7)
[2019-01-24] MEDS: CATHETER FLUSH 10 ML SYR IV SCH ×3 (06:36→23:17)
--- NOTE | 2019-01-24 06:38 | NUR ---
0625-RECEIVED CRITICAL RESULT OF HGB-6.5. 0627-SPOKE WITH DR. GARCIA AND INFORMED HER OF PTS CRITICAL RESULT. NO NEW ORDERS AT THIS TIME. WILL CONTINUE TO MONITOR PT.
[2019-01-24 06:39] LABS: ALANINE AMINOTRANSFERASE 9 U/L (0-55); ALBUMIN 2.7 GM/DL (3.2-4.5); ALKALINE PHOSPHATASE 46 U/L (40-136); BUN/CREATININE RATIO 20; CALCIUM 8.6 MG/DL (8.5-10.1); CARBON DIOXIDE 24 MMOL/L (21-32); CHLORIDE 105 MMOL/L (98-107); CHOLESTEROL 111 MG/DL (< 200); CREATININE SERUM 1.06 MG/DL (0.60-1.30); GFR ESTIMATED > 60; GLUCOSE 92 MG/DL (70-105); HDL CHOLESTEROL 31 MG/DL (40-60); POTASSIUM 4.2 MMOL/L (3.6-5.0); SODIUM 137 MMOL/L (135-145); TOTAL PROTEIN 5.6 GM/DL (6.4-8.2); TRIGLYCERIDES 43 MG/DL (<150); VLDL CHOLESTEROL 9 MG/DL (5-40)
[2019-01-24 10:26] LABS: RETICULOCYTE % 2.8 % (0.50-2.40)
--- NOTE | 2019-01-24 11:40 | Progress Note-Cardiology ---
Cardiology SOAP Progress Note Subjective: No cp, palp, syncope, shortness of breath Objective: I&O/Vital Signs 01/24/19 01/24/19 01/24/19 01/24/19 00:10 01:00 03:55 07:00 Temp 99.8 98.5 Pulse 84 87 90 102 Resp 16 18 B/P (MAP) 103/68 (80) 102/62 (75) Pulse Ox 94 92 O2 Delivery Room Air Room Air 01/24/19 01/24/19 08:00 08:00 Temp 96.8 Pulse 59 Resp 20 B/P (MAP) 109/59 (76) Pulse Ox 97 O2 Delivery Room Air Room Air 01/24/19 00:00 Intake Total 500 ml Output Total 1050 ml Balance -550 ml Weight (Pounds): 152 Weight (Ounces): 0.0 Weight (Calculated Kilograms): 68.890552 Constitutional: appears stated age; No apparent distress; other (Awake, alert, oriented to self and location) Respiratory: No accessory muscle use, No respiratory distress; chest expansion is symmetric, chest is bilaterally symmetric, lungs clear to auscultation Cardiovascular: irregularly irregular; No JVD; S1 and S2, systolic murmur Gastrointestional: No tender; soft, round, audible bowel sounds Extremities: other (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), significant edema (bilat mod LE swelling) Neurologic/Psychiatric: grossly intact, power is 5/5 both on sides Skin: No rash, No ulcerations Results/Procedures: Labs Laboratory Tests 01/23/19 15:52: Hemoglobin 7.0L, Hematocrit 23L 01/24/19 06:09: Hemoglobin 6.5*L, Hematocrit 21L, White Blood Count 2.8L, Red Blood Count 1.89L , Mean Corpuscular Volume 111H, Mean Corpuscular Hemoglobin 34, Mean Corpuscular Hemoglobin Concent 31L, Red Cell Distribution Width 19.7H, Platelet Count 56L, Mean Platelet Volume 8.9, Absolute Reticulocyte Count 53, Percent Reticulocyte Count 2.80H, Sodium Level 137, Potassium Level 4.2, Chloride Level 105, Carbon Dioxide Level 24, Anion Gap 8, Blood Urea Nitrogen 21H, Creatinine 1.06, Estimat Glomerular Filtration Rate > 60, BUN/Creatinine Ratio 20, Glucose Level 92, Calcium Level 8.6, Corrected Calcium 9.6, Total Bilirubin 1.0, Aspartate Amino Transf (AST/SGOT) 16, Alanine Aminotransferase (ALT/SGPT) 9, Alkaline Phosphatase 46, Lactate Dehydrogenase 231H, Total Protein 5.6L, Albumin 2.7L, Triglycerides Level 43, Cholesterol Level 111, LDL Cholesterol Direct 68, VLDL Cholesterol 9, HDL Cholesterol 31L, Thyroid Stimulating Hormone (TSH) 1.62 01/24/19 11:01: Laboratory Tests 01/23/19 08:59 01/23/19 15:52 01/24/19 06:09 A/P: Assessment: Pancytopenia of undetermined etiology - Dr Sherwood managing Permanent atrial fibrillation - presented with RVR - rate currently controlled Echocardiogram of 09-04-[address] Wisdom showed normal LV size with ejection fraction 55-65 percent, dilated left atrium, dilated right atrium, atrial septal defect with aneurysmal intra-atrial septum, moderate to severe MR, PA 35 mmHg. [id number] score of 3, yearly risk of stroke without oral anticoagulations 3.2 percent, maintained on Eliquis - currently being withheld d/t pancytopenia Chronic renal insufficiency Peripheral edema Nonobstructive carotid artery stenosis per carotid duplex done in July [address] Wisdom ASD with aneurysmal intra-atrial septum, PA pressure 35 mmHg per echo of by Dr. Wisdom Dementia Plan: * Has multiple medical issues that include newly-diagnosed pancytopenia that is being managed by Dr Sherwood * Vent rate controlled on oral dilt * Not suitable for OAC until pancytopenia investigated and treated * Monitor labs ARMAND MOORE MD FACP FAC CCDS Jan 24, 2019 11:40
--- NOTE | 2019-01-24 12:16 | NUR ---
PATIENT'S DAUGHTER (EVE HEADLEY) WAS CALLED AT THIS TIME TO GIVE CONSENT FOR BLOOD TRANSFUSIONS. CONSENT GIVEN OVER THE PHONE AND WITNESSED BY THIS MEDICAL SECRETARY RECEPTIONIST AND DANNIE RIVERS.
--- NOTE | 2019-01-24 12:48 | Progress Note-Hospitalist ---
Subjective HPI/CC On Admission Date Seen by Provider: Jan 24, 2019 Time Seen by Provider: 11:00 Subjective/Events-last exam Patient doing well Appreciate Dr Sánchez and Dr Traylor's consultations Dementia precludes any reliable details from the patient Reports he hasn't eaten in days and I spoke to nurse and witnessed him eating a large bfast today Checked meds and labs Review of Systems General: Fatigue Pulmonary: Dyspnea Neurological: Confusion Objective Exam Vital Signs Vital Signs Date Time Temp Pulse Resp B/P (MAP) Pulse Ox O2 Delivery O2 Flow Rate FiO2 01/24/19 14:14 97.2 109 18 107/57 98 Room Air Capillary Refill : Less Than 3 Seconds General Appearance: No Apparent Distress, WD/WN, Chronically ill, Thin HEENT: Normal ENT Inspection Neck: Normal Inspection Respiratory: Lungs Clear, Normal Breath Sounds Cardiovascular: Irregularly Irregular, Tachycardia Gastrointestinal: Normal Bowel Sounds, Non Tender, Soft Rectal: Deferred Back: Normal Inspection Extremity: Normal Capillary Refill, Normal Inspection, Normal Range of Motion, Pedal Edema Neurologic/Psychiatric: Alert, No Motor/Sensory Deficits, Normal Mood/Affect, 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 Assessment/Plan Assessment and Plan Assess & Plan/Chief Complaint Assessment per PCP with my additions: PANCYTOPENIA ATRIAL FIBRILLATION WITH RVR DEMENTIA GENERALIZED WEAKNESS EDEMA Plan: Consult Hematology Appreciate Cardiology help Dementia is severe Diagnosis/Problems Diagnosis/Problems (1) Atrial fibrillation with RVR Status: Acute (2) Dementia Status: Chronic Qualifiers: Dementia type: Alzheimer's disease Alzheimer's disease onset: unspecified onset Dementia behavioral disturbance: without behavioral disturbance Qualified Codes: G30.9 - Alzheimer's disease, unspecified; F02.80 - Dementia in other diseases classified elsewhere without behavioral disturbance (3) Pancytopenia Status: Acute (4) Atrial fibrillation Status: Chronic Qualifiers: Atrial fibrillation type: chronic Qualified Codes: I48.2 - Chronic atrial fibrillation (5) Anemia Status: Acute Qualifiers: Anemia type: unspecified type Qualified Codes: D64.9 - Anemia, unspecified Clinical Quality Measures DVT/VTE Risk/Contraindication: Risk Factor Score Per Nursin RFS Level Per Nursing on Admit: 4+=Very High Contraindications-Pharm: Other *list below* Contraindications-Mechi: Other *list below* Other: PANCYTOPENIA ZAK GARCIA DO Jan 24, 2019 12:48
[2019-01-24] MEDS ORDERED: NS IV 500 ML 500 ML ONE (14:03)
--- NOTE | 2019-01-24 14:11 | CONSULTATION REPORT ---
DATE OF SERVICE: 01/24/2019 The patient is admitted to room number 403. PHYSICIAN REQUESTING CONSULTATION: Gale Sherwood DO. PRIMARY PHYSICIAN: Fernanda Pittman MD. IMPRESSION AND PLAN: 1. An 88-year-old male admitted to the hospital with increasing weakness and fall. 2. Found to have pancytopenia with a hemoglobin level of 6.5 grams per deciliter today. 3. Previous history of atrial fibrillation and on chronic anticoagulation with Eliquis for the past 10 years. 4. Obtain a reticulocyte count from the blood drawn today morning. Also obtain serum iron studies, B12 and folate level, serum protein electrophoresis, TSH level and LDH. 5. Obtain a fecal occult blood test to rule out occult GI blood loss. 6. Type and cross and transfuse 2 units of packed red blood cells to maintain hemoglobin more than 8 grams per deciliter because of his cardiac issues. 7. Discontinue anticoagulation because of significant anemia. 8. If no definite etiology for the pancytopenia is found and if it is not improving, he may need a bone marrow aspiration and biopsy for further evaluation. HISTORY OF PRESENT ILLNESS: The patient is an 88-year-old male, who was admitted to the hospital following a fall at home and significant weakness. The patient was alone in his room at the time of evaluation and could not give a lot of details. He was answering simple questions appropriately, but did not know or remember some details and hence most of the history was obtained from his medical records. At the time of admission, he was noted to be pancytopenic and within 24 hours, his hemoglobin level declined further, hence the hematology consultation for further evaluation and recommendations. PAST MEDICAL HISTORY: Significant for hypertension, which is longstanding. Atrial fibrillation diagnosed in 2008 and rate controlled with medications. The patient has also been on anticoagulation with Eliquis for stroke prophylaxis. He has a longstanding history of gastroesophageal reflux disease and has been taking proton pump inhibitors. He denied any obvious bleeding from anywhere. No hematochezia or melena. No hematuria. He has previous history of prostate problems requiring surgery. He is unsure if this was a transurethral resection or a prostatectomy. He denied any malignancies. PAST SURGICAL HISTORY: No major surgeries other than prostate surgery and amputation of the toe. SOCIAL HISTORY: The patient is and is living alone in [place], [place]. He has three children, a son and two daughters. One daughter lives right across from him. Son also lives in [place]. Other daughter lives in [place]. He has a previous history of tobacco use, but was unable to quantitate this. He has used alcohol in the past, mostly on a social basis. FAMILY HISTORY: Unable to get details of family history. PHYSICAL EXAMINATION: GENERAL: Today showed an elderly male, awake and answering simple questions appropriately, weak appearing, otherwise in no acute distress. VITAL SIGNS: Temperature was 96.8, pulse rate of 59, respirations 20, blood pressure 109/59 with pulse oximetry showing 97% saturation on room air. HEENT: Normocephalic with male pattern baldness, extraocular muscles intact, conjunctivae pale and oral mucosa slightly dry. NECK: Supple with no JVD. No cervical, supraclavicular or axillary lymphadenopathy palpable. CHEST: Symmetrical. LUNGS: Fairly clear to auscultation without wheezes or rales. CARDIOVASCULAR: Irregular in rhythm with a controlled rate. Grade II holosystolic murmur was heard at the apex. ABDOMEN: Soft with mild diffuse tenderness without guarding or rebound. No definite hepatosplenomegaly or other masses palpable. EXTREMITIES: Showed trace edema. NEUROLOGIC: Showed overall motor strength of 4/5 bilaterally. No focal motor deficits noted. LABORATORY DATA: CBC done today showed WBC 2.8, hemoglobin 6.5, MCV 111 and platelet count 58,000. CBC done yesterday at the time of admission showed WBC 2.5, hemoglobin 7.2 and platelet count of 77,000. A peripheral smear was done yesterday at the time of admission. I reviewed this. This showed significant anisocytosis and poikilocytosis. Mild rouleaux formation was noted. Platelets were decreased in number and no platelet clumps were noted. White blood cells showed mature appearing lymphocytes with adequate granulation. Lymphocytes appeared likely reactive. No immature cells identified. Chemistry panel done today showed normal electrolytes. BUN was 21 and creatinine 1.06 with GFR more than 60 mL per minute. Liver function studies were within normal limits except albumin level of 2.7. Thank you for allowing me to participate in this patient's care. I will follow the patient with you and make appropriate recommendations. Job ID: [id number] DocumentID: [id number] Dictated Date: 01/24/2019 10:38:23 Aircraft Instrument Repairer Date: 01/24/2019 14:10:32 Dictated By: JOYCE ROSE MD MTDD
[2019-01-25 00:10] VITALS: BP 109/66
[2019-01-25 01:00] LABS: HEMOGLOBIN 8.5 G/DL (13.3-17.7)
[2019-01-25 03:50] VITALS: BP 108/71
[2019-01-25] MEDS: CATHETER FLUSH 10 ML SYR IV SCH ×3 (05:31→23:46)
[2019-01-25 06:55] LABS: HEMOGLOBIN 8.8 G/DL (13.3-17.7); MEAN PLATELET VOLUME 9.1 FL (7.4-10.4); RED CELL DISTRIBUTION WIDTH 25.8 % (10.0-14.5); WHITE BLOOD COUNT 2.8 10^3/uL (4.3-11.0)
[2019-01-25 07:18] LABS: ALANINE AMINOTRANSFERASE 9 U/L (0-55); ALBUMIN 2.7 GM/DL (3.2-4.5); ALKALINE PHOSPHATASE 46 U/L (40-136); BILIRUBIN,TOTAL 1.5 MG/DL (0.1-1.0); BUN/CREATININE RATIO 23; CALCIUM 8.6 MG/DL (8.5-10.1); CARBON DIOXIDE 24 MMOL/L (21-32); CHLORIDE 106 MMOL/L (98-107); CREATININE SERUM 0.98 MG/DL (0.60-1.30); GFR ESTIMATED > 60; GLUCOSE 90 MG/DL (70-105); SODIUM 137 MMOL/L (135-145); TOTAL PROTEIN 5.6 GM/DL (6.4-8.2)
[2019-01-25 08:00] VITALS: BP 120/81
[2019-01-25] MEDS: DILTIAZEM 240 MG (CARDIZEM CD) CAP PO SCH (08:25)
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
--- OUTSIDE RECORDS SUMMARY | 2019-01-25 08:52 | XMS REPORT | Encounter Summary ---
Author Author [facility] Organization [facility] Address Unknown Phone Unavailable Care Team Providers Care Pharmaceutical Scientist Name Role Phone Fernanda Pittman MD PCP Reason for Referral * Radiology Services (Routine) Referred By Contact Referred To Contact Status Reason Specialty Diagnoses / Procedures Pooja Barroso, BRIAN-GLOVE CUFFER [address] [facility] [address] [place] [address] Radiology [facility] [address] [place] [address] No Auth Needed Radiology Diagnoses Other anterior urethral stricture, male, anterior P rocedures URETHROCYSTOGRAM VOIDING Encounter Details Care Team Description Date Type [place] [address] [place] [address] [phone] Other anterior urethral stricture, male, anterior (Primary Dx) 12/04/2018 Orders Only [facility] - Urology Orth[facility] and [facility] [address] [place] [address] Social History Date Tobacco Use Types Packs/Day Years Used Quit: 09/23/1978 Former Smoker Cigarettes 2 30 Smokeless Tobacco: Never Used Alcohol Use Drinks/Week oz/Week Comments No Sex Assigned at Date Recorded Not on file Industry Job Start Date Occupation Not on file Not on file Not on file Travel End Travel History Travel Start No recent travel history available. as of this encounter Functional Status Date of Assessment [...] cognitive impairment: No as of this encounter Plan of Treatment Not on fileas of this encounter Results * URETHROCYSTOGRAM VOIDING (01/06/2019 1:40 PM TEST MANAGER) Impressions Performed At 1. No residual stricture or leak. [facility] 2. 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 3. Small diverticulum of the dorsal proximal penile urethra and the anterior membranous urethra. 4. Grade 3 right vesicoureteral reflux and grade 1 left vesicoureteral reflux. Approved by Curtis Wright M.D. on 01/06/2019 4:34 PM By my electronic signature, I attest that I have personally reviewed the images for this examination and formulated the interpretations and opinions expressed in this report Finalized by Bala Wasserman M.D. on 01/06/2019 4:46 PM. Dictated by Curtis Wright M.D. on 01/06/2019 2:17 PM. Narrative Performed At URETHROCYSTOGRAM VOIDING [facility] CLINICAL HISTORY: Male, 88 years old, urethral stricture s/p urethroplasty. TECHNIQUE: An explanation of the exam was provided to the patient and brief history was obtained. A preliminary overhead radiograph was obtained, and the patient was placed on the fluoroscopy table in supine position. The patient's Lopez catheter was accessed and approximately 150 ml of Cysto-Conray was infused by gravity drip under fluoroscopic observation. Spot films were obtained in multiple obliquities during bladder filling. Spontaneous voiding was then observed under fluoroscopy and additional spot films were obtained. The patient tolerated procedure well and left the department in stable condition. TOTAL FLUOROSCOPY TIME: 408 seconds FINDINGS: The preliminary radiograph demonstrate is not objective bowel gas pattern, vascular calcifications, and lumbar spondylosis. The distended bladder demonstrates marked trabeculation with multiple diverticuli. There are no extrinsic or definite intrinsic filling defects. Right-sided vesicoureteral reflux is identified. Urinary incontinence is noted with contrast insinuating around the Lopez catheter. Small diverticuli of the dorsal proximal penile urethra and the anterior membranous urethra are noted. There is right vesicoureteral reflux level of the renal pelvis, there is mild left vesicoureteral reflux within the distal ureter. There is no evidence of urethral stricture. Post void radiographs demonstrate moderate retained contrast within the urinary bladder and right vesicoureteral reflux to the level of the right renal pelvis. Procedure Note Interface, Radiant Results - 01/06/2019 4:49 PM TEST MANAGER URETHROCYSTOGRAM VOIDING CLINICAL HISTORY: Male, 88 years old, urethral stricture s/p urethroplasty. TECHNIQUE: An explanation of the exam was provided to the patient and brief history was obtained. A preliminary overhead radiograph was obtained, and the patient was placed on the fluoroscopy table in supine position. The patient's Lopez catheter was accessed and approximately 150 ml of Cysto-Conray was infused by gravity drip under fluoroscopic observation. Spot films were obtained in multiple obliquities during bladder filling. Spontaneous voiding was then observed under fluoroscopy and additional spot films were obtained. The patient tolerated procedure well and left the department in stable condition. TOTAL FLUOROSCOPY TIME: 408 seconds FINDINGS: The preliminary radiograph demonstrate is not objective bowel gas pattern, vascular calcifications, and lumbar spondylosis. The distended bladder demonstrates marked trabeculation with multiple diverticuli. There are no extrinsic or definite intrinsic filling defects. Right -sided vesicoureteral reflux is identified. Urinary incontinence is noted with contrast insinuating around the Lopez catheter. Small diverticuli of the dorsal proximal penile urethra and the anterior membranous urethra are noted. There is right vesicoureteral reflux level of the renal pelvis, there is mild left vesicoureteral reflux within the distal ureter. There is no evidence of urethral stricture. Post void radiographs demonstrate moderate retained contrast within the urinary bladder and right vesicoureteral reflux to the level of the right renal pelvis. IMPRESSION 1. No residual stricture or leak. 2. 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 3. Small diverticulum of the dorsal proximal penile urethra and the anterior membranous urethra. 4. Grade 3 right vesicoureteral reflux and grade 1 left vesicoureteral reflux. Approved by Curtis Wright M.D. on 01/06/2019 4:34 PM By my electronic signature, I attest that I have personally reviewed the images for this examination and formulated the interpretations and opinions expressed in this report Finalized by Bala Wasserman M.D. on 01/06/2019 4:46 PM. Dictated by Curtis Wright M.D. on 01/06/2019 2:17 PM. Performing Organization Address City/State/Zipcode Phone Number [facility] in this encounter Visit Diagnoses Diagnosis Other anterior urethral stricture, male, anterior - Primary in this encounter
--- OUTSIDE RECORDS SUMMARY | 2019-01-25 08:52 | XMS REPORT | Encounter Summary ---
Author Author [facility] Organization [facility] Address Unknown Phone Unavailable Care Team Providers Care Pipe Turner Name Role Phone Fernanda Pittman MD PCP Reason for Visit * Reason Comments UTI Encounter Details Care Team Description Date Type Department Quintin Bonds MD [address] [place] [address] UTI 12/31/2018 Telephone [facility] Phys[facility] - Urology Orth[facility] and [facility] Level [address] [place] [address] Social History Date Tobacco Use [...] cognitive impairment: No as of this encounter Miscellaneous Notes * Telephone Encounter - Quintin Bonds MD - 12/31/2018 3:51 [address] FARM MANAGER Dr. Alcantara's administrative receptionist sent a Urine culture result on Mr. Cruz to me this afternoon that does show a UTI. The result needs to be processed by a reference lab but I sent macrobid to his pharmacy and told them to keep us updated with results as they come in. Quintin Bonds MD Urology PGY3 [phone] Please call urology on-call with questions RAL FARM MANAGER in this encounter Plan of Treatment Not on fileas of this encounter Visit Diagnoses Not on filein this encounter
--- OUTSIDE RECORDS SUMMARY | 2019-01-25 08:52 | XMS REPORT | Encounter Summary ---
Author Author [facility] Organization [facility] Address Unknown Phone Unavailable Care Team Providers Care Examining Chair Assembler Name Role Phone Fernanda Pittman MD PCP Reason for Visit * Reason Comments UTI Encounter Details Care Team Description Date [place] [address] [place], [place] [address] UTI 12/24/2018 Telephone [facility] Physicians - Urology [facility] Level [address] [place] [address] Social History Date Tobacco Use [...] encounter Miscellaneous Notes * Telephone Encounter - Yasmeen Galindo MA - 12/31/2018 3:41 PM SHAKE CUTTER 12/31/2018 at 10:38 am, Ana Maria with [facility]/ [phone], L/m on V/m, stating she is still waiting on the Tx plan for pt based on recent UA C&S results she faxed us. She stated pt uses [facility] in [place], [place]. -Asked Jennifer Mcnair if she received any urine results on the pt? She stated Dr. Alcantara did indeed get a fax. She asked Quintin Bonds, Urology Resident to review the results. She stated per Quintin he was going to review the results and contact he pt with a Tx plan.- 12/31/2018 at 03:40 pm, (C) Called Ana Maria back, explained I just now was able to locate the UA C&S results she faxed us. Explained we were going to ask the one of the PA's or the Urology Residents to review the results for us. Ana Maria voiced understanding. 12/31/2018 at 03:51 pm, (C) Called Ana Maria with [facility]/ [phone], explained Quintin Bonds, Urology Resident was going to review the results and contact the pt with a Tx plan. She voiced understanding. E CUTTER * Telephone Encounter - Carmel Emanuel - 12/24/2018 3:15 PM SHAKE CUTTER Pt's home health care nurse, Ana Maria, called stating pt's urine is dark, cloudy, foul smelling, and has sediment in it. Urine culture order put in and faxed to [phone]. E CUTTER in this encounter Plan of Treatment Order Schedule Name Priority Associated Diagnoses Expected: 12/24/2018, Expires: 12/24/2019 CULTURE-URINE W/SENSITIVITY Routine Urinary tract infection without hematuria, site unspecified as of this encounter Visit Diagnoses Diagnosis Urinary tract infection without hematuria, site unspecified - Primary in this encounter
--- OUTSIDE RECORDS SUMMARY | 2019-01-25 08:52 | XMS REPORT | Clinical Summary ---
Author Author [facility] Organization [facility] Address Unknown Phone Unavailable Care Team Providers Care Kitchen Utility Associate Name Role Phone Fernanda Pittman MD PCP Source Comments Some departments are not documenting in the electronic medical record. If you do not see the information that you expected, contact Release of Information in the Health Information Management department at [phone] for further assistance in locating additional records.[facility] Allergies No Known Allergies Medications End Date Status Medication Sig Dispensed Refills Start Date Active diltiazem CD (CARTIA XT) Take 120 mg 0 120 mg capsule by mouth 7 twice daily. Active donepezil (ARICEPT) 10 mg Take 10 mg by 0 tablet mouth daily 8 with breakfast. Active furosemide (LASIX) 20 mg Take 20 mg by 0 tablet mouth daily 8 as needed. Active memantine (NAMENDA) 10 mg Take 10 mg by 0 tablet mouth daily with breakfast. Active vitamins, multiple cap Take 1 0 capsule by mouth daily with breakfast. Active ascorbic acid (VITAMIN C) Take 500 mg 0 500 mg tablet by mouth daily with breakfast. Active acetaminophen (TYLENOL) Take two 0 500 mg tablet tablets by 9 mouth every 6 hours as needed for Pain. Max of 4,000 mg of acetaminophen in 24 hours. Active apixaban (ELIQUIS) 5 mg Take one 60 tablet 0 tablet tablet by 9 mouth twice daily. Restart in 3 days- 12/07/2018 Active senna/docusate Take one 15 tablet 0 (SENOKOT-S) 8.6/50 mg tablet by 9 tablet mouth twice daily. Active oxyCODONE (ROXICODONE, Take one 20 tablet 0 OXY-IR) 5 mg tablet tablet by 9 mouth every 6 hours as needed Active bacitracin 500 unit/g Small amount 0 topical ointment to head of 9 penis/cathete r 3-4 times daily to reduce irritation. Active polyethylene glycol 3350 Take 527 g 3 (GLYCOLAX; MIRALAX) 17 seventeen g 9 gram/dose powder by mouth daily. 01/08/2019 ciprofloxacin (CIPRO) 500 Take one 6 tablet 0 mg tablet tablet by 9 mouth twice daily for 3 days. Begin taking the day prior to catheter removal. 01/07/2019 nitrofurantoin Take one 14 capsule 0 monohyd/m-cryst capsule by 9 (MACROBID) 100 mg capsule mouth every 12 hours for 7 days. Take with food. Active Problems Problem Noted Date History of urethral stricture 12/03/2018 Other anterior urethral stricture, male, anterior 09/30/2018 Urinary incontinence without sensory awareness 09/30/2018 Recurrent UTI 09/30/2018 Microscopic hematuria 09/30/2018 Encounters Care Team Description Date Type Specialty Gavi Delgado MD Other anterior urethral stricture, male, anterior (Primary Dx) 01/06/2019 Office Visit Oncology Pooja Barroso APRN-CHARLI 01/06/2019 Hospital Radiology Encounter Quintin Bonds MD UTI 12/31/2018 Telephone Urology Gavi Delgado MD UTI 12/24/2018 Telephone Urology Gavi Delgado MD Other anterior urethral stricture, male, anterior (Primary Dx) 12/04/2018 Orders Only Urology Bernarda Quevedo PA-C 12/03/2018 Anesthesia Event Gavi Delgado MD URETHROPLASTY WITH ONE STAGE RECONSTRUCTION MALE ANTERIOR URETHRA 12/03/2018 Surgery Gavi Delgado MD History of urethral stricture 12/03/2018 Hospital - Encounter 12/04/2018 Gavi Delgado MD Preop cardiovascular exam (Primary Dx); Preop examination 11/20/2018 PAC Office Anesthesiology Visit from Last 3 Months Social History Date Tobacco Use Types Packs/Day Years Used Quit: 09/23/1978 Former Smoker Cigarettes 2 30 Smokeless Tobacco: Never Used Alcohol Use Drinks/Week oz/Week Comments No Sex Assigned at Date Recorded Not on file Industry Job Start Date Occupation Not on file Not on file Not on file Travel End Travel History Travel Start No recent travel history available. Last Filed Vital Signs Time Taken Vital Sign Reading 01/06/2019 1:56 PM DEGREASER Blood Pressure 112/67 01/06/2019 1:56 PM DEGREASER Pulse 72 01/06/2019 1:56 PM DEGREASER Temperature 36.6 C (97.8 F) 01/06/2019 1:56 PM DEGREASER Respiratory Rate 18 01/06/2019 1:56 PM DEGREASER Oxygen Saturation 98% - Inhaled Oxygen - Concentration 01/06/2019 1:56 PM DEGREASER Weight 67.6 kg (149 lb) 01/06/2019 1:56 PM DEGREASER Height 173.4 cm (5' 8.28") 01/06/2019 1:56 PM DEGREASER Body Mass Index 22.47 Plan of Treatment Health Maintenance Due Date Last Done Comments PHYSICAL (COMPREHENSIVE) 1939 EXAM DTAP/TDAP VACCINES (1 - 1950 Tdap) SHINGLES RECOMBINANT 1982 VACCINE (1 of 2) PNEUMONIA (PCV13/PPSV23) 1997 VACCINES (1 of 2 - PCV13) INFLUENZA VACCINE 06/25/2019 Procedures Comments Procedure Name Priority Date/Time Associated Diagnosis URETHROCYSTOGRAM VOIDING Routine 01/06/2019 Other anterior urethral 1:40 PM DEGREASER stricture, male, anterior BASIC METABOLIC PANEL Routine 12/04/2018 4:10 AM DEGREASER CBC Routine 12/04/2018 4:10 AM DEGREASER URETHROPLASTY WITH ONE 12/03/2018 Other anterior urethral STAGE RECONSTRUCTION MALE 12:20 PM DEGREASER stricture, male, anterior ANTERIOR URETHRA TYPE & CROSSMATCH STAT 12/03/2018 Preop examination 11:58 AM DEGREASER SURGICAL PATHOLOGY 12/03/2018 7:33 AM DEGREASER TELEMETRY STRIPS-SCAN 12/03/2018 12:00 AM DEGREASER TYPE & SCREEN (NOT Routine 11/20/2018 Preop examination CROSSMATCH ELIGIBLE) 1:30 PM DEGREASER BASIC METABOLIC PANEL Routine 11/20/2018 Preop examination 1:30 PM DEGREASER CBC Routine 11/20/2018 Preop examination 1:30 PM DEGREASER ECG-SCAN 11/20/2018 12:00 AM DEGREASER from Last 3 Months Results * URETHROCYSTOGRAM VOIDING (01/06/2019 1:40 PM DEGREASER) Impressions Performed At 1. No residual stricture [...] Interface, Radiant Results - 01/06/2019 4:49 PM DEGREASER URETHROCYSTOGRAM VOIDING CLINICAL HISTORY: Male, 88 years [...] on 01/06/2019 2:17 PM. Performing Organization Address City/State[facility] Phone Number RAD RESULTS * CBC (12/04/2018 4:10 AM DEGREASER) Only the most recent of 2 results within the time period is included. White Blood Cells 3.0 (L) 4.5 - 11.0 K/UL [facility] RBC 2.48 (L) 4.4 - 5.5 M/UL [facility] Hemoglobin 8.1 (L) 13.5 - 16.5 GM/DL [facility] Hematocrit 24.5 (L) 40 - 50 % [facility] MCV 99.0 80 - 100 FL [facility] MCH 32.7 26 - 34 PG [facility] MCHC 33.1 32.0 - 36.0 G/DL [facility] RDW 18.0 (H) 11 - 15 % [facility] Platelet Count 55 (L) 150 - 400 K/UL [facility] MPV 7.6 7 - 11 FL [facility] Specimen Blood Performing Organization Address City/[facility] Phone Number [facility] [address] [place] [address] * BASIC METABOLIC PANEL (12/04/2018 4:10 AM DEGREASER) Only the most recent of 2 results within the time period is included. Sodium 139 137 - 147 MMOL/L [facility] Potassium 4.5 3.5 - 5.1 MMOL/L [facility] Chloride 109 98 - 110 MMOL/L [facility] CO2 26 21 - 30 MMOL/L [facility] Anion Gap 4 3 - 12 [facility] Glucose 95 70 - 100 MG/DL [facility] Blood Urea Nitrogen 23 7 - 25 MG/DL [facility] Creatinine 1.06 0.4 - 1.24 MG/DL [facility] Calcium 8.3 (L) 8.5 - 10.6 MG/DL [facility] eGFR Non >60 >60 mL/min [facility] Comment: The eGFR is not validated for use in drug dosing adjustments.Continue to use estimated creatinine clearance per dosing reference text.Please contact the Clinical Pharmacist for questions. eGFR >60 >60 mL/min [facility] Comment: The eGFR is not validated for use in drug dosing adjustments.Continue to use estimated creatinine clearance per dosing reference text.Please contact the Clinical Pharmacist for questions. Specimen Blood Performing Organization Address City/[facility]/Zipcode Phone Number [facility] [address] [place] [address] * TYPE & CROSSMATCH (12/03/2018 11:58 AM DEGREASER) Units Ordered 0 [facility] Crossmatch Expires 12/06/2018 [facility] Record Check FOUND [facility] ABO/RH(D) AB NEG [facility] Antibody Screen NEG [facility] Electronic Crossmatch YES [facility] Specimen Blood Performing Organization Address City/[facility]/Zipcode Phone Number [facility] [address] [place] [address] * SURGICAL PATHOLOGY (12/03/2018 7:33 AM DEGREASER) PATHOLOGY REPORT [facility] [email or web address] Department of Pathology and Laboratory Medicine [address] [place] [address] Surgical Pathology Office:[phone] :[phone] SURGICAL PATHOLOGY REPORT NAME: INDIRA TODD SURG PATH #: [id number] MR #: [id number] SPECIMEN CLASS: SR BILLING #: [id number] ALT ID #:LOCATION: [id number] DATE OF PROCEDURE: 12/03/2018 AGE:88 SEX: M DATE RECEIVED: 12/04/2018 : 1932TIME RECEIVED:07:33 PHYSICIAN: GAVI DELGADO MD DATE OF REPORT: 12/08/2018 COPY TO:DATE OF PRINTIN12/08/2018 ############################## ############################## ############ Final Diagnosis: A. Urethra, "stricture", urethroplasty: Moderate acute and chronic inflammation with subepithelial fibrosis, consistent with urethral stricture. Attestation: By this signature, I attest that I have personally formulated the final interpretation expressed in this report and that the above diagnosis is based upon my examination of the slides and/or other material indicated in this report. +++ +++ Bj Lewis MD Resident ksw/12/04/2018 ############################## ############################## ############ Material Received: A: stricture History: 88-year-old male with clinical history of other anterior urethral stricture Gross Description: A. Received in formalin, labeled with the patient's name and "stricture" are two al-michael, irregular, rubbery fragments of soft tissue 0 x 0.9 x 0.9 cm and 1.5 x 1.1 x 1.0 cm segments specimen is sectioned and entirely submitted as follows: A1 Smaller fragment. [id number] fragment. (dlk) Performing Organization Address [facility] Phone Number [facility] [address] [place] [address] * TELEMETRY STRIPS-SCAN (12/03/2018 12:00 AM DEGREASER) Narrative Performed At Ordered by an unspecified provider. * TYPE & SCREEN (NOT CROSSMATCH ELIGIBLE) (11/20/2018 1:30 PM DEGREASER) ABO/RH(D) AB NEG [facility] Antibody Screen NEG [facility] Blood Component Type [facility] Specimen Blood, venous - Blood Performing Organization Address [facility] Phone Number [facility] [address] [place] [address] * ECG-SCAN (11/20/2018 12:00 AM DEGREASER) Narrative Performed At Ordered by an unspecified provider. from Last 3 Months Insurance Payer Benefit Subscriber ID Type Phone Address Plan / Group MEDICARE MEDICARE xxxxxxxxxxx Medicare PART A AND B [employer] [place] [employer] [place] Advance Directives Patient has advance care planning documents, and code status on file. For more information, please contact: [facility] [address] [place] [address] Date Inactivated Comments Code Status Date Activated 12/04/2018 1:56 PM Full Code 12/03/2018 5:22 PM Provider has discussed Code Status No, more discussion w/Patient or Family? needed
--- OUTSIDE RECORDS SUMMARY | 2019-01-25 08:52 | XMS REPORT | Encounter Summary ---
Author Author [facility] Organization [facility] Address Unknown Phone Unavailable Care Team Providers Care Wallpaperer Name Role Phone Fernanda Pittman MD PCP Reason for Referral * Radiology Services (Routine) Referred By Contact Referred To Contact Status Reason Specialty Diagnoses / Procedures Pooja Barroso APRN-NP [address] [facility] [address] [place] [address] [place] [address] No Auth Needed Radiology Diagnoses Other anterior urethral stricture, male, anterior P rocedures URETHROCYSTOGRAM VOIDING * Radiology Services (Routine) Referred By Contact Referred To Contact Status Reason Specialty Diagnoses / Procedures Pooja Barroso APRN-NP [address] [facility] [address] [place] [address] [place] [address] No Auth Needed Radiology Diagnoses Other anterior urethral stricture, male, anterior P rocedures URETHROCYSTOGRAM VOIDING Reason for Visit * Radiology Services (Routine) Referred By Contact Referred To Contact Status Reason Specialty Diagnoses / Procedures Pooja Barroso APRN-NP [address] [facility] [address] [place] [address] Radiology [facility] [address] [place] [address] No Auth Needed Radiology Diagnoses Other anterior urethral stricture, male, anterior P rocedures URETHROCYSTOGRAM VOIDING Encounter Details Care Team Description Date Type Department Pooja Barroso APRN-NP [address] [facility] [address] [place] [address] [phone] 01/06/2019 [facility] Radiology [facility] [address] [place], [place] [id number] Social History Date Tobacco Use Types Packs/Day [...] cognitive impairment: No as of this encounter Medications at Time of Discharge Start Date End Date Medication Sig Dispensed Refills 12/04/2018 acetaminophen (TYLENOL) Take two 0 500 mg tablet tablets by mouth every 6 hours as needed for Pain. Max of 4,000 mg of acetaminophen in 24 hours. 12/04/2018 apixaban (ELIQUIS) 5 mg Take one 60 tablet 0 tablet tablet by mouth twice daily. Restart in 3 days- 12/07/2018 ascorbic acid (VITAMIN C) Take 500 mg 0 500 mg tablet by mouth daily with breakfast. 12/04/2018 bacitracin 500 unit/g Small amount 0 topical ointment to head of penis/cathete r 3-4 times daily to reduce irritation. 06/01/2017 diltiazem CD (CARTIA XT) Take 120 mg 0 120 mg capsule by mouth twice daily. 07/24/2018 donepezil (ARICEPT) 10 mg Take 10 mg by 0 tablet mouth daily with breakfast. 08/11/2018 furosemide (LASIX) 20 mg Take 20 mg by 0 tablet mouth daily as needed. memantine (NAMENDA) 10 mg Take 10 mg by 0 tablet mouth daily with breakfast. 12/04/2018 oxyCODONE (ROXICODONE, Take one 20 tablet 0 OXY-IR) 5 mg tablet tablet by mouth every 6 hours as needed 12/04/2018 polyethylene glycol 3350 Take 527 g 3 (GLYCOLAX; MIRALAX) 17 seventeen g gram/dose powder by mouth daily. 12/04/2018 senna/docusate Take one 15 tablet 0 (SENOKOT-S) 8.6/50 mg tablet by tablet mouth twice daily. vitamins, multiple cap Take 1 0 capsule by mouth daily with breakfast. 01/05/2019 01/08/2019 ciprofloxacin (CIPRO) 500 Take one 6 tablet 0 mg tablet tablet by mouth twice daily for 3 days. Begin taking the day prior to catheter removal. 12/31/2018 01/07/2019 nitrofurantoin Take one 14 capsule 0 monohyd/m-cryst capsule by (MACROBID) 100 mg capsule mouth every 12 hours for 7 days. Take with food. as of this encounter Plan of Treatment Not on fileas of this encounter Procedures Comments Procedure Name Priority Date/Time Associated Diagnosis URETHROCYSTOGRAM VOIDING Routine 01/06/2019 Other anterior urethral 1:40 PM DIE SINKER stricture, male, anterior in this encounter Results * URETHROCYSTOGRAM VOIDING (01/06/2019 1:40 PM DIE SINKER) Impressions Performed At 1. No residual stricture [...] Interface, Radiant Results - 01/06/2019 4:49 PM DIE SINKER URETHROCYSTOGRAM VOIDING CLINICAL HISTORY: Male, 88 years [...] Diagnosis Other anterior urethral stricture, male, anterior in this encounter Administered Medications Action Date Dose Rate Site Medication Order MAR Action 01/06/2019 12:45 PM DIE SINKER 150 mL diatrizoate meglumine 18% Given (CYSTOGRAFIN-DILUTE) injection 150 mL 150 mL, Urethral, ONCE, 1 dose, 01/06/19 at 1345, * NOT for intravascular injection * NOTE: This is a HIGH ALERT Medication., GI Procedure Area Only in this encounter
--- OUTSIDE RECORDS SUMMARY | 2019-01-25 08:53 | XMS REPORT | Encounter Summary ---
Author Author [facility] Organization [facility] Address Unknown Phone Unavailable Care Team Providers Care Restaurant Server Name Role Phone Fernanda Pittman MD PCP Reason for Visit * Auth/Cert Referred By Contact Referred To Contact Status Reason Specialty Diagnoses / Procedures Diagnoses Other anterior urethral stricture, male, anterior Other anterior urethral stricture, male, anterior [N35.814] P rocedures GA URETHROPLASTY 1 STG RECNST MALE ANTERIOR URETHRA GA EXC MUCOSA VESTIBULE MOUTH DON GRF GA URETHROPLASTY 1 STG RECNST MALE ANTERIOR URETHRA GA EXC MUCOSA VESTIBULE MOUTH DON GRF URETHROPLASTY WITH ONE STAGE RECONSTRUCTION MALE ANTERIOR URETHRA EXCISION MUCOSA VESTIBULE OF MOUTH DONOR GRAFT Encounter Details Care Team Description Date [place] [id number] [place], [place] [id number] History of urethral stricture 12/03/2018 Hospital [facility] - Encounter [id number] 12/04/2018 [place] [address] Social History Date Tobacco Use Types Packs/Day [...] Vital Signs Time Taken Vital Sign Reading 12/04/2018 7:59 AM LANDSCAPE LABORER Blood Pressure 98/49 12/04/2018 7:59 AM LANDSCAPE LABORER Pulse 56 12/04/2018 7:59 AM LANDSCAPE LABORER Temperature 36.8 C (98.2 F) - Respiratory Rate - 12/04/2018 7:59 AM LANDSCAPE LABORER Oxygen Saturation 98% - Inhaled Oxygen - Concentration 12/03/2018 7:18 PM LANDSCAPE LABORER Weight 72.3 kg (159 lb 6.3 oz) 12/03/2018 7:18 PM LANDSCAPE LABORER Height 182.9 cm (6') 12/03/2018 7:18 PM LANDSCAPE LABORER Body Mass Index 21.62 in this encounter Functional Status Date of [...] cognitive impairment: No as of this encounter Discharge Summaries * Pooja Barroso APRN-NP - 12/04/2018 11:51 AM LANDSCAPE LABORER Physician Discharge Summary Name: Indira Todd Date Of : 1930 Age: 88 years Admit date: 12/03/2018 Discharge date: 12/04/2018 Attending Physician: Gavi Delgado MD Service: Surgery-Urology Physician Summary completed by: OLLIE Maciel Reason for hospitalization: Surgical procedure for anterior urethral stricture Significant PMH: Past Medical History: Diagnosis Date Afib (HCC) ASD (atrial septal defect) BPH (benign prostatic hyperplasia) Dementia short term memory problems Heart disease Hypertension Incontinence Kidney stones Melanoma (HCC) per scalp Mild pulmonary hypertension (HCC) Mitral regurgitation Neurologic disorder PFO (patent foramen ovale) Renal failure TIA (transient ischemic attack) several per imaging in past UTI (urinary tract infection) Allergies: Patient has no known allergies. Admission Physical Exam notable for: Per H&P Head:Normocephalicand atraumatic. Eyes:Conjunctivaeare normal. Right eye exhibits no discharge. Left eye exhibitsno discharge.No scleral icterus. Neck:No tracheal deviationpresent. Cardiovascular:Normal rate. Pulmonary/Chest:Effort normal. Nostridor. Norespiratory distress. Abdominal: He exhibitsno distension. Genitourinary: Genitourinary Comments:Moderate right hydrocele uncirc'd foreskin, easily retracted Normal orthotopic meatus, patent Musculoskeletal:Normal range of motion. He exhibits noedemaor tenderness. Neurological: He isalert. Nocranial nerve deficit.Coordinationnormal. Skin: Skin iswarmand dry.No rashnoted. He is not diaphoretic. No erythema. Nopallor. Psychiatric: He has anormal mood and affect. Hisbehavior is normal. Judgmentand thought contentnormal. Admission Lab/Radiology studies notable for: anterior urethral stricture Brief Hospital Course: The patient was admitted and the following issues were addressed during this hospitalization: (with pertinent details). Patient was admitted for the surgery listed below. Patient tolerated the procedure well. Pain was controlled, tolerated a diet, and all discharge criteria were met. TLS drain was discontinued prior to discharge. Urinary catheter was left in place. Condition at Discharge: Stable Discharge Diagnoses: Hospital Problems Active Problems History of urethral stricture Other anterior urethral stricture, male, anterior Surgical Procedures: URETHROPLASTY WITH ONE STAGE RECONSTRUCTION MALE ANTERIOR URETHRA Significant Diagnostic Studies and Procedures: none Consults: None Patient Disposition: Home with home health Patient instructions/medications: Driving Restrictions No driving while taking pain medication and until physician approval at follow- up appointment. Strenuous Activity Restrictions Please refrain from strenuous activity for 6 week(s). No lifting more than 10 pounds for 6 weeks. Report These Signs and Symptoms Please notify physician if experiencing any chest pain, shortness of breath, calf tenderness or unilateral leg swelling, uncontrolled pain, incision redness or foul smelling drainage from wound, fevers >101.5, or any other worsening signs/symptoms. Questions About Your Stay For questions or concerns regarding your hospital stay. Call [phone] You may have questions about your hospital stay after you get home. From 8 AM to 4 PM Saturday through Saturday, please call . If calling after hours or with urgent questions, please call and ask for the urology resident stone trimmer. In case of an emergency, please report to your nearest emergency department and contact us on the way. Discharging attending physician: GAVI DELGADO [[id number]] Regular Diet You have no dietary restriction. Please continue with a healthy balanced diet. Incision Care *Keep your incision clean and dry. *Shower daily. Wash your incisions with soap and water. *Do not submerge incision in tub, pool, hot tub, or todd for 4 weeks. *Usually there are not stitches to be removed. Steri-strips (strips of tape) will begin to fall off in 10-14 days. If they remain after 2 weeks, gently remove them when they are damp after a shower. *Your incision should gradually look better each day. If you notice unusual swelling, redness, drainage, have increasing pain at the site, or have a fever greater than 100 degrees, notify your physician immediately. Urinary/Suprapubic Catheter Care General Urinary Catheter Care: Home Care Instructions *Keep the catheter secured to your leg at all times. *You can shower with the catheter. Do not take baths. *You may notice some blood- or pink-tinged urine. If this happens, relax, sit down, and drink water. If you are very active, this can happen and it is normal. *If you are concerned about your catheter, it stops draining, or if you are passing dark bloody urine (red wine appearance), please call your doctor. Supplies to help you with your home care: *2 large overnight bag *2 leg bag 3 roll 3-inch foam tape *1 Vaibhav syringe *1 4x5 Tegaderm *1 2x2 gauze bandage Return Appointment You will need to go to Radiology in the [facility] room 2315 to have a scan at 11:30. You will then see Dr. Delgado at the [place] Location at 1:30. Please begin taking your Cipro the day before this appointment. Provider GAVI DELGADO [[id number]] Outside Provider [facility] for test, [place] Location for appointment Appointment date: 01/06/2019 Opioid (Narcotic) Safety Information OPIOID (NARCOTIC) PAIN MEDICATION SAFETY We care about your comfort, and believe you need opioid medications at this time to treat your pain. An opioid is a strong pain medication. It is only available by prescription for moderate to severe pain. Usually these medications are used for only a short time to treat pain, but sometimes will be prescribed for longer. Talk with your doctor or nurse about how long they expect you to need this medication. When used the right way, opioids are safe and effective medications to treat your pain, even when used for a long time. Yet, when used in the wrong way, opioids can be dangerous for you or others. Opioids do not work for everyone. Most patients do not get full relief of their pain from opioid medication; full relief of your pain may not be possible. For your safety, we ask you to follow these instructions: *Only take your opioid medication as prescribed. If your pain is not controlled with the prescribed dose, or the medication is not lasting long enough, call your doctor. *Do not break or crush your opioid medication unless your doctor or pharmacist says you can. With certain medications, this can be dangerous, and may cause . *Never share your medications with others, even if they appear to have a good reason. Never take someone else's pain medication-this is dangerous, and illegal (a crime). Overdoses and deaths have occurred. *Keep your opioid medications safe, as you would with lr, in a lock box or similar container. *Make sure your opioids are going to be secure, especially if you are around children or teens. *Talk with your doctor or pharmacist before you take other medications. *Avoid driving, operating machinery, or drinking alcohol while taking opioid pain medication. This may be unsafe. Pain medications can cause constipation. Constipation is bowel movements that are less often than normal. Stools often become very hard and difficult to pass. This may lead to stomach pain and bloating. It may also cause pain when trying to use the bathroom. Constipation may be treated with suppositories, laxatives or stool softeners. A diet high in fiber with plenty of fluids helps to maintain regular, soft bowel movements. Additional Discharge Instructions Some things you can do to help yourself when you have a urinary catheter are: 1. Do not remove your urinary catheter. If you feel that your catheter is not working the right way, call your doctor or health care team. Do not let anyone remove your catheter except your doctor or a nurse in your doctor's office. They will make sure that the catheter is taken out the right way so your urethra and bladder are not damaged. 2. Keep your skin and catheter clean. Clean the skin around your catheter at least two times each day. Clean your skin and catheter after every bowel movement. 3. Always wash your hands with soap and warm water before and after cleaning your catheter. 4. Always keep your urine collection bag below the level of your bladder. Your bladder is at about the level of your waist. Keeping the bag below your bladder will help keep your urine from flowing back into your bladder from urine collection bag. If your urine flows back into your bladder from your urine collection bag you may get an infection. An infection happens when germs enter your body causing you to have a fever or pain, redness, and swelling in one part of your body. 5. Wear cotton underwear. This will allow good air flow and help keep your genital area dry. 6. Drink plenty of liquids. Drink at least eight glasses of healthy liquids or water each day unless your doctor or health care team gives you other directions. These liquids will help flush out your bladder. For most people, healthy liquids to drink are water, milk, and drinks that do not have caffeine. Caffeine may make you urinate (pee) too much and lose too much body fluid. Caffeine may be found in coffee, tea, soda pop, and sports drinks and foods. Try to drink enough liquid each day and not just when you feel thirsty. 7. Do not have sexual intercourse (sex) while you have a catheter 8. Try to keep from getting constipated. Constipation is when your bowel movements become less regular than normal and your stool is hard, dry, and difficult to pass. If you are constipated you may push hard when you have a bowel movement. This may cause you to leak urine. To help keep you from getting constipated: o Make sure you drink enough healthy liquids. Most adults should drink at least eight glasses of water, milk, or drinks that do not have caffeine each day. o Add more fiber to your diet. Eat more whole grains, such as bran muffins and cereals, wheat germ, and whole wheat bread, fresh fruits and vegetables, and prunes or prune juice. o You will have prescriptions to help you have a bowel movement. Senna S, Miralax, and Milk of Magnesia may be prescribed for you. You want to make sure you have a bowel movement every day. We would rather you more loose than formed. You may have to take more medication in the beginning to get started. 9. Stay away from foods or drinks that will bother your bladder. Your bladder may become sensitive after a few days of wearing the catheter. It is best to stay away from foods and drinks that will bother your bladder more than it already is. Stay away from these foods and drinks: o Acidic foods (Coffee and edson, for example) o All alcoholic beverages. o Carbonated drinks, especially edson o Drinks with caffeine o Chiles/Spicy foods, especially HOT ones o Chocolate o Coffee o Cranberry Juice and/or Cranberries o Lemon juice 10. After your catheter is taken out you may drink and eat these foods again. Speak to your doctor or health care team if you have any questions about your diet. 11. Do not tug or pull on your catheter tubing. This can cause you to bleed and hurt your urethra. Do not step on the tubing when you walk. Hold the tubing curled in your hand with the urine bag below your bladder when you walk. You may also want to clip or pin the catheter tubing to your clothing. If you use a safety pin to attach the tubing to your clothing be careful that you do not put the pin through the tubing. ALWAYS KEEP THE CATHETER SECURED TO YOUR LEG WITH THE FOAM TAPE. Make sure you look at your urethra each day for redness or sores and reposition it. Keeping your catheter in the same place for several days can cause urethral erosion (where the catheter starts to wear through your urethral. ) DO NOT USE STAT LOCKS 12. Place the catheter tubing so it does not kink or loop. 13. If you have urine leakage. You may wrap gauze around the catheter where it enters your body or wear an incontinence pad if you have drainage or leakage. Make sure to change the gauze when it feels wet. If you urine leakage is heavy, call your doctor or health care team right away. 14. Do not do Kegel (Marcum-gul) exercises while you have a urinary catheter. Kegel exercises strengthen the pelvic floor muscles, which support your bladder and bowel. BLADDER SPASMS: Bladder spasms may feel like bad cramps or pains in the area above your pubic hair or in your rectum and can hurt. It may also feel like an intense urge to urinate or you may have a sudden leakage of urine around your catheter. These spasms may be caused by the catheter bothering your bladder. If you have a bladder spasm, sometimes urine will leak around your catheter. If this happens you may want to put a towel on your bed to protect your mattress. You have two medications that will be given to you to help with these spasms. When the catheter is taken out, the bladder spasms will stop. BLOOD IN YOUR URINE: It is normal for the urine draining from your catheter to have some small blood clots. Blood clots are made when blood cells in your body join together to form a mass. Your urine can also become blood-tinged from time to time. When your urine is blood-tinged, it has a pinkish color or even light red. CALL IF: You urine is the color or cabernet wine, if you see larger sized blood clots in the urine, you have not had any urine out of your catheter for a couple of hours or feel like your bladder is full. Some clots can block your catheter from draining. You should regularly check that urine is draining from the catheter into your urine collection bag. It is important for you to drink healthy liquids when you have a catheter. This will help flush out your bladder. SCROTAL SWELLING: You can expect to see bruising and even some swelling in your scrotum. Elevate your scrotum with a folded up towel. You may use ice but for about 10-15 minutes at a time. Do not use heat. You may wear supportive underwear but make sure it is not putting pressure on your urethra and catheter tubing. Look at your incision every day. You may experience bruising and swelling of your scrotum. This is normal. In order to decrease the amount of swelling, elevate your scrotum on a towel. Wear supportive underwear, such as briefs, compression underwear or a jock strap. You may use ice intermittently but do not leave on for longer than 10-15 minutes at a time. Call your doctor's office if you experience any fever, chills , sweats, confusion, opening of incision, pus or drainage from your incision, or if you incisions become hot to the touch. Current Discharge Medication List START taking these medications Details acetaminophen (TYLENOL) 500 mg tablet Take two tablets by mouth every 6 hours as needed for Pain. Max of 4,000 mg of acetaminophen in 24 hours. Refills: 0 PRESCRIPTION TYPE: OTC bacitracin 500 unit/g topical ointment Small amount to head of penis/catheter 3- 4 times daily to reduce irritation. PRESCRIPTION TYPE: No Print ciprofloxacin (CIPRO) 500 mg tablet Take one tablet by mouth twice daily for 3 days. Begin taking the day prior to catheter removal. Qty: 6 tablet, Refills: 0 PRESCRIPTION TYPE: Normal oxyCODONE (ROXICODONE, OXY-IR) 5 mg tablet Take one tablet by mouth every 6 hours as needed Qty: 20 tablet, Refills: 0 PRESCRIPTION TYPE: Print polyethylene glycol 3350 (GLYCOLAX; MIRALAX) 17 gram/dose powder Take seventeen g by mouth daily. Qty: 527 g, Refills: 3 PRESCRIPTION TYPE: Normal senna/docusate (SENOKOT-S) 8.6/50 mg tablet Take one tablet by mouth twice daily. Qty: 15 tablet, Refills: 0 PRESCRIPTION TYPE: Normal CONTINUE these medications which have been CHANGED or REFILLED Details apixaban (ELIQUIS) 5 mg tablet Take one tablet by mouth twice daily. Restart in 3 days- 12/07/2018 Qty: 60 tablet PRESCRIPTION TYPE: No Print CONTINUE these medications which have NOT CHANGED Details ascorbic acid (VITAMIN C) 500 mg tablet Take 500 mg by mouth daily with breakfast. PRESCRIPTION TYPE: Historical Med diltiazem CD (CARTIA XT) 120 mg capsule Take 120 mg by mouth twice daily. PRESCRIPTION TYPE: Historical Med donepezil (ARICEPT) 10 mg tablet Take 10 mg by mouth daily with breakfast. PRESCRIPTION TYPE: Historical Med furosemide (LASIX) 20 mg tablet Take 20 mg by mouth daily as needed. PRESCRIPTION TYPE: Historical Med memantine (NAMENDA) 10 mg tablet Take 10 mg by mouth daily with breakfast. PRESCRIPTION TYPE: Historical Med vitamins, multiple cap Take 1 capsule by mouth daily with breakfast. PRESCRIPTION TYPE: Historical Med Scheduled appointments: Jan 06, 2019 11:30 AM LANDSCAPE LABORER URETHROCYSTOGRAPHY VOIDING with GENERAL RAD [address] [facility] Radiology (Radiology) [facility] 2nd fl [address] [facility] [address] Jan 06, 2019 1:30 PM LANDSCAPE LABORER (Arrive by 1:15 PM) Post - Op with Gavi Delgado MD [facility] - IC Exam ([facility] Exam) [id number] [address] [facility] [id number] Pending items needing follow up: follow up in one month with [facility] prior. Restart Eliquis in 3 days. Signed: Pooja Barroso APRN-CHARLI 12/04/2018 cc: Primary Care Physician: Fernanda Pittman Verified Referring physicians: Fernanda Pittman MD Additional provider(s): SCAPE LABORER in this encounter Discharge Instructions * Discharge Instr - Case Management* Earlene Benitez RN - 12/04/2018 11:08 AM LANDSCAPE LABORER Your Home Health agency is: [facility] [address] [address] If they do not reach you within a day following discharge, please call them to get scheduled. I hope you feel better soon! If you have any questions about your discharge, don't hesitate to call me: Earlene Benitez ASSISTANT SPA MANAGER [facility] Integrated Nurse [employer] Manufacturing TechnicianMold Blower Elective/Surgery Urology [phone] SCAPE LABORER in this encounter Medications at Time of Discharge [...] taking the day prior to catheter removal. as of this encounter Progress Notes * Maddy Bui - 12/04/2018 11:51 AM LANDSCAPE LABORER D/c paperwork reviewed with pt and pt's daughter. Education regarding activity restrictions, diet, S/SX of infection, S/SX to report, opioid narcotic safety, incision care and medications addressed. Pt and family verbalize understanding. Medications delivered at bedside by PCS. PIV removed without any complications. Pt transferred off unit with family and pt belongings. SCAPE LABORER * Katie Trujillo RN - 12/04/2018 3:02 AM LANDSCAPE LABORER Pt's BP currently 88/47, HR 56, second attempt 88/45, HR 59. Pt alert and oriented x4, afebrile and asymptomatic. Pt taking oral fluids as well as IV fluids, adequate urine output at this time. Notified Dr Polanco ([id number]) of above vitals, no new orders. Will continue to monitor. SCAPE LABORER * Cindy Maddox, RT - 12/03/2018 10:19 PM LANDSCAPE LABORER RT Adult Assessment Note NAME:Indira Todd :1930 AGE: 88 y.o. ADMISSION DATE: 12/03/2018 DAYS ADMITTED: LOS: 0 days RT Treatment Plan: Criteria not met Additional Comments: Impressions of the patient: Pt is alert and responsive, NAD Intervention(s)/outcome(s): N/A Patient education that was completed: N/A Recommendations to the care team: N/A Vital Signs: Pulse: Pulse: 81 RR: Respirations: 18 PER MINUTE SpO2: SpO2: 97 % O2 Device: Liter Flow: O2%: O2 Percent: 21 % Breath Sounds: All Breath Sounds: Clear (implies normal) Respiratory Effort: Respiratory Effort: Non-Labored SCAPE LABORER * Katie Trujillo RN - 12/03/2018 7:31 PM LANDSCAPE LABORER Patient arrived to room # 819 via cart accompanied by transport. Patient transferred to the bed with assistance. Bedside safety checks completed. Initial patient assessment completed, refer to flowsheet for details. Admission skin assessment completed by: Katie Cueva RN and Maddy Cueva RN Pressure Injury Present on Hospital Admission (within 24 hours): No 1. Occiput: No 2. Ear: No 3. Scapula: No 4. Spinous Process: No 5. Shoulder: No 6. Elbow: No 7. Iliac Crest: No 8. Sacrum/Coccyx: No 9. Ischial Tuberosity: No 10. Trochanter: No 11. Knee: No 12. Malleolus: No 13. Heel: No 14. Toes: No 15. Assessed for device associated injury No 16. Nursing Nutrition Assessment Completed No SCAPE LABORER * Margaret Pelaez RN - 12/03/2018 6:37 PM LANDSCAPE LABORER Report given to DANNIE Castañeda in [place] [id number] - for transfer of care. SCAPE LABORER in this encounter H&P Notes * Gavi Delgado MD - 12/03/2018 1:41 PM LANDSCAPE LABORER Admission History and Physical Examination Name: Indira Todd Admission Date: 12/03/2018 Assessment/Plan: Active Problems: History of urethral stricture -- To OR for urethroplasty, possible buccal graft; risks reviewed and consent signed Black Hamm MD I saw and evaluated pt with the resident on rounds. I agree with the above assessment and plan. __ Primary Care Physician: Fernanda Pittman PCP Unknown History of Present Illness 88-year-old male presents for evaluation of urethral stricture. Patient has baseline dementia and most of the history is given by his 2 daughters who present with him today. He does currently live by himself but one daughter lives across the street and she provides majority of his history. She reports that he has been having frequent urinary tract infections and this was the reason for evaluation. On evaluation was also found to have microscopic hematuria and therefore underwent an evaluation for this. CT scan was performed which did not reveal any cause of the microscopic hematuria. He underwent attempted cystoscopy which showed severe urethral stricture and the procedure was aborted. Retrograde urethrogram was performed which revealed multifocal high-grade urethral stricture but the images are not available for my review. The patient currently reports no voiding symptoms. He reports he has no nocturia, weak stream, hesitancy, intermittency, straining to void. His daughter however does report some urinary incontinence but the patient does not complain about this. She reports that he occasionally wears a diaper for long trips because of his incontinence and order one today for the ride up to [place]. He is otherwise without complaints and is pleased with how his voiding. Cystoscopy findings as follows: Flexible cystoscope was introduced in atraumatic fashion. The meatus, fossa, and penile urethra were normal. In the distal bulbar urethra there was a 3 Tongan urethral stricture. Cystoscope was removed. Pt tolerated the procedure well. Past Medical History: Diagnosis Date Afib (HCC) [...] History: Procedure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 Discontinued, Hold for loose stools, 1 tablet Given 12/03/2018 8:05 PM LANDSCAPE LABORER 12/03/2018 11:52 AM LANDSCAPE LABORER 1,000 mL 20 mL/hr sodium chloride 0.9 % infusion Given - New 1,000 mL, 1,000 mL, Intravenous, at 20 Bag mL/hr, CONTINUOUS, Starting Sat12/03/18 at 1145, Until Joan 12/04/18 at 0622, Pre-Op 12/03/2018 8:12 PM LANDSCAPE LABORER 100 mL/hr sodium chloride 0.9 % infusion Given - New 1,000 mL, Intravenous, at 100 mL/hr, Bag CONTINUOUS, Starting Sat12/03/18 at 1830, Until Sat12/04/18 at 0622 100 mL/hr Infusion Restarted 12/03/2018 6:21 PM LANDSCAPE LABORER in this encounter
--- OUTSIDE RECORDS SUMMARY | 2019-01-25 08:53 | XMS REPORT | Encounter Summary ---
Author Author [facility] Organization [facility] Address Unknown Phone Unavailable Care Team Providers Care Regional Psychiatric Director Name Role Phone Fernanda Pittman MD PCP Reason for Visit * Auth/Cert Referred By Contact Referred To Contact Status Reason Specialty Diagnoses / Procedures Diagnoses Other anterior urethral stricture, male, anterior Other anterior urethral stricture, male, anterior [N35.814] P rocedures LA URETHROPLASTY 1 STG RECNST MALE ANTERIOR URETHRA LA EXC MUCOSA VESTIBULE MOUTH DON GRF LA URETHROPLASTY 1 STG RECNST MALE ANTERIOR URETHRA LA EXC MUCOSA VESTIBULE MOUTH DON GRF URETHROPLASTY WITH ONE STAGE RECONSTRUCTION MALE ANTERIOR URETHRA EXCISION MUCOSA VESTIBULE OF MOUTH DONOR GRAFT Encounter Details Care Team Description Date Type Department Carol Bee MD [address] [facility] 1st [facility] [address] [place] [address] [phone] 12/03/2018 Anesthesia Main Operating Room Event Main [facility] 2nd nc [address] [place] [address] Anesthesia Record Responsible Anesthesiologist Anesthesia Start Time Anesthesia Stop Time Procedure Name Dakota Haskins MD 12/03/18 1403 12/03/18 1756 URETHROPLASTY WITH ONE STAGE RECONSTRUCTION MALE ANTERIOR URETHRA (N/A Scrotum) Date Time Event Comment 1242 1335 AN Equip Check 1401 In Room 1403 Anes Start 1403 An Start Data 1410 An Induction The patient was reevaluated immediately before moderate or deep sedation use and before anesthesia induction. 1415 An Intubation 1433 Anesthesia Ready 1437 Antibiotic Given 1448 Proc Start 1746 An Extubation 1748 an stop data 1754 Handoff to RN I completed my SBAR handoff to the receiving nurse. 1756 An Stop Meds Name Total fentaNYL PF (SUBLIMAZE) injection 100 mcg lidocaine (2%) 200 mg/10mL Injection 80 mg syringe propofol (DIPRIVAN) 200 mg/ 20 mL 100 mg injection (VIAL) rocuronium (ZEMURON) injection 60 mg phenylephrine (RAFAEL-SYNEPHRINE) 0.1 mg/mL 600 mcg injection (SYRINGE) sugammadex (BRIDION) 100 mg/mL iv soln 143 mg dextran 70/hypromellose (GENTEAL TEARS; 2 drop BION TEARS) ophthalmic solution ceFAZolin (ANCEF) injection 2 g phenylephrine (RAFAEL-SYNEPHRINE) 10 mg in 3.18 mg sodium chloride 0.9% (NS) 250 mL IV drip (std conc) sodium chloride 0.9 % infusion 600 mL electrolyte-A (PLASMA-LYTE A PH 7.4) 1,200 mL infusion albumin 5% infusion (500 mL) 500 mL * Name O2 N2O Inspired N2O Sevoflurane Inspired Sevoflurane * No blood administrations on file. Removal Type Details Placement Peripheral 12/03/18; 1142; RN; L; Upper; Forearm; 12/03/18 1142 by Michelle , IV 20 G; No; 1 DANNIE Tavares Indwelling 12/03/18; 1701; Unit (Comment) (OR 3); 12/03/18 1701 by Kenroy , Urinary Urology; 18FR; Regular (Two-way) DANNIE Patino Catheter TLS Drain 12/03/18; 1712; Other (Comment) (scrotum 12/03/18 1712 by Kenroy, ); 10 FR; #1 DANNIE Patino Wounds 12/03/18; 1720; Scrotum; Surgical 12/03/18 1720 by Kenroy, (NOT for Incision; suture, dermabondCarey RN Pressure bacitracin, kerlix, knit pants Injuries) 12/03/18 1746 by Gwendolyn Chapin CRNA ETT 12/03/18; 1415; Difficult mask 12/03/18 1415 by ventilation (3); Stylet, Direct Gwendolyn Chapin CRNA laryngoscopy; Single-Lumen; 7.5mm; Mac; 3; Oral; 2a-Partial view of the glottis; 1 insertion attempt; Auscultation, ETCO2 Detector; 23 centimeters; 12/03/18; 1746 in this encounter Social History Date Tobacco Use Types Packs/Day [...] Visit Diagnoses Not on filein this encounter Administered Medications Action Date Dose Rate Site Medication Order MAR Action 12/03/2018 4:15 PM EQUAL OPPORTUNITY SPECIALIST albumin 5% infusion (500 mL) Given - New INTRA-PROCEDURE MED(CONT), Starting Wed Bag 12/03/18 at 1615, Until Sat12/03/18 at 1756, Anesthesia Intra-op 12/03/2018 2:37 PM EQUAL OPPORTUNITY SPECIALIST 2 g ceFAZolin (ANCEF) injection Given INTRA-PROCEDURE MED, Starting Sat12/03/18 at 1437, Until Sat12/03/18 at 1756, Anesthesia Intra-op 12/03/2018 2:10 PM EQUAL OPPORTUNITY SPECIALIST 2 drops dextran 70/hypromellose (GENTEAL TEARS; Given BION TEARS) ophthalmic solution INTRA-PROCEDURE MED, Starting Sat12/03/18 at 1410, Until Sat12/03/18 at 1756, Anesthesia Intra-op 12/03/2018 2:55 PM EQUAL OPPORTUNITY SPECIALIST electrolyte-A (PLASMA-LYTE A PH 7.4) Given - New injection Bag INTRA-PROCEDURE MED(CONT), Starting Sat12/03/18 at 1455, Until Sat12/03/18 at 1756, Anesthesia Intra-op 12/03/2018 2:54 PM EQUAL OPPORTUNITY SPECIALIST 50 mcg fentaNYL citrate PF (SUBLIMAZE) Given injection INTRA-PROCEDURE MED, Starting Sat12/03/18 at 1408, Until Sat12/03/18 at 1756, Anesthesia Intra-op 50 mcg Given 12/03/2018 2:08 PM EQUAL OPPORTUNITY SPECIALIST 12/03/2018 2:10 PM EQUAL OPPORTUNITY SPECIALIST 80 mg lidocaine (PF) injection Given INTRA-PROCEDURE MED, Starting Sat12/03/18 at 1410, Until Sat12/03/18 at 1756, Anesthesia Intra-op 12/03/2018 5:26 PM EQUAL OPPORTUNITY SPECIALIST 0.2 mcg/kg/min 21.5 mL/hr phenylephrine (RAFAEL-SYNEPHRINE) 10 mg in Dose/Rate sodium chloride 0.9% (NS) 250 mL IV drip Change (std conc) 250 mL, INTRA-PROCEDURE MED(CONT), Starting Sat12/03/18 at 1615, Until Sat12/03/18 at 1756, Anesthesia Intra-op 0.4 mcg/kg/min 42.9 mL/hr Dose/Rate Change 12/03/2018 5:11 PM EQUAL OPPORTUNITY SPECIALIST 0.5 mcg/kg/min 53.6 mL/hr Dose/Rate Change 12/03/2018 4:24 PM EQUAL OPPORTUNITY SPECIALIST 12/03/2018 3:46 PM EQUAL OPPORTUNITY SPECIALIST 100 mcg phenylephrine in NS injection syringe Given Intravenous, INTRA-PROCEDURE MED, Starting Sat12/03/18 at 1432, Until Sat12/03/18 at 1756, Anesthesia Intra-op 100 mcg Given 12/03/2018 3:40 PM EQUAL OPPORTUNITY SPECIALIST 200 mcg Given 12/03/2018 3:30 PM EQUAL OPPORTUNITY SPECIALIST 12/03/2018 2:12 PM EQUAL OPPORTUNITY SPECIALIST 50 mg propofol (DIPRIVAN) injection Given INTRA-PROCEDURE MED, Starting Sat12/03/18 at 1410, Until Sat12/03/18 at 1756, Anesthesia Intra-op 50 mg Given 12/03/2018 2:10 PM EQUAL OPPORTUNITY SPECIALIST 12/03/2018 3:10 PM EQUAL OPPORTUNITY SPECIALIST 10 mg rocuronium (ZEMURON) injection Given Intravenous, INTRA-PROCEDURE MED, Starting Sat12/03/18 at 1414, Until Sat12/03/18 at 1756, Anesthesia Intra-op 20 mg Given 12/03/2018 2:25 PM EQUAL OPPORTUNITY SPECIALIST 30 mg Given 12/03/2018 2:14 PM EQUAL OPPORTUNITY SPECIALIST 12/03/2018 5:33 PM EQUAL OPPORTUNITY SPECIALIST 143 mg sugammadex (BRIDION) injection Given Intravenous, INTRA-PROCEDURE MED, Starting Sat12/03/18 at 1733, Until 12/03/18 at 1756, Anesthesia Intra-op in this encounter
--- OUTSIDE RECORDS SUMMARY | 2019-01-25 08:53 | XMS REPORT | Encounter Summary ---
Author Author [facility] Organization [facility] Address Unknown Phone Unavailable Care Team Providers Care Derrick Builder Name Role Phone Fernanda Pittman MD PCP Reason for Visit * Auth/Cert Referred By Contact Referred To Contact Status Reason Specialty Diagnoses / Procedures Diagnoses Other anterior urethral stricture, male, anterior Other anterior urethral stricture, male, anterior [N35.814] P rocedures SC URETHROPLASTY 1 STG RECNST MALE ANTERIOR URETHRA SC EXC MUCOSA VESTIBULE MOUTH DON GRF SC URETHROPLASTY 1 STG RECNST MALE ANTERIOR URETHRA SC EXC MUCOSA VESTIBULE MOUTH DON GRF URETHROPLASTY WITH ONE STAGE RECONSTRUCTION MALE ANTERIOR URETHRA EXCISION MUCOSA VESTIBULE OF MOUTH DONOR GRAFT Encounter Details Care Team Description Date [place] [address] [place] [address] [phone] URETHROPLASTY WITH ONE STAGE RECONSTRUCTION MALE ANTERIOR URETHRA 12/03/2018 Surgery Main Operating Room [address] [address] Social History Date Tobacco Use Types Packs/Day [...] Taken Vital Sign Reading 12/04/2018 7:59 AM HISTOLOGIC AIDE Blood Pressure 98/49 12/04/2018 7:59 AM HISTOLOGIC AIDE Pulse 56 12/04/2018 7:59 AM HISTOLOGIC AIDE Temperature 36.8 C (98.2 F) - Respiratory Rate - 12/04/2018 7:59 AM HISTOLOGIC AIDE Oxygen Saturation 98% - Inhaled Oxygen - Concentration 12/03/2018 7:18 PM HISTOLOGIC AIDE Weight 72.3 kg (159 lb 6.3 oz) 12/03/2018 7:18 PM HISTOLOGIC AIDE Height 182.9 cm (6') 12/03/2018 7:18 PM HISTOLOGIC AIDE Body Mass Index 21.62 in this encounter [...] to catheter removal. as of this encounter Plan of Treatment Order Schedule Name Priority Associated Diagnoses ONCE for 1 Occurrences starting 12/03/2018 SURGICAL PATHOLOGY Routine Other anterior urethral stricture, male, anterior as of this encounter Procedures Comments Procedure Name Priority Date/Time Associated Diagnosis CBC Routine 12/04/2018 4:10 AM HISTOLOGIC AIDE BASIC METABOLIC PANEL Routine 12/04/2018 4:10 AM HISTOLOGIC AIDE URETHROPLASTY WITH ONE 12/03/2018 Other anterior urethral STAGE RECONSTRUCTION MALE 12:20 PM HISTOLOGIC AIDE stricture, male, anterior ANTERIOR URETHRA TYPE & CROSSMATCH STAT 12/03/2018 Preop examination 11:58 AM HISTOLOGIC AIDE SURGICAL PATHOLOGY 12/03/2018 7:33 AM HISTOLOGIC AIDE TELEMETRY STRIPS-SCAN 12/03/2018 12:00 AM HISTOLOGIC AIDE in this encounter Results * BASIC METABOLIC PANEL (12/04/2018 4:10 AM HISTOLOGIC AIDE) Sodium 139 137 - 147 MMOL/L KU [...] for questions. Specimen Blood Performing Organization Address City/[facility]/Zipcode Phone Number [facility] [address] [place] [address] * CBC (12/04/2018 4:10 AM HISTOLOGIC AIDE) White Blood Cells 3.0 (L) 4.5 - 11.0 K/UL [facility] RBC 2.48 (L) 4.4 - 5.5 M/UL [facility] Hemoglobin 8.1 (L) 13.5 - 16.5 GM/DL [facility] Hematocrit 24.5 (L) 40 - 50 % [facility] MCV 99.0 80 - 100 FL [facility] MCH 32.7 26 - 34 PG [facility] MCHC 33.1 32.0 - 36.0 G/DL [facility] RDW 18.0 (H) 11 - 15 % [facility] Platelet Count 55 (L) 150 - 400 K/UL [facility] MPV 7.6 7 - 11 FL [facility] Specimen Blood Performing Organization Address City/[facility] [address] [place] [address] * TYPE & CROSSMATCH (12/03/2018 11:58 AM HISTOLOGIC AIDE) Units Ordered 0 [facility] Crossmatch Expires 12/06/2018 [facility] Record Check FOUND [facility] ABO/RH(D) AB NEG [facility] Antibody Screen NEG [facility] Electronic Crossmatch YES [facility] Specimen Blood Performing Organization Address City/[facility]/Zipcode Phone Number [facility] [address] [place] [address] * SURGICAL PATHOLOGY (12/03/2018 7:33 AM HISTOLOGIC AIDE) PATHOLOGY REPORT [facility] [email or web address] Department of Pathology and Laboratory Medicine [address] [place] [address] Surgical Pathology Office:[phone] :[phone] SURGICAL PATHOLOGY REPORT NAME: INDIRA TODD RAY SURG PATH #: [id number] MR #: [id number] SPECIMEN CLASS: SR BILLING #: [id number] ALT ID #:LOCATION: [id number] DATE OF PROCEDURE: 12/03/2018 AGE:88 SEX: M DATE RECEIVED: 12/04/2018 : 1932TIME RECEIVED:07:33 PHYSICIAN: GAVI ALCANTARA MD DATE OF REPORT: 12/08/2018 COPY TO:DATE [...] report. +++ +++ Bj Lewis MD Resident [facility]/12/04/2018 ############################## ############################## ############ Material Received: A: stricture [...] entirely submitted as follows: A1 Smaller fragment. A2-U6Hexvpr fragment. (odalys) Performing Organization Address City/State/Zipcode Phone Number [facility] [address] [place] [address] * TELEMETRY STRIPS-SCAN (12/03/2018 12:00 AM HISTOLOGIC AIDE) Narrative Performed At Ordered by an unspecified provider. in this encounter Visit Diagnoses Diagnosis Other anterior urethral stricture, male, anterior in this encounter Admitting Diagnoses Diagnosis History of urethral stricture Personal history of other disorder of urinary system in this encounter Administered Medications Action Date Dose Rate Site Medication Order MAR Action 12/04/2018 8:41 AM HISTOLOGIC AIDE 1,000 mg acetaminophen (TYLENOL) tablet 1,000 mg Given 1,000 mg, Oral, EVERY 6 HOURS, First dose on Sat12/03/18 at 2000, Until Discontinued, TOTAL ACETAMINOPHEN DOSE NOT TO EXCEED 4GM DAILY, 1,000 mg Given 12/04/2018 2:49 AM HISTOLOGIC AIDE 1,000 mg Given 12/03/2018 8:05 PM HISTOLOGIC AIDE 12/04/2018 8:41 AM HISTOLOGIC AIDE bacitracin topical ointment Given Topical, THREE TIMES DAILY, First dose on Sat12/03/18 at 2100, Until Discontinued, Apply to tip of penis to prevent catheter related discomfort., Given 12/03/2018 8:04 PM HISTOLOGIC AIDE 12/04/2018 6:26 AM HISTOLOGIC AIDE 2 g ceFAZolin (ANCEF) IVP 2 g Given 2 g, Intravenous, EVERY 8 HOURS, 3 doses, First dose on Sat12/03/18 at 2230, Last dose on Sat12/04/18 at 1430, IV PUSH -- RECONSTITUTE each 1 g vial by adding 10 mL 0.9% NACL, 2 g Given 12/03/2018 10:21 PM HISTOLOGIC AIDE 12/04/2018 8:41 AM HISTOLOGIC AIDE 120 mg diltiazem CD (cardIZEM CD) capsule 120 Given mg 120 mg, Oral, TWICE DAILY, First dose on Sat12/03/18 at 2100, Until Discontinued 120 mg Given 12/03/2018 8:05 PM HISTOLOGIC AIDE 12/04/2018 8:41 AM HISTOLOGIC AIDE 10 mg donepezil (ARICEPT) tablet 10 mg Given 10 mg, Oral, DAILY WITH BREAKFAST, First dose on Sat12/04/18 at 0800, Until Discontinued 12/03/2018 8:05 PM HISTOLOGIC AIDE 40 mg Abdomen:LLQ enoxaparin (LOVENOX) syringe 40 mg Given 40 mg, Subcutaneous, DAILY, First dose on Sat12/03/18 at 2100, Until Discontinued, For patients undergoing surgery: Consult physician in advance -- enoxaparin is an anticoagulant and may need to be held for 12hr prior to surgery or invasive procedures. NOTE: This is a HIGH ALERT Medication., 12/04/2018 8:41 AM HISTOLOGIC AIDE 15 mg ketorolac (TORADOL) injection 15 mg [...] met., 15 mg Given 12/04/2018 2:49 AM HISTOLOGIC AIDE 15 mg Given 12/03/2018 8:05 PM HISTOLOGIC AIDE 12/03/2018 8:05 PM HISTOLOGIC AIDE 0.5 mg melatonin tablet 0.5 mg Given 0.5 mg, Oral, AT BEDTIME DAILY, First dose on Sat12/03/18 at 2100, Until Discontinued 12/04/2018 8:41 AM HISTOLOGIC AIDE 10 mg memantine (NAMENDA) tablet 10 mg [...] moderate to severe pain 12/04/2018 8:42 AM HISTOLOGIC AIDE 1 tablet senna/docusate (SENOKOT-S) tablet 1 Given tablet 1 tablet, Oral, TWICE DAILY, First dose on Sat12/03/18 at 2100, Until Discontinued, Hold for loose stools, 1 tablet Given 12/03/2018 8:05 PM HISTOLOGIC AIDE 12/03/2018 11:52 AM HISTOLOGIC AIDE 1,000 mL 20 mL/hr sodium chloride 0.9 % infusion Given - New 1,000 mL, 1,000 mL, Intravenous, at 20 Bag mL/hr, CONTINUOUS, Starting Sat12/03/18 at 1145, Until Sat12/04/18 at 0622, Pre-Op 12/03/2018 8:12 PM HISTOLOGIC AIDE 100 mL/hr sodium chloride 0.9 % infusion Given - New 1,000 mL, Intravenous, at 100 mL/hr, Bag CONTINUOUS, Starting 12/03/18 at 1830, Until Joan 12/04/18 at 0622 100 mL/hr Infusion Restarted 12/03/2018 6:21 PM HISTOLOGIC AIDE in this encounter
--- OUTSIDE RECORDS SUMMARY | 2019-01-25 08:54 | XMS REPORT | Encounter Summary ---
Author Author [facility] Organization [facility] Address Unknown Phone Unavailable Care Team Providers Care Quantometer Operator Name Role Phone Fernanda Pittman MD PCP Encounter Details Care Team Description Date Type [place] [address] [place] [address] [phone] Preop cardiovascular exam (Primary Dx); Preop examination 11/20/2018 PAC Office Preoperative Assessment Visit Clinic [address] [place] [address] Anesthesia Record Responsible Anesthesiologist Anesthesia Start Time Anesthesia Stop Time Procedure Name Dakota Haskins MD 12/03/18 1403 12/03/18 175 URETHROPLASTY WITH ONE STAGE RECONSTRUCTION MALE ANTERIOR [...] the receiving nurse. 1756 An Stop Meds * No agents on file. * No blood administrations on file. Removal Type Details Placement Peripheral 12/03/18; 1142; RN; L; Upper; Forearm; 12/03/18 1142 by RICARDO Michelle 20 G; No; 1 DANNIE Tavares Indwelling [...] 1415 by ventilation (3); Stylet, Direct Gwendolyn Chapin, ROBBIN laryngoscopy; Single-Lumen; 7.5mm; Mac; 3; Oral; 2a-Partial [...] Vital Signs Time Taken Vital Sign Reading 11/20/2018 12:06 PM PLUNGER SHOVEL OPERATOR Blood Pressure 101/62 11/20/2018 12:06 PM PLUNGER SHOVEL OPERATOR Pulse 84 11/20/2018 12:06 PM PLUNGER SHOVEL OPERATOR Temperature 36.9 C (98.5 F) - Respiratory Rate - 11/20/2018 12:06 PM PLUNGER SHOVEL OPERATOR Oxygen Saturation 98% - Inhaled Oxygen - Concentration 11/20/2018 12:06 PM PLUNGER SHOVEL OPERATOR Weight 70.3 kg (155 lb) 11/20/2018 12:06 PM PLUNGER SHOVEL OPERATOR Height 182.9 cm (6') 11/20/2018 12:06 PM PLUNGER SHOVEL OPERATOR Body Mass Index 21.02 in this encounter Functional Status Date of [...] cognitive impairment: No as of this encounter Patient Instructions * Pre-Anesthesia Patient Instructions* Delicia Stoner RN - 11/20/2018 12:30 PM PLUNGER SHOVEL OPERATOR GENERAL INFORMATION Before you come to the hospital Make arrangements for a responsible adult to drive you home and stay with you for 24 hours following surgery. Bath/Shower Instructions Take a bath or shower using the special soap given to you in PAC. Use half the bottle the night before, and the other half the morning of your procedure. Use clean towels with each bath or shower. Put on clean clothes after bath or shower. Avoid using lotion and oils. If you are having surgery above the waist, wear a shirt that fastens up the front. Sleep on clean sheets if bath or shower is done the night before procedure. Leave money, credit cards, jewelry, and any other valuables at home. [facility] is not responsible for the loss or breakage of personal items. Remove nail chinese, makeup and all jewelry (including piercings) before coming to the hospital. The morning of your procedure: brush your teeth and tongue do not shave the area where you will have surgery What to bring to the hospital ID/ Insurance Card Small bag with a few personal belongings Walker,cane, or motorized scooter Cases for glasses/hearing aids/contact lens (bring solutions for contacts) Dress in clean, loose, comfortable clothing Eating or drinking before surgery Do not eat or drink anything after 11:00 p.m. the day before your procedure ( including gum, mints, candy, or chewing tobacco) OR follow the specific instructions you were given by your Surgeon. You may have WATER ONLY up to 2 hours before arriving at the hospital. Other instructionsNotify your surgeon if: you become ill with a cough, fever, sore throat, nausea, vomiting or flu- like symptoms you have any open wounds/sores that are red, painful, draining, or are new since you last saw the doctor you need to cancel your procedure You will receive a call with your surgery arrival time from between 2:30pm and 4:30pm the last business day before your procedure. If you do not receive a call, please call [phone] before 4:30pm or [phone] after 4:30pm. Notify us at [facility]: if you need to cancel your procedure if you are going to be late Arrival at the [facility] [address] [place] [address] Park in the [address]age, located directly across from the main entrance to the hospital. [facility] parking is available from 7 AM to 4 PM Saturday through Saturday. Enter through the ground floor [facility] entrance and check in at the Information Desk in the lobby. They will validate your parking ticket and direct you to the next location. GER SHOVEL OPERATOR * Pre-Anesthesia Medication Instructions* Grady Palmer, JODIE - 11/20/2018 12:30 PM PLUNGER SHOVEL OPERATOR YOUR MEDICATIONS: apixaban (ELIQUIS) 5 mg tablet Take 5 [...] 1 capsule by mouth daily with breakfast. YOUR MEDICATION INSTRUCTIONS FOR SURGERY: Before surgery Stop the following vitamins, herbals, and natural supplements 14 days before surgery: Multivitamin Vitamin C Stop the following medications 7 days before surgery: Anti-inflammatory medications such as ibuprofen (Advil, Motrin) and naproxen (Aleve) You may use acetaminophen (Tylenol) Please follow these instructions regarding your blood thinner medications: Khadijah Henao RN with Dr. Wisdom, hold Eliquis for 48 hours prior to the procedure. Morning of surgery On the morning of surgery, do NOT take these medications: Remaining vitamins/supplements Ointments/creams/lotions Furosemide On the morning of surgery, take ONLY these medications with a sip (1-2 ounces) of water: Diltiazem Donepezil Memantine (Namenda) Other information Before surgery, please contact the clinic pharmacist with any medicine updates or questions. E-mail: [email or web address] Before going home from the hospital, please ask your doctor when you should re- start your medicines that were stopped before surgery. GER SHOVEL OPERATOR in this encounter Progress Notes * Grady Palmer PHARMD - 11/20/2018 12:30 PM PLUNGER SHOVEL OPERATOR PAC Pharmacist Medication Plan Note: Walter Cruz was seen in the PAC on 11/20/2018. As part of the visit, an accurate medication list was obtained and the patient was given pre-op medication instructions for upcoming surgery on 12/03/2018. Per Earlene RN with Dr. Wisdom, hold Eliquis for 48 hours preoperatively. The plan above was communicated to the patient who verbalized understanding. Grady Palmer PHARMD GER SHOVEL OPERATOR in this encounter Plan of Treatment Order Schedule Name Priority Associated Diagnoses ONE TIME for 1 Occurrences starting 11/20/2018 until 11/20/2018 ECG 12-LEAD Routine Preop cardiovascular exam as of this encounter Procedures Comments Procedure Name Priority Date/Time Associated Diagnosis CBC Routine 11/20/2018 Preop examination 1:30 PM PLUNGER SHOVEL OPERATOR TYPE & SCREEN (NOT Routine 11/20/2018 Preop examination CROSSMATCH ELIGIBLE) 1:30 PM PLUNGER SHOVEL OPERATOR BASIC METABOLIC PANEL Routine 11/20/2018 Preop examination 1:30 PM PLUNGER SHOVEL OPERATOR ECG-SCAN 11/20/2018 12:00 AM PLUNGER SHOVEL OPERATOR in this encounter Results * TYPE & SCREEN (NOT CROSSMATCH ELIGIBLE) (11/20/2018 1:30 PM PLUNGER SHOVEL OPERATOR) ABO/RH(D) AB NEG [facility] Antibody Screen NEG [facility] Blood Component Type RED CELL GROUP [facility] Specimen Blood, venous - Blood Performing Organization Address City/State/Zipcode Phone Number MA[facility] [address] [place] [address] * BASIC METABOLIC PANEL (11/20/2018 1:30 PM PLUNGER SHOVEL OPERATOR) Sodium 136 (L) 137 - 147 MMOL/L [facility] Potassium 4.1 3.5 - 5.1 MMOL/L [facility] Chloride 104 98 - 110 MMOL/L [facility] CO2 28 21 - 30 MMOL/L [facility] Anion Gap 4 3 - 12 [facility] Glucose 89 70 - 100 MG/DL [facility] Blood Urea Nitrogen 28 (H) 7 - 25 MG/DL [facility] Creatinine 1.27 (H) 0.4 - 1.24 MG/DL [facility] Calcium 9.1 8.5 - 10.6 MG/DL [facility] eGFR Non 54 (L) >60 mL/min [facility] Comment: The [...] for questions. Specimen Blood Performing Organization Address [facility]/Zipcode Phone Number [facility] [address] [place] [address] * CBC (11/20/2018 1:30 PM PLUNGER SHOVEL OPERATOR) White Blood Cells 3.7 (L) 4.5 - 11.0 K/UL [facility] RBC 3.23 (L) 4.4 - 5.5 M/UL [facility] Hemoglobin 10.8 (L) 13.5 - 16.5 GM/DL [facility] Hematocrit 31.5 (L) 40 - 50 % [facility] MCV 97.6 80 - 100 FL [facility] MCH 33.3 26 - 34 PG [facility] MCHC 34.1 32.0 - 36.0 G/DL [facility] RDW 17.6 (H) 11 - 15 % [facility] Platelet Count 74 (L) 150 - 400 K/UL [facility] MPV 7.4 7 - 11 FL [facility] Specimen Blood Performing Organization Address City/[facility]/Zipcode Phone Number MA[facility] [address] [place] [address] * ECG-SCAN (11/20/2018 12:00 AM PLUNGER SHOVEL OPERATOR) Narrative Performed At Ordered by an unspecified provider. in this encounter Visit Diagnoses Diagnosis Preop cardiovascular exam - Primary Pre-operative cardiovascular examination Preop examination Preoperative examination, unspecified in this encounter
--- OUTSIDE RECORDS SUMMARY | 2019-01-25 08:55 | XMS REPORT | Continuity of Care Document ---
Author Author [facility] Organization [facility] Address Unknown Phone Unavailable Allergies Active Description Code Type Severity Reaction Onset Reported/Identified Relationship to Patient Clinical Status Yes No Known Drug Allergies [id number] Drug Allergy Unknown N/A 11/22/2009 Medications There is no data. Problems Date Dx Coded Attending Type Code [...] Ot I48.91 UNSPECIFIED ATRIAL FIBRILLATION 02/09/2016 FABIOLA LUJAN CIRO R Ot K21.9 GASTRO-ESOPHAGEAL REFLUX DISEASE WITHOUT 02/09/2016 FABIOLA LUJAN CIRO R Ot R30.0 DYSURIA 02/09/2016 FABIOLA LUJAN CIRO R Ot R31.9 HEMATURIA, UNSPECIFIED 02/09/2016 FABIOLA LUJAN CIRO R Ot R39.19 OTHER DIFFICULTIES WITH MICTURITION 02/09/2016 CIRO HICKS MD R Ot R79.1 ABNORMAL COAGULATION PROFILE 02/09/2016 CIRO HICKS MD R Ot T45.515A ADVERSE EFFECT OF ANTICOAGULANTS, INITIA 02/09/2016 CIRO HICKS MD R Ot Z23 ENCOUNTER FOR IMMUNIZATION 02/09/2016 CIRO HICKS MD R Ot Z79.01 USP (CURRENT) USE OF ANTICOAGULANT 02/09/2016 CIRO HICKS MD R Ot Z87.442 PERSONAL HISTORY OF URINARY CALCULI 02/09/2016 CIRO HICKS MD R Ot Z90.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( 05/30/2017 Ot 786.2 COUGH 05/30/2017 Ot V15.82 HISTORY OF TOBACCO USE 05/30/2017 CIRO HICKS MD R Ot 305.1 TOBACCO USE DISORDER 05/30/2017 CIRO HICKS MD R Ot 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 05/30/2017 CIRO HICKS MD R Ot 787.02 NAUSEA ALONE 05/30/2017 CIRO HICKS MD Ot 788.30 UNSPECIFIED URINARY INCONTINENCE 05/30/2017 CIRO HICKS MD Ot 789.00 ABDOMINAL PAIN, UNSPECIFIED SITE 05/30/2017 CIRO HICKS MD R Ot 591 HYDRONEPHROSIS 05/30/2017 CIRO HICKS MD R Ot 592.9 URINARY CALCULUS NOS 05/31/2017 ZAK GARCIA DO Ot A41.9 SEPSIS, UNSPECIFIED ORGANISM 05/31/2017 ZAK GARCIA DO Ot E86.1 HYPOVOLEMIA 05/31/2017 CAROL GARCIA DOI Ot E87.2 ACIDOSIS 05/31/2017 ZAK GARCIA DO Ot H91.90 UNSPECIFIED HEARING LOSS, UNSPECIFIED EA 05/31/2017 CAROL GARCIA DOI Ot I10 ESSENTIAL (PRIMARY) HYPERTENSION 05/31/2017 CAROL GARCIA DOI Ot I48.2 CHRONIC ATRIAL FIBRILLATION 05/31/2017 ZAK GARCIA DO Ot K21.9 GASTRO-ESOPHAGEAL REFLUX DISEASE WITHOUT 05/31/2017 ZAK GARCIA DO Ot N17.9 ACUTE KIDNEY FAILURE, UNSPECIFIED 05/31/2017 ZAK GARCIA DO Ot N39.0 URINARY TRACT INFECTION, SITE NOT SPECIF 05/31/2017 ZAK GARCIA DO Ot S00.81XA ABRASION OF OTHER PART OF HEAD, INITIAL 05/31/2017 CAROL GARCIA DOI Ot W18.30XA FALL ON SAME LEVEL, UNSPECIFIED, INITIAL 05/31/2017 ZAK GARCIA DO Ot Y92.007 [facility] RES 05/31/2017 ZAK GARCIA DO Ot Y93.H2 ACTIVITY, GARDENING AND LANDSCAPING 05/31/2017 ZAK GARCIA DO Ot Z66 DO NOT RESUSCITATE 05/31/2017 ZAK GARCIA DO Ot Z79.01 USP (CURRENT) USE OF ANTICOAGULANT 05/31/2017 ZAK GARCIA [...] CIRO R Ot 787.02 NAUSEA ALONE 05/31/2017 FABIOLA LUJAN, CRIO R Ot 788.30 UNSPECIFIED URINARY INCONTINENCE 05/31/2017 FABIOLA LUJAN, CIRO R Ot 789.00 ABDOMINAL PAIN, UNSPECIFIED SITE 05/31/2017 FABIOLA LUJAN, CIRO R Ot 591 HYDRONEPHROSIS 05/31/2017 FABIOLA LUJAN, CIRO R Ot 592.9 URINARY CALCULUS NOS 05/31/2017 CAROL GARCIA DOI Ot A41.9 SEPSIS, UNSPECIFIED ORGANISM 05/31/2017 CAROL GARCIA DOI Ot E86.1 HYPOVOLEMIA 05/31/2017 CAROL GARCIA DOI Ot E87.2 ACIDOSIS 05/31/2017 CAROL GARCIA DOI Ot H91.90 UNSPECIFIED HEARING LOSS, UNSPECIFIED EA 05/31/2017 CAROL GARCIA DOI Ot I10 ESSENTIAL (PRIMARY) HYPERTENSION 05/31/2017 CAROL GARCIA DOI Ot I48.2 CHRONIC ATRIAL FIBRILLATION 05/31/2017 RADHA KELSEY ZAK Ot K21.9 GASTRO-ESOPHAGEAL REFLUX DISEASE WITHOUT 05/31/2017 RADHA KELSEY ZAK Ot N17.9 ACUTE KIDNEY FAILURE, UNSPECIFIED 05/31/2017 RADHA KELSEY ZAK Ot N39.0 URINARY TRACT INFECTION, SITE NOT SPECIF 05/31/2017 ZAK GARCIA DO Ot S00.81XA ABRASION OF OTHER PART OF HEAD, INITIAL 05/31/2017 GARCIA DO ZAK Ot W18.30XA FALL ON SAME LEVEL, UNSPECIFIED, INITIAL 05/31/2017 RADHA DO ZAK Ot Y92.007 [facility] 05/31/2017 GARCIACHRISTY KELSEY ZAK Ot Y93.H2 ACTIVITY, GARDENING AND LANDSCAPING 05/31/2017 GARCIA DO ZAK Ot Z66 DO NOT RESUSCITATE 05/31/2017 RADHA KELSEY ZAK Ot Z79.01 USP (CURRENT) USE OF ANTICOAGULANT 05/31/2017 RADHA DO ZAK Ot Z87.891 PERSONAL HISTORY OF NICOTINE [...] OTHER PART OF HEAD, INITIAL 05/31/2017 GARCIA DO ZAK Ot W18.30XA FALL ON SAME LEVEL, UNSPECIFIED, INITIAL 05/31/2017 RADHA DO ZAK Ot Y92.[address] [facility] 05/31/2017 RADHA KELSEY ZAK Ot Y93.H2 ACTIVITY, GARDENING AND LANDSCAPING 05/31/2017 RADHA DO ZAK Ot Z66 DO NOT RESUSCITATE 05/31/2017 CAROL GARCIA DOI Ot Z79.01 IN HOME TUTOR (CURRENT) USE OF ANTICOAGULANT 05/31/2017 RADHA KELSEY [...] ZAK Ot Y92.007 [facility] 05/31/2017 RADHA KELSEY ZAK Ot Y93.H2 ACTIVITY, GARDENING AND LANDSCAPING 05/31/2017 RADHA KELSEY ZAK Ot Z66 DO NOT RESUSCITATE 05/31/2017 ZAK GARCIA DO Ot Z79.01 USP (CURRENT) USE OF ANTICOAGULANT 05/31/2017 CAROL GARCIA DOI Ot Z87.891 PERSONAL HISTORY OF NICOTINE DEPENDENCE 05/31/2017 RADHA KELSEY ZAK Ot Z90.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( 05/31/2017 RADHA KELSEY ZAK Ot Z96.0 PRESENCE OF UROGENITAL IMPLANTS 06/01/2017 RADHA KELSEY ZAK Ot A41.9 SEPSIS, UNSPECIFIED ORGANISM 06/01/2017 RADHA KELSEY ZAK Ot E86.1 HYPOVOLEMIA 06/01/2017 RADHA KELSEY ZAK Ot E87.2 ACIDOSIS 06/01/2017 RADHA KELSEY ZAK Ot H91.90 UNSPECIFIED HEARING LOSS, UNSPECIFIED EA 06/01/2017 RADHA KELSEY ZAK Ot I10 ESSENTIAL (PRIMARY) HYPERTENSION 06/01/2017 RADHA KELSEY ZAK Ot I48.2 CHRONIC ATRIAL FIBRILLATION 06/01/2017 RADHA KELSEY ZAK Ot K21.9 GASTRO-ESOPHAGEAL REFLUX DISEASE WITHOUT 06/01/2017 RADHA KELSEY ZAK Ot N17.9 ACUTE KIDNEY FAILURE, UNSPECIFIED 06/01/2017 RADHA KELSEY ZAK Ot N39.0 URINARY TRACT INFECTION, SITE NOT SPECIF 06/01/2017 RADHA KELSEY ZAK Ot S00.81XA ABRASION OF OTHER PART OF HEAD, INITIAL 06/01/2017 RADHA KELSEY ZAK Ot W18.30XA FALL ON SAME LEVEL, UNSPECIFIED, INITIAL 06/01/2017 RADHA KELSEY ZAK Ot Y92.[address] [facility] 06/01/2017 RADHA KELSEY ZAK Ot Y93.H2 ACTIVITY, GARDENING AND LANDSCAPING 06/01/2017 RADHA KELSEY ZAK Ot Z66 DO NOT RESUSCITATE 06/01/2017 CAROL GARCIA DOI Ot Z79.01 USP (CURRENT) USE OF ANTICOAGULANT 06/01/2017 RADHA KELSEY ZAK Ot Z87.891 PERSONAL HISTORY OF NICOTINE DEPENDENCE 06/01/2017 RADHA KELSEY ZAK Ot Z90.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( 06/01/2017 RADHA KELSEY ZAK Ot Z96.0 PRESENCE OF UROGENITAL IMPLANTS 06/01/2017 RADHA KELSEY ZAK Ot A41.9 SEPSIS, UNSPECIFIED ORGANISM 06/01/2017 RADHA KELSEY ZAK Ot E86.1 HYPOVOLEMIA 06/01/2017 RADHA KELSEY ZAK Ot E87.2 ACIDOSIS 06/01/2017 RADHA KELSEY ZAK Ot F03.90 UNSPECIFIED DEMENTIA WITHOUT BEHAVIORAL 06/01/2017 RADHA KELSEY ZAK Ot I10 ESSENTIAL (PRIMARY) HYPERTENSION 06/01/2017 RADHA KELSEY ZAK Ot I48.2 CHRONIC ATRIAL FIBRILLATION 06/01/2017 ZAK GARCIA DO Ot K21.9 GASTRO-ESOPHAGEAL REFLUX DISEASE WITHOUT 06/01/2017 ZAK GARCIA DO Ot N17.9 ACUTE KIDNEY FAILURE, UNSPECIFIED 06/01/2017 ZAK GARCIA DO Ot N39.0 URINARY TRACT INFECTION, SITE NOT SPECIF 06/01/2017 RADHA KELSEY ZAK Ot R53.1 WEAKNESS 06/01/2017 ZAK GARCIA DO Ot S00.81XA ABRASION OF OTHER PART OF HEAD, INITIAL 06/01/2017 RADHA KELSEY ZAK Ot W18.30XA FALL ON SAME LEVEL, UNSPECIFIED, INITIAL 06/01/2017 ZAK GARCIA DO Ot Y92.007 [facility] RES 06/01/2017 ZAK GARCIA DO Ot Y93.H2 ACTIVITY, GARDENING AND LANDSCAPING 06/01/2017 ZAK GARCIA DO Ot Z66 DO NOT RESUSCITATE 06/01/2017 ZAK GARCIA DO Ot Z79.01 IN HOME TUTOR (CURRENT) USE OF ANTICOAGULANT 06/01/2017 ZAK GARCIA DO Ot Z87.891 PERSONAL HISTORY OF NICOTINE DEPENDENCE 06/01/2017 RADHA KELSEY ZAK Ot Z90.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( 06/01/2017 ZAK GARCIA DO Ot Z96.0 PRESENCE OF UROGENITAL IMPLANTS 08/29/2017 TG DAWN EDUCATION SUPERVISOR Ot R41.3 OTHER AMNESIA 09/09/2017 GANESH CRAVEN MD Ot I10 ESSENTIAL (PRIMARY) HYPERTENSION 09/09/2017 GANESH CRAVEN MD Ot I48.91 UNSPECIFIED ATRIAL FIBRILLATION 09/09/2017 GANESH CRAVEN MD Ot K21.9 GASTRO-ESOPHAGEAL REFLUX DISEASE WITHOUT 09/09/2017 GANESH CRAVEN MD Ot M47.812 SPONDYLOSIS W/O MYELOPATHY OR RADICULOPA 09/09/2017 GANESH CRAVEN MD Ot M62.82 RHABDOMYOLYSIS 09/09/2017 GANESH CRAVEN MD Ot 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 09/09/2017 GANESH CRAVEN MD Ot S00.12XA CONTUSION OF LEFT EYELID AND PERIOCULAR 09/09/2017 GANESH CRAVEN MD Ot S00.81XA ABRASION OF OTHER PART OF HEAD, INITIAL 09/09/2017 GANESH CRAVEN MD Ot S50.01XA CONTUSION OF RIGHT ELBOW, INITIAL ENCOUN 09/09/2017 GANESH CRAVEN MD Ot W01.0XXA FALL SAME LEV FROM SLIP/TRIP W/O STRIKE 09/09/2017 GANESH CRAVEN MD Ot Y92.[address] IN [facility] NON-[facility] (PRIVATE 09/09/2017 GANESH CRAVEN MD, Ot Y99.8 OTHER EXTERNAL CAUSE STATUS 09/09/2017 GANESH CRAVEN MD, Ot Z79.01 IN HOME TUTOR (CURRENT) USE OF ANTICOAGULANT 09/09/2017 GANESH CRAVEN MD, Ot Z79.899 OTHER USP (CURRENT) DRUG THERAPY 09/09/2017 GANESH CRAVEN MD, Ot Z87.442 PERSONAL HISTORY OF URINARY CALCULI 09/09/2017 GANESH CRAVEN MD, Ot Z87.891 PERSONAL HISTORY OF NICOTINE DEPENDENCE 09/09/2017 GANESH CRAVEN MD Ot Z90.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( 09/09/2017 GANESH CRAVEN MD Ot I10 ESSENTIAL (PRIMARY) HYPERTENSION 09/09/2017 GANESH CRAVEN MD Ot I48.91 UNSPECIFIED ATRIAL FIBRILLATION 09/09/2017 GANESH CRAVEN MD Ot K21.9 GASTRO-ESOPHAGEAL REFLUX DISEASE WITHOUT 09/09/2017 GANESH CRAVEN MD, Ot M47.812 SPONDYLOSIS W/O MYELOPATHY OR RADICULOPA 09/09/2017 GANESH CRAVEN MD Ot M62.82 RHABDOMYOLYSIS 09/09/2017 GANESH CRAVEN MD Ot 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 09/09/2017 GANESH CRAVEN MD Ot S00.12XA CONTUSION OF LEFT EYELID AND PERIOCULAR 09/09/2017 GANESH CRAVEN MD Ot S00.81XA ABRASION OF OTHER PART OF HEAD, INITIAL 09/09/2017 GANESH CRAVEN MD Ot S50.01XA CONTUSION OF RIGHT ELBOW, INITIAL ENCOUN 09/09/2017 GANESH CRAVEN MD, Ot W01.0XXA FALL SAME LEV FROM SLIP/TRIP W/O STRIKE 09/09/2017 GANESH CRAVEN MD Ot Y92.[address] IN [facility] NON-[facility] (PRIVATE 09/09/2017 GANESH CRAVEN MD Ot Y99.8 OTHER EXTERNAL CAUSE STATUS 09/09/2017 GANESH CRAVEN MD Ot Z79.01 USP (CURRENT) USE OF ANTICOAGULANT 09/09/2017 GANESH CRAVEN MD Ot Z79.899 OTHER USP (CURRENT) DRUG THERAPY 09/09/2017 GANESH CRAVEN MD Ot Z87.442 PERSONAL HISTORY OF URINARY CALCULI 09/09/2017 GANESH CRAVEN MD Ot Z87.891 PERSONAL HISTORY OF NICOTINE DEPENDENCE 09/09/2017 GANESH CRAVEN MD Ot Z90.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( 09/13/2017 KILEY CAM MD Ot R26.2 DIFFICULTY IN WALKING, NOT ELSEWHERE CLA 09/13/2017 KILEY CAM MD E Ot R53.81 OTHER MALAISE 09/18/2017 TG DAWN [facility] Ot R41.3 OTHER AMNESIA 09/19/2017 KILEY CAM MD Ot D64.9 ANEMIA, UNSPECIFIED 09/19/2017 KILEY CAM MD E Ot E88.09 OTH DISORDERS OF PLASMA-PROTEIN METABOLI 09/19/2017 KILEY CAM MD Ot F03.90 UNSPECIFIED DEMENTIA WITHOUT BEHAVIORAL 09/19/2017 KILEY CAM MD E Ot I10 ESSENTIAL (PRIMARY) HYPERTENSION 09/19/2017 TONJA CAM MDIC E Ot I48.91 UNSPECIFIED ATRIAL FIBRILLATION 09/19/2017 KILEY CAM MD Ot K21.9 GASTRO-ESOPHAGEAL REFLUX DISEASE WITHOUT 09/19/2017 TONJA CAM MDIC E Ot M47.812 SPONDYLOSIS W/O MYELOPATHY OR RADICULOPA 09/19/2017 KILEY CAM MD Ot R26.2 DIFFICULTY IN WALKING, NOT ELSEWHERE CLA 09/19/2017 KILEY CAM MD Ot R53.81 OTHER MALAISE 09/19/2017 KILEY CAM MD E Ot Z66 DO NOT RESUSCITATE 09/19/2017 KILEY CAM MD Ot Z79.01 USP (CURRENT) USE OF ANTICOAGULANT 09/19/2017 KILEY CAM MD Ot Z87.440 PERSONAL HISTORY OF URINARY (TRACT) INFE 09/19/2017 KILEY CAM MD Ot Z91.81 HISTORY OF FALLING 08/18/2018 FABIOLA LUJAN, CIRO R Ot 305.1 TOBACCO USE DISORDER 08/18/2018 FABIOLA LUJAN, CIRO R Ot 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 08/18/2018 FABIOLA LUJAN, CIRO R Ot 787.02 NAUSEA ALONE 08/18/2018 FABIOLA LUJAN, CIRO R Ot 788.30 UNSPECIFIED URINARY INCONTINENCE 08/18/2018 FABIOLA LUJAN, CIRO R Ot 789.00 ABDOMINAL PAIN, UNSPECIFIED SITE 08/18/2018 FABIOLA LUJAN, CIRO R Ot 591 HYDRONEPHROSIS 08/18/2018 CIRO HICKS MD R Ot 592.9 URINARY CALCULUS NOS 08/18/2018 TG DAWN Ot R41.3 OTHER AMNESIA 08/19/2018 AGUSTO BAKER MD, Ot C61 MALIGNANT NEOPLASM OF PROSTATE 08/19/2018 AGUSTO BAKER MD, Ot K57.30 DVRTCLOS OF LG INT W/O PERFORATION OR AB 08/19/2018 AGUSTO BAKER MD Ot N20.0 CALCULUS OF KIDNEY 08/19/2018 AGUSTO BAKER MD Ot N28.1 CYST OF KIDNEY, ACQUIRED 08/19/2018 AGUSTO BAKER MD Ot Z87.440 PERSONAL HISTORY OF URINARY (TRACT) INFE 09/02/2018 AGUSTO BAKER MD Ot 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, MALE, UNSPECIF 09/08/2018 MAX PÉREZ MD Ot I08.1 RHEUMATIC DISORDERS OF BOTH MITRAL AND T 09/08/2018 MAX PÉREZ MD Ot I48.0 PAROXYSMAL ATRIAL FIBRILLATION 09/08/2018 MAX PÉREZ MD Ot Q21.1 ATRIAL SEPTAL DEFECT 09/08/2018 MAX PÉREZ MD Ot I08.1 RHEUMATIC DISORDERS OF BOTH MITRAL AND T 09/08/2018 MAX PÉREZ MD Ot I48.0 PAROXYSMAL ATRIAL FIBRILLATION 09/08/2018 MAX PÉREZ MD Ot Q21.1 ATRIAL SEPTAL DEFECT 09/09/2018 AGUSTO BAKER MD Ot C61 MALIGNANT NEOPLASM OF PROSTATE 09/09/2018 AGUSTO BAKER MD, Ot K57.30 DVRTCLOS OF LG INT W/O PERFORATION OR AB 09/09/2018 AGUSTO BAKER MD Ot N20.0 CALCULUS OF KIDNEY 09/09/2018 AGUSTO BAKER MD Ot N28.1 CYST OF KIDNEY, ACQUIRED 09/09/2018 AGUSTO BAKER MD Ot Z87.440 PERSONAL HISTORY OF URINARY (TRACT) INFE 09/23/2018 AGUSTO BAKER MD Ot 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, MALE, UNSPECIF 09/24/2018 MAX PÉREZ MD Ot I08.1 RHEUMATIC DISORDERS OF BOTH MITRAL AND T 09/24/2018 MAX PÉREZ MD Ot I48.0 PAROXYSMAL ATRIAL FIBRILLATION 09/24/2018 MAX PÉREZ MD Ot Q21.1 ATRIAL SEPTAL DEFECT 01/23/2019 FABIOLA LUJAN, CIRO R Ot 305.1 TOBACCO USE DISORDER 01/23/2019 FABIOLA LUJAN, CIRO R Ot 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 01/23/2019 FABIOLA LUJAN, CIRO R Ot 787.02 NAUSEA ALONE 01/23/2019 FABIOLA LUJAN, CIRO R Ot 788.30 UNSPECIFIED URINARY INCONTINENCE 01/23/2019 FABIOLA LUJAN, CIRO R Ot 789.00 ABDOMINAL PAIN, UNSPECIFIED SITE 01/23/2019 FABIOLA LUJAN, CIRO R Ot 591 HYDRONEPHROSIS 01/23/2019 FABIOLA LUJAN CIRO R Ot 592.9 URINARY CALCULUS NOS 01/23/2019 TG DAWN Ot R41.3 OTHER AMNESIA 01/23/2019 MAX PÉREZ MD Ot I08.1 RHEUMATIC DISORDERS OF BOTH MITRAL AND T 01/23/2019 MAX PÉREZ MD Ot I48.0 PAROXYSMAL ATRIAL FIBRILLATION 01/23/2019 MAX PÉREZ MD Ot Q21.1 ATRIAL SEPTAL DEFECT 01/23/2019 AGUSTO BAKER MD Ot C61 MALIGNANT NEOPLASM OF PROSTATE 01/23/2019 AGUSTO BAKER MD Ot K57.30 DVRTCLOS OF LG INT W/O PERFORATION OR AB 01/23/2019 AGUSTO BAKER MD Ot N20.0 CALCULUS OF KIDNEY 01/23/2019 AGUSTO BAKER MD Ot N28.1 CYST OF KIDNEY, ACQUIRED 01/23/2019 SAMUEL LUJAN, AGUSTO Lim Ot Z87.440 PERSONAL HISTORY OF URINARY (TRACT) INFE 01/23/2019 SAMUEL LUJAN, AGUSTO Lim Ot 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 Results Test Result Range Complete blood count (CBC) with automated white blood cell (WBC) differential - 05/30/17 11:53 Blood leukocytes automated count (number/volume) 5.7 10*3/uL 4.3-11.0 Blood erythrocytes automated count (number/volume) 4.11 10*6/uL 4.35-5.85 Venous blood hemoglobin measurement (mass/volume) 12.6 [...] Automated blood platelet mean volume measurement 10.2 [foz_us] 7.4-10.4 Automated blood neutrophils/100 leukocytes 59 % [...] Serum or plasma sodium measurement (moles/volume) 136 mmol/L 135-145 Serum or plasma potassium measurement (moles/volume) 4.5 mmol/L 3.6-5.0 Serum or plasma chloride measurement (moles/volume) 106 mmol/L 98-107 Carbon dioxide 15 mmol/L 21-32 Serum or plasma anion gap determination (moles/volume) 15 mmol/L 5-14 Serum or plasma urea nitrogen measurement (mass/volume) 16 mg/dL 7-18 Serum or plasma creatinine measurement (mass/volume) 1.47 mg/dL 0.60-1.30 Serum or plasma urea nitrogen/creatinine mass [...] or plasma troponin i.cardiac measurement (mass/volume) < ng/ mL <0.30 Complete urinalysis with reflex to culture - 05/30/17 12:59 Urine color determination YELLOW NRG Urine clarity determination SLIGHTLY CLOUDY NRG Urine pH measurement by test strip 5 5-9 Specific gravity of urine by test strip 1.020 1.016- 1.022 Urine protein assay by test strip, semi-quantitative [...] 03:46 Blood leukocytes automated count (number/volume) 5.3 10*3/uL 4.3-11.0 Blood erythrocytes automated count (number/volume) 3.50 10*6/uL 4.35-5.85 Venous blood hemoglobin measurement (mass/volume) 10.5 [...] Automated blood platelet mean volume measurement 10.5 [foz_us] 7.4-10.4 Comprehensive metabolic panel - 05/31/17 03:46 Serum or plasma sodium measurement (moles/volume) 137 mmol/L 135-145 Serum or plasma potassium measurement (moles/volume) 3.9 mmol/L 3.6-5.0 Serum or plasma chloride measurement (moles/volume) 109 mmol/L 98-107 Carbon dioxide 20 mmol/L 21-32 Serum or plasma anion gap determination (moles/volume) 8 mmol/L 5-14 Serum or plasma urea nitrogen measurement (mass/volume) 14 mg/dL 7-18 Serum or plasma creatinine measurement (mass/volume) 1.10 mg/dL 0.60-1.30 Serum or plasma urea nitrogen/creatinine mass [...] or plasma troponin i.cardiac measurement (mass/volume) < ng/ mL <0.30 THYROID STIMULATING HORMONE - 05/31/17 03:46 THYROID STIMULATING HORMONE 1.42 u[iU]/mL 0.35-4.94 PT panel in platelet poor plasma by coagulation assay - 06/01/17 04:00 Prothrombin time (PT) in platelet poor plasma by coagulation assay 28.5 s 12.2-14.7 INR in platelet poor plasma or blood by coagulation assay 2.7 0.8-1.4 Complete blood count (CBC) with automated white blood cell (WBC) differential - 09/07/17 09:02 Blood leukocytes automated count (number/volume) 13.9 10*3/uL 4.3-11.0 Blood erythrocytes automated count (number/volume) 3.80 10*6/uL 4.35-5.85 Venous blood hemoglobin measurement (mass/volume) 11.9 g/dL 13.3-17.7 Blood hematocrit (volume fraction) 37 % 40-54 Automated erythrocyte mean corpuscular volume 96 [foz_us] 80-99 Automated erythrocyte mean corpuscular hemoglobin (mass per erythrocyte) 31 pg 25-34 Automated erythrocyte mean corpuscular hemoglobin concentration measurement ( mass/volume) 33 g/dL 32-36 Automated erythrocyte distribution width ratio 14.9 % 10.0-14.5 Automated blood platelet count (count/volume) 162 10*3/uL 130-400 Automated blood platelet mean volume measurement 10.6 [foz_us] 7.4-10.4 Automated blood neutrophils/100 leukocytes 66 % 42-75 Automated blood lymphocytes/100 leukocytes 7 % 12-44 Blood monocytes/100 leukocytes 24 % 0-12 Automated blood eosinophils/100 leukocytes 3 % 0-10 Automated blood basophils/100 leukocytes 0 % 0-10 Blood neutrophils automated count (number/volume) 9.2 10*3 1.8-7.8 Blood lymphocytes automated count (number/volume) 1.0 10*3 1.0-4.0 Blood monocytes automated count (number/volume) 3.3 10*3 0.0-1.0 Automated eosinophil count 0.4 10*3/uL 0.0-0.3 Automated blood basophil count (count/volume) 0.0 10*3/uL 0.0-0.1 Comprehensive metabolic panel - 09/07/17 09:02 Serum or plasma sodium measurement (moles/volume) 137 mmol/L 135-145 Serum or plasma potassium measurement (moles/volume) 4.0 mmol/L 3.6-5.0 Serum or plasma chloride measurement (moles/volume) 104 mmol/L 98-107 Carbon dioxide 23 mmol/L 21-32 Serum or plasma anion gap determination (moles/volume) 10 mmol/L 5-14 Serum or plasma urea nitrogen measurement (mass/volume) 28 mg/dL 7-18 Serum or plasma creatinine measurement (mass/volume) 1.14 mg/dL 0.60-1.30 Serum or plasma urea nitrogen/creatinine mass ratio 25 NRG Serum or plasma creatinine measurement with calculation of estimated glomerular filtration rate > NRG Serum or plasma glucose measurement (mass/volume) 98 mg/dL 70-105 Serum or plasma calcium measurement (mass/volume) 9.5 mg/dL 8.5-10.1 Serum or plasma total bilirubin measurement (mass/volume) 1.3 mg/dL 0.1-1.0 Serum or plasma alkaline phosphatase measurement (enzymatic activity/volume) 54 U/L 40-136 Serum or plasma aspartate aminotransferase measurement (enzymatic activity/ volume) 46 U/L 5-34 Serum or plasma alanine aminotransferase measurement (enzymatic activity/volume ) 17 U/L 0-55 Serum or plasma protein measurement (mass/volume) 6.7 g/dL 6.4-8.2 Serum or plasma albumin measurement (mass/volume) 3.3 g/dL 3.2-4.5 Serum or plasma creatine kinase measurement (enzymatic activity/volume) - 09/07 09:02 Serum or plasma creatine kinase measurement (enzymatic activity/volume) 1238 U/L 30-200 Blood manual differential performed detection - 09/07/17 09:02 Blood monocytes/100 leukocytes 14 % NRG Manual blood segmented neutrophils/100 leukocytes 69 % NRG Blood band neutrophils/100 leukocytes 1 % NRG Manual blood lymphocytes/100 leukocytes 12 % NRG Manual eosinophils/100 leukocytes in nose 4 % NRG Blood erythrocyte morphology finding identification NORMAL NRG Blood dohle body detection by light microscopy SLIGHT NRG Complete urinalysis with reflex to culture - 09/07/17 10:45 Urine color determination STRAW NRG Urine clarity determination CLEAR NRG Urine pH measurement by test strip 5 5-9 Specific gravity of urine by test strip 1.020 1.016- 1.022 Urine protein assay by test strip, semi-quantitative 1+ NEGATIVE Urine glucose detection by automated test strip NEGATIVE NEGATIVE Erythrocytes detection in urine sediment by light microscopy 5+ NEGATIVE Urine ketones detection by automated test strip 1+ NEGATIVE Urine nitrite detection by test strip NEGATIVE NEGATIVE Urine total bilirubin detection by test strip NEGATIVE NEGATIVE Urine urobilinogen measurement by automated test strip (mass/volume) NORMAL NORMAL Urine leukocyte esterase detection by dipstick NEGATIVE NEGATIVE Automated urine sediment erythrocyte count by microscopy (number/high power field) RARE NRG Automated urine sediment leukocyte count by microscopy (number/high power field ) RARE NRG Bacteria detection in urine sediment by light microscopy FEW NRG Crystals detection in urine sediment by light microscopy NONE NRG Casts detection in urine sediment by light microscopy NONE NRG Mucus detection in urine sediment by light microscopy NEGATIVE NRG Complete urinalysis with reflex to culture NO NRG Complete blood count (CBC) with automated white blood cell (WBC) differential - 09/08/17 05:19 Blood leukocytes automated count (number/volume) 8.0 10*3/uL 4.3-11.0 Blood erythrocytes automated count (number/volume) 3.45 10*6/uL 4.35-5.85 Venous blood hemoglobin measurement (mass/volume) 10.4 g/dL 13.3-17.7 Blood hematocrit (volume fraction) 34 % 40-54 Automated erythrocyte mean corpuscular volume 98 [foz_us] 80-99 Automated erythrocyte mean corpuscular hemoglobin (mass per erythrocyte) 30 pg 25-34 Automated erythrocyte mean corpuscular hemoglobin concentration measurement ( mass/volume) 31 g/dL 32-36 Automated erythrocyte distribution width ratio 14.6 % 10.0-14.5 Automated blood platelet count (count/volume) 148 10*3/uL 130-400 Automated blood platelet mean volume measurement 10.6 [foz_us] 7.4-10.4 Automated blood neutrophils/100 leukocytes 44 % 42-75 Automated blood lymphocytes/100 leukocytes 24 % 12-44 Blood monocytes/100 leukocytes 26 % 0-12 Automated blood eosinophils/100 leukocytes 6 % 0-10 Automated blood basophils/100 leukocytes 0 % 0-10 Blood neutrophils automated count (number/volume) 3.5 10*3 1.8-7.8 Blood lymphocytes automated count (number/volume) 1.9 10*3 1.0-4.0 Blood monocytes automated count (number/volume) 2.1 10*3 0.0-1.0 Automated eosinophil count 0.5 10*3/uL 0.0-0.3 Automated blood basophil count (count/volume) 0.0 10*3/uL 0.0-0.1 Comprehensive metabolic panel - 09/08/17 05:19 Serum or plasma sodium measurement (moles/volume) 140 mmol/L 135-145 Serum or plasma potassium measurement (moles/volume) 3.8 mmol/L 3.6-5.0 Serum or plasma chloride measurement (moles/volume) 112 mmol/L 98-107 Carbon dioxide 21 mmol/L 21-32 Serum or plasma anion gap determination (moles/volume) 7 mmol/L 5-14 Serum or plasma urea nitrogen measurement (mass/volume) 25 mg/dL 7-18 Serum or plasma creatinine measurement (mass/volume) 0.99 mg/dL 0.60-1.30 Serum or plasma urea nitrogen/creatinine mass ratio 25 NRG Serum or plasma creatinine measurement with calculation of estimated glomerular filtration rate > NRG Serum or plasma glucose measurement (mass/volume) 80 mg/dL 70-105 Serum or plasma calcium measurement (mass/volume) 8.2 mg/dL 8.5-10.1 Serum or plasma total bilirubin measurement (mass/volume) 0.4 mg/dL 0.1-1.0 Serum or plasma alkaline phosphatase measurement (enzymatic activity/volume) 39 U/L 40-136 Serum or plasma aspartate aminotransferase measurement (enzymatic activity/ volume) 53 U/L 5-34 Serum or plasma alanine aminotransferase measurement (enzymatic activity/volume ) 23 U/L 0-55 Serum or plasma protein measurement (mass/volume) 5.0 g/dL 6.4-8.2 Serum or plasma albumin measurement (mass/volume) 2.7 g/dL 3.2-4.5 Serum or plasma creatine kinase measurement (enzymatic activity/volume) - 09/08 05:19 Serum or plasma creatine kinase measurement (enzymatic activity/volume) 876 U/L 30-200 Complete blood count (CBC) with automated white blood cell (WBC) differential - 09/09/17 05:00 Blood leukocytes automated count (number/volume) 7.9 10*3/uL 4.3-11.0 Blood erythrocytes automated count (number/volume) 3.57 10*6/uL 4.35-5.85 Venous blood hemoglobin measurement (mass/volume) 10.8 g/dL 13.3-17.7 Blood hematocrit (volume fraction) 35 % 40-54 Automated erythrocyte mean corpuscular volume 98 [foz_us] 80-99 Automated erythrocyte mean corpuscular hemoglobin (mass per erythrocyte) 30 pg 25-34 Automated erythrocyte mean corpuscular hemoglobin concentration measurement ( mass/volume) 31 g/dL 32-36 Automated erythrocyte distribution width ratio 14.7 % 10.0-14.5 Automated blood platelet count (count/volume) 155 10*3/uL 130-400 Automated blood platelet mean volume measurement 10.3 [foz_us] 7.4-10.4 Automated blood neutrophils/100 leukocytes 50 % 42-75 Automated blood lymphocytes/100 leukocytes 25 % 12-44 Blood monocytes/100 leukocytes 21 % 0-12 Automated blood eosinophils/100 leukocytes 4 % 0-10 Automated blood basophils/100 leukocytes 1 % 0-10 Blood neutrophils automated count (number/volume) 3.9 10*3 1.8-7.8 Blood lymphocytes automated count (number/volume) 1.9 10*3 1.0-4.0 Blood monocytes automated count (number/volume) 1.7 10*3 0.0-1.0 Automated eosinophil count 0.3 10*3/uL 0.0-0.3 Automated blood basophil count (count/volume) 0.0 10*3/uL 0.0-0.1 Comprehensive metabolic panel - 09/09/17 05:00 Serum or plasma sodium measurement (moles/volume) 138 mmol/L 135-145 Serum or plasma potassium measurement (moles/volume) 3.5 mmol/L 3.6-5.0 Serum or plasma chloride measurement (moles/volume) 113 mmol/L 98-107 Carbon dioxide 19 mmol/L 21-32 Serum or plasma anion gap determination (moles/volume) 6 mmol/L 5-14 Serum or plasma urea nitrogen measurement (mass/volume) 19 mg/dL 7-18 Serum or plasma creatinine measurement (mass/volume) 0.90 mg/dL 0.60-1.30 Serum or plasma urea nitrogen/creatinine mass ratio 21 NRG Serum or plasma creatinine measurement with calculation of estimated glomerular filtration rate > NRG Serum or plasma glucose measurement (mass/volume) 82 mg/dL 70-105 Serum or plasma calcium measurement (mass/volume) 7.9 mg/dL 8.5-10.1 Serum or plasma total bilirubin measurement (mass/volume) 0.4 mg/dL 0.1-1.0 Serum or plasma alkaline phosphatase measurement (enzymatic activity/volume) 44 U/L 40-136 Serum or plasma aspartate aminotransferase measurement (enzymatic activity/ volume) 47 U/L 5-34 Serum or plasma alanine aminotransferase measurement (enzymatic activity/volume ) 27 U/L 0-55 Serum or plasma protein measurement (mass/volume) 5.5 g/dL 6.4-8.2 Serum or plasma albumin measurement (mass/volume) 2.7 g/dL 3.2-4.5 Serum or plasma creatine kinase measurement (enzymatic activity/volume) - 09/09 05:00 Serum or plasma creatine kinase measurement (enzymatic activity/volume) 544 U/L 30-200 Complete blood count (CBC) with automated white blood cell (WBC) differential - 09/12/17 05:35 Blood leukocytes automated count (number/volume) 6.6 10*3/uL 4.3-11.0 Blood erythrocytes automated count (number/volume) 3.75 10*6/uL 4.35-5.85 Venous blood hemoglobin measurement (mass/volume) 11.4 g/dL 13.3-17.7 Blood hematocrit (volume fraction) 36 % 40-54 Automated erythrocyte mean corpuscular volume 96 [foz_us] 80-99 Automated erythrocyte mean corpuscular hemoglobin (mass per erythrocyte) 30 pg 25-34 Automated erythrocyte mean corpuscular hemoglobin concentration measurement ( mass/volume) 32 g/dL 32-36 Automated erythrocyte distribution width ratio 14.5 % 10.0-14.5 Automated blood platelet count (count/volume) 214 10*3/uL 130-400 Automated blood platelet mean volume measurement 9.5 [foz_us] 7.4-10.4 Automated blood neutrophils/100 leukocytes 36 % 42-75 Automated blood lymphocytes/100 leukocytes 34 % 12-44 Blood monocytes/100 leukocytes 25 % 0-12 Automated blood eosinophils/100 leukocytes 4 % 0-10 Automated blood basophils/100 leukocytes 2 % 0-10 Blood neutrophils automated count (number/volume) 2.4 10*3 1.8-7.8 Blood lymphocytes automated count (number/volume) 2.3 10*3 1.0-4.0 Blood monocytes automated count (number/volume) 1.6 10*3 0.0-1.0 Automated eosinophil count 0.3 10*3/uL 0.0-0.3 Automated blood basophil count (count/volume) 0.1 10*3/uL 0.0-0.1 Comprehensive metabolic panel - 09/12/17 05:35 Serum or plasma sodium measurement (moles/volume) 140 mmol/L 135-145 Serum or plasma potassium measurement (moles/volume) 4.2 mmol/L 3.6-5.0 Serum or plasma chloride measurement (moles/volume) 107 mmol/L 98-107 Carbon dioxide 25 mmol/L 21-32 Serum or plasma anion gap determination (moles/volume) 8 mmol/L 5-14 Serum or plasma urea nitrogen measurement (mass/volume) 21 mg/dL 7-18 Serum or plasma creatinine measurement (mass/volume) 0.85 mg/dL 0.60-1.30 Serum or plasma urea nitrogen/creatinine mass ratio 25 NRG Serum or plasma creatinine measurement with calculation of estimated glomerular filtration rate > NRG Serum or plasma glucose measurement (mass/volume) 88 mg/dL 70-105 Serum or plasma calcium measurement (mass/volume) 8.9 mg/dL 8.5-10.1 Serum or plasma total bilirubin measurement (mass/volume) 0.6 mg/dL 0.1-1.0 Serum or plasma alkaline phosphatase measurement (enzymatic activity/volume) 42 U/L 40-136 Serum or plasma aspartate aminotransferase measurement (enzymatic activity/ volume) 35 U/L 5-34 Serum or plasma alanine aminotransferase measurement (enzymatic activity/volume ) 29 U/L 0-55 Serum or plasma protein measurement (mass/volume) 6.3 g/dL 6.4-8.2 Serum or plasma albumin measurement (mass/volume) 3.0 g/dL 3.2-4.5 Complete blood count (CBC) with automated white blood cell (WBC) differential - 01/23/19 08:59 Blood leukocytes automated count (number/volume) 2.5 10*3/uL 4.3-11.0 Blood erythrocytes automated count (number/volume) 2.13 10*6/uL 4.35-5.85 Venous blood hemoglobin measurement (mass/volume) 7.2 g/dL 13.3-17.7 Blood hematocrit (volume fraction) 24 % 40-54 Automated erythrocyte mean corpuscular volume 110 [foz_us] 80-99 Automated erythrocyte mean corpuscular hemoglobin (mass per erythrocyte) 34 pg 25-34 Automated erythrocyte mean corpuscular hemoglobin concentration measurement ( mass/volume) 31 g/dL 32-36 Automated erythrocyte distribution width ratio 19.4 % 10.0-14.5 Automated blood platelet count (count/volume) 77 10*3/uL 130-400 Automated blood platelet mean volume measurement 10.4 [foz_us] 7.4-10.4 Automated blood neutrophils/100 leukocytes 29 % 42-75 Automated blood lymphocytes/100 leukocytes 50 % 12-44 Blood monocytes/100 leukocytes 19 % 0-12 Automated blood eosinophils/100 leukocytes 1 % 0-10 Automated blood basophils/100 leukocytes 1 % 0-10 Blood neutrophils automated count (number/volume) 0.7 10*3 1.8-7.8 Blood lymphocytes automated count (number/volume) 1.3 10*3 1.0-4.0 Blood monocytes automated count (number/volume) 0.5 10*3 0.0-1.0 Automated eosinophil count 0.0 10*3/uL 0.0-0.3 Automated blood basophil count (count/volume) 0.0 10*3/uL 0.0-0.1 PT panel in platelet poor plasma by coagulation assay - 01/23/19 08:59 Prothrombin time (PT) in platelet poor plasma by coagulation assay 19.5 s 12.2-14.7 INR in platelet poor plasma or blood by coagulation assay 1.6 0.8-1.4 Activated partial thromboplastin time (aPTT) in platelet poor plasma bycoagulation assay - 01/23/19 08:59 Activated partial thromboplastin time (aPTT) in platelet poor plasma bycoagulation assay 40 s 24-35 Comprehensive metabolic panel - 01/23/19 08:59 Serum or plasma sodium measurement (moles/volume) 137 mmol/L 135-145 Serum or plasma potassium measurement (moles/volume) 4.0 mmol/L 3.6-5.0 Serum or plasma chloride measurement (moles/volume) 104 mmol/L 98-107 Carbon dioxide 23 mmol/L 21-32 Serum or plasma anion gap determination (moles/volume) 10 mmol/L 5-14 Serum or plasma urea nitrogen measurement (mass/volume) 17 mg/dL 7-18 Serum or plasma creatinine measurement (mass/volume) 1.04 mg/dL 0.60-1.30 Serum or plasma urea nitrogen/creatinine mass ratio 16 NRG Serum or plasma creatinine measurement with calculation of estimated glomerular filtration rate > NRG Serum or plasma glucose measurement (mass/volume) 80 mg/dL 70-105 Serum or plasma calcium measurement (mass/volume) 8.7 mg/dL 8.5-10.1 Serum or plasma total bilirubin measurement (mass/volume) 1.2 mg/dL 0.1-1.0 Serum or plasma alkaline phosphatase measurement (enzymatic activity/volume) 53 U/L 40-136 Serum or plasma aspartate aminotransferase measurement (enzymatic activity/ volume) 23 U/L 5-34 Serum or plasma alanine aminotransferase measurement (enzymatic activity/volume ) 8 U/L 0-55 Serum or plasma protein measurement (mass/volume) 6.0 g/dL 6.4-8.2 Serum or plasma albumin measurement (mass/volume) 2.9 g/dL 3.2-4.5 CALCIUM CORRECTED 9.6 mg/dL 8.5-10.1 Magnesium - 01/23/19 08:59 Magnesium 1.9 mg/dL 1.8-2.4 Serum or plasma troponin i.cardiac measurement (mass/volume) - 01/23/19 08:59 Serum or plasma troponin i.cardiac measurement (mass/volume) < ng/ mL <0.028 Myoglobin, serum - 01/23/19 08:59 Myoglobin, serum 43.0 ng/mL 10.0-92.0 Blood manual differential performed detection - 01/23/19 08:59 Blood monocytes/100 leukocytes 17 % NRG Manual blood segmented neutrophils/100 leukocytes 31 % NRG Blood band neutrophils/100 leukocytes 2 % NRG Manual blood lymphocytes/100 leukocytes 49 % NRG Manual eosinophils/100 leukocytes in nose 0 % NRG Manual blood basophils/100 leukocytes 0 % NRG Blood lymphocytes variant/100 leukocytes 1 % NRG Blood polychromasia detection by light microscopy SLIGHT NRG Blood anisocytosis detection by light microscopy MODERATE NRG Blood macrocytes detection by light microscopy MODERATE NRG Serum or plasma lithium measurement (moles/volume) - 01/23/19 09:00 BNP level 278.3 pg/mL <100.0 Complete urinalysis with reflex to culture - 01/23/19 09:09 Urine color determination YELLOW NRG Urine clarity determination CLEAR NRG Urine pH measurement by test strip 5 5-9 Specific gravity of urine by test strip 1.015 1.016- 1.022 Urine protein assay by test strip, semi-quantitative NEGATIVE NEGATIVE Urine glucose detection by automated test strip NEGATIVE NEGATIVE Erythrocytes detection in urine sediment by light microscopy 2+ NEGATIVE Urine ketones detection by automated test strip NEGATIVE NEGATIVE Urine nitrite detection by test strip NEGATIVE NEGATIVE Urine total bilirubin detection by test strip NEGATIVE NEGATIVE Urine urobilinogen measurement by automated test strip (mass/volume) 1 mg/dL NORMAL Urine leukocyte esterase detection by dipstick 1+ NEGATIVE Automated urine sediment erythrocyte count by microscopy (number/high power field) [HPF] NRG Automated urine sediment leukocyte count by microscopy (number/high power field ) [HPF] NRG Bacteria detection in urine sediment by light microscopy TRACE NRG Squamous epithelial cells detection in urine sediment by light microscopy 0-2 NRG Crystals detection in urine sediment by light microscopy NONE NRG Casts detection in urine sediment by light microscopy PRESENT NRG Mucus detection in urine sediment by light microscopy SMALL NRG Complete urinalysis with reflex to culture NO NRG Hyaline casts detection in urine sediment by light microscopy 2-5 NRG Whole blood hemoglobin and hematocrit panel - 01/23/19 15:52 Venous blood hemoglobin measurement (mass/volume) 7.0 g/dL 13.3-17.7 Blood hematocrit (volume fraction) 23 % 40-54 Encounters ACCT No. Visit Date/Time Discharge Status Pt. 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 [id number] 09/01/2018 13:46:00 09/01/2018 23:59:59 CLS Outpatient AGUSTO BAKER MD [facility] RAD DISTAL URETHERAL SEVERE STRICTURE [id number] 08/18/2018 13:31:00 08/18/2018 23:59:59 CLS Outpatient AGUSTO BAKER MD [facility] RAD H/O UTI'S AND STONES [id number] 09/09/2017 11:53:00 09/19/2017 10:30:00 DIS Inpatient KILEY CAM MD [facility] IRF FALL WITH INJURIES [id number] 09/07/2017 10:50:00 09/09/2017 11:12:00 DIS Inpatient GANESH CRAVEN MD [facility] 4TH RHABDOMYOLYSIS,FALL, ORTHOSTASIS [id number] 08/28/2017 10:08:00 08/28/2017 23:59:59 CLS Outpatient TG DAWN [facility] RAD MEMORY LOSS [id number] 05/30/2017 14:01:00 06/01/2017 11:50:00 DIS Inpatient ZAK GARCIA DO [facility] 4TH SEPSIS,AFIB W/RVR,UTI, ACUTE KIDNEY INJ,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 [id number] 02/07/2016 09:47:00 02/09/2016 12:30:00 DIS Inpatient CIRO HICKS MD [facility] 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/RVR [id number] 03/21/2015 10:56:00 03/21/2015 23:59:59 CLS Outpatient CIRO HICKS MD [facility] RAD STONES [id number] 03/14/2015 11:04:00 03/14/2015 23:59:59 CLS Outpatient CIRO HICKS MD [facility] RAD ABD PAIN AND NAUSEA, SMOKER [id number] 01/23/2019 10:32:00 ACT Inpatient GANESH CRAVEN MD [facility] 4TH A-FIB RVR [id number] 03/14/2015 11:01:00 Document Registration [id number] 03/14/2015 11:01:00 Document Registration [id number] 03/19/2012 11:47:00 Document Registration [id number] 05/11/2010 16:55:00 Document Registration [id number] 11/16/2009 10:29:00 Document Registration
--- OUTSIDE RECORDS SUMMARY | 2019-01-25 09:12 | XMS REPORT | Clinical Summary ---
Author Author [facility] Organization [facility] Address Unknown Phone Unavailable Care Team Providers Care Solar Sales Rep Name Role Phone Fernanda Pittman MD PCP Source Comments Some departments are not documenting in the electronic medical record. If you do not see the information that you expected, contact Release of Information in the Health Information Management department at [phone] for further assistance in locating additional records.[facility] Allergies No Known Allergies Medications End [...] Taken Vital Sign Reading 01/06/2019 1:56 PM ADMISSION NURSE COORDINATOR Blood Pressure 112/67 01/06/2019 1:56 PM ADMISSION NURSE COORDINATOR Pulse 72 01/06/2019 1:56 PM ADMISSION NURSE COORDINATOR Temperature 36.6 C (97.8 F) 01/06/2019 1:56 PM ADMISSION NURSE COORDINATOR Respiratory Rate 18 01/06/2019 1:56 PM ADMISSION NURSE COORDINATOR Oxygen Saturation 98% - Inhaled Oxygen - Concentration 01/06/2019 1:56 PM ADMISSION NURSE COORDINATOR Weight 67.6 kg (149 lb) 01/06/2019 1:56 PM ADMISSION NURSE COORDINATOR Height 173.4 cm (5' 8.28") 01/06/2019 1:56 PM ADMISSION NURSE COORDINATOR Body Mass Index 22.47 Plan of Treatment Health Maintenance Due Date Last Done Comments PHYSICAL (COMPREHENSIVE) 1937 EXAM DTAP/TDAP VACCINES (1 - 1950 Tdap) SHINGLES RECOMBINANT 1982 VACCINE (1 of 2) PNEUMONIA (PCV13/PPSV23) 1997 VACCINES (1 of 2 - PCV13) INFLUENZA VACCINE 06/25/2019 Procedures Comments Procedure Name Priority Date/Time Associated Diagnosis URETHROCYSTOGRAM VOIDING Routine 01/06/2019 Other anterior urethral 1:40 PM ADMISSION NURSE COORDINATOR stricture, male, anterior BASIC METABOLIC PANEL Routine 12/04/2018 4:10 AM ADMISSION NURSE COORDINATOR CBC Routine 12/04/2018 4:10 AM ADMISSION NURSE COORDINATOR URETHROPLASTY WITH ONE 12/03/2018 Other anterior urethral STAGE RECONSTRUCTION MALE 12:20 PM ADMISSION NURSE COORDINATOR stricture, male, anterior ANTERIOR URETHRA TYPE & CROSSMATCH STAT 12/03/2018 Preop examination 11:58 AM ADMISSION NURSE COORDINATOR SURGICAL PATHOLOGY 12/03/2018 7:33 AM ADMISSION NURSE COORDINATOR TELEMETRY STRIPS-SCAN 12/03/2018 12:00 AM ADMISSION NURSE COORDINATOR TYPE & SCREEN (NOT Routine 11/20/2018 Preop examination CROSSMATCH ELIGIBLE) 1:30 PM ADMISSION NURSE COORDINATOR BASIC METABOLIC PANEL Routine 11/20/2018 Preop examination 1:30 PM ADMISSION NURSE COORDINATOR CBC Routine 11/20/2018 Preop examination 1:30 PM ADMISSION NURSE COORDINATOR ECG-SCAN 11/20/2018 12:00 AM ADMISSION NURSE COORDINATOR from Last 3 Months Results * URETHROCYSTOGRAM VOIDING (01/06/2019 1:40 PM ADMISSION NURSE COORDINATOR) Impressions Performed At 1. No residual stricture [...] Interface, Radiant Results - 01/06/2019 4:49 PM ADMISSION NURSE COORDINATOR URETHROCYSTOGRAM VOIDING CLINICAL HISTORY: Male, 88 years [...] on 01/06/2019 2:17 PM. Performing Organization Address City/State/[facility] Phone Number RAD RESULTS * CBC (12/04/2018 4:10 AM ADMISSION NURSE COORDINATOR) Only the most recent of 2 results [...] MAIN LAB Specimen Blood Performing Organization Address City/[facility] Phone Number [facility] [address] [place] [address] * BASIC METABOLIC PANEL (12/04/2018 4:10 AM ADMISSION NURSE COORDINATOR) Only the most recent of 2 results [...] for questions. Specimen Blood Performing Organization Address City/[facility]/Zipcode Phone Number [facility] [address] [place] [address] * TYPE & CROSSMATCH (12/03/2018 11:58 AM ADMISSION NURSE COORDINATOR) Units Ordered 0 [facility] Crossmatch Expires 12/06/2018 [facility] Record Check FOUND [facility] ABO/RH(D) AB NEG [facility] Antibody Screen NEG [facility] Electronic Crossmatch YES [facility] Specimen Blood Performing Organization Address City/[facility]/Zipcode Phone Number [facility] [address] [place] [address] * SURGICAL PATHOLOGY (12/03/2018 7:33 AM ADMISSION NURSE COORDINATOR) PATHOLOGY REPORT [facility] [email or web address] Department of Pathology and Laboratory Medicine [address] [place] [address] Surgical Pathology Office:[phone] :[phone] SURGICAL PATHOLOGY REPORT NAME: INDIRA TODD SURG PATH #: [id number] MR #: [id number] SPECIMEN CLASS: SR BILLING #: [id number] ALT ID #:LOCATION: [id number] DATE OF PROCEDURE: [...] entirely submitted as follows: A1 Smaller fragment. A2-C8Tumrhu fragment. (dlk) Performing Organization Address [facility] Phone Number [facility] [address] [place] [address] * TELEMETRY STRIPS-SCAN (12/03/2018 12:00 AM ADMISSION NURSE COORDINATOR) Narrative Performed At Ordered by an unspecified provider. * TYPE & SCREEN (NOT CROSSMATCH ELIGIBLE) (11/20/2018 1:30 PM ADMISSION NURSE COORDINATOR) ABO/RH(D) AB NEG MAIN LAB Antibody Screen NEG MAIN LAB Blood Component Type [facility] MAIN LAB Specimen Blood, venous - Blood Performing Organization Address [facility] Phone Number [facility] [address] [place] [address] * ECG-SCAN (11/20/2018 12:00 AM ADMISSION NURSE COORDINATOR) Narrative Performed At Ordered by an unspecified provider. from Last 3 Months Insurance Payer Benefit Subscriber ID Type Phone Address Plan / Group MEDICARE MEDICARE xxxxxxxxxxx Medicare PART A AND B [employer] x[place]x [place] [employer] [place] Advance Directives Patient has advance care planning documents, and code status on file. For more information, please contact: [facility] [address] [place] [address] Date Inactivated Comments Code Status Date Activated 12/04/2018 1:56 PM Full Code 12/03/2018 5:22 PM Provider has discussed Code Status No, more discussion w/Patient or Family? needed
--- OUTSIDE RECORDS SUMMARY | 2019-01-25 09:13 | XMS REPORT | Encounter Summary ---
Author Author [facility] Organization [facility] Address Unknown Phone Unavailable Care Team Providers Care Medic Technician Name Role Phone Fernanda Pittman MD PCP Reason for Referral * Radiology Services (Routine) Referred By Contact Referred To Contact Status Reason Specialty Diagnoses / Procedures Pooja Barroso, BRIAN-OYSTER TONGER [address] [facility] Ortho[facility] [address] [place] [address] Radiology [facility] [address] [place] [address] No Auth Needed Radiology Diagnoses Other anterior urethral stricture, male, anterior P rocedures URETHROCYSTOGRAM VOIDING Encounter Details Care Team Description Date [place] [address] [place] [address] [phone] Other anterior urethral stricture, male, anterior (Primary Dx) 12/04/2018 Orders Only [facility] - Urology Ortho and [facility] Pavilion Level [address] [place] [address] Social History Date Tobacco Use [...] Results * URETHROCYSTOGRAM VOIDING (01/06/2019 1:40 PM COVERING MACHINE TENDER) Impressions Performed At 1. No residual stricture [...] Interface, Radiant Results - 01/06/2019 4:49 PM COVERING MACHINE TENDER URETHROCYSTOGRAM VOIDING CLINICAL HISTORY: Male, 88 years [...]
--- OUTSIDE RECORDS SUMMARY | 2019-01-25 09:13 | XMS REPORT | Encounter Summary ---
Author Author [facility] Organization [facility] Address Unknown Phone Unavailable Care Team Providers Care Pattern Molder Name Role Phone Fernanda Pittman MD PCP Reason for Visit * Reason Comments UTI Encounter Details Care Team Description Date Type Department Quintin Bonds MD [address] [place] [address] UTI 12/31/2018 Telephone [facility] - Urology [facility] Level [address] [place] [address] Social History Date Tobacco Use [...] Quintin Bonds MD - 12/31/2018 3:[address] Alcantara's administrative office specialist sent a Urine culture result on Mr. Cruz to me this afternoon that does show a UTI. The result needs to be processed by a reference lab but I sent macrobid to his pharmacy and told them to keep us updated with results as they come in. Quintin Bonds MD Urology PGY3 [phone] Please call urology on-call with questions GER FIBER in this encounter Plan of Treatment Not on fileas of this encounter Visit Diagnoses Not on filein this encounter
--- OUTSIDE RECORDS SUMMARY | 2019-01-25 09:13 | XMS REPORT | Encounter Summary ---
Author Author [facility] Organization [facility] Address Unknown Phone Unavailable Care Team Providers Care Postal Worker Name Role Phone Fernanda Pittman MD PCP Reason for Visit * Reason Comments Heme/Onc Care Encounter Details Care Team Description Date [place] [address] [place] [address] Other anterior urethral stricture, male, anterior (Primary Dx) 01/06/2019 Office Visit [facility] - IC Exam [address] [place], [place] [id number] Social History Date Tobacco Use Types Packs/Day [...] Taken Vital Sign Reading 01/06/2019 1:56 PM DIESEL ENGINE MECHANIC APPRENTICE Blood Pressure 112/67 01/06/2019 1:56 PM DIESEL ENGINE MECHANIC APPRENTICE Pulse 72 01/06/2019 1:56 PM DIESEL ENGINE MECHANIC APPRENTICE Temperature 36.6 C (97.8 F) 01/06/2019 1:56 PM DIESEL ENGINE MECHANIC APPRENTICE Respiratory Rate 18 01/06/2019 1:56 PM DIESEL ENGINE MECHANIC APPRENTICE Oxygen Saturation 98% - Inhaled Oxygen - Concentration 01/06/2019 1:56 PM DIESEL ENGINE MECHANIC APPRENTICE Weight 67.6 kg (149 lb) 01/06/2019 1:56 PM DIESEL ENGINE MECHANIC APPRENTICE Height 173.4 cm (5' 8.28") 01/06/2019 1:56 PM DIESEL ENGINE MECHANIC APPRENTICE Body Mass Index 22.47 in this encounter [...] Zeeshan Alcantara MD - 01/06/2019 1:30 PM DIESEL ENGINE MECHANIC APPRENTICE Name: Walter Cruz : 1930 AGE: 88 [...] f/u with outside urologist, will RTC PRN. EL ENGINE MECHANIC APPRENTICE in this encounter Plan of Treatment Not on fileas of this encounter Visit Diagnoses Diagnosis Other anterior urethral stricture, male, anterior - Primary in this encounter
--- OUTSIDE RECORDS SUMMARY | 2019-01-25 09:13 | XMS REPORT | Encounter Summary ---
Author Author [facility] Organization [facility] Address Unknown Phone Unavailable Care Team Providers Care Lease Broker Name Role Phone Fernanda Pittman MD PCP Reason for Referral * Radiology Services (Routine) Referred By Contact Referred To Contact Status Reason Specialty Diagnoses / Procedures Pooja Barroso APRN-NP [address] [facility] [address] [place] [address] [place] [address] No Auth Needed Radiology Diagnoses Other anterior urethral stricture, male, anterior P rocedures URETHROCYSTOGRAM VOIDING * Radiology Services (Routine) Referred By Contact Referred To Contact Status Reason Specialty Diagnoses / Procedures Pooja Barroso APRN-NP [address] [facility] [address] [place] [address] [place] [address] No Auth Needed Radiology Diagnoses Other anterior urethral stricture, male, anterior P rocedures URETHROCYSTOGRAM VOIDING Reason for Visit * Radiology Services (Routine) Referred By Contact Referred To Contact Status Reason Specialty Diagnoses / Procedures Pooja Barroso APRN-NP [address] [facility] [address] [place] [address] Radiology [facility] 2nd fl [address] [place] [address] No Auth Needed Radiology Diagnoses Other anterior urethral stricture, male, anterior P rocedures URETHROCYSTOGRAM VOIDING Encounter Details Care Team Description Date Type Department Pooja Barroso APRN-NP [address] [facility] [address] [place] [address] [phone] 01/06/2019 [facility] Radiology [facility] 2nd [address] [place], [place] [id number] Social History Date Tobacco Use Types Packs/Day [...] Routine 01/06/2019 Other anterior urethral 1:40 PM FILLING AND STAPLING MACHINE OPERATOR stricture, male, anterior in this encounter Results * URETHROCYSTOGRAM VOIDING (01/06/2019 1:40 PM FILLING AND STAPLING MACHINE OPERATOR) Impressions Performed At 1. No residual stricture [...] Interface, Radiant Results - 01/06/2019 4:49 PM FILLING AND STAPLING MACHINE OPERATOR URETHROCYSTOGRAM VOIDING CLINICAL HISTORY: Male, 88 years [...] Medication Order MAR Action 01/06/2019 12:45 PM FILLING AND STAPLING MACHINE OPERATOR 150 mL diatrizoate meglumine 18% Given (CYSTOGRAFIN-DILUTE) injection 150 mL 150 mL, Urethral, ONCE, 1 dose, 01/06/19 at 1345, * NOT for intravascular injection * NOTE: This is a HIGH ALERT Medication., GI Procedure Area Only in this encounter
--- OUTSIDE RECORDS SUMMARY | 2019-01-25 09:13 | XMS REPORT | Encounter Summary ---
Author Author [facility] Organization [facility] Address Unknown Phone Unavailable Care Team Providers Care Barrel Brander Name Role Phone Fernanda Pittman MD PCP Reason for Visit * Reason Comments UTI Encounter Details Care Team Description Date [place] [address] [place], [place] [address] UTI 12/24/2018 Telephone [facility] - Urology [facility] Level [address]A [address] [place] [address] Social History Date Tobacco [...] Yasmeen Galindo MA - 12/31/2018 3:41 PM CAMPUS RECRUITING INTERN 12/31/2018 at 10:38 am, Ana Maria with [facility]/ [phone], L/m on V/m, stating she is still waiting on the Tx plan for pt based on recent UA C&S results she faxed us. She stated pt uses [facility] in [place], [place]. -Asked Jennifer Mcnair if she received [...] pm, (C) Called Ana Maria with [facility]/ [phone], explained Quintin Bonds, Urology Resident was going to review the results and contact the pt with a Tx plan. She voiced understanding. US RECRUITING INTERN * Telephone Encounter - Carmel Emanuel - 12/24/2018 3:15 PM CAMPUS RECRUITING INTERN Pt's home health care nurse, Ana Maria, called stating pt's urine is dark, cloudy, foul smelling, and has sediment in it. Urine culture order put in and faxed to [phone]. US RECRUITING INTERN in this encounter Plan of Treatment Order Schedule Name Priority Associated Diagnoses Expected: 12/24/2018, Expires: 12/24/2019 CULTURE-URINE W/SENSITIVITY Routine Urinary tract infection without hematuria, site unspecified as of this encounter Visit Diagnoses Diagnosis Urinary tract infection without hematuria, site unspecified - Primary in this encounter
--- OUTSIDE RECORDS SUMMARY | 2019-01-25 09:14 | XMS REPORT | Encounter Summary ---
Author Author [facility] Organization [facility] Address Unknown Phone Unavailable Care Team Providers Care Investor Relations Coordinator Name Role Phone Fernanda Pittman MD PCP Reason for Visit * Auth/Cert Referred By Contact Referred To Contact Status Reason Specialty Diagnoses / Procedures Diagnoses Other anterior urethral stricture, male, anterior Other anterior urethral stricture, male, anterior [N35.814] P rocedures AL URETHROPLASTY 1 STG RECNST MALE ANTERIOR URETHRA AL EXC MUCOSA VESTIBULE MOUTH DON GRF AL URETHROPLASTY 1 STG RECNST MALE ANTERIOR URETHRA AL EXC MUCOSA VESTIBULE MOUTH DON GRF URETHROPLASTY WITH ONE STAGE RECONSTRUCTION MALE ANTERIOR URETHRA EXCISION MUCOSA VESTIBULE OF MOUTH DONOR GRAFT Encounter Details Care Team Description Date Type Department Carol Bee MD [address] [facility] 1st [facility] [id number] [place] [address] [phone] 12/03/2018 Anesthesia Main Operating Room Event Main [facility] 2nd in [address] [place] [address] Anesthesia Record Responsible Anesthesiologist Anesthesia Start Time [...] Medication Order MAR Action 12/03/2018 4:15 PM COIL CONNECTOR albumin 5% infusion (500 mL) Given - New INTRA-PROCEDURE MED(CONT), Starting Wed Bag 12/03/18 at 1615, Until Sat12/03/18 at 1756, Anesthesia Intra-op 12/03/2018 2:37 PM COIL CONNECTOR 2 g ceFAZolin (ANCEF) injection Given INTRA-PROCEDURE MED, Starting Sat12/03/18 at 1437, Until Sat12/03/18 at 1756, Anesthesia Intra-op 12/03/2018 2:10 PM COIL CONNECTOR 2 drops dextran 70/hypromellose (GENTEAL TEARS; Given BION TEARS) ophthalmic solution INTRA-PROCEDURE MED, Starting Sat12/03/18 at 1410, Until Sat12/03/18 at 1756, Anesthesia Intra-op 12/03/2018 2:55 PM COIL CONNECTOR electrolyte-A (PLASMA-LYTE A PH 7.4) Given - New injection Bag INTRA-PROCEDURE MED(CONT), Starting Sat12/03/18 at 1455, Until Sat12/03/18 at 1756, Anesthesia Intra-op 12/03/2018 2:54 PM COIL CONNECTOR 50 mcg fentaNYL citrate PF (SUBLIMAZE) Given injection INTRA-PROCEDURE MED, Starting Sat12/03/18 at 1408, Until Sat12/03/18 at 1756, Anesthesia Intra-op 50 mcg Given 12/03/2018 2:08 PM COIL CONNECTOR 12/03/2018 2:10 PM COIL CONNECTOR 80 mg lidocaine (PF) injection Given INTRA-PROCEDURE MED, Starting Sat12/03/18 at 1410, Until Sat12/03/18 at 1756, Anesthesia Intra-op 12/03/2018 5:26 PM COIL CONNECTOR 0.2 mcg/kg/min 21.5 mL/hr phenylephrine (RAFAEL-SYNEPHRINE) 10 mg in Dose/Rate sodium chloride 0.9% (NS) 250 mL IV drip Change (std conc) 250 mL, INTRA-PROCEDURE MED(CONT), Starting Sat12/03/18 at 1615, Until Sat12/03/18 at 1756, Anesthesia Intra-op 0.4 mcg/kg/min 42.9 mL/hr Dose/Rate Change 12/03/2018 5:11 PM COIL CONNECTOR 0.5 mcg/kg/min 53.6 mL/hr Dose/Rate Change 12/03/2018 4:24 PM COIL CONNECTOR 12/03/2018 3:46 PM COIL CONNECTOR 100 mcg phenylephrine in NS injection syringe Given Intravenous, INTRA-PROCEDURE MED, Starting Sat12/03/18 at 1432, Until Sat12/03/18 at 1756, Anesthesia Intra-op 100 mcg Given 12/03/2018 3:40 PM COIL CONNECTOR 200 mcg Given 12/03/2018 3:30 PM COIL CONNECTOR 12/03/2018 2:12 PM COIL CONNECTOR 50 mg propofol (DIPRIVAN) injection Given INTRA-PROCEDURE MED, Starting Sat12/03/18 at 1410, Until Sat12/03/18 at 1756, Anesthesia Intra-op 50 mg Given 12/03/2018 2:10 PM COIL CONNECTOR 12/03/2018 3:10 PM COIL CONNECTOR 10 mg rocuronium (ZEMURON) injection Given Intravenous, INTRA-PROCEDURE MED, Starting Sat12/03/18 at 1414, Until Sat12/03/18 at 1756, Anesthesia Intra-op 20 mg Given 12/03/2018 2:25 PM COIL CONNECTOR 30 mg Given 12/03/2018 2:14 PM COIL CONNECTOR 12/03/2018 5:33 PM COIL CONNECTOR 143 mg sugammadex (BRIDION) injection Given Intravenous, INTRA-PROCEDURE MED, Starting Sat12/03/18 at 1733, Until 12/03/18 at 1756, Anesthesia Intra-op in this encounter
--- OUTSIDE RECORDS SUMMARY | 2019-01-25 09:14 | XMS REPORT | Encounter Summary ---
Author Author [facility] Organization [facility] Address Unknown Phone Unavailable Care Team Providers Care Electrician Elevator Maintenance Name Role Phone Fernanda Pittman MD PCP Reason for Visit * Auth/Cert Referred By Contact Referred To Contact Status Reason Specialty Diagnoses / Procedures Diagnoses Other anterior urethral stricture, male, anterior Other anterior urethral stricture, male, anterior [N35.814] P rocedures CA URETHROPLASTY 1 STG RECNST MALE ANTERIOR URETHRA CA EXC MUCOSA VESTIBULE MOUTH DON GRF CA URETHROPLASTY 1 STG RECNST MALE ANTERIOR URETHRA CA EXC MUCOSA VESTIBULE MOUTH DON GRF URETHROPLASTY WITH ONE STAGE RECONSTRUCTION MALE ANTERIOR URETHRA EXCISION MUCOSA VESTIBULE OF MOUTH DONOR GRAFT Encounter Details Care Team Description [place] [address] [place], [place] [address] History of urethral stricture 12/03/2018 Hospital [facility] - Encounter [id number] 12/04/2018 [place] [address] Social History Date Tobacco Use Types Packs/Day [...] Taken Vital Sign Reading 12/04/2018 7:59 AM GLASS PRODUCTS INSPECTOR Blood Pressure 98/49 12/04/2018 7:59 AM GLASS PRODUCTS INSPECTOR Pulse 56 12/04/2018 7:59 AM GLASS PRODUCTS INSPECTOR Temperature 36.8 C (98.2 F) - Respiratory Rate - 12/04/2018 7:59 AM GLASS PRODUCTS INSPECTOR Oxygen Saturation 98% - Inhaled Oxygen - Concentration 12/03/2018 7:18 PM GLASS PRODUCTS INSPECTOR Weight 72.3 kg (159 lb 6.3 oz) 12/03/2018 7:18 PM GLASS PRODUCTS INSPECTOR Height 182.9 cm (6') 12/03/2018 7:18 PM GLASS PRODUCTS INSPECTOR Body Mass Index 21.62 in this encounter [...] Pooja Barroso APRN-NP - 12/04/2018 11:51 AM GLASS PRODUCTS INSPECTOR Physician Discharge Summary Name: Indira Todd Date [...] or concerns regarding your hospital stay. Call [phone] You may have questions about your hospital stay after you get home. From 8 AM to 4 PM Saturday through Saturday, please call . If calling after hours or with urgent questions, please call and ask for the urology resident recreational leader. In case of an emergency, please report to your nearest emergency department and contact us on the way. Discharging attending physician: GAVI DELGADO [[id number]] Regular Diet You have no dietary restriction. [...] will then see Dr. Delgado at the [place] Location at 1:30. Please begin taking your Cipro the day before this appointment. Provider GAVI DELGADO [[id number]] Outside Provider [facility] for test, [place] Location for appointment Appointment date: 01/06/2019 Opioid [...] Scheduled appointments: Jan 06, 2019 11:30 AM GLASS PRODUCTS INSPECTOR URETHROCYSTOGRAPHY VOIDING with GENERAL RAD [address] [facility] Radiology (Radiology) [facility] 2nd fl [address] [facility] [address] Jan 06, 2019 1:30 PM GLASS PRODUCTS INSPECTOR (Arrive by 1:15 PM) Post - Op with Gavi Delgado MD [facility] - IC Exam ([facility] Exam) [address] [address] Pending items needing follow up: follow up in one month with [facility] prior. Restart Eliquis in 3 days. Signed: Pooja Barroso APRN-CHARLI 12/04/2018 cc: Primary Care Physician: Fernanda Pittman Verified Referring physicians: Fernanda Pittman MD Additional provider(s): S PRODUCTS INSPECTOR in this encounter Discharge Instructions * Discharge Instr - Case Management* Earlene Benitez RN - 12/04/2018 11:08 AM GLASS PRODUCTS INSPECTOR Your Home Health agency is: [facility] [address] [address] If they do not reach you within a day following discharge, please call them to get scheduled. I hope you feel better soon! If you have any questions about your discharge, don't hesitate to call me: Earlene Benitez STAFF MINE WARFARE OFFICER [facility] Integrated Nurse Ticket DispatcherFiscal Technician Elective/Surgery Urology [phone] S PRODUCTS INSPECTOR in this encounter Medications at Time of [...] * Maddy Bui - 12/04/2018 11:51 AM GLASS PRODUCTS INSPECTOR D/c paperwork reviewed with pt and pt's daughter. Education regarding activity restrictions, diet, S/SX of infection, S/SX to report, opioid narcotic safety, incision care and medications addressed. Pt and family verbalize understanding. Medications delivered at bedside by PCS. PIV removed without any complications. Pt transferred off unit with family and pt belongings. S PRODUCTS INSPECTOR * Katie Trujillo RN - 12/04/2018 3:02 AM GLASS PRODUCTS INSPECTOR Pt's BP currently 88/47, HR 56, second attempt 88/45, HR 59. Pt alert and oriented x4, afebrile and asymptomatic. Pt taking oral fluids as well as IV fluids, adequate urine output at this time. Notified Dr Polanco ([id number]) of above vitals, no new orders. Will continue to monitor. S PRODUCTS INSPECTOR * Cindy Maddox, RT - 12/03/2018 10:19 PM GLASS PRODUCTS INSPECTOR RT Adult Assessment Note NAME:Indira Todd :1930 [...] (implies normal) Respiratory Effort: Respiratory Effort: Non-Labored S PRODUCTS INSPECTOR * Katie Trujillo RN - 12/03/2018 7:31 PM GLASS PRODUCTS INSPECTOR Patient arrived to room # 819 via [...] No 16. Nursing Nutrition Assessment Completed No S PRODUCTS INSPECTOR * Margaret Pelaez RN - 12/03/2018 6:37 PM GLASS PRODUCTS INSPECTOR Report given to DANNIE Castañeda in [place] [address] - for transfer of care. S PRODUCTS INSPECTOR in this encounter H&P Notes * Gavi Delgado MD - 12/03/2018 1:41 PM GLASS PRODUCTS INSPECTOR Admission History and Physical Examination Name: Indira [...] one today for the ride up to [place]. He is otherwise without complaints and is pleased with how his voiding. Cystoscopy findings as follows: Flexible cystoscope was introduced in atraumatic fashion. The meatus, fossa, and penile urethra were normal. In the distal bulbar urethra there was a 3 Lebanese urethral stricture. Cystoscope was removed. Pt tolerated [...] Pertinent radiology reviewed. Black Hamm MD Pager [phone] S PRODUCTS INSPECTOR in this encounter Miscellaneous Notes * Case Mgmt DC Earlene Fonseca RN - 12/04/2018 11:51 AM GLASS PRODUCTS INSPECTOR Case Management Progress NoteNAME:Indira Todd :1930 AGE: 88 y.o. ADMISSION DATE: 12/03/2018 DAYS ADMITTED: LOS: 0 days Todays Date: 12/24/2018 Plan Pt has discharged with HH. Interventions ? Support ? Info or Referral ? Discharge Planning Discharge Planning: Home Health -[facility] called [facility] to obtain Dr Delgado's phone number. Dr [...] for the patient. Earlene Benitez RN BSN, [facility] Nurse Ticket Dispatcher Pager: *[phone] S PRODUCTS INSPECTOR * Care Plan - Maddy Bui - 12/04/2018 11:51 AM GLASS PRODUCTS INSPECTOR Problem: Discharge Planning Goal: Participation in plan [...] Date Met: 12/04/18 Achieved this hospital stay. S PRODUCTS INSPECTOR * Case Mgmt DC Plan - Earlene Benitez RN - 12/04/2018 11:08 AM GLASS PRODUCTS INSPECTOR Case Management Progress NoteNAME:Indira Todd :1930 AGE: 88 y.o. ADMISSION DATE: 12/03/2018 DAYS ADMITTED: LOS: 0 days Todays Date: 12/04/2018 Plan Pt discharged home with son and daughter transporting and assisting pt. [facility] agency accepted pt for support. *Pt is not concerned with Eliquis copayment/expense. Interventions ? Support ? Info or Referral ? Discharge Planning ? -[facility] faxed referral to [facility] agency in [facility]. -[facility] discussed pt surgical incision (no sutures needing [...] in past. Patient Address/Phone [address] [facility] [address] (home) Emergency Contact Extended Emergency Contact Information Primary Emergency Contact: Dimple Tobin [facility] Relation: Daughter Secondary Emergency Contact: Radha Whitley [facility] [place] Relation: Daughter Healthcare Directive Healthcare Directive: Yes, patient has a healthcare directive Type of Healthcare Directive: Durable power of immigration attorney for healthcare, Healthcare directive, Living Will [...] insurance Additional Coverage: RX(Pt fills scripts at [facility] in [facility] and states his medications are affordable.) ? Source of Income Source Of Income: SSI ? Financial Assistance Needed? na Psychosocial Needs ? Mental Health Mental Health History: No ? Substance Use History Substance Use History Screen: No ? Other na Current/Previous Services ? PCP Fernanda Pittman, , ? Pharmacy [id number] - [place], [place] - [address] [facility] [address] [facility] ([facility]) [address] [place] [address] [facility] [address] ? Durable Medical Equipment Durable Medical Equipment at home: None ? Home Health Receiving home health: In the past Agency name: [facility] Would patient use this agency again?: Yes [...] ? Outpatient Therapy PT: No OT: No AGED OR DISABLED CARE WORKER: No ? Mcfp Facility/Residential SNF: No NH: No ? Inpatient Rehab IPR: In the past Name of Facility: [facility] Would patient return for future services?: Yes ? [facility] LTACH: No ? Acute Hospital Stay Acute Hospital Stay: In the past Was patient's stay within the last 30 days?: No Earlene eBnitez RN BSN, [facility] Nurse Ticket Dispatcher Pager: *[phone] S PRODUCTS INSPECTOR * Operative Report (DICTATED ONLY) - Gavi Delgado MD - 12/03/2018 6:47 PM GLASS PRODUCTS INSPECTOR [address] [address] PATIENT NAME: INDIRA TODD MR#/PT#: [id number] Page 2 OPERATIVE REPORT DATE OF OPERATION: 12/03/2018 SURGEON: Gavi Delgado MD SURGICAL TECH(S): Black Hamm MD. PREOPERATIVE DIAGNOSIS: Urethral stricture. [...] We then bougied the proximal segment until 30-Lebanese, which passed easily. The distal segment can only be bougied to 24-Lebanese and this was the caliber of the entire urethra. We then placed our anastomotic stitches on the proximal side, beginning dorsally and placed apical stitches and placed them in the corresponding location on the distal segment. We then sewed the back wall of the anastomosis in a single layer with 5-0 PDS. Once we got to the shelter point, the ventral wall was then sewed [...] REMOVED: Urethral stricture. DRAINS AND TUBES: 1. 18-Lebanese Buenrostro catheter per urethra. 2. #10 TLS [...] cases Gavi Delgado MD HW / MEDQ /[id number] p cc: - Gavi Delgado MD S PRODUCTS INSPECTOR * Procedures (Immed Post or Bedside) - Black Hamm MD - 12/03/2018 5:52 PM GLASS PRODUCTS INSPECTOR Brief Operative Note Name: Indira Todd is [...] PACU - stable Black Hamm MD Pager [phone] S PRODUCTS INSPECTOR Associated attestation - Gavi Delgado MD - 12/03/2018 6:18 PM GLASS PRODUCTS INSPECTOR Attestation I was present, scrubbed, and participated in the entire procedure with a resident, and without overlapping cases in this encounter Plan of Treatment Order Schedule Name Priority Associated Diagnoses ONCE for 1 Occurrences starting 12/03/2018 SURGICAL PATHOLOGY Routine Other anterior urethral stricture, male, anterior as of this encounter Procedures Comments Procedure Name Priority Date/Time Associated Diagnosis CBC Routine 12/04/2018 4:10 AM GLASS PRODUCTS INSPECTOR BASIC METABOLIC PANEL Routine 12/04/2018 4:10 AM GLASS PRODUCTS INSPECTOR URETHROPLASTY WITH ONE 12/03/2018 Other anterior urethral STAGE RECONSTRUCTION MALE 12:20 PM GLASS PRODUCTS INSPECTOR stricture, male, anterior ANTERIOR URETHRA TYPE & CROSSMATCH STAT 12/03/2018 Preop examination 11:58 AM GLASS PRODUCTS INSPECTOR SURGICAL PATHOLOGY 12/03/2018 7:33 AM GLASS PRODUCTS INSPECTOR TELEMETRY STRIPS-SCAN 12/03/2018 12:00 AM GLASS PRODUCTS INSPECTOR in this encounter Results * BASIC METABOLIC PANEL (12/04/2018 4:10 AM GLASS PRODUCTS INSPECTOR) Sodium 139 137 - 147 MMOL/L KU [...] for questions. Specimen Blood Performing Organization Address City/[facility]/Zipcode Phone Number [facility] [address] [place] [address] * CBC (12/04/2018 4:10 AM GLASS PRODUCTS INSPECTOR) White Blood Cells 3.0 (L) 4.5 - 11.0 K/UL [facility] RBC 2.48 (L) 4.4 - 5.5 M/UL [facility] Hemoglobin 8.1 (L) 13.5 - 16.5 GM/DL [facility] Hematocrit 24.5 (L) 40 - 50 % [facility]IN [facility] MCV 99.0 80 - 100 FL [facility] MCH 32.7 26 - 34 PG [facility] MCHC 33.1 32.0 - 36.0 G/DL [facility] RDW 18.0 (H) 11 - 15 % [facility] Platelet Count 55 (L) 150 - 400 K/UL [facility] MPV 7.6 7 - 11 FL [facility] Specimen Blood Performing Organization Address City/[facility]/Zipcode Phone Number [facility] [address] [place] [address] * TYPE & CROSSMATCH (12/03/2018 11:58 AM GLASS PRODUCTS INSPECTOR) Units Ordered 0 [facility] Crossmatch Expires 12/06/2018 MAIN [facility] Record Check FOUND [facility] ABO/RH(D) AB NEG [facility] Antibody Screen NEG [facility] Electronic Crossmatch YES [facility] Specimen Blood Performing Organization Address City/State/Zipcode Phone Number [facility] [address] [place] [address] * SURGICAL PATHOLOGY (12/03/2018 7:33 AM GLASS PRODUCTS INSPECTOR) PATHOLOGY REPORT [facility] [email or web address] Department of Pathology and Laboratory Medicine [address] [place] [address] Surgical Pathology Office:[phone] :[phone] SURGICAL PATHOLOGY REPORT NAME: INDIRA TODD SURG PATH #: [id number] MR #: [id number] SPECIMEN CLASS: SR BILLING #: [id number] ALT ID #:LOCATION: HC8 DATE OF PROCEDURE: [...] report. +++ +++ Bj Lewis MD Resident [facility]/12/04/2018 ############################## ############################## ############ Material Received: [...] entirely submitted as follows: A1 Smaller fragment. A2-X4Awtngb fragment. (dlk) Performing Organization Address City/State/Zipcode Phone Number [facility] [address] [place] [address] * TELEMETRY STRIPS-SCAN (12/03/2018 12:00 AM GLASS PRODUCTS INSPECTOR) Narrative Performed At Ordered by an unspecified provider. in this encounter Visit Diagnoses Diagnosis Preop examination Preoperative examination, unspecified Other anterior urethral stricture, male, anterior in this encounter Admitting Diagnoses Diagnosis History of urethral stricture Personal history of other disorder of urinary system in this encounter Administered Medications Action Date Dose Rate Site Medication Order MAR Action 12/04/2018 8:41 AM GLASS PRODUCTS INSPECTOR 1,000 mg acetaminophen (TYLENOL) tablet 1,000 mg Given 1,000 mg, Oral, EVERY 6 HOURS, First dose on Sat12/03/18 at 2000, Until Discontinued, TOTAL ACETAMINOPHEN DOSE NOT TO EXCEED 4GM DAILY, 1,000 mg Given 12/04/2018 2:49 AM GLASS PRODUCTS INSPECTOR 1,000 mg Given 12/03/2018 8:05 PM GLASS PRODUCTS INSPECTOR 12/04/2018 8:41 AM GLASS PRODUCTS INSPECTOR bacitracin topical ointment Given Topical, THREE TIMES DAILY, First dose on Sat12/03/18 at 2100, Until Discontinued, Apply to tip of penis to prevent catheter related discomfort., Given 12/03/2018 8:04 PM GLASS PRODUCTS INSPECTOR 12/04/2018 6:26 AM GLASS PRODUCTS INSPECTOR 2 g ceFAZolin (ANCEF) IVP 2 g Given 2 g, Intravenous, EVERY 8 HOURS, 3 doses, First dose on Sat12/03/18 at 2230, Last dose on Sat12/04/18 at 1430, IV PUSH -- RECONSTITUTE each 1 g vial by adding 10 mL 0.9% NACL, 2 g Given 12/03/2018 10:21 PM GLASS PRODUCTS INSPECTOR 12/04/2018 8:41 AM GLASS PRODUCTS INSPECTOR 120 mg diltiazem CD (cardIZEM CD) capsule 120 Given mg 120 mg, Oral, TWICE DAILY, First dose on Sat12/03/18 at 2100, Until Discontinued 120 mg Given 12/03/2018 8:05 PM GLASS PRODUCTS INSPECTOR 12/04/2018 8:41 AM GLASS PRODUCTS INSPECTOR 10 mg donepezil (ARICEPT) tablet 10 mg Given 10 mg, Oral, DAILY WITH BREAKFAST, First dose on Sat12/04/18 at 0800, Until Discontinued 12/03/2018 8:05 PM GLASS PRODUCTS INSPECTOR 40 mg Abdomen:LLQ enoxaparin (LOVENOX) syringe 40 mg Given 40 mg, Subcutaneous, DAILY, First dose on Sat12/03/18 at 2100, Until Discontinued, For patients undergoing surgery: Consult physician in advance -- enoxaparin is an anticoagulant and may need to be held for 12hr prior to surgery or invasive procedures. NOTE: This is a HIGH ALERT Medication., 12/04/2018 8:41 AM GLASS PRODUCTS INSPECTOR 15 mg ketorolac (TORADOL) injection 15 mg [...] met., 15 mg Given 12/04/2018 2:49 AM GLASS PRODUCTS INSPECTOR 15 mg Given 12/03/2018 8:05 PM GLASS PRODUCTS INSPECTOR 12/03/2018 8:05 PM GLASS PRODUCTS INSPECTOR 0.5 mg melatonin tablet 0.5 mg Given 0.5 mg, Oral, AT BEDTIME DAILY, First dose on Sat12/03/18 at 2100, Until Discontinued 12/04/2018 8:41 AM GLASS PRODUCTS INSPECTOR 10 mg memantine (NAMENDA) tablet 10 mg [...] moderate to severe pain 12/04/2018 8:42 AM GLASS PRODUCTS INSPECTOR 1 tablet senna/docusate (SENOKOT-S) tablet 1 Given tablet 1 tablet, Oral, TWICE DAILY, First dose on Sat12/03/18 at 2100, Until Discontinued, Hold for loose stools, 1 tablet Given 12/03/2018 8:05 PM GLASS PRODUCTS INSPECTOR 12/03/2018 11:52 AM GLASS PRODUCTS INSPECTOR 1,000 mL 20 mL/hr sodium chloride 0.9 % infusion Given - New 1,000 mL, 1,000 mL, Intravenous, at 20 Bag mL/hr, CONTINUOUS, Starting Sat12/03/18 at 1145, Until Joan 12/04/18 at 0622, Pre-Op 12/03/2018 8:12 PM GLASS PRODUCTS INSPECTOR 100 mL/hr sodium chloride 0.9 % infusion Given - New 1,000 mL, Intravenous, at 100 mL/hr, Bag CONTINUOUS, Starting Sat12/03/18 at 1830, Until Sat12/04/18 at 0622 100 mL/hr Infusion Restarted 12/03/2018 6:21 PM GLASS PRODUCTS INSPECTOR in this encounter
--- OUTSIDE RECORDS SUMMARY | 2019-01-25 09:14 | XMS REPORT | Encounter Summary ---
Author Author [facility] Organization [facility] Address Unknown Phone Unavailable Care Team Providers Care Chief Lifestyle Officer Name Role Phone Fernanda Pittman MD PCP Reason for Visit * Auth/Cert Referred By Contact Referred To Contact Status Reason Specialty Diagnoses / Procedures Diagnoses Other anterior urethral stricture, male, anterior Other anterior urethral stricture, male, anterior [N35.814] P rocedures FL URETHROPLASTY 1 STG RECNST MALE ANTERIOR URETHRA FL EXC MUCOSA VESTIBULE MOUTH DON GRF FL URETHROPLASTY 1 STG RECNST MALE ANTERIOR URETHRA FL EXC MUCOSA VESTIBULE MOUTH DON GRF URETHROPLASTY WITH ONE STAGE RECONSTRUCTION MALE ANTERIOR URETHRA EXCISION MUCOSA VESTIBULE OF MOUTH DONOR GRAFT Encounter Details Care Team Description Date [place] [address] [place] [address] [phone] URETHROPLASTY WITH ONE STAGE RECONSTRUCTION MALE ANTERIOR URETHRA 12/03/2018 Surgery Main Operating Room [address] [address] Social History Date Tobacco Use Types Packs/Day [...] Taken Vital Sign Reading 12/04/2018 7:59 AM RESIDENTIAL ADVISOR Blood Pressure 98/49 12/04/2018 7:59 AM RESIDENTIAL ADVISOR Pulse 56 12/04/2018 7:59 AM RESIDENTIAL ADVISOR Temperature 36.8 C (98.2 F) - Respiratory Rate - 12/04/2018 7:59 AM RESIDENTIAL ADVISOR Oxygen Saturation 98% - Inhaled Oxygen - Concentration 12/03/2018 7:18 PM RESIDENTIAL ADVISOR Weight 72.3 kg (159 lb 6.3 oz) 12/03/2018 7:18 PM RESIDENTIAL ADVISOR Height 182.9 cm (6') 12/03/2018 7:18 PM RESIDENTIAL ADVISOR Body Mass Index 21.62 in this encounter [...] Associated Diagnosis CBC Routine 12/04/2018 4:10 AM RESIDENTIAL ADVISOR BASIC METABOLIC PANEL Routine 12/04/2018 4:10 AM RESIDENTIAL ADVISOR URETHROPLASTY WITH ONE 12/03/2018 Other anterior urethral STAGE RECONSTRUCTION MALE 12:20 PM RESIDENTIAL ADVISOR stricture, male, anterior ANTERIOR URETHRA TYPE & CROSSMATCH STAT 12/03/2018 Preop examination 11:58 AM RESIDENTIAL ADVISOR SURGICAL PATHOLOGY 12/03/2018 7:33 AM RESIDENTIAL ADVISOR TELEMETRY STRIPS-SCAN 12/03/2018 12:00 AM RESIDENTIAL ADVISOR in this encounter Results * BASIC METABOLIC PANEL (12/04/2018 4:10 AM RESIDENTIAL ADVISOR) Sodium 139 137 - 147 MMOL/L [facility] [...] for questions. Specimen Blood Performing Organization Address City/[facility]/Zipcode Phone Number [facility] [address] [place] [address] * CBC (12/04/2018 4:10 AM RESIDENTIAL ADVISOR) White Blood Cells 3.0 (L) 4.5 - 11.0 K/UL [facility] RBC 2.48 (L) 4.4 - 5.5 M/UL [facility] Hemoglobin 8.1 (L) 13.5 - 16.5 GM/DL [facility] Hematocrit 24.5 (L) 40 - 50 % [facility] MCV 99.0 80 - 100 FL [facility] MCH 32.7 26 - 34 PG [facility] MCHC 33.1 32.0 - 36.0 G/DL [facility] RDW 18.0 (H) 11 - 15 % [facility] Platelet Count 55 (L) 150 - 400 K/UL [facility] MPV 7.6 7 - 11 FL [facility] Specimen Blood Performing Organization Address City/[facility] Phone Number [facility] [address] [place] [address] * TYPE & CROSSMATCH (12/03/2018 11:58 AM RESIDENTIAL ADVISOR) Units Ordered 0 [facility] Crossmatch Expires 12/06/2018 [facility] Record Check FOUND [facility] ABO/RH(D) AB NEG [facility] Antibody Screen NEG [facility] Electronic Crossmatch YES [facility] Specimen Blood Performing Organization Address City/[facility]/Zipcode Phone Number [facility] [address] [place] [address] * SURGICAL PATHOLOGY (12/03/2018 7:33 AM RESIDENTIAL ADVISOR) PATHOLOGY REPORT [facility] [email or web address] Department of Pathology and Laboratory Medicine [address] [place] [address] Surgical Pathology Office:[phone] :[phone] SURGICAL PATHOLOGY REPORT NAME: INDIRA TODD RAY SURG PATH #: [id number] MR #: [id number] SPECIMEN CLASS: SR BILLING #: [id number] ALT ID #:LOCATION: 8 DATE OF PROCEDURE: [...] report. +++ +++ Bj Lewis MD Resident [facility]/12/04/2018 ############################## ############################## ############ Material Received: A: stricture [...] entirely submitted as follows: A1 Smaller fragment. A2-R9Fosgfh fragment. (odalys) Performing Organization Address City/State/Zipcode Phone Number [facility] [address] [place] [address] * TELEMETRY STRIPS-SCAN (12/03/2018 12:00 AM RESIDENTIAL ADVISOR) Narrative Performed At Ordered by an unspecified provider. in this encounter Visit Diagnoses Diagnosis Other anterior urethral stricture, male, anterior in this encounter Admitting Diagnoses Diagnosis History of urethral stricture Personal history of other disorder of urinary system in this encounter Administered Medications Action Date Dose Rate Site Medication Order MAR Action 12/04/2018 8:41 AM RESIDENTIAL ADVISOR 1,000 mg acetaminophen (TYLENOL) tablet 1,000 mg Given 1,000 mg, Oral, EVERY 6 HOURS, First dose on Sat12/03/18 at 2000, Until Discontinued, TOTAL ACETAMINOPHEN DOSE NOT TO EXCEED 4GM DAILY, 1,000 mg Given 12/04/2018 2:49 AM RESIDENTIAL ADVISOR 1,000 mg Given 12/03/2018 8:05 PM RESIDENTIAL ADVISOR 12/04/2018 8:41 AM RESIDENTIAL ADVISOR bacitracin topical ointment Given Topical, THREE TIMES DAILY, First dose on Sat12/03/18 at 2100, Until Discontinued, Apply to tip of penis to prevent catheter related discomfort., Given 12/03/2018 8:04 PM RESIDENTIAL ADVISOR 12/04/2018 6:26 AM RESIDENTIAL ADVISOR 2 g ceFAZolin (ANCEF) IVP 2 g Given 2 g, Intravenous, EVERY 8 HOURS, 3 doses, First dose on Sat12/03/18 at 2230, Last dose on Sat12/04/18 at 1430, IV PUSH -- RECONSTITUTE each 1 g vial by adding 10 mL 0.9% NACL, 2 g Given 12/03/2018 10:21 PM RESIDENTIAL ADVISOR 12/04/2018 8:41 AM RESIDENTIAL ADVISOR 120 mg diltiazem CD (cardIZEM CD) capsule 120 Given mg 120 mg, Oral, TWICE DAILY, First dose on Sat12/03/18 at 2100, Until Discontinued 120 mg Given 12/03/2018 8:05 PM RESIDENTIAL ADVISOR 12/04/2018 8:41 AM RESIDENTIAL ADVISOR 10 mg donepezil (ARICEPT) tablet 10 mg Given 10 mg, Oral, DAILY WITH BREAKFAST, First dose on Sat12/04/18 at 0800, Until Discontinued 12/03/2018 8:05 PM RESIDENTIAL ADVISOR 40 mg Abdomen:LLQ enoxaparin (LOVENOX) syringe 40 mg Given 40 mg, Subcutaneous, DAILY, First dose on Sat12/03/18 at 2100, Until Discontinued, For patients undergoing surgery: Consult physician in advance -- enoxaparin is an anticoagulant and may need to be held for 12hr prior to surgery or invasive procedures. NOTE: This is a HIGH ALERT Medication., 12/04/2018 8:41 AM RESIDENTIAL ADVISOR 15 mg ketorolac (TORADOL) injection 15 mg [...] met., 15 mg Given 12/04/2018 2:49 AM RESIDENTIAL ADVISOR 15 mg Given 12/03/2018 8:05 PM RESIDENTIAL ADVISOR 12/03/2018 8:05 PM RESIDENTIAL ADVISOR 0.5 mg melatonin tablet 0.5 mg Given 0.5 mg, Oral, AT BEDTIME DAILY, First dose on Sat12/03/18 at 2100, Until Discontinued 12/04/2018 8:41 AM RESIDENTIAL ADVISOR 10 mg memantine (NAMENDA) tablet 10 mg [...] moderate to severe pain 12/04/2018 8:42 AM RESIDENTIAL ADVISOR 1 tablet senna/docusate (SENOKOT-S) tablet 1 Given tablet 1 tablet, Oral, TWICE DAILY, First dose on Sat12/03/18 at 2100, Until Discontinued, Hold for loose stools, 1 tablet Given 12/03/2018 8:05 PM RESIDENTIAL ADVISOR 12/03/2018 11:52 AM RESIDENTIAL ADVISOR 1,000 mL 20 mL/hr sodium chloride 0.9 % infusion Given - New 1,000 mL, 1,000 mL, Intravenous, at 20 Bag mL/hr, CONTINUOUS, Starting Sat12/03/18 at 1145, Until Sat12/04/18 at 0622, Pre-Op 12/03/2018 8:12 PM RESIDENTIAL ADVISOR 100 mL/hr sodium chloride 0.9 % infusion Given - New 1,000 mL, Intravenous, at 100 mL/hr, Bag CONTINUOUS, Starting 12/03/18 at 1830, Until Joan 12/04/18 at 0622 100 mL/hr Infusion Restarted 12/03/2018 6:21 PM RESIDENTIAL ADVISOR in this encounter
--- OUTSIDE RECORDS SUMMARY | 2019-01-25 09:15 | XMS REPORT | Encounter Summary ---
Author Author [facility] Organization [facility] Address Unknown Phone Unavailable Care Team Providers Care Mechanical Process Engineer Name Role Phone Fernanda Pittman MD PCP Encounter Details Care Team Description Date [place] [address] [place] [address] [phone] Preop cardiovascular exam (Primary Dx); Preop examination 11/20/2018 PAC Office Preoperative Assessment Visit Clinic [address] [place] [address] Anesthesia Record Responsible Anesthesiologist Anesthesia Start Time [...] Taken Vital Sign Reading 11/20/2018 12:06 PM PRINT AND PATTERN DESIGNER Blood Pressure 101/62 11/20/2018 12:06 PM PRINT AND PATTERN DESIGNER Pulse 84 11/20/2018 12:06 PM PRINT AND PATTERN DESIGNER Temperature 36.9 C (98.5 F) - Respiratory Rate - 11/20/2018 12:06 PM PRINT AND PATTERN DESIGNER Oxygen Saturation 98% - Inhaled Oxygen - Concentration 11/20/2018 12:06 PM PRINT AND PATTERN DESIGNER Weight 70.3 kg (155 lb) 11/20/2018 12:06 PM PRINT AND PATTERN DESIGNER Height 182.9 cm (6') 11/20/2018 12:06 PM PRINT AND PATTERN DESIGNER Body Mass Index 21.02 in this encounter [...] Delicia Stoner RN - 11/20/2018 12:30 PM PRINT AND PATTERN DESIGNER GENERAL INFORMATION Before you come to the [...] and any other valuables at home. The [facility] is not responsible for the loss or breakage of personal items. Remove nail tongan, makeup and all jewelry (including piercings) before [...] do not receive a call, please call [phone] before 4:30pm or [phone] after 4:30pm. Notify us at [facility]: if you need to cancel your procedure if you are going to be late Arrival at the [facility] [address] [place] [address] Park in the [address]age, located directly across from the main entrance to the hospital. Rn Emergency parking is available from 7 AM to 4 PM Saturday through Saturday. Enter through the ground floor [facility] entrance and check in at the Information Desk in the lobby. They will validate your parking ticket and direct you to the next location. T AND PATTERN DESIGNER * Pre-Anesthesia Medication Instructions* Grady Palmer, JODIE - 11/20/2018 12:30 PM PRINT AND PATTERN DESIGNER YOUR MEDICATIONS: apixaban (ELIQUIS) 5 mg tablet [...] with any medicine updates or questions. E-mail: [email or web address] Before going home from the hospital, please ask your doctor when you should re- start your medicines that were stopped before surgery. T AND PATTERN DESIGNER in this encounter Progress Notes * Grady Palmer PHARMD - 11/20/2018 12:30 PM PRINT AND PATTERN DESIGNER PAC Pharmacist Medication Plan Note: Walter Cruz [...] patient who verbalized understanding. Grady Palmer PHARMD T AND PATTERN DESIGNER in this encounter Plan of Treatment Order Schedule Name Priority Associated Diagnoses ONE TIME for 1 Occurrences starting 11/20/2018 until 11/20/2018 ECG 12-LEAD Routine Preop cardiovascular exam as of this encounter Procedures Comments Procedure Name Priority Date/Time Associated Diagnosis CBC Routine 11/20/2018 Preop examination 1:30 PM PRINT AND PATTERN DESIGNER TYPE & SCREEN (NOT Routine 11/20/2018 Preop examination CROSSMATCH ELIGIBLE) 1:30 PM PRINT AND PATTERN DESIGNER BASIC METABOLIC PANEL Routine 11/20/2018 Preop examination 1:30 PM PRINT AND PATTERN DESIGNER ECG-SCAN 11/20/2018 12:00 AM PRINT AND PATTERN DESIGNER in this encounter Results * TYPE & SCREEN (NOT CROSSMATCH ELIGIBLE) (11/20/2018 1:30 PM PRINT AND PATTERN DESIGNER) ABO/RH(D) AB NEG [facility] Antibody Screen NEG [facility] Blood Component Type RED CELL GROUP [facility] Specimen Blood, venous - Blood Performing Organization Address City/State/Zipcode Phone Number [facility] [address] [place] [address] * BASIC METABOLIC PANEL (11/20/2018 1:30 PM PRINT AND PATTERN DESIGNER) Sodium 136 (L) 137 - 147 MMOL/L [...] questions. Specimen Blood Performing Organization Address [facility]/Zipcode Phone Number [facility] [address] [place] [address] * CBC (11/20/2018 1:30 PM PRINT AND PATTERN DESIGNER) White Blood Cells 3.7 (L) 4.5 - [...] MAIN LAB Specimen Blood Performing Organization Address City/[facility]/Zipcode Phone Number [facility] [address] [place] [address] * ECG-SCAN (11/20/2018 12:00 AM PRINT AND PATTERN DESIGNER) Narrative Performed At Ordered by an unspecified provider. in this encounter Visit Diagnoses Diagnosis Preop cardiovascular exam - Primary Pre-operative cardiovascular examination Preop examination Preoperative examination, unspecified in this encounter
--- OUTSIDE RECORDS SUMMARY | 2019-01-25 09:16 | XMS REPORT | Continuity of Care Document ---
Author Author [facility] Organization [facility] Address Unknown Phone Unavailable Allergies Active Description Code Type Severity Reaction Onset Reported/Identified Relationship to Patient Clinical Status Yes No Known Drug Allergies [id number] Drug Allergy Unknown N/A 11/22/2009 Medications There [...] FABIOLA LUJAN, CIRO R Ot 788.30 04/24/2015 FABIOAL LUJAN, CIRO R Ot 789.00 04/25/2015 FABIOLA [...] 02/09/2016 CIRO HICKS MD R Ot Z79.01 RETIREMENT (CURRENT) USE OF ANTICOAGULANT 02/09/2016 CIRO HICKS [...] DO Ot Y92.007 [place] [facility] NON-[facility] RES 05/31/2017 ZAK GARCIA DO Ot Y93.H2 ACTIVITY, GARDENING AND LANDSCAPING 05/31/2017 ZAK GARCIA DO Ot Z66 DO NOT RESUSCITATE 05/31/2017 ZAK GARCIA DO Ot Z79.01 RETIREMENT (CURRENT) USE OF ANTICOAGULANT 05/31/2017 ZAK GARCIA [...] HYPERTROPHY (BENIGN) OF PROSTATE W URINA 05/31/2017 FBAIOLA LUJAN, CIRO R Ot 787.02 NAUSEA ALONE 05/31/2017 FABIOLA LUJAN, CIRO R Ot 788.30 UNSPECIFIED URINARY INCONTINENCE 05/31/2017 [...] ZAK Ot Y92.007 [facility] 05/31/2017 GARCIACHRISTY KELSEY ZAK Ot Y93.H2 ACTIVITY, GARDENING AND LANDSCAPING 05/31/2017 GARCIA DO ZAK Ot Z66 DO NOT RESUSCITATE 05/31/2017 RADHA KELSYE ZAK Ot Z79.01 RETIREMENT (CURRENT) USE OF ANTICOAGULANT 05/31/2017 RADHA DO [...] ZAK Ot Y92.007 [facility] 05/31/2017 RADHA KELSEY ZAK Ot Y93.H2 ACTIVITY, GARDENING AND LANDSCAPING 05/31/2017 RADHA DO ZAK Ot Z66 DO NOT RESUSCITATE 05/31/2017 CAROL GARCIA DOI Ot Z79.01 COLLECTION SUPPORT SPECIALIST (CURRENT) USE OF ANTICOAGULANT 05/31/2017 RADHA KELSEY [...] ZAK Ot Y92.007 [place] [facility] 05/31/2017 RADHA KELSEY ZAK Ot Y93.H2 ACTIVITY, GARDENING AND LANDSCAPING 05/31/2017 RADHA KELSEY ZAK Ot Z66 DO NOT RESUSCITATE 05/31/2017 ZAK GARCIA DO Ot Z79.01 RETIREMENT (CURRENT) USE OF ANTICOAGULANT 05/31/2017 CAROL GARCIA [...] ZAK Ot Y92.007 [facility] 06/01/2017 RADHA KELSEY ZAK Ot Y93.H2 ACTIVITY, GARDENING AND LANDSCAPING 06/01/2017 RADHA KELSEY ZAK Ot Z66 DO NOT RESUSCITATE 06/01/2017 CAROL GARCIA DOI Ot Z79.01 RETIREMENT (CURRENT) USE OF ANTICOAGULANT 06/01/2017 RADHA KELSEY [...] DO Ot Y92.007 [place] [facility] NON-[facility] RES 06/01/2017 ZAK GARCIA DO Ot Y93.H2 ACTIVITY, GARDENING AND LANDSCAPING 06/01/2017 ZAK GARCIA DO Ot Z66 DO NOT RESUSCITATE 06/01/2017 ZAK GARCIA DO Ot Z79.01 COLLECTION SUPPORT SPECIALIST (CURRENT) USE OF ANTICOAGULANT 06/01/2017 ZAK GARCIA DO Ot Z87.891 PERSONAL HISTORY OF NICOTINE DEPENDENCE 06/01/2017 RADHA KELSEY ZAK Ot Z90.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( 06/01/2017 ZAK GARCIA DO Ot Z96.0 PRESENCE OF UROGENITAL IMPLANTS 08/29/2017 TG DAWN CROWN IRONER Ot R41.3 OTHER AMNESIA 09/09/2017 GANESH CRAVEN [...] CRAVEN MD Ot Y92.[address] [facility] NON-INSTITUT (PRIVATE 09/09/2017 GANESH CRAVEN MD, Ot Y99.8 OTHER EXTERNAL CAUSE STATUS 09/09/2017 GANESH CRAVEN MD, Ot Z79.01 COLLECTION SUPPORT SPECIALIST (CURRENT) USE OF ANTICOAGULANT 09/09/2017 GANESH CRAVEN MD, Ot Z79.899 OTHER RETIREMENT (CURRENT) DRUG THERAPY 09/09/2017 GANESH CRAVEN MD, [...] CRAVEN MD Ot Y92.[address] IN [facility] NON-INSTITUT (PRIVATE 09/09/2017 GANESH CRAVEN MD Ot Y99.8 OTHER EXTERNAL CAUSE STATUS 09/09/2017 GANESH CRAVEN MD Ot Z79.01 RETIREMENT (CURRENT) USE OF ANTICOAGULANT 09/09/2017 GANESH CRAVEN MD Ot Z79.899 OTHER RETIREMENT (CURRENT) DRUG THERAPY 09/09/2017 GANESH CRAVEN MD Ot Z87.442 PERSONAL HISTORY OF URINARY CALCULI 09/09/2017 GANESH CRAVEN MD Ot Z87.891 PERSONAL HISTORY OF NICOTINE DEPENDENCE 09/09/2017 GANESH CRAVEN MD Ot Z90.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( 09/13/2017 KILEY CAM MD Ot R26.2 DIFFICULTY IN WALKING, NOT ELSEWHERE CLA 09/13/2017 KILEY CAM MD E Ot R53.81 OTHER MALAISE 09/18/2017 TG DAWN [facility] Ot R41.3 OTHER AMNESIA 09/19/2017 KILEY [...] MD Ot R53.81 OTHER MALAISE 09/19/2017 KILEY CMA MD E Ot Z66 DO NOT RESUSCITATE 09/19/2017 KILEY CAM MD Ot Z79.01 RETIREMENT (CURRENT) USE OF ANTICOAGULANT 09/19/2017 KILEY CAM [...] Status Pt. Type Provider Facility Loc./Unit Complaint [id number] 09/04/2018 11:30:00 09/04/2018 23:59:59 CLS Outpatient MAX PÉREZ MD [facility] CARD I48.1 AF [id number] 09/01/2018 13:46:00 09/01/2018 23:59:59 CLS Outpatient AGUSTO BAKER MD [facility] RAD DISTAL URETHERAL SEVERE STRICTURE [id number] 08/18/2018 13:31:00 08/18/2018 23:59:59 CLS Outpatient AGUSTO BAKER MD [facility] RAD H/O UTI'S AND STONES [id number] 09/09/2017 11:53:00 09/19/2017 10:30:00 DIS Inpatient KILEY CAM MD [facility] IRF FALL WITH INJURIES [id number] 09/07/2017 10:50:00 09/09/2017 11:12:00 DIS Inpatient GANESH CRAVEN MD [facility] 4TH RHABDOMYOLYSIS,FALL, ORTHOSTASIS [id number] 08/28/2017 10:08:00 08/28/2017 23:59:59 CLS Outpatient TG DAWN [facility] RAD MEMORY LOSS [id number] 05/30/2017 14:01:00 06/01/2017 11:50:00 DIS Inpatient ZAK GARCIA DO [facility] 4TH SEPSIS,AFIB W/RVR,UTI, ACUTE KIDNEY INJ,FALL FROM S [id number] 02/07/2016 09:47:00 02/09/2016 12:30:00 DIS Inpatient CIRO HICKS MD [facility] 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/RVR [id number] 03/21/2015 10:56:00 03/21/2015 23:59:59 CLS Outpatient CIRO HICKS MD [facility] RAD STONES [id number] 03/14/2015 11:04:00 03/14/2015 23:59:59 CLS Outpatient CIRO HICKS MD [facility] RAD ABD PAIN AND NAUSEA, SMOKER [id number] 01/23/2019 10:32:00 ACT Inpatient GANESH CRAVEN MD [facility] 4TH A-FIB RVR [id number] 03/14/2015 11:01:00 Document Registration [id number] 03/14/2015 11:01:00 Document Registration [id number] 03/19/2012 11:47:00 Document Registration [id number] 05/11/2010 16:55:00 Document Registration [id number] 11/16/2009 10:29:00 Document Registration
[2019-01-25 12:00] VITALS: BP 113/66
--- NOTE | 2019-01-25 12:52 | Progress Note-Hospitalist ---
Subjective HPI/CC On Admission Date Seen by Provider: Jan 25, 2019 Time Seen by Provider: 11:00 Subjective/Events-last exam Patient sleeping Dementia is severe No agitation Fall risk so bed alarm is intact Reviewed cardiology and hematology consultations which are appreciated Eating and drinking Transfused 2 units yesterday with good results Review of Systems General: Fatigue Neurological: Confusion Objective Exam Vital Signs Vital Signs Date Time Temp Pulse Resp B/P (MAP) Pulse Ox O2 Delivery O2 Flow Rate FiO2 01/25/19 19:29 99.6 79 18 121/58 (79) 96 Room Air Capillary Refill : Less Than 3 Seconds General Appearance: No Apparent Distress, WD/WN, Chronically ill, Thin HEENT: Normal ENT Inspection Neck: Normal Inspection Respiratory: Lungs Clear, Normal Breath Sounds Cardiovascular: Irregularly Irregular, Tachycardia Gastrointestinal: Normal Bowel Sounds, Non Tender, Soft Rectal: Deferred Back: Normal Inspection Extremity: Normal Capillary Refill, Normal Inspection, Normal Range of Motion, Pedal Edema Neurologic/Psychiatric: Alert, Disoriented Skin: Normal Color, Warm/Dry Lymphatic: No Adenopathy Results/Procedures Lab Laboratory Tests 01/25/19 00:50 01/25/19 06:37 Patient resulted labs reviewed. Assessment/Plan Assessment and Plan Assess & Plan/Chief Complaint Assessment per PCP with my additions: PANCYTOPENIA with 2 units of blood given yesterday ATRIAL FIBRILLATION WITH RVR DEMENTIA GENERALIZED WEAKNESS EDEMA Plan: Consult Hematology is appreciated Appreciate Cardiology help Dementia is severe Monitor labs Diagnosis/Problems Diagnosis/Problems (1) Atrial fibrillation with RVR Status: Acute (2) Dementia Status: Chronic Qualifiers: Dementia type: Alzheimer's disease Alzheimer's disease onset: unspecified onset Dementia behavioral disturbance: without behavioral disturbance Qualified Codes: G30.9 - Alzheimer's disease, unspecified; F02.80 - Dementia in other diseases classified elsewhere without behavioral disturbance (3) Pancytopenia Status: Acute (4) Atrial fibrillation Status: Chronic Qualifiers: Atrial fibrillation type: chronic Qualified Codes: I48.2 - Chronic atrial fibrillation (5) Anemia Status: Acute Qualifiers: Anemia type: unspecified type Qualified Codes: D64.9 - Anemia, unspecified (6) Transfusion of blood during current hospitalization Status: Acute (7) At risk for hemorrhage associated with anticoagulation therapy Status: Acute Clinical Quality Measures DVT/VTE Risk/Contraindication: Risk Factor Score Per Nursin RFS Level Per Nursing on Admit: 4+=Very High Contraindications-Pharm: Other *list below* Contraindications-Mechi: Other *list below* Other: PANCYTOPENIA ZAK GARCIA DO Jan 25, 2019 12:52
--- NOTE | 2019-01-25 15:06 | Progress Note-Cardiology ---
Cardiology SOAP Progress Note Subjective: No cp or palp or syncope or shortness of breath at rest Objective: I&O/Vital Signs 01/25/19 01/25/19 01/25/19 01/25/19 03:50 07:00 08:00 08:00 Temp 98.9 98.9 Pulse 95 108 79 Resp 20 18 B/P (MAP) 108/71 (83) 120/81 (94) Pulse Ox 96 98 O2 Delivery Room Air Room Air Room Air 01/25/19 01/25/19 12:00 13:00 Temp 98.6 Pulse 80 104 Resp 20 B/P (MAP) 113/66 (82) Pulse Ox 96 O2 Delivery Room Air 01/25/19 00:00 Intake Total 990 ml Output Total 300 ml Balance 690 ml Weight (Pounds): 152 Weight (Ounces): 0.0 Weight (Calculated Kilograms): [id number] Constitutional: appears stated age; No apparent distress; other Respiratory: No accessory muscle use, No respiratory distress; chest expansion is symmetric, chest is bilaterally symmetric, lungs clear to auscultation Cardiovascular: irregularly irregular; No JVD; S1 and S2, systolic murmur Gastrointestional: No tender; soft, round, audible bowel sounds Extremities: other (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), significant edema (bilat mod LE swelling) Neurologic/Psychiatric: grossly intact, power is 5/5 both on sides Skin: No rash, No ulcerations Results/Procedures: Labs Laboratory Tests 01/25/19 00:50: Hemoglobin 8.5#L, Hematocrit 27L 01/25/19 06:37: Hemoglobin 8.8L, Hematocrit 28L, White Blood Count 2.8L, Red Blood Count 2.74L, Mean Corpuscular Volume 101H, Mean Corpuscular Hemoglobin 32, Mean Corpuscular Hemoglobin Concent 32, Red Cell Distribution Width 25.8H, Platelet Count 52L, Mean Platelet Volume 9.1, Sodium Level 137, Potassium Level 4.0, Chloride Level 106, Carbon Dioxide Level 24, Anion Gap 7, Blood Urea Nitrogen 23H, Creatinine 0.98, Estimat Glomerular Filtration Rate > 60, BUN/Creatinine Ratio 23, Glucose Level 90, Calcium Level 8.6, Corrected Calcium 9.6, Total Bilirubin 1.5H, Aspartate Amino Transf (AST/SGOT) 18, Alanine Aminotransferase (ALT/SGPT) 9, Alkaline Phosphatase 46, Total Protein 5.6L, Albumin 2.7L 01/25/19 11:51: Glucometer 111H Laboratory Tests 01/23/19 15:52 01/24/19 06:09 01/25/19 00:50 01/25/19 06:37 A/P: Assessment: Pancytopenia of undetermined etiology - Dr Sherwood managing Permanent atrial fibrillation - presented with RVR - rate currently controlled Echocardiogram of 09-04-[address] Wisdom showed normal LV size with ejection fraction 55-65 percent, dilated left atrium, dilated right atrium, atrial septal defect with aneurysmal intra-atrial septum, moderate to severe MR, PA 35 mmHg. [id number] score of 3, yearly risk of stroke without oral anticoagulations 3.2 percent, maintained on Eliquis - currently being withheld d/t pancytopenia Chronic renal insufficiency Peripheral edema Nonobstructive carotid artery stenosis per carotid duplex done in July [address] Wisdom ASD with aneurysmal intra-atrial septum, PA pressure 35 mmHg per echo of by Dr. Wisdom Dementia Plan: * Has multiple medical issues that include newly-diagnosed pancytopenia that is being managed by Dr Sherwood * Vent rate controlled on oral dilt * Not suitable for OAC until pancytopenia investigated and treated * Monitor labs ARMAND MOORE MD FACP FAC CCDS Jan 25, 2019 15:06
[2019-01-25 16:56] VITALS: BP 107/56
[2019-01-25 19:29] VITALS: BP 121/58
[2019-01-26 00:25] VITALS: BP 114/71
[2019-01-26 03:15] VITALS: BP 115/64
[2019-01-26] MEDS: CATHETER FLUSH 10 ML SYR IV SCH ×3 (06:08→21:36)
[2019-01-26 06:16] LABS: HEMOGLOBIN 8.4 G/DL (13.3-17.7); MEAN PLATELET VOLUME 9.7 FL (7.4-10.4); RED CELL DISTRIBUTION WIDTH 24.6 % (10.0-14.5)
[2019-01-26 06:28] LABS: ALANINE AMINOTRANSFERASE 8 U/L (0-55); ALBUMIN 2.7 GM/DL (3.2-4.5); ALKALINE PHOSPHATASE 48 U/L (40-136); BILIRUBIN,TOTAL 0.8 MG/DL (0.1-1.0); BUN/CREATININE RATIO 29; CARBON DIOXIDE 23 MMOL/L (21-32); CHLORIDE 106 MMOL/L (98-107); CREATININE SERUM 0.96 MG/DL (0.60-1.30); GFR ESTIMATED > 60; GLUCOSE 96 MG/DL (70-105); POTASSIUM 4.2 MMOL/L (3.6-5.0); SODIUM 135 MMOL/L (135-145); TOTAL PROTEIN 5.6 GM/DL (6.4-8.2)
[2019-01-26 08:00] VITALS: BP 118/85
--- NOTE | 2019-01-26 08:43 | Progress Note ---
Subjective Date Seen by a Provider: Jan 26, 2019 Time Seen by a Provider: 08:45 Subjective/Events-last exam PT DENIES ANY CONCERNS AT THIS TIME. HIS SISTERS ARE WORRIED ABOUT HIS ABILITY TO GO HOME - THEY WOULD LIKE TO SEE HIM GO TO THE [facility] FOR THERAPY PRIOR TO DISCHARGE TO HOME. HE DENIES CHST PAIN AND SHORTNESS OF BREATH Review of Systems General: Fatigue Pulmonary: No Dyspnea, No Cough Cardiovascular: No: Chest Pain Gastrointestinal: No: Nausea, Abdominal Pain Neurological: Weakness, Confusion Objective Exam Last Set of Vital Signs Vital Signs Date Time Temp Pulse Resp B/P (MAP) Pulse Ox O2 Delivery O2 Flow Rate FiO2 01/26/19 07:00 81 01/26/19 03:15 99.7 18 115/64 (81) 94 Room Air Capillary Refill : Less Than 3 Seconds I&O Intake and Output 01/26/19 00:00 Intake Total 2420 ml Output Total 1250 ml Balance 1170 ml Intake Oral 2420 ml Output Urine Total 1250 ml # Urine Diapers 1 General: Alert, No Acute Distress, Other (ORIENTED TO SELF) HEENT: Atraumatic, PERRLA Neck: Supple Lungs: Clear to Auscultation Heart: Other (IRREGULARLY IRREGULAR) Abdomen: Normal Bowel Sounds, Soft, No Tenderness, No Hepatosplenomegaly, No Masses Psych/Mental Status: Mental Status NL, Mood NL Results Lab Laboratory Tests 01/25/19 11:51: Glucometer 111H 01/26/19 05:15: White Blood Count 3.0L, Red Blood Count 2.64L, Hemoglobin 8.4L, Hematocrit 27L, Mean Corpuscular Volume 102H, Mean Corpuscular Hemoglobin 32, Mean Corpuscular Hemoglobin Concent 31L, Red Cell Distribution Width 24.6H, Platelet Count 49L, Mean Platelet Volume 9.7, Sodium Level 135, Potassium Level 4.2, Chloride Level 106, Carbon Dioxide Level 23, Anion Gap 6, Blood Urea Nitrogen 28H, Creatinine 0.96, Estimat Glomerular Filtration Rate > 60, BUN/Creatinine Ratio 29, Glucose Level 96, Calcium Level 9.0, Corrected Calcium 10.0, Total Bilirubin 0.8, Aspartate Amino Transf (AST/SGOT) 17, Alanine Aminotransferase (ALT/SGPT) 8, Alkaline Phosphatase 48, Total Protein 5.6L, Albumin 2.7L Assessment/Plan Assessment/Plan Assess & Plan/Chief Complaint PANCYTOPENIA ATRIAL FIBRILLATION WITH RVR DEMENTIA GENERALIZED WEAKNESS EDEMA PANCYTOPENIA - pt was transfused due to further drop in his hemoglobin and oncology was consulted - see note from Dr. Sánchez. ATRIAL FIBRILLATION WITH RVR - HOLD ELIQUIS AND OTHER BLOOD THINNING AGENTS FOR NOW - MONITOR H AND H, STARTED ON ORAL CARDIZEM, DEFER OTHER TREATMENT RECOMMENDATIONS TO CARDIOLOGY. DEMENTIA - HOLD ARICEPT AND NAMENDA AT THIS TIME. GENERALIZED WEAKNESS - MAY BE DUE TO ANEMIA - CHECK LABS, WILL CONSIDER STARTING THERAPY ON SATURDAY IF SYMPTOMS OF ANEMIA HAVE STABILIZED AND PT IS SAFE TO WALK. EDEMA - MONITOR SYMPTOMS - COMPRESSION OF LOWER LEGS. PT WILL NEED TO GO TO [facility] FOR THERAPY ON DISCHARGE Clinical Quality Measures Admission Status Admission Dx PANCYTOPENIA ATRIAL FIBRILLATION WITH RVR DEMENTIA GENERALIZED WEAKNESS EDEMA DVT/VTE Risk/Contraindication: Risk Factor Score Per Nursin RFS Level Per Nursing on Admit: 4+=Very High Contraindications-Pharm: Other *list below* Contraindications-Mechi: Other *list below* Other: PANCYTOPENIA GANESH CRAVEN MD Jan 26, 2019 08:43
--- NOTE | 2019-01-26 09:12 | Cardiology Progress Note ---
Subjective Date Seen by Provider: Jan 26, 2019 Time Seen by Provider: 09:07 Subjective/Events-last exam Patient is in bed, eating breakfast, still complaining of generalized weakness, fatigue and loss of energy, no chest pain Review of Systems General: No Chills, No Night Sweats; Fatigue, Malaise; No Appetite, No Other HEENT: No Head Aches, No Visual Changes, No Eye Pain, No Ear Pain, No Dysphasia , No Sinus Congestion, No Post Nasal Drip, No Sore Throat, No Other Pulmonary: No Dyspnea, No Cough, No Pleuritic Chest Pain, No Other Cardiovascular: No: Chest Pain, Palpitations, Orthopnea, Paroxysmal Noc. Dyspnea, Edema, Lt Headedness, Other Objective-Cardiology Exam Last Set of Vital Signs Vital Signs 01/26/19 01/26/19 03:15 07:00 Temp 99.7 Pulse 81 Resp 18 B/P (MAP) 115/64 (81) Pulse Ox 94 O2 Delivery Room Air Capillary Refill : Less Than 3 Seconds I&O Intake and Output 01/26/19 00:00 Intake Total 2420 ml Output Total 1250 ml Balance 1170 ml Intake Oral 2420 ml Output Urine Total 1250 ml # Urine Diapers 1 General: Alert, Cooperative HEENT: Atraumatic, PERRLA Neck: Supple, No JVD, No Thyromegaly Lungs: Clear to Auscultation, Normal Air Movement Heart: Normal S1, Normal S2, No Murmurs, Other (Atrial fibrillation, SM @ LSB) Abdomen: Normal Bowel Sounds, Soft, No Tenderness, No Hepatosplenomegaly, No Masses Extremities: No Clubbing, No Cyanosis, No Edema, Normal Pulses, No Tenderness/ Swelling Skin: No Rashes, No Breakdown, No Significant Lesion Neuro: Normal Speech, Normal Tone, Sensation Intact Psych/Mental Status: Mood NL, Other Results Lab Laboratory Tests 01/26/19 05:15 A/P-Cardiology Admission Diagnosis Chronic atrial fibrillation Tachycardia Pancytopenia Anemia Assessment/Plan Pancytopenia of undetermined etiology, Received blood transfusion, still having pancytopenia, may require bone marrow biopsy, managed by Dr Sánchez Permanent atrial fibrillation - presented with RVR - rate is better controlled, continue to monitor Generalized weakness and fatigue, Consult PT/OT Echocardiogram of 09-04-18 showed normal LV size with ejection fraction 55-65 percent, dilated left atrium, dilated right atrium, atrial septal defect with aneurysmal intra-atrial septum, moderate to severe MR, PA 35 mmHg. [id number] score of 3, yearly risk of stroke without oral anticoagulations 3.2 percent, Cannot tolerate OAC secondary to pancytopenia Chronic renal insufficiency, continue to monitor renal function Nonobstructive carotid artery stenosis per carotid duplex done in July 2018 , continue to monitor ASD with aneurysmal intra-atrial septum, PA pressure 35 mmHg per echo of , conservative management Dementia Clinical Quality Measures DVT/VTE Risk/Contraindication: Risk Factor Score Per Nursin RFS Level Per Nursing on Admit: 4+=Very High Contraindications-Pharm: Other *list below* Contraindications-Mechi: Other *list below* Other: PANCYTOPENIA MAX PÉREZ MD Jan 26, 2019 09:12
--- NOTE | 2019-01-26 09:55 | NUR ---
CM/SS spoke with the patient and family that was present in the room about the need for SNF placement after hospital. Options for SNF were discussed and they would like information sent to [facility]. Referral packet sent to [facility].
[2019-01-26] MEDS: DILTIAZEM 240 MG (CARDIZEM CD) CAP PO SCH (10:13)
[2019-01-26 12:00] VITALS: BP 110/64
--- NOTE | 2019-01-26 13:30 | Physical Therapy Evaluation ---
PT Evaluation-General Medical Diagnosis Admission Date Jan 23, 2019 at 10:32 Medical Diagnosis: A-Fib RVR, Cardiac Overflow Onset Date: Jan 23, 2019 Therapy Diagnosis Therapy Diagnosis: decreased mobility, weakness Height/Weight Height (Feet): 6 Height (Inches): 0.00 Weight (Pounds): 152 Weight (Ounces): 0.0 Precautions Precautions/Isolations: Fall Prevention, Standard Precautions Weight Bear Status Right Lower Extremity: Right Weight Bearing/Tolerated Left Lower Extremity: Left Weight Bearing/Tolerated Referral Physician: Dr. 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) Current History EMS with c/o weakness and tachycardia Reviewed History: Yes Social History Home: Single Level Current Living Status: Alone Entry Into Home: Stairs With Railing PT Steps Into Home: 2 Prior/Core FIM Prior Level of Function Therapy Code Descriptions/Definitions Functional [place] Measure: 0=Not Assessed/NA 4=Minimal Assistance 1=Total Assistance 5=Supervision or Setup 2=Maximal Assistance 6=Modified [place] 3=Moderate Assistance 7=Complete [place] Therapy Quality Codes: 6 Independent with activity with or without an assistive device 5 Patient requires set up or clean up by helper. Patient completes activity by themselves 4 Supervision or touching assist (CGA). [place] provide cues , steadying assist 3 The helper provides less than half the effort to complete the activity 2 The helper provides more than half the effort to complete the activity 1 Dependent. The helper does all the effort to complete an activity 7 Patient refused to complete or attempt activity 9 The patient did not perform the activity before the current illness or injury 88 Not attempted due to Medical conditions or safety concerns Functional Abilities and Goals: Independent: Patient completed the activities by him/herself, with or without an assistive device, with no assistance from a helper. Needed Some Help: Patient needed partial assistance from another person to complete activities. Dependent: A helper completed the activities for the patient. Unknown: Not Applicable: Bed Mobility: 6 Transfers (B,C,W/C) (FIM): 6 Gait: 6 Stairs: 6 Indoor Mobility (Ambulation): Independent Stairs: Independent Prior Devices Use: Walker Prior Device Use: Standard Walker PT Evaluation-Current Subjective Pt in bed and agrees to PT. Pain Numeric Pain Scale: 0-No Pain Location: No Pain Reported Pt/Family Goals Pt to return home. Objective Patient Orientation: Person Attachments: Other-See Comments Telemetry ROM/Strength ROM Lower Extremities WNL Strength Lower Extremities gross motor bilateral: quads (4+/5), hamstrings (3+/5), DF/PF (4/5) Integumentary/Posture Bowel Incontinence: No Bladder Incontinence: No Neuromuscular (Tone, Coordination, Reflexes) NT Sensory Vision: Functional Hearing: Impaired Sensation Lower Extremities NT Transfers Therapy Code Descriptions/Definitions Functional [place] Measure: 0=Not Assessed/NA 4=Minimal Assistance 1=Total Assistance 5=Supervision or Setup 2=Maximal Assistance 6=Modified [place] 3=Moderate Assistance 7=Complete [place] Transfers (B, C, W/C) (FIM): 4 Scootin Supine to/from Sit: 5 Sit to/from Stand: 4 Gait Mode of Locomotion: Walk Anticipated Mode of Locomotion: Walk Gait (FIM): 4 Distance (FIM): 3=150 ft Distance: 150' Gait Level of Assist: 4 Gait Persons Needed: 1 Gait Assistive Device: FWW Balance Sitting Static: Good Sitting Dynamic: Good Standing Static: Good Standing Dynamic: Good Assessment/Needs Pt was able to perform bed mobility with SBA. Pt performs sit<>stand transfer from EOB to FWW with CGA for safety and VC for hand placement. Pt able to amb 150' with FWW and CGA for safety. Pt amb with flexed forward posture and forward head. Pt uses reciprocal pattern and has decent gait speed. Pt returned to room and transferred to recliner. Pt was able to perform seated LE ex to build strength with (AP, LAQ, hip flexion) x10 reps. Pt has all needs met in recliner. PT to increase activity as pt is able to tolerate. Rehab Potential: Good Post Rehab Potential-Barriers: co-morbidities PT Short Term Goals Short Term Goals Time Frame: Feb 02, 2019 Transfers (B,C,W/C) (FIM): 6 Gait (FIM): 6 Distance (FIM): 3=150 ft Gait Distance Comment: 250' Gait Level of Assist: 6 Gait Assistive Device: FWW PT Plan Problem List Problem List: Activity Tolerance, Functional Strength, Safety, Balance, Gait, Transfer, Bed Mobility, ROM Treatment/Plan Treatment Plan: Continue Plan of Care Treatment Plan: Bed Mobility, Education, Functional Activity Ailyn, Functional Strength, Gait, Safety, Therapeutic Exercise, Transfers Treatment Duration: Feb 02, 2019 Frequency: 6 times per week Estimated Hrs Per Day: .25 hour per day Patient and/or Family Agrees t: Yes Safety Risks/Education Patient Education: Gait Training, Transfer Techniques, Correct Positioning, Safety Issues Teaching Recipient: Patient Teaching Methods: Demonstration, Discussion Discharge Recommendations Therapy D/C Recommendations: Assisted Living, Home w/ Family Support, Halfway Placement Time/GCodes Time In: 1306 Time Out: 1318 Total Billed Treatment Time: 12 Total Billed Treatment 1 visit EVL 12 min JACIEL BARBA PT Jan 26, 2019 13:30
--- NOTE | 2019-01-26 14:15 | Occupational Therapy Eval ---
OT Evaluation-General/PLF Medical Diagnosis Admission Date Jan 23, 2019 at 10:32 Medical Diagnosis: A-Fib RVR, Pancytopenia Onset Date: Jan 23, 2019 Therapy Diagnosis Therapy Diagnosis: Weakness Height/Weight Height (Feet): 6 Height (Inches): 0.00 Weight (Pounds): 152 Weight (Ounces): 0.0 Precautions Precautions/Isolations: Fall Prevention, Standard Precautions Safety Interventions: Bed Exit Alarm Weight Bear Status Weight Bearing Restriction: Weight Bearing/Tolerated Referral Physician: Dr. Wisdom Referral Reason: Activity Tolerance, Self Care, Evaluation/Treatment, Strengthening/ROM Medical History Pertinent Medical History: Atrial Fib, Dementia, GERD, HTN Current History Pt. came to ED with weakness and SOB. Reviewed History: Yes Social History Home: Single Level Current Living Status: Alone Entry Into Home: Stairs With Railing Steps Into Home: 2 Pt. states that his daughter lives across the street and that she checks on him frequently throughout the day. ADL-Prior Level of Function Therapy Code Descriptions/Definitions Functional [place] Measure: 0=Not Assessed/NA 4=Minimal Assistance 1=Total Assistance 5=Supervision or Setup 2=Maximal Assistance 6=Modified [place] 3=Moderate Assistance 7=Complete [place] Therapy Quality Codes: 6 Independent with activity with or without an assistive device 5 Patient requires set up or clean up by helper. Patient completes activity by themselves 4 Supervision or touching assist (CGA). [place] provide cues , steadying assist 3 The helper provides less than half the effort to complete the activity 2 The helper provides more than half the effort to complete the activity 1 Dependent. The helper does all the effort to complete an activity 7 Patient refused to complete or attempt activity 9 The patient did not perform the activity before the current illness or injury 88 Not attempted due to Medical conditions or safety concerns Functional Abilities and Goals: Independent: Patient completed the activities by him/herself, with or without an assistive device, with no assistance from a helper. Needed Some Help: Patient needed partial assistance from another person to complete activities. Dependent: A helper completed the activities for the patient. Unknown: Not Applicable: ADL PLOF Comments Pt. states that he was independent with daily self care. States that he can cook and clean, but that his daughter helps too. Pt. states that he has a car, but doesn't drive. States that his daughter assists with grocery shopping. Self Care: Unknown Functional Cognition: Unknown DME/Equipment: Bath Chair, Shower, Tub/Shower DME/Equipment Comments Pt. has a walker but states that he doesn't generally use it. OT Current Status Subjective Pt. reports no pain. Appearance Pt. is up in chair. States that he is wearing clean clothing. Declines showering but agrees to go for a walk. Mental Status/Objective Patient Orientation: Person, Place Pt. able to participate in appropriate conversation with this therapist. Attachments: IV Current Hand Dominance: Right Upper Extremity ROM WFL Upper Extremity Strength WFL ADL-Treatment Therapy Code Descriptions/Definitions Functional [place] Measure: 0=Not Assessed/NA 4=Minimal Assistance 1=Total Assistance 5=Supervision or Setup 2=Maximal Assistance 6=Modified [place] 3=Moderate Assistance 7=Complete [place] Therapy Quality Codes: 6 Independent with activity with or without an assistive device 5 Patient requires set up or clean up by helper. Patient completes activity by themselves 4 Supervision or touching assist (CGA). [place] provide cues , steadying assist 3 The helper provides less than half the effort to complete the activity 2 The helper provides more than half the effort to complete the activity 1 Dependent. The helper does all the effort to complete an activity 7 Patient refused to complete or attempt activity 9 The patient did not perform the activity before the current illness or injury 88 Not attempted due to Medical conditions or safety concerns Lower Body Dressing (FIM): 5 (Pt. able to doff/don slipper socks with no difficulty.) Transfers (B, C, W/C) (FIM): 5 (Pt. is able to stand from chair with SBA. Ambulated approximately 200 feet with SBA using walker for safety.) Pt. reports that he ate lunch with no difficulty. All needs met back in chair. Education OT Patient Education: Correct positioning, Modified ADL techniques, Progress toward Goal/Update tx plan, Purpose of tx/functional activities, Reviewed precautions, Rehab process, Transfer techniques Teaching Recipient: Patient Teaching Methods: Demonstration, Discussion Response to Teaching: Verbalize Understanding, Return Demonstration OT Short Term Goals Short Term Goals Transfers (B,C,W/C) (FIM): 6 1=Demonstrate adherence to instructed precautions during ADL tasks. 2=Patient will verbalize/demonstrate understanding of assistive devices/ modifications for ADL. 3=Patient will improve strength/tolerance for activity to enable patient to perform ADL's. OT Mcc Goals Mcc Goals Time Frame: Feb 09, 2019 Eating (FIM): 6 Grooming(FIM): 6 Bathing(FIM): 5 Upper Body Dressing(FIM): 6 Lower Body Dressing(FIM): 6 Toileting(FIM): 6 Transfers (B,C,W/C) (FIM): 6 Toilet/Commode Transfer(FIM): 6 Shower Transfer(FIM): 5 Additional Goals: 1-Demonstrate ADL Tasks, 2-Verbalize Understanding, 3- ImproveStrength/Ailyn 1=Demonstrate adherence to instructed precautions during ADL tasks. 2=Patient will verbalize/demonstrate understanding of assistive devices/ modifications for ADL. 3=Patient will improve strength/tolerance for activity to enable patient to perform ADL's. OT Education/Plan Problem List/Assessment Assessment: Decreased Activ Tolerance, Impaired I ADL's, Impaired Self-Care Skills Discharge Recommendations Plan/Recommendations: Continue POC Treatment Plan/Plan of Care Treatment,Training & Education: Yes Patient would benefit from OT for education, treatment and training to promote independence in ADL's, mobility, safety and/or upper extremity function for ADL' s. Plan of Care: ADL Retraining, Functional Mobility, UE Funct Exercise/Act Treatment Duration: Feb 09, 2019 Frequency: 5 times per week Estimated Hrs Per Day: .25 hour per day Agreement: Yes Rehab Potential: Good Time/GCodes Start Time: 13:30 Stop Time: 13:45 Total Time Billed (hr/min): 15 Billed Treatment Time 1, KAMRON CHACON OT Jan 26, 2019 14:15
--- NOTE | 2019-01-26 14:55 | NUR ---
Pastoral care visit, provided support and prayer.
[2019-01-26 16:30] VITALS: BP 109/66
--- NOTE | 2019-01-26 16:39 | Progress Note-Standard ---
Standard Progress Note Progress Notes/Assess & Plan Date Seen by a Provider: Jan 26, 2019 Time Seen by a Provider: 16:35 Progress/Assessment & Plan 88-year-old male admitted to the hospital with increasing fatigue and found to have pancytopenia. Status post 2 units packed red blood cell transfusion. He is feeling better today. Ambulated in hallway with physical therapy. Leukopenia and thrombocytopenia continues. Met with the family today and answered their questions. Serum iron studies showing anemia of chronic disease pattern. Renal function normal. SPEP pending. Discussed the need for a bone marrow examination. Patient and family wanted to proceed with this. We will plan on doing this tomorrow. Will follow patient with you. JOYCE ROSE Jan 26, 2019 16:39
[2019-01-26 19:16] VITALS: BP 119/66
[2019-01-26] MEDS: SENNA W/DOCUSATE (SENOKOT S) TABLET PO SCH (21:36)
[2019-01-27] VITALS: BP 115/63
[2019-01-27 04:42] VITALS: BP 105/57
[2019-01-27] MEDS: CATHETER FLUSH 10 ML SYR IV SCH ×3 (05:05→20:08)
[2019-01-27 06:32] LABS: BASOPHILS % (AUTO) 1 % (0-10); EOSINOPHILS # (AUTO) 0.1 10^3/uL (0.0-0.3); EOSINOPHILS % (AUTO) 2 % (0-10); HEMATOCRIT 28 % (40-54); HEMOGLOBIN 8.6 G/DL (13.3-17.7); LYMPHOCYTES # (AUTO) 1.5 X 10^3 (1.0-4.0); LYMPHOCYTES % (AUTO) 41 % (12-44); MEAN CORPUSCULAR HEMOGLOBIN 32 PG (25-34); MEAN CORPUSCULAR HGB CONC 31 G/DL (32-36); MEAN CORPUSCULAR VOLUME 103 FL (80-99); MEAN PLATELET VOLUME 9.6 FL (7.4-10.4); MONOCYTES # (AUTO) 0.6 X 10^3 (0.0-1.0); MONOCYTES % (AUTO) 17 % (0-12); NEUTROPHILS # (AUTO) 1.4 X 10^3 (1.8-7.8); NEUTROPHILS % (AUTO) 39 % (42-75); PLATELET COUNT 58 10^3/uL (130-400); RED CELL DISTRIBUTION WIDTH 24.3 % (10.0-14.5); WHITE BLOOD COUNT 3.5 10^3/uL (4.3-11.0)
[2019-01-27 06:46] LABS: ALANINE AMINOTRANSFERASE 12 U/L (0-55); ALBUMIN 2.8 GM/DL (3.2-4.5); ALKALINE PHOSPHATASE 55 U/L (40-136); BILIRUBIN,TOTAL 0.7 MG/DL (0.1-1.0); BUN/CREATININE RATIO 29; CALCIUM 9.4 MG/DL (8.5-10.1); CARBON DIOXIDE 23 MMOL/L (21-32); CHLORIDE 105 MMOL/L (98-107); CREATININE SERUM 1.08 MG/DL (0.60-1.30); GFR ESTIMATED > 60; GLUCOSE 84 MG/DL (70-105); POTASSIUM 4.6 MMOL/L (3.6-5.0); SODIUM 136 MMOL/L (135-145); TOTAL PROTEIN 6.1 GM/DL (6.4-8.2)
[2019-01-27 07:16] LABS: ANISOCYTOSIS SLIGHT; BLAST CELLS 6 %; EOSINOPHILS % (MANUAL) 4 %; LYMPHOCYTES % (MANUAL) 34 %; MONOCYTES % (MANUAL) 9 %; NEUTROPHILS % (MANUAL) 46 %; PROMYELOCYTES % 1 %; RBC MORPH NORMAL
[2019-01-27 07:28] VITALS: BP 106/59
--- NOTE | 2019-01-27 07:38 | Cardiology Progress Note ---
Subjective Date Seen by Provider: Jan 27, 2019 Time Seen by Provider: 07:37 Subjective/Events-last exam Patient is in bed, feeling better, no new complaint Review of Systems General: No Chills, No Night Sweats; Fatigue; No Malaise, No Appetite, No Other HEENT: No Head Aches, No Visual Changes, No Eye Pain, No Ear Pain, No Dysphasia , No Sinus Congestion, No Post Nasal Drip, No Sore Throat, No Other Pulmonary: No Dyspnea, No Cough, No Pleuritic Chest Pain, No Other Cardiovascular: No: Chest Pain, Palpitations, Orthopnea, Paroxysmal Noc. Dyspnea, Edema, Lt Headedness, Other Objective-Cardiology Exam Last Set of Vital Signs Vital Signs 01/27/19 07:28 Temp 98.8 Pulse 64 Resp 16 B/P (MAP) 106/59 (75) Pulse Ox 96 O2 Delivery Room Air Capillary Refill : Less Than 3 Seconds I&O Intake and Output 01/27/19 00:00 Intake Total 2420 ml Output Total 1100 ml Balance 1320 ml Intake Oral 2420 ml Output Urine Total 1100 ml General: Alert, Cooperative HEENT: Atraumatic, PERRLA Neck: Supple, No JVD, No Thyromegaly Lungs: Clear to Auscultation, Normal Air Movement Heart: Normal S1, Normal S2, No Murmurs, Other (Atrial fibrillation, SM @ LSB) Abdomen: Normal Bowel Sounds, Soft, No Tenderness, No Hepatosplenomegaly, No Masses Extremities: No Clubbing, No Cyanosis, No Edema, Normal Pulses, No Tenderness/ Swelling Skin: No Rashes, No Breakdown, No Significant Lesion Neuro: Normal Speech, Normal Tone, Sensation Intact Psych/Mental Status: Mood NL, Other Results Lab Laboratory Tests 01/27/19 05:34 A/P-Cardiology Admission Diagnosis Chronic atrial fibrillation Tachycardia Pancytopenia Anemia Assessment/Plan Pancytopenia of undetermined etiology, Received blood transfusion, still having pancytopenia, scheduled for bone marrow biopsy today, managed by Dr Sánchez Permanent atrial fibrillation - presented with RVR - rate is better controlled, continue to monitor Generalized weakness and fatigue, Consult PT/OT Echocardiogram of 09-04-18 showed normal LV size with ejection fraction 55-65 percent, dilated left atrium, dilated right atrium, atrial septal defect with aneurysmal intra-atrial septum, moderate to severe MR, PA 35 mmHg. [id number] score of 3, yearly risk of stroke without oral anticoagulations 3.2 percent, Cannot tolerate OAC secondary to pancytopenia Chronic renal insufficiency, continue to monitor renal function Nonobstructive carotid artery stenosis per carotid duplex done in July 2018 , continue to monitor ASD with aneurysmal intra-atrial septum, PA pressure 35 mmHg per echo of , conservative management Dementia Clinical Quality Measures DVT/VTE Risk/Contraindication: Risk Factor Score Per Nursin RFS Level Per Nursing on Admit: 4+=Very High Contraindications-Pharm: Other *list below* Contraindications-Mechi: Other *list below* Other: PANCYTOPENIA MAX PÉREZ MD Jan 27, 2019 07:38
--- NOTE | 2019-01-27 08:39 | Progress Note ---
Subjective Date Seen by a Provider: Jan 27, 2019 Time Seen by a Provider: 08:30 Subjective/Events-last exam PT STILL WITHOUT COMPLAINT - HE STATES THAT HE HAS A GOOD APPETITE. HE IS GOING TO HAVE A BONE MARROW BIOPSY WITH DR. ROSE Review of Systems General: No Chills; Fatigue Pulmonary: No Dyspnea, No Cough Cardiovascular: No: Chest Pain Gastrointestinal: No: Nausea, Abdominal Pain Neurological: Weakness, Confusion Objective Exam Last Set of Vital Signs Vital Signs Date Time Temp Pulse Resp B/P (MAP) Pulse Ox O2 Delivery O2 Flow Rate FiO2 01/27/19 07:28 98.8 64 16 106/59 (75) 96 Room Air Capillary Refill : Less Than 3 Seconds I&O Intake and Output 01/27/19 00:00 Intake Total 2420 ml Output Total 1100 ml Balance 1320 ml Intake Oral 2420 ml Output Urine Total 1100 ml General: Alert, Cooperative HEENT: Atraumatic, PERRLA Neck: Supple, No JVD, No Thyromegaly Lungs: Clear to Auscultation, Normal Air Movement Heart: Normal S1, Normal S2, No Murmurs, Other (Atrial fibrillation, SM @ LSB) Abdomen: Normal Bowel Sounds, Soft, No Tenderness, No Hepatosplenomegaly, No Masses Extremities: No Clubbing, No Cyanosis Skin: No Rashes, No Breakdown, No Significant Lesion Neuro: Normal Speech, Normal Tone, Sensation Intact Psych/Mental Status: Mood NL, Other (CONFUSED/DEMENTIA) Results Lab Laboratory Tests 01/27/19 03:08: Stool Occult Blood Immunoassay NEGATIVE 01/27/19 05:34: White Blood Count 3.5L, Red Blood Count 2.69L, Hemoglobin 8.6L, Hematocrit 28L, Mean Corpuscular Volume 103H, Mean Corpuscular Hemoglobin 32, Mean Corpuscular Hemoglobin Concent 31L, Red Cell Distribution Width 24.3H, Platelet Count 58L, Mean Platelet Volume 9.6, Neutrophils (%) (Auto) 39L, Lymphocytes (%) (Auto) 41 , Monocytes (%) (Auto) 17H, Eosinophils (%) (Auto) 2, Basophils (%) (Auto) 1, Neutrophils # (Auto) 1.4L, Lymphocytes # (Auto) 1.5, Monocytes # (Auto) 0.6, Eosinophils # (Auto) 0.1, Basophils # (Auto) 0.0, Neutrophils % (Manual) 46, Lymphocytes % (Manual) 34, Monocytes % (Manual) 9, Eosinophils % (Manual) 4, Promyelocytes % 1, Blast Cells 6, Dohle Bodies SLIGHT, Anisocytosis SLIGHT, Macrocytosis SLIGHT, Blood Morphology Comment NORMAL, Sodium Level 136, Potassium Level 4.6, Chloride Level 105, Carbon Dioxide Level 23, Anion Gap 8, Blood Urea Nitrogen 31H, Creatinine 1.08, Estimat Glomerular Filtration Rate > 60, BUN/Creatinine Ratio 29, Glucose Level 84, Calcium Level 9.4, Corrected Calcium 10.4H, Total Bilirubin 0.7, Aspartate Amino Transf (AST/SGOT) 22, Alanine Aminotransferase (ALT/SGPT) 12, Alkaline Phosphatase 55, Total Protein 6.1L, Albumin 2.8L Assessment/Plan Assessment/Plan Assess & Plan/Chief Complaint PANCYTOPENIA ATRIAL FIBRILLATION WITH RVR DEMENTIA GENERALIZED WEAKNESS EDEMA PANCYTOPENIA - WILL PERFORM SERIAL LABS, PT TRANSFUSED OVER THE WEEKEND HE HAD A DROP IN HIS HGB DOWN TO 6.5. PT TO CONTINUE WITH SERIAL LABS - HGB BELOW NORMAL, BUT STABLE, AND HIS WHITE COUNT AND PLTS CONTINUE TO BE LOW. DR. ROSE HAS INDICATED BONE MARROW BIOPSY IS INDICATED INVESTIGATIONAL LABS STILL PENDING. ATRIAL FIBRILLATION WITH RVR - HOLD ELIQUIS AND OTHER BLOOD THINNING AGENTS FOR NOW - MONITOR H AND H, STARTED ON ORAL CARDIZEM, DEFER OTHER TREATMENT RECOMMENDATIONS TO CARDIOLOGY. DEMENTIA - HOLD ARICEPT AND NAMENDA AT THIS TIME. GENERALIZED WEAKNESS - THERAPY INITIATED, PT AMBULATING WITH STAFF IN [place]. EDEMA - IMPROVED PLANNING DISCHARGE TO THE [facility]IOR LIVING Clinical Quality Measures Admission Status Admission Dx PANCYTOPENIA ATRIAL FIBRILLATION WITH RVR DEMENTIA GENERALIZED WEAKNESS EDEMA DVT/VTE Risk/Contraindication: Risk Factor Score Per Nursin RFS Level Per Nursing on Admit: 4+=Very High Contraindications-Pharm: Other *list below* Contraindications-Mechi: Other *list below* Other: PANCYTOPENIA GANESH CRAVEN MD Jan 27, 2019 08:39
--- NOTE | 2019-01-27 09:54 | Physical Therapy Daily Note ---
PT Daily Note-Current Subjective Pt in bed with breakfast and agrees to PT. Pain Numeric Pain Scale: 0-No Pain Location: No Pain Reported Mental Status Patient Orientation: Person Attachments: Other-See Comments Telemetry Transfers Therapy Code Descriptions/Definitions Functional [place] Measure: 0=Not Assessed/NA 4=Minimal Assistance 1=Total Assistance 5=Supervision or Setup 2=Maximal Assistance 6=Modified B[place] 3=Moderate Assistance 7=Complete Boles Therapy Quality Codes: 6 Independent with activity with or without an assistive device 5 Patient requires set up or clean up by helper. Patient completes activity by themselves 4 Supervision or touching assist (CGA). [place] provide cues , steadying assist 3 The helper provides less than half the effort to complete the activity 2 The helper provides more than half the effort to complete the activity 1 Dependent. The helper does all the effort to complete an activity 7 Patient refused to complete or attempt activity 9 The patient did not perform the activity before the current illness or injury 88 Not attempted due to Medical conditions or safety concerns Transfers (B, C, W/C) (FIM): 4 Scootin Supine to/from Sit: 5 Sit to/from Stand: 4 Weight Bearing Right Lower Extremity: Right Weight Bearing/Tolerated Left Lower Extremity: Left Weight Bearing/Tolerated Gait Training Gait (FIM): 5 Distance (FIM): 3=150 ft Distance: 150' Gait Level of Assist: 5 Gait Persons Needed: 1 Gait Assistive Device: FWW Exercises Seated Therapy Exercises: Ankle pumps (20 reps), Long arc quads, Hip flexion Seated Reps: 10 Assessment Current Status: Good Progress Pt able to perform bed mobility SBA with use of rails. Once EOB nurse listened to pt and reports all sounds good, and reported that pt will be getting a bone marrow biopsy later today. Pt performs sit<>stand transfer to FWW with CGA for safety and VC for hand placement. Pt amb 150' with FWW and SBA, pt has forward flexed posture and forward head. Pt returned to room to recliner. Pt tends to try and leave FWW to transfer to recliner, SPT instructed pt to use FWW all the way to recliner and then reach back to sit down. Pt was able to do so with VC. Pt performed seated LE ex with instruction from SPT. Pt has all needs met and is in recliner. PT Short Term Goals Short Term Goals Time Frame: Feb 02, 2019 Transfers (B,C,W/C) (FIM): 6 Gait (FIM): 6 Distance (FIM): 3=150 ft Gait Distance Comment: 250' Gait Level of Assist: 6 Gait Assistive Device: FWW PT Plan Problem List Problem List: Activity Tolerance, Functional Strength, Safety, Balance, Gait, Transfer, Bed Mobility, ROM Treatment/Plan Treatment Plan: Continue Plan of Care Treatment Plan: Bed Mobility, Education, Functional Activity Ailyn, Functional Strength, Gait, Safety, Therapeutic Exercise, Transfers Treatment Duration: Feb 02, 2019 Frequency: 6 times per week Estimated Hrs Per Day: .25 hour per day Patient and/or Family Agrees t: Yes Time/GCodes Time In: 843 Time Out: 853 Total Billed Treatment Time: 10 Total Billed Treatment 1 visit FA 10 min JACIEL BARBA PT Jan 27, 2019 09:54
[2019-01-27 10:08] LABS: ABSOLUTE RETIC # 95 10e9/L (24-90); RETICULOCYTE % 3.54 % (0.50-2.40)
[2019-01-27] MEDS: DILTIAZEM 240 MG (CARDIZEM CD) CAP PO SCH (10:08)
[2019-01-27] MEDS ORDERED: LIDOCAINE 1% 20 ML (XYLOCAINE) VIAL CANCER CTR ONE (11:17)
--- NOTE | 2019-01-27 11:56 | NUR ---
CM/SS [facility] can take acceptance of the patient when he is ready to discharge.
[2019-01-27 12:30] VITALS: BP 109/70
--- NOTE | 2019-01-27 13:19 | Occupational Ther Daily Note ---
OT Current Status-Daily Note Subjective Pt alert, lying in bed. Pt agrees to therapy. Mental Status/Objective Patient Orientation: Person, Time Therapy Code Descriptions/Definitions Functional [place] Measure: 0=Not Assessed/NA 4=Minimal Assistance 1=Total Assistance 5=Supervision or Setup 2=Maximal Assistance 6=Modified [place] 3=Moderate Assistance 7=Complete [place] Other Treatment Pt asked about lunch, thought that it should be already in his room. Pt requires assistance to order lunch, nrsg to put in auto tray. Pt had difficulty deciding what to order, saying he would eat anything they brought up. Pt then completed UE exercises to strengthening and stretch for daily functional activities. Pt stated that it hurt his right hip and side with first rep of shldr flexion then no more pain. Pt stated after exercises that his arms were tired. Pt then requested urinal, was able to place urinal by self. Pt was given call light. After therapy, all needs met in room. OT Short Term Goals Short Term Goals Transfers (B,C,W/C) (FIM): 6 1=Demonstrate adherence to instructed precautions during ADL tasks. 2=Patient will verbalize/demonstrate understanding of assistive devices/ modifications for ADL. 3=Patient will improve strength/tolerance for activity to enable patient to perform ADL's. OT Arcade Attendant Goals Arcade Attendant Goals Time Frame: Feb 09, 2019 Eating (FIM): 6 Grooming(FIM): 6 Bathing(FIM): 5 Upper Body Dressing(FIM): 6 Lower Body Dressing(FIM): 6 Toileting(FIM): 6 Transfers (B,C,W/C) (FIM): 6 Toilet/Commode Transfer(FIM): 6 Shower Transfer(FIM): 5 Additional Goals: 1-Demonstrate ADL Tasks, 2-Verbalize Understanding, 3- ImproveStrength/Ailyn 1=Demonstrate adherence to instructed precautions during ADL tasks. 2=Patient will verbalize/demonstrate understanding of assistive devices/ modifications for ADL. 3=Patient will improve strength/tolerance for activity to enable patient to perform ADL's. OT Education/Plan Discharge Recommendations Plan/Recommendations: Continue POC Treatment Plan/Plan of Care Patient would benefit from OT for education, treatment and training to promote independence in ADL's, mobility, safety and/or upper extremity function for ADL' s. Plan of Care: ADL Retraining, Functional Mobility, UE Funct Exercise/Act Treatment Duration: Feb 09, 2019 Frequency: 5 times per week Estimated Hrs Per Day: .25 hour per day Agreement: Yes Rehab Potential: Good Time/GCodes Start Time: 12:50 Stop Time: 13:05 Total Time Billed (hr/min): 15 Billed Treatment Time 1 visit-FA 1 (15 min) JERRELL MAN Jan 27, 2019 13:19
[2019-01-27 15:41] VITALS: BP 124/79
--- NOTE | 2019-01-27 16:28 | Oncology Progress Note ---
Subjective Date Seen by a Provider: Jan 27, 2019 Time Seen by a Provider: 11:30 Subjective/Events-last exam Procedure: Bone marrow aspiration and biopsy. Indication: Pancytopenia. The procedure, indications and complications were explained to the patient and an informed consent signed. I had met with the patient and his family yesterday and discussed the procedure also. Patient was placed in the left lateral decubitus position in the right posterior superior iliac spine area was prepped and draped. Local anesthesia using 2 percent Xylocaine was given. An [place] needle was passed in and an aspiration obtained on first attempt. A Jamshidi needle was passed in with biopsy attempted 2. A small specimen was obtained during the second attempt which is most likely due to soft bones. Patient tolerated procedure well. Adequate hemostasis was obtained and a sterile Band-Aid applied. Patient was noted to have significant rash on his back in the nursing staff was notified. Specimen was sent to the lab for appropriate testing including cytogenetics and flow cytometry if indicated. Data Review Labs Laboratory Tests 01/27/19 05:34 Laboratory Tests 01/25/19 00:50: Hemoglobin 8.5#L, Hematocrit 27L 01/25/19 06:37: Hemoglobin 8.8L, Hematocrit 28L, White Blood Count 2.8L, Red Blood Count 2.74L, Mean Corpuscular Volume 101H, Red Cell Distribution Width 25.8H, Platelet Count 52L, Blood Urea Nitrogen 23H, Total Bilirubin 1.5H, Total Protein 5.6L, Albumin 2.7L 01/25/19 11:51: Glucometer 111H 01/26/19 05:15: Hemoglobin 8.4L, Hematocrit 27L, White Blood Count 3.0L, Red Blood Count 2.64L, Mean Corpuscular Volume 102H, Red Cell Distribution Width 24.6H, Platelet Count 49L, Blood Urea Nitrogen 28H, Total Protein 5.6L, Albumin 2.7L, Mean Corpuscular Hemoglobin Concent 31L 01/27/19 03:08: 01/27/19 05:34: White Blood Count 3.5L, Red Blood Count 2.69L, Hemoglobin 8.6L, Hematocrit 28L, Mean Corpuscular Volume 103H, Mean Corpuscular Hemoglobin Concent 31L, Red Cell Distribution Width 24.3H, Platelet Count 58L, Neutrophils (%) (Auto) 39L, Monocytes (%) (Auto) 17H, Neutrophils # (Auto) 1.4L, Absolute Reticulocyte Count 95H, Percent Reticulocyte Count 3.54H, Blood Urea Nitrogen 31H, Corrected Calcium 10.4H, Total Protein 6.1L, Albumin 2.8L 01/27/19 09:54: Physical Exam Vital Signs Vital Signs - First Documented 01/23/19 01/23/19 08:48 13:36 Temp 96.7 Pulse 149 Resp 15 B/P (MAP) 93/64 (74) Pulse Ox 95 O2 Delivery Room Air Capillary Refill : Less Than 3 Seconds Height, Weight, BMI Height: 6'0.00" Weight: 152lbs. 0.0oz. 68.740033cv; 21.6 BMI Method:Stated Clinical Quality Measures DVT/VTE Risk/Contraindication: Risk Factor Score Per Nursin RFS Level Per Nursing on Admit: 4+=Very High Contraindications-Pharm: Other *list below* Contraindications-Mechi: Other *list below* Other: PANCYTOPENIA JOYCE ROSE Jan 27, 2019 16:28
[2019-01-27] MEDS: BETAMETHASONE DIPRO (AUGMENTED) 0.05% CREAM 15 GM TOP SCH ×2 (16:29→20:07)
--- NOTE | 2019-01-27 16:32 | Progress Note-Standard ---
Standard Progress Note Progress Notes/Assess & Plan Date Seen by a Provider: Jan 27, 2019 Time Seen by a Provider: 11:30 Progress/Assessment & Plan Procedure: Bone marrow aspiration and biopsy. Indication: Pancytopenia. The procedure, indications and complications were explained to the patient and an informed consent signed. Patient was placed in the left lateral decubitus position in the right posterior superior iliac area was prepped and draped. Patient was noted to have significant rash on his back and nursing staff notified. Local anesthesia using 2 percent Xylocaine given. An [place] needle was passed in and an aspiration obtained on first attempt. A Jamshidi needle was passed in and a biopsy obtained on 2 attempts. Patient tolerated the procedure well. Adequate hemostasis was obtained and a sterile Band-Aid applied. Specimen was sent to the lab for appropriate testing including flow cytometry if indicated and cytogenetics. JOYCE ROSE Jan 27, 2019 16:32
[2019-01-27] MEDS: SENNA W/DOCUSATE (SENOKOT S) TABLET PO SCH (20:07)
[2019-01-27 20:31] VITALS: BP 118/74
[2019-01-28] VITALS: BP 114/75
[2019-01-28 06:07] LABS: HEMOGLOBIN 8.5 G/DL (13.3-17.7); MEAN PLATELET VOLUME 9.7 FL (7.4-10.4); RED CELL DISTRIBUTION WIDTH 23.7 % (10.0-14.5); WHITE BLOOD COUNT 2.8 10^3/uL (4.3-11.0)
[2019-01-28] MEDS: CATHETER FLUSH 10 ML SYR IV SCH ×2 (06:10→14:21)
[2019-01-28 06:38] LABS: ALANINE AMINOTRANSFERASE 12 U/L (0-55); ALBUMIN 2.7 GM/DL (3.2-4.5); ALKALINE PHOSPHATASE 45 U/L (40-136); BILIRUBIN,TOTAL 0.9 MG/DL (0.1-1.0); BUN/CREATININE RATIO 29; CALCIUM 9.3 MG/DL (8.5-10.1); CARBON DIOXIDE 24 MMOL/L (21-32); CHLORIDE 104 MMOL/L (98-107); CREATININE SERUM 0.91 MG/DL (0.60-1.30); GFR ESTIMATED > 60; GLUCOSE 94 MG/DL (70-105); POTASSIUM 4.5 MMOL/L (3.6-5.0); SODIUM 133 MMOL/L (135-145); TOTAL PROTEIN 5.7 GM/DL (6.4-8.2)
[2019-01-28 07:40] VITALS: BP 111/59
--- NOTE | 2019-01-28 08:39 | Discharge Summary ---
Diagnosis/Chief Complaint Date of Admission Jan 23, 2019 at 10:32 Date of Discharge Discharge Date: Jan 28, 2019 Discharge Time: 08:39 Admission Diagnosis Admission Diagnosis PANCYTOPENIA ATRIAL FIBRILLATION WITH RVR DEMENTIA GENERALIZED WEAKNESS EDEMA Discharge Diagnosis PANCYTOPENIA ATRIAL FIBRILLATION WITH RVR DEMENTIA GENERALIZED WEAKNESS EDEMA Reason Hospital Visit PT IS AN 88 Y/O MALE WHO IS KNOWN TO ME FROM CLINIC. HE PRESENTED TO THE EMERGENCY DEPARTMENT WITH WEAKNESS, SHORTNESS OF BREATH. HIS DTR NOTES THAT HE HAS NOT BEEN EATING WELL OR APPEARING TO FEEL WELL FOR SEVERAL DAYS. HE WAS TOLD IN THE LAST FEW MONTHS THAT HE HAS SEVERE BLADDER DISEASE AND THEY CANNOT PERFORM SURGERY ON HIM. HE DENIES CHEST PAIN, HE DOES COMPLAIN OF BEING COLD. Discharge Summary Procedures: BONE MARROW BIOPSY Consultations DR. ROSE, CARDIOLOGY Discharge Physical Examination Allergies: Coded Allergies: No Known Drug Allergies (Verified , 11/22/09) Vitals & I&Os General Appearance: Alert, Cooperative, No Acute Distress HEENT: Atraumatic, PERRLA Respiratory: Clear to Auscultation, Normal Air Movement Cardiovascular: Normal S1, Normal S2, No Murmurs, Other (Atrial fibrillation, SM @ LSB) Abdominal: Normal Bowel Sounds, Soft, No Tenderness, No Hepatosplenomegaly, No Masses Extremities: No Clubbing, No Cyanosis, No Edema, Normal Pulses, No Tenderness/ Swelling Skin: No Rashes, No Breakdown, No Significant Lesion Neuro: Normal Speech, Normal Tone, Sensation Intact Psych/Mental Status: Mood NL, Other (CONFUSION) Hospital Course Was the Problem List Reviewed?: Yes PANCYTOPENIA ATRIAL FIBRILLATION WITH RVR DEMENTIA GENERALIZED WEAKNESS EDEMA PANCYTOPENIA - WILL PERFORM SERIAL LABS, PT TRANSFUSED OVER THE WEEKEND HE HAD A DROP IN HIS HGB DOWN TO 6.5. PT TO CONTINUE WITH SERIAL LABS - HGB BELOW NORMAL, BUT STABLE, AND HIS WHITE COUNT AND PLTS CONTINUE TO BE LOW. DR. ROSE HAS INDICATED BONE MARROW BIOPSY IS INDICATED INVESTIGATIONAL LABS STILL PENDING. ATRIAL FIBRILLATION WITH RVR - HOLD ELIQUIS AND OTHER BLOOD THINNING AGENTS FOR NOW - MONITOR H AND H, STARTED ON ORAL CARDIZEM, DEFER OTHER TREATMENT RECOMMENDATIONS TO CARDIOLOGY. DEMENTIA - HOLD ARICEPT AND NAMENDA AT THIS TIME. GENERALIZED WEAKNESS - THERAPY INITIATED - WILL NEED TO CONTINUE WITH THERAPY AT [facility]USTODIAL EDEMA - IMPROVED PT TO BE DISCHARGED TO THE CUSTODIAL TODAY Pending Labs Discharge Condition at discharge IMPROVED Instructions to patient/family Please see electronic discharge instructions given to patient. Discharge Medications Reviewed and agree with Discharge Medication list on patient's Discharge Instruction sheet Clinical Quality Measures DVT/VTE Risk/Contraindication: Risk Factor Score Per Nursin RFS Level Per Nursing on Admit: 4+=Very High Contraindications-Pharm: Other *list below* Contraindications-Mechi: Other *list below* Other: PANCYTOPENIA GANESH CRAVEN MD Jan 28, 2019 08:39
[2019-01-28] MEDS ORDERED: BETA15CR37 TOP (08:41)
[2019-01-28] MEDS ORDERED: DILT240C97 PO (08:41)
[2019-01-28] MEDS ORDERED: SENN-20 PO (08:41)
--- NOTE | 2019-01-28 08:44 | Discharge Inst-Skilled Nursing ---
Discharge Inst-Skilled NF Patient Instructions Patient Problems: PANCYTOPENIA DEMENTIA ATRIAL FIBRILLATION CONSTIPATION Consult/Follow Up/Orders Follow Up Appt.: [facility] Skilled NF Admit to: [facility] Certification (SNF) I certify that SNF services are required to be given on an inpatient basis because of the above named patient's need for detention care on a continuing basis for the conditions(s) for which he/she was receiving inpatient hospital services prior to his/her transfer to the SNF. [facility] Facility Order: Nursing Services, Insulation Packer-Evaluate & Treat, Physical Therapy-Evaluate & Treat Oxygen Delivery Method: Room Air Discharge Diet: Regular Diet Daily Activity as Tolerated: Yes New & Resume Previous Orders New & Resume Previous Orders CBC AND CMP IN ONE WEEK FROM DISCHARGE Ganesh A Toya Jan 28, 2019 08:42 Medication List: Active Scripts Active Betamethasone Dp Aug 0.05% Crm (Betamethasone/Propylene Glyc) 15 Gm Cream..g. 0 Gm TOP TID Senna-Time S Tablet (Sennosides/Docusate Sodium) 1 Each Tablet 1 Ea PO HS Diltiazem 24Hr Cd (Diltiazem HCl) 240 Mg Cap.er.24h 240 Mg PO DAILY Reported Eliquis (Apixaban) 5 Mg Tablet 5 Mg PO BID Memantine HCl 10 Mg Tablet 10 Mg PO BID Donepezil HCl 10 Mg Tablet 10 Mg PO DAILY Vitamin C (Ascorbate Calcium) 500 Mg Tablet 500 Mg PO DAILY Furosemide 20 Mg Tablet 20 Mg PO DAILY PRN Zyrtec (Cetirizine HCl) 10 Mg Tablet 10 Mg PO DAILY Multiple Vitamin (Multivitamin with Minerals) 1 Each Tablet 1 Tab PO DAILY Cartia Xt (Diltiazem HCl) 120 Mg Cap.er.24h 120 Mg PO BID Lab results: Laboratory Tests Test 01/27/19 09:54 01/28/19 05:15 Range/Units Lab Scanned Report Transfusion Reaction Form [id number] White Blood Count 2.8 L 4.3-11.0 10^3/uL Red Blood Count 2.65 L 4.35-5.85 10^6/uL Hemoglobin 8.5 L 13.3-17.7 G/DL Hematocrit 28 L 40-54 % Mean Corpuscular Volume 104 H 80-99 FL Mean Corpuscular Hemoglobin 32 25-34 PG Mean Corpuscular Hemoglobin Concent 31 L 32-36 G/DL Red Cell Distribution Width 23.7 H 10.0-14.5 % Platelet Count 48 L 130-400 10^3/uL Mean Platelet Volume 9.7 7.4-10.4 FL Sodium Level 133 L 135-145 MMOL/L Potassium Level 4.5 3.6-5.0 MMOL/L Chloride Level 104 98-107 MMOL/L Carbon Dioxide Level 24 21-32 MMOL/L Anion Gap 5 5-14 MMOL/L Blood Urea Nitrogen 26 H 7-18 MG/DL Creatinine 0.91 0.60-1.30 MG/DL Estimat Glomerular Filtration Rate > 60 BUN/Creatinine Ratio 29 Glucose Level 94 70-105 MG/DL Calcium Level 9.3 8.5-10.1 MG/DL Corrected Calcium 10.3 H 8.5-10.1 MG/DL Total Bilirubin 0.9 0.1-1.0 MG/DL Aspartate Amino Transf (AST/SGOT) 21 5-34 U/L Alanine Aminotransferase (ALT/SGPT) 12 0-55 U/L Alkaline Phosphatase 45 40-136 U/L Total Protein 5.7 L 6.4-8.2 GM/DL Albumin 2.7 L 3.2-4.5 GM/DL My orders: Orders - GANESH CRAVEN MD Lidocaine 1% 20 Ml ([facility] (Xylocain (01/27/19 11:17) Patient Visit (01/27/19 ) Functional Activities, Ea 15 (01/27/19 ) Betamethasone Dipropinate Crm (Diprolene (01/27/19 14:39) Cbc No Diff (01/28/19 06:00) Comprehensive Metabolic Panel (01/28/19 06:00) Attending Discharge Inpt/Inobs (01/28/19 08:41) GANESH CRAVEN MD Jan 28, 2019 08:44
--- NOTE | 2019-01-28 09:05 | Physical Therapy Daily Note ---
PT Daily Note-Current Subjective Pt is in bed and agrees to PT. Mental Status Patient Orientation: Person Transfers Therapy Code Descriptions/Definitions Functional [place] Measure: 0=Not Assessed/NA 4=Minimal Assistance 1=Total Assistance 5=Supervision or Setup 2=Maximal Assistance 6=Modified [place] 3=Moderate Assistance 7=Complete [place] Therapy Quality Codes: 6 Independent with activity with or without an assistive device 5 Patient requires set up or clean up by helper. Patient completes activity by themselves 4 Supervision or touching assist (CGA). [place] provide cues , steadying assist 3 The helper provides less than half the effort to complete the activity 2 The helper provides more than half the effort to complete the activity 1 Dependent. The helper does all the effort to complete an activity 7 Patient refused to complete or attempt activity 9 The patient did not perform the activity before the current illness or injury 88 Not attempted due to Medical conditions or safety concerns Transfers (B, C, W/C) (FIM): 4 Scootin Supine to/from Sit: 5 Weight Bearing Right Lower Extremity: Right Weight Bearing/Tolerated Left Lower Extremity: Left Weight Bearing/Tolerated Exercises Seated Therapy Exercises: Ankle pumps (20 reps), Long arc quads, Hip flexion, Hip abd/add Seated Reps: 15 Assessment Current Status: Fair Progress Pt is able to perform bed mobility with SBA, it just takes pt increased time to perform activity. Pt EOB is able to transfer to FWW with CGA, but pt is unable to get into upright position due to c/o low back pain. Pt returns to EOB and attempts standing x2 reps to FWW. Pt reports he will not be able to amb today. Pt agrees to EOB LE ex. Pt able to perform LE ex with instruction from SPT. Pt transfers back into bed and has all needs met. PT Short Term Goals Short Term Goals Time Frame: Feb 02, 2019 Transfers (B,C,W/C) (FIM): 6 Gait (FIM): 6 Distance (FIM): 3=150 ft Gait Distance Comment: 250' Gait Level of Assist: 6 Gait Assistive Device: FWW PT Plan Problem List Problem List: Activity Tolerance, Functional Strength, Safety, Balance, Gait, Transfer, Bed Mobility, ROM Treatment/Plan Treatment Plan: Continue Plan of Care Treatment Plan: Bed Mobility, Education, Functional Activity Ailyn, Functional Strength, Gait, Safety, Therapeutic Exercise, Transfers Treatment Duration: Feb 02, 2019 Frequency: 6 times per week Estimated Hrs Per Day: .25 hour per day Patient and/or Family Agrees t: Yes Safety Risks/Education Patient Education: Transfer Techniques, Correct Positioning, Safety Issues Teaching Recipient: Patient Teaching Methods: Demonstration, Discussion Response to Teaching: Reinforcement Needed Time/GCodes Time In: 835 Time Out: 847 Total Billed Treatment Time: 12 Total Billed Treatment 1 visit EX 12 min DAREK NAGY PT Jan 28, 2019 09:05
[2019-01-28] MEDS: DILTIAZEM 240 MG (CARDIZEM CD) CAP PO SCH (09:19)
[2019-01-28] MEDS: BETAMETHASONE DIPRO (AUGMENTED) 0.05% CREAM 15 GM TOP SCH ×2 (09:19→13:07)
--- NOTE | 2019-01-28 10:10 | NUR ---
CM/SS completed the CARE Assessment with the patient. Copy of CARE Assessment sent to [facility], [facility]AIL[facility], and copy in chart. [facility] will transport the patient this day at 1300. Attempted to call [facility] and messages left for them.
--- NOTE | 2019-01-28 13:44 | Cardiology Progress Note ---
Subjective Date Seen by Provider: Jan 28, 2019 Time Seen by Provider: 08:00 Subjective/Events-last exam Patient was seen and evaluated, laying down in bed, denied any new complaint. Still having fatigue Review of Systems General: No Chills, No Night Sweats; Fatigue, Malaise; No Appetite, No Other HEENT: No Head Aches, No Visual Changes, No Eye Pain, No Ear Pain, No Dysphasia , No Sinus Congestion, No Post Nasal Drip, No Sore Throat, No Other Pulmonary: No Dyspnea, No Cough, No Pleuritic Chest Pain, No Other Cardiovascular: No: Chest Pain, Palpitations, Orthopnea, Paroxysmal Noc. Dyspnea, Edema, Lt Headedness, Other Objective-Cardiology Exam Last Set of Vital Signs Vital Signs 01/28/19 01/28/19 07:40 08:00 Temp 99.0 Pulse 61 Resp 18 B/P (MAP) 111/59 (76) Pulse Ox 95 O2 Delivery Room Air Capillary Refill : Less Than 3 Seconds I&O Intake and Output 01/28/19 00:00 Intake Total 920 ml Output Total 1950 ml Balance -1030 ml Intake Oral 920 ml Output Urine Total 1950 ml # Bowel Movements 1 General: Alert, Cooperative HEENT: Atraumatic, PERRLA Neck: Supple, No JVD, No Thyromegaly Lungs: Clear to Auscultation, Normal Air Movement Heart: Normal S1, Normal S2, No Murmurs, Other (Atrial fibrillation, SM @ LSB) Abdomen: Normal Bowel Sounds, Soft, No Tenderness, No Hepatosplenomegaly, No Masses Extremities: No Clubbing, No Cyanosis, No Edema, Normal Pulses, No Tenderness/ Swelling Skin: No Rashes, No Breakdown, No Significant Lesion Neuro: Normal Speech, Normal Tone, Sensation Intact Psych/Mental Status: Mood NL, Other Results Lab Laboratory Tests 01/28/19 05:15 A/P-Cardiology Admission Diagnosis Chronic atrial fibrillation Tachycardia Pancytopenia Anemia Assessment/Plan Pancytopenia of undetermined etiology, Received blood transfusion, still having pancytopenia, status post bone marrow biopsy, followed by Dr. 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 [id number] score of 3, yearly risk of stroke without oral anticoagulations 3.2 percent, Cannot tolerate OAC secondary to pancytopenia Chronic renal insufficiency, continue to monitor renal function Nonobstructive carotid artery stenosis per carotid duplex done in July 2018 , continue to monitor ASD with aneurysmal intra-atrial septum, PA pressure 35 mmHg per echo of , conservative management Dementia Clinical Quality Measures DVT/VTE Risk/Contraindication: Risk Factor Score Per Nursin RFS Level Per Nursing on Admit: 4+=Very High Contraindications-Pharm: Other *list below* Contraindications-Mechi: Other *list below* Other: PANCYTOPENIA MAX PÉREZ MD Jan 28, 2019 1:44 pm
--- NOTE | 2019-01-29 14:59 | Physician Query Clarification ---
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 Please document a response below. PHYSICIAN RESPONSE Pathology Report Findings: Yes,agree w/path dx as documented In responding to this query, please exercise your independent professional judgment. The purpose of this communication is to more accurately reflect the complexity of your patients condition. The fact that a question is asked does not imply that any particular answer is desired or expected. Thank you for your timely response to this clarification. Requestors name: [ ] Phone # [ ] THIS PHYSICIAN QUERY FORM IS A PERMANENT PART OF THE MEDICAL RECORD TOMÁS AGUAYO Jan 29, 2019 14:59 GANESH CRAVEN MD Feb 17, 2019 21:18
[2019-02-09 08:24] LABS: MISC LAB TEST & RESULT IDH1 AND IDH2
== END 2019-01-28 13:30 | DRG 841 ==
LOC: EDUNIT# 08:45 → ER 08:46 → 4TH 10:32 → EDPENDDISTM 01-28 08:39
PROVIDERS: ADMIT Family Medicine; ATTEND Family Medicine
PROC: 07DR3ZX Extraction of Iliac Bone Marrow, Percutaneous Approach, Diagnostic (ICD-10-PCS; principal; 2019-01-27)
PROC: 079T3ZX Drainage of Bone Marrow, Percutaneous Approach, Diagnostic (ICD-10-PCS; 2019-01-27)
DX: C92.90 Myeloid leukemia, unspecified, not having achieved remission (principal); I48.2 Chronic atrial fibrillation; Q21.1 Atrial septal defect; I12.9 Hypertensive chronic kidney disease with stage 1 through stage 4 chronic kidney disease, or unspecified chronic kidney disease; G30.9 Alzheimer's disease, unspecified; F02.80 Dementia in other diseases classified elsewhere, unspecified severity, without behavioral disturbance, psychotic disturbance, mood disturbance, and anxiety; N18.9 Chronic kidney disease, unspecified; R53.1 Weakness; I95.9 Hypotension, unspecified; Z66 Do not resuscitate; I34.0 Nonrheumatic mitral (valve) insufficiency; K57.90 Diverticulosis of intestine, part unspecified, without perforation or abscess without bleeding; Z87.891 Personal history of nicotine dependence; Z79.01 Long term (current) use of anticoagulants; Z91.81 History of falling; Z89.422 Acquired absence of other left toe(s); Z90.79 Acquired absence of other genital organ(s); Z85.828 Personal history of other malignant neoplasm of skin
CPT/HCPCS: 36415; 71045; 80053; 80061; 81000; 82274; 82607; 82728; 82747; 82962; 83540; 83615; 83735; 83874; 83880; 84155; 84165; 84443; 84484; 85007; 85014; 85018; 85027; 85045; 85610; 85730; 86850; 86900; 86901; 86920; 88184; 88237; 88264; 88305; 88311; 88313; 88377; 93005; 93041; 96365; 96366

== ENCOUNTER 2019-03-05 09:06 | Outpatient (RCR) | payer MEDICARE, OTHER ==
[~2019-03-05] VITALS: Ht 182.9 cm; Wt 68.9 kg
[~2019-03-05 09:06] MED LIST changes: +ASCO-262 PO; +BETA15CR37 TOP; +DILT240C97 PO; +DONE10TA41 PO; +FURO20TA4 PO; +MEMA10TA22 PO; +SENN-20 PO
[2019-03-05 09:32] LABS: MEAN PLATELET VOLUME 9.4 FL (7.4-10.4); RED CELL DISTRIBUTION WIDTH 30.4 % (10.0-14.5); WHITE BLOOD COUNT 1.5 10^3/uL (4.3-11.0)
[2019-03-05] MEDS: NS IV 1000 ML 1,000 ML IV SCH ×2 (09:35→10:40)
[2019-03-05 09:41] LABS: HEMOGLOBIN 6.8 G/DL (13.3-17.7)
[2019-03-05 09:55] LABS: ALANINE AMINOTRANSFERASE 11 U/L (0-55); ALBUMIN 3.3 GM/DL (3.2-4.5); ALKALINE PHOSPHATASE 73 U/L (40-136); BILIRUBIN,TOTAL 2.1 MG/DL (0.1-1.0); BUN/CREATININE RATIO 18; CALCIUM 8.5 MG/DL (8.5-10.1); CARBON DIOXIDE 23 MMOL/L (21-32); CHLORIDE 105 MMOL/L (98-107); CREATININE SERUM 1.11 MG/DL (0.60-1.30); GFR ESTIMATED > 60; GLUCOSE 121 MG/DL (70-105); POTASSIUM 4.1 MMOL/L (3.6-5.0); SODIUM 136 MMOL/L (135-145)
[2019-03-05] MEDS ORDERED: NS IV 500 ML 500 ML ONE (11:35)
[2019-03-05 12:00] VITALS: BP 97/60
[2019-03-05 12:20] VITALS: BP 107/68
[2019-03-05 14:00] VITALS: BP 89/66
[2019-03-05 14:40] VITALS: BP 100/59
[2019-03-05 16:40] VITALS: BP 104/65
[2019-03-05 17:10] VITALS: BP 104/65
== END 2019-03-05 17:10 | disposition home or self-care (01) ==
LOC: SDC 09:06
PROVIDERS: ATTEND Nurse Practitioner Family
DX: I95.9 Hypotension, unspecified (principal); R55 Syncope and collapse; D64.9 Anemia, unspecified
CPT/HCPCS: 36415; 36430; 80053; 85014; 85018; 85027; 86850; 86900; 86901; 86920; 96360; 96361

== ENCOUNTER 2019-04-01 08:15 | Outpatient (RCR) | payer MEDICARE, OTHER ==
[2019-02-09 09:16] LABS: BASOPHILS % (AUTO) 1 % (0-10); EOSINOPHILS % (AUTO) 1 % (0-10); HEMATOCRIT 26 % (40-54); HEMOGLOBIN 7.9 G/DL (13.3-17.7); LYMPHOCYTES # (AUTO) 1.7 X 10^3 (1.0-4.0); LYMPHOCYTES % (AUTO) 63 % (12-44); MEAN CORPUSCULAR HEMOGLOBIN 32 PG (25-34); MEAN CORPUSCULAR HGB CONC 30 G/DL (32-36); MEAN CORPUSCULAR VOLUME 107 FL (80-99); MEAN PLATELET VOLUME 8.7 FL (7.4-10.4); MONOCYTES # (AUTO) 0.4 X 10^3 (0.0-1.0); MONOCYTES % (AUTO) 14 % (0-12); NEUTROPHILS # (AUTO) 0.6 X 10^3 (1.8-7.8); NEUTROPHILS % (AUTO) 21 % (42-75); PLATELET COUNT 43 10^3/uL (130-400); RED CELL DISTRIBUTION WIDTH 24.2 % (10.0-14.5); WHITE BLOOD COUNT 2.7 10^3/uL (4.3-11.0)
[2019-02-09 09:48] LABS: BILIRUBIN,TOTAL 1.1 MG/DL (0.1-1.0); CREATININE SERUM 1.15 MG/DL (0.60-1.30); POTASSIUM 3.8 MMOL/L (3.6-5.0); TOTAL PROTEIN 6.3 GM/DL (6.4-8.2)
[2019-02-12 13:22] LABS: BASOPHILS % (AUTO) 0 % (0-10); EOSINOPHILS % (AUTO) 0 % (0-10); HEMATOCRIT 26 % (40-54); LYMPHOCYTES # (AUTO) 1.4 X 10^3 (1.0-4.0); LYMPHOCYTES % (AUTO) 52 % (12-44); MEAN CORPUSCULAR HEMOGLOBIN 33 PG (25-34); MEAN CORPUSCULAR HGB CONC 31 G/DL (32-36); MEAN CORPUSCULAR VOLUME 106 FL (80-99); MEAN PLATELET VOLUME 10.9 FL (7.4-10.4); MONOCYTES # (AUTO) 0.4 X 10^3 (0.0-1.0); MONOCYTES % (AUTO) 14 % (0-12); NEUTROPHILS # (AUTO) 0.9 X 10^3 (1.8-7.8); NEUTROPHILS % (AUTO) 34 % (42-75); PLATELET COUNT 48 10^3/uL (130-400); WHITE BLOOD COUNT 2.7 10^3/uL (4.3-11.0)
[2019-02-12 13:45] LABS: CALCIUM 9.2 MG/DL (8.5-10.1); CREATININE SERUM 1.2 MG/DL (0.60-1.30); POTASSIUM 4.1 MMOL/L (3.6-5.0)
[2019-03-11 15:49] LABS: BASOPHILS # (AUTO) 0.1 10^3/uL (0.0-0.1); BASOPHILS % (AUTO) 3 % (0-10); EOSINOPHILS # (AUTO) 0.1 10^3/uL (0.0-0.3); EOSINOPHILS % (AUTO) 2 % (0-10); HEMATOCRIT 26 % (40-54); HEMOGLOBIN 8.2 G/DL (13.3-17.7); LYMPHOCYTES # (AUTO) 1.5 X 10^3 (1.0-4.0); LYMPHOCYTES % (AUTO) 55 % (12-44); MEAN CORPUSCULAR HEMOGLOBIN 33 PG (25-34); MEAN CORPUSCULAR HGB CONC 31 G/DL (32-36); MEAN CORPUSCULAR VOLUME 106 FL (80-99); MEAN PLATELET VOLUME 10.8 FL (7.4-10.4); MONOCYTES # (AUTO) 0.7 X 10^3 (0.0-1.0); MONOCYTES % (AUTO) 26 % (0-12); NEUTROPHILS # (AUTO) 0.4 X 10^3 (1.8-7.8); NEUTROPHILS % (AUTO) 13 % (42-75); RED CELL DISTRIBUTION WIDTH 27.7 % (10.0-14.5); WHITE BLOOD COUNT 2.7 10^3/uL (4.3-11.0)
[2019-03-11 15:52] LABS: PLATELET COUNT 34 10^3/uL (130-400)
[2019-03-18 08:25] LABS: BASOPHILS # (AUTO) 0.1 10^3/uL (0.0-0.1); BASOPHILS % (AUTO) 2 % (0-10); EOSINOPHILS # (AUTO) 0.1 10^3/uL (0.0-0.3); EOSINOPHILS % (AUTO) 1 % (0-10); HEMATOCRIT 24 % (40-54); HEMOGLOBIN 7.2 G/DL (13.3-17.7); LYMPHOCYTES # (AUTO) 1.7 X 10^3 (1.0-4.0); LYMPHOCYTES % (AUTO) 46 % (12-44); MEAN CORPUSCULAR HEMOGLOBIN 32 PG (25-34); MEAN CORPUSCULAR HGB CONC 30 G/DL (32-36); MEAN CORPUSCULAR VOLUME 108 FL (80-99); MEAN PLATELET VOLUME 9.5 FL (7.4-10.4); MONOCYTES # (AUTO) 0.8 X 10^3 (0.0-1.0); MONOCYTES % (AUTO) 21 % (0-12); NEUTROPHILS # (AUTO) 1.1 X 10^3 (1.8-7.8); NEUTROPHILS % (AUTO) 30 % (42-75); RED CELL DISTRIBUTION WIDTH 27.7 % (10.0-14.5); WHITE BLOOD COUNT 3.7 10^3/uL (4.3-11.0)
[2019-03-18 08:29] LABS: PLATELET COUNT 33 10^3/uL (130-400)
[2019-03-25 08:28] LABS: BASOPHILS # (AUTO) 0.1 10^3/uL (0.0-0.1); BASOPHILS % (AUTO) 4 % (0-10); EOSINOPHILS # (AUTO) 0.1 10^3/uL (0.0-0.3); EOSINOPHILS % (AUTO) 2 % (0-10); HEMATOCRIT 24 % (40-54); HEMOGLOBIN 7.6 G/DL (13.3-17.7); LYMPHOCYTES # (AUTO) 1.5 X 10^3 (1.0-4.0); LYMPHOCYTES % (AUTO) 46 % (12-44); MEAN CORPUSCULAR HEMOGLOBIN 33 PG (25-34); MEAN CORPUSCULAR HGB CONC 31 G/DL (32-36); MEAN CORPUSCULAR VOLUME 106 FL (80-99); MEAN PLATELET VOLUME 11.1 FL (7.4-10.4); MONOCYTES # (AUTO) 0.8 X 10^3 (0.0-1.0); MONOCYTES % (AUTO) 26 % (0-12); NEUTROPHILS # (AUTO) 0.8 X 10^3 (1.8-7.8); NEUTROPHILS % (AUTO) 23 % (42-75); RED CELL DISTRIBUTION WIDTH 25.2 % (10.0-14.5); WHITE BLOOD COUNT 3.3 10^3/uL (4.3-11.0)
[2019-03-25 08:32] LABS: PLATELET COUNT 32 10^3/uL (130-400)
[~2019-04-01] VITALS: Ht 182.9 cm; Wt 67.6 kg
[~2019-04-01 08:15] MED LIST changes: +ACETAMINOPHEN 500 MG TAB (TYLENOL) CANCER CTR ONE; +DECITABINE IV SCH; +NS IV 1000 ML (CANCER CTR) IV SCH; +NS IV 500 ML (CANCER CENTER) 500 ML ONE; +NS IV SCH; +ONDANSETRON MDV (CANCER CENTER 16 MG, DEXAMETHASONE INJ (CANCER CTR) 4 MG in NS (IVPB) ... IV SCH
[2019-04-01 08:38] LABS: BASOPHILS % (AUTO) 0 % (0-10); EOSINOPHILS # (AUTO) 0.1 10^3/uL (0.0-0.3); EOSINOPHILS % (AUTO) 3 % (0-10); HEMATOCRIT 25 % (40-54); HEMOGLOBIN 7.6 G/DL (13.3-17.7); LYMPHOCYTES # (AUTO) 1.3 X 10^3 (1.0-4.0); LYMPHOCYTES % (AUTO) 53 % (12-44); MEAN CORPUSCULAR HEMOGLOBIN 33 PG (25-34); MEAN CORPUSCULAR HGB CONC 31 G/DL (32-36); MEAN CORPUSCULAR VOLUME 108 FL (80-99); MEAN PLATELET VOLUME 10.5 FL (7.4-10.4); MONOCYTES # (AUTO) 0.4 X 10^3 (0.0-1.0); MONOCYTES % (AUTO) 18 % (0-12); NEUTROPHILS # (AUTO) 0.6 X 10^3 (1.8-7.8); NEUTROPHILS % (AUTO) 26 % (42-75); RED CELL DISTRIBUTION WIDTH 25.3 % (10.0-14.5); WHITE BLOOD COUNT 2.4 10^3/uL (4.3-11.0)
[2019-04-01 08:44] LABS: PLATELET COUNT 26 10^3/uL (130-400)
[2019-04-01 08:59] LABS: ALANINE AMINOTRANSFERASE 8 U/L (0-55); ALBUMIN 2.7 GM/DL (3.2-4.5); ALKALINE PHOSPHATASE 51 U/L (40-136); BILIRUBIN,TOTAL 1.4 MG/DL (0.1-1.0); BUN/CREATININE RATIO 17; CALCIUM 8.5 MG/DL (8.5-10.1); CARBON DIOXIDE 26 MMOL/L (21-32); CHLORIDE 105 MMOL/L (98-107); CREATININE SERUM 0.88 MG/DL (0.60-1.30); GFR ESTIMATED > 60; GLUCOSE 121 MG/DL (70-105); POTASSIUM 4.2 MMOL/L (3.6-5.0); SODIUM 138 MMOL/L (135-145); TOTAL PROTEIN 5.6 GM/DL (6.4-8.2)
[2019-04-01] MEDS ORDERED: ACETAMINOPHEN 500 MG TAB (TYLENOL) CANCER CTR ONE (09:59)
[2019-04-01] MEDS ORDERED: NS IV 500 ML (CANCER CENTER) 500 ML ONE (09:59)
== END 2019-04-30 | disposition home or self-care (01) ==
LOC: ONC 08:15
PROVIDERS: ATTEND Internal Medicine Hematology & Oncology
DX: Z51.11 Encounter for antineoplastic chemotherapy (principal); C92.00 Acute myeloblastic leukemia, not having achieved remission; D61.818 Other pancytopenia; I48.2 Chronic atrial fibrillation; Q21.1 Atrial septal defect; N18.9 Chronic kidney disease, unspecified; I12.9 Hypertensive chronic kidney disease with stage 1 through stage 4 chronic kidney disease, or unspecified chronic kidney disease; Z66 Do not resuscitate; G30.9 Alzheimer's disease, unspecified; F02.80 Dementia in other diseases classified elsewhere, unspecified severity, without behavioral disturbance, psychotic disturbance, mood disturbance, and anxiety; R53.1 Weakness; I95.9 Hypotension, unspecified; I34.0 Nonrheumatic mitral (valve) insufficiency; K57.90 Diverticulosis of intestine, part unspecified, without perforation or abscess without bleeding; Z87.891 Personal history of nicotine dependence; Z79.01 Long term (current) use of anticoagulants; Z91.81 History of falling; Z89.422 Acquired absence of other left toe(s); Z90.79 Acquired absence of other genital organ(s); Z85.828 Personal history of other malignant neoplasm of skin
CPT/HCPCS: 36415; 36430; 80048; 80053; 85025; 86850; 86900; 86901; 86920; 96375; 96413; 99213

== ENCOUNTER 2019-05-17 08:32 | Emergency (ER) | payer MEDICARE, OTHER | END 2019-05-17 08:52 | disposition home or self-care (01) | LOC: ER 08:32 ==